=== PATIENT | female | born 1960 | race African-American/Black ===

== ENCOUNTER 2016-07-27 20:26 | Inpatient (IN) | payer OTHER ==
[~2016-07-27] VITALS: Ht 165.1 cm; Wt 74.4 kg
--- NOTE | 2016-07-27 20:30 | NUR ---
To bed 6 a 56 yo female bibra with c/o "abdominal pain with nausea and vomiting since yesterday". Patient is aaox3, no s/s of acute distress. Seen patient vomiting greenish-brownish secretions. Noted patient with surgical wound from "a week ago" on the medial lower abdomen, wound intact with oscar, no s/s of bleeding. Gowned patient. Placed on front desk monitor. Initiated comfort measures. Awaiting for er md calabrese.
--- NOTE | 2016-07-27 20:35 | NUR ---
Started a saline lock on the right wrist g20.
--- NOTE | 2016-07-27 20:58 | NUR ---
Dr Lynne at bedside for eval.
[2016-07-27] MEDS ORDERED: IV NS 0.9% 1,000 ML ONE (21:09)
[2016-07-27] MEDS ORDERED: MORPHINE SULFATE INJ 4 MG/ML DISP.SYRIN ONE (21:09)
[2016-07-27] MEDS ORDERED: ONDANSETRON HCL/PF 4 MG/2 ML VIAL ONE (21:09)
[2016-07-27] MEDS ORDERED: IV SET PRIMARY 1 EA INFUS.SET MC ONE ×2 (21:09→23:03)
--- NOTE | 2016-07-27 21:24 | NUR ---
medicated patient per Dr Lynne's orders.
--- NOTE | 2016-07-27 21:24 | NUR ---
tractor technician at bedside to draw blood.
[2016-07-27] MEDS ORDERED: ONDANSETRON HCL/PF 4 MG/2 ML VIAL IVP ONE (21:30)
[2016-07-27] MEDS ORDERED: IV NS 0.9% 1,000 ML BAG IV ONE (21:30)
[2016-07-27] MEDS ORDERED: MORPHINE SULFATE INJ 2 MG/ML DISP.SYRIN IV ONE (21:30)
--- NOTE | 2016-07-27 21:39 | NUR ---
xr at bedside
--- NOTE | 2016-07-27 21:52 | NUR ---
patient taken to ct
[2016-07-27 22:14] LABS: CALCIUM, SERUM 9.3 mg/dL (8.5-10.1); CARBON DIOXIDE 19 mmol/L (21-32); CHLORIDE 103 mmol/L (98-107); CREATININE 4.3 mg/dL (0.6-1.3); GFR 13 mL/min (>60); GLUCOSE 105 mg/dL (74-106); POTASSIUM 4.8 mmol/L (3.5-5.1); SODIUM SERUM 137 mmol/L (136-145); UREA NITROGEN, BLOOD 11 mg/dL (7-18)
--- NOTE | 2016-07-27 22:24 | NUR ---
per dr chanda pardo goode catheter order.
[2016-07-27 22:27] LABS: ALANINE AMINOTRANSFERASE < 6 U/L (12-78); ALKALINE PHOSPHATASE 108 U/L (46-116); ASPARTATE AMINOTRANSFERASE 20 U/L (15-37); BILIRUBIN,DIRECT 0.1 mg/dL (0.0-0.2); BILIRUBIN,TOTAL 0.5 mg/dL (0.2-1.0); LIPASE 59 U/L (73-393); TOTAL PROTEIN, SERUM 6.1 g/dL (6.4-8.2)
--- NOTE | 2016-07-27 22:58 | NUR ---
PAGED DR RUPESH FLOWERS FOR ADMISSION.
[2016-07-27] MEDS ORDERED: PIPERACILLIN /TAZOBACTAM 3.375 G in IV D5W 50 ML IV ONE (23:00)
[2016-07-27] MEDS ORDERED: PIPERACILLIN /TAZOBACTAM 3.375 G VIAL IV ONE (23:02)
[2016-07-27] MEDS ORDERED: IV D5W 50 ML IV ONE (23:03)
--- NOTE | 2016-07-27 23:12 | NUR ---
Per Dr Valerio "okay to start zosyn IV atb without blood culture results." Patient's temp at this time is 98.9 per oral.
--- NOTE | 2016-07-27 23:22 | NUR ---
Dr Alves at bedside.
[2016-07-27] MEDS ORDERED: MAGNESIUM HYDROXIDE 30 ML UDC PO PRN (23:30)
[2016-07-27] MEDS ORDERED: Z GUARD REMEDY 2 OZ OINT TP PRN (23:30)
[2016-07-27] MEDS ORDERED: ACETAMINOPHEN 325 MG TABLET PO PRN (23:30)
[2016-07-27] MEDS ORDERED: SENN8.6T6 PO (23:31)
[2016-07-27] MEDS ORDERED: METO-306 PO (23:31)
[2016-07-27] MEDS ORDERED: NIFE60TA2 PO (23:31)
[2016-07-27] MEDS ORDERED: FOLI1TAB16 PO (23:31)
[2016-07-27] MEDS ORDERED: INSU100V SQ (23:31)
[2016-07-27] MEDS ORDERED: LACT10SO7 PO (23:31)
[2016-07-27] MEDS ORDERED: HYDR-4076 PO (23:31)
[2016-07-27] MEDS ORDERED: ISOS30TA6 PO (23:31)
[2016-07-28] MEDS ORDERED: MISCELLANEOUS MED 1 EA EA XX ONE ×3
[2016-07-28 00:06] LABS: BASOPHILS # (AUTO) 0.1 /CMM (0.0-0.2); BASOPHILS % (AUTO) 0.7 % (0.0-2.0); HEMATOCRIT 34 % (33-45); HEMOGLOBIN 10.5 g/dL (11.5-14.8); LYMPHOCYTES # (AUTO) 1.1 /CMM (0.8-4.8); LYMPHOCYTES % (AUTO) 7.1 % (20.0-44.0); MEAN CORPUSCULAR HEMOGLOBIN 28 PG (26.0-33.0); MEAN CORPUSCULAR HGB CONC 31 g/dl (31.0-36.0); MEAN CORPUSCULAR VOLUME 89 fL (82-100); MONOCYTES # (AUTO) 0.7 /CMM (0.1-1.30); MONOCYTES % (AUTO) 4.5 % (2.0-12.0); NEUTROPHILS # (AUTO) 13.8 /CMM (1.8-8.9); NEUTROPHILS % (AUTO) 87.7 % (43.0-81.0); PLATELET COUNT (AUTO) 341 /CMM (150-450); RDW COEFFICIENT OF VARIATION 19.4 (11.5-15.0); WHITE BLOOD COUNT (AUTO) 15.8 K/uL (4.3-11.0)
--- NOTE | 2016-07-28 00:11 | NUR ---
Report given to Rowena Charge nurse for admission on room 119-1.
[2016-07-28 00:28] LABS: LACTIC ACID 0.4 mmol/L (0.4-2.0)
[2016-07-28] MEDS ORDERED: MORPHINE SULFATE INJ 2 MG/ML DISP.SYRIN ONE (00:30)
[2016-07-28] MEDS ORDERED: ONDANSETRON HCL/PF 4 MG/2 ML VIAL ONE (00:30)
[2016-07-28] MEDS ORDERED: *INSULIN REGULAR(HUMULIN R)HUM 100 UNIT/ML VIAL SQ PRN (00:30)
[2016-07-28] MEDS ORDERED: INSULIN REGULAR, HUMAN 100 UNIT/ML 3 ML VIAL SQ PRN (00:30)
[2016-07-28] MEDS ORDERED: DEXTROSE 50%-WATER 50 ML DISP.SYRIN IV PRN (00:30)
[2016-07-28] MEDS: ONDANSETRON HCL/PF 4 MG/2 ML VIAL IVP PRN ×4 (00:36→23:57)
[2016-07-28] MEDS: MORPHINE SULFATE INJ 2 MG/ML DISP.SYRIN IV PRN ×3 (00:37→23:57)
--- NOTE | 2016-07-28 01:00 | NUR ---
Non-admin reglan, dilaudid, benadryl. Patient is assigned in tele bed. Dr Valerio is aware.
[2016-07-28 01:25] VITALS: BP 153/81
--- NOTE | 2016-07-28 01:35 | NUR ---
transported to 119-1 under als protocol, Kavya BEASLEY at bedside for eval.
--- NOTE | 2016-07-28 02:23 | NUR ---
TREY/SUPERVISOR SLITTING AND SHIPPING PT WAS RECEIVED FROM ER, VIA DERREKRKB WITH FAMILY. PT IS ALERT X 4. PT IS ON O2 2 LITERS VIA N/C WITH SATURATION 95%. PT IS ON MONITOR, TELEY. PT IS CURRENTLY NPO, BUT COMPLAINING ABOUT NAUSEA. PT HAS A FEW SKIN ISSUES THAT ARE ADDRESSED IN FLOW SHEET, HOWEVER PT IS S/P ABD. SURGERY 1 WEEK AGO WITH 22 GLO TO ABD WITH FINESSE PRESENT TO SURROUNDING AREA. PT HAS CALL LIGHT WITHIN REACH. PT ORT TO ROOM.
[2016-07-28] MEDS ORDERED: diphenhydrAMINE HCL 50 MG/ML VIAL ONE (02:35)
[2016-07-28] MEDS: diphenhydrAMINE HCL 50 MG/ML VIAL IV PRN (02:41)
--- NOTE | 2016-07-28 03:00 | NUR ---
TREY/DIVERSIONAL THERAPIST PT COMPLAIN ABOUT BEING ITCHY, CHARGE NURSE NOTIFIED BECAUSE THERE WAS NOTHING ORDERED FOR THIS. BENADRYL WAS ORDERED AND CHARGE NURSE RECEIVED ORDERED AND GAVE MEDICATION. CALL LIGHT WITHIN REACH.
[2016-07-28 04:00] VITALS: BP 148/79
[2016-07-28 07:00] LABS: BASOPHILS # (AUTO) 0.1 /CMM (0.0-0.2); BASOPHILS % (AUTO) 0.9 % (0.0-2.0); EOSINOPHILS % (AUTO) 0.1 % (0.0-6.0); HEMATOCRIT 32 % (33-45); HEMOGLOBIN 9.9 g/dL (11.5-14.8); LYMPHOCYTES # (AUTO) 1.2 /CMM (0.8-4.8); LYMPHOCYTES % (AUTO) 8.4 % (20.0-44.0); MEAN CORPUSCULAR HEMOGLOBIN 28 PG (26.0-33.0); MEAN CORPUSCULAR HGB CONC 31 g/dl (31.0-36.0); MEAN CORPUSCULAR VOLUME 89 fL (82-100); MONOCYTES # (AUTO) 0.7 /CMM (0.1-1.30); MONOCYTES % (AUTO) 5.1 % (2.0-12.0); NEUTROPHILS % (AUTO) 85.5 % (43.0-81.0); RDW COEFFICIENT OF VARIATION 19.6 (11.5-15.0); WHITE BLOOD COUNT (AUTO) 14.1 K/uL (4.3-11.0)
[2016-07-28 07:09] LABS: ALANINE AMINOTRANSFERASE < 6 U/L (12-78); ALBUMIN 1.9 g/dL (3.4-5.0); ALKALINE PHOSPHATASE 90 U/L (46-116); ASPARTATE AMINOTRANSFERASE 14 U/L (15-37); BILIRUBIN,TOTAL 0.5 mg/dL (0.2-1.0); CALCIUM, SERUM 8.6 mg/dL (8.5-10.1); CARBON DIOXIDE 26 mmol/L (21-32); CHLORIDE 105 mmol/L (98-107); CREATININE 4.6 mg/dL (0.6-1.3); GFR 12 mL/min (>60); GLUCOSE 89 mg/dL (74-106); PHOSPHORUS 3.5 mg/dL (2.5-4.9); POTASSIUM 4.4 mmol/L (3.5-5.1); SODIUM SERUM 142 mmol/L (136-145); TOTAL PROTEIN, SERUM 5.4 g/dL (6.4-8.2); UREA NITROGEN, BLOOD 11 mg/dL (7-18)
[2016-07-28] MEDS ORDERED: PANTOPRAZOLE 40 MG TABLET.DR PO SCH (07:30)
[2016-07-28] MEDS ORDERED: LACTULOSE 10 G/15 ML UDC (PYXIS) PO PRN ×2 (07:54→14:00)
--- NOTE | 2016-07-28 07:54 | NUR ---
INITIAL SURVEY ANALYST NOTE RCVD PT AWAKE AND ALERT SHOWING NO S/O DISTRESS OR C/O PAIN. TOLERATING O2 VIA NC. SR ON TELE HR 87. RIGHT WRIST #20 C/D/I/PATENT. NO C/O INFILTRATION OR PHLEBITIS OBSERVED UPON FLUSHING. ABDOMINAL AREA DRESSING C/D/I.WILL CONTINUE TO MONITOR PT FOR SAFETY AND COMFORT. CALL LIGHT WITHIN REACH. BED IN LOW AND LOCKED POSITION.
[2016-07-28 08:00] VITALS: BP 159/90
[2016-07-28] MEDS: BLOOD SUGAR DIAGNOSTIC 1 EACH STRIP IN SCH ×4 (08:26→22:00)
[2016-07-28] MEDS: FOLIC ACID 1 MG TABLET PO SCH (08:32)
[2016-07-28] MEDS: SENNOSIDES 8.6 MG TABLET PO SCH (08:32)
[2016-07-28] MEDS: MAG HYDROX/AL HYDROX/SIMETH 30 ML UDC PO PRN ×2 (08:33→15:55)
--- NOTE | 2016-07-28 08:44 | NUR ---
RN NOTES PT NAUSEATED THREW UP SMALL AMOUNT OF WHITE EMESIS. MAALOX, ZOFRAN GIVENA S PRN ORDERS FOR NAUSEA. STABLE AT THIS TIME. WILL CONTINUE TO MONITOR.
[2016-07-28 09:00] LABS: PLATELET COUNT (AUTO) 273 /CMM (150-450)
[2016-07-28] MEDS: ISOSORBIDE MONONITRATE (30MG) 30 MG TAB.SR.24H PO SCH (09:00)
[2016-07-28] MEDS: METOPROLOL SUCCINATE 50 MG TAB.SR.24H PO SCH (09:00)
[2016-07-28] MEDS: NIFEdipine XL 60 MG TAB PO SCH (09:00)
[2016-07-28] MEDS: hydrALAZINE HCL 25 MG TABLET PO SCH ×3 (09:00→17:09)
[2016-07-28 09:02] LABS: ANISOCYTOSIS 2+; HYPOCHROMASIA 1+; PLATELET ESTIMATE ADEQU
--- NOTE | 2016-07-28 09:11 | NUR ---
RN NOTE PT VERBALIZED RELIEF OF NAUSEA AT THIS TIME. PROTONIX GIVENAS ORDERED. WILL CONTINUE TO MONITOR
--- NOTE | 2016-07-28 09:45 | NUR ---
FIELD ENUMERATOR NOTE PT'S BP MEDS HELD THIS AM DUE TO DIALYSIS SCHEDULED FOR TODAY. WILL CONTINUE TO MONITOR.
[2016-07-28 12:00] VITALS: BP 161/82
--- NOTE | 2016-07-28 12:18 | NUR ---
COUPLES THERAPIST NOTE DR. JARRETT AT BEDSIDE INFORMED HIM OF PT'S FEELING OF NAUSEA AND GASTRIC INGA. PT C/O CHEST PAIN. REQUESTED TO CHANGE PROTONIC PO TO IV. MD AGREE. ORDER ENTERED.
--- NOTE | 2016-07-28 13:04 | NUR ---
RN NOTE LEFT MID ARM SHUNT ASSESSMET NO BRUITS NO THRILLS PRESENT. BILL DIALYSIS NURSE NOTIFIED SURGEON. PT ON DIALYSIS AT THIS TIME. WILL CONTINUE TO MONITOR
--- NOTE | 2016-07-28 13:49 | NUR ---
RT ABG NOT DONE, PATIENT IS CURRENTLY ON DIALYSIS WITH NO SOB. PATIENT AWAKE AND ALERT SAYS SHES FEELING FINE. RN LESTER AWARE AND AT BEDSIDE. IF PATIENT BECOMES DISTRESS ABG WILL BE DONE
[2016-07-28] MEDS ORDERED: BISACODYL SUPP (10 MG) 10 MG/SUPP.RECT SUPP.RECT RC PRN (14:00)
--- NOTE | 2016-07-28 14:09 | NUR ---
TRANSPORTATION ASSOCIATE NOTE SPOKE WITH DR. MARQUEZ REGARDING PT'S CONDITION. INFORMED HIM THAT PHARMACIST BELIEVED THAT PT NEEDS ABX. NO ORDERS RCVD. INFORMED HIM ABOUT PT'S , ABD PAIN, N/V COMPLAINTS AND SEROMA FOUND IN CT ABD/PELVIS. HE ACKNOWLEDGED AND ASSESSED PT. NO NEW ORDERS RCVD.
--- NOTE | 2016-07-28 14:38 | NUR ---
RN NOTES DIALYSIS DONE 3L OF FLUIDS OUT. T. 98.5 R. 18 BP 143/51 P. 86 COMFORTABLE POST DIALYSIS. VS STABLE .
[2016-07-28 16:00] VITALS: BP_SYST 135; BP_SYST 92; BP_DIAS 48; BP_DIAS 79
[2016-07-28] MEDS: HEPARIN SODIUM, PORCINE 5000 UNITS/1 ML VIAL SQ SCH (17:11)
--- NOTE | 2016-07-28 18:43 | NUR ---
RN NOTE PT VS STABLE. BLADDER SCAN DONE WITH LESS THAN 200ML RESIDUAL. DIALYSIS DONE WITH 3L FLUID REMOVAL. DENIES N/V AT THIS TIME. MOM GIVEN PRN WITH RELIEF OF SYMPTOMS. IV SITE RT. WRIST DRY AND INTACT. LEFT FA SHUNT NO THRILLS, NO BRUITS. MD NOTIFIED. STARTED ON HEPARIN 5000U THERAPY BID. SCDS APPLIED BILAT TO PROMOTE CIRCULATION GENERALIZED EDEMA. IMPROVED POST DIALYIS. WILL ENDORSE PT CARE TO ONCOMING RN
[2016-07-28 20:00] VITALS: BP 122/68
[2016-07-29] VITALS (7 sets, daily range): BP systolic 116–167; BP diastolic 64–97
[2016-07-29] MEDS: ONDANSETRON HCL/PF 4 MG/2 ML VIAL IVP PRN ×4 (03:12→20:30)
[2016-07-29] MEDS: MAG HYDROX/AL HYDROX/SIMETH 30 ML UDC PO PRN (03:22)
[2016-07-29] MEDS: diphenhydrAMINE HCL 50 MG/ML VIAL IV PRN ×2 (03:43→13:23)
[2016-07-29] MEDS: MORPHINE SULFATE INJ 2 MG/ML DISP.SYRIN IV PRN ×5 (04:18→20:26)
--- NOTE | 2016-07-29 06:00 | NUR ---
CHASSIS ENGINEER - REC'D PT. S/P HYSTERECTOMY W/STAPES TO ABD. OPEN TO AIR & INTACT. ZOFRAN 4MG ADM. FOR N&V AT 23:57, MORPHINE SULFATE 2MG IVP ADM. MN & O4:OO. PT'S ONLY PIV BLEW. TOY ASSEMBLER ELSA RESTARTED A 24G-TO RT. THUMB. PATENT TO FLUSH. PT.THEN REC'D BENADRYL 25 MG SLOW IVP AT 03:40 FOR PRURITIS. MAALOX ADM. AT 4AM BY TOY ASSEMBLER. PT. STILL DID NOT SLEEP AT ALL FOR DURATION OF NIGHTSHIFT. REPORT ENDORSED TO MATT BEASLEY.
[2016-07-29] MEDS: HYDROCODONE/APAP 5/325MG 1 EACH TABLET PO PRN (06:37)
[2016-07-29 07:06] LABS: CREATININE 3.9 mg/dL (0.6-1.3); PHOSPHORUS 2.3 mg/dL (2.5-4.9); POTASSIUM 4.1 mmol/L (3.5-5.1)
[2016-07-29 07:14] LABS: BASOPHILS # (AUTO) 0.1 /CMM (0.0-0.2); BASOPHILS % (AUTO) 0.5 % (0.0-2.0); EOSINOPHILS # (AUTO) 0.1 /CMM (0.0-0.7); EOSINOPHILS % (AUTO) 1.2 % (0.0-6.0); HEMATOCRIT 30 % (33-45); HEMOGLOBIN 9.4 g/dL (11.5-14.8); LYMPHOCYTES # (AUTO) 0.9 /CMM (0.8-4.8); LYMPHOCYTES % (AUTO) 8.9 % (20.0-44.0); MEAN CORPUSCULAR HEMOGLOBIN 28 PG (26.0-33.0); MEAN CORPUSCULAR HGB CONC 31 g/dl (31.0-36.0); MEAN CORPUSCULAR VOLUME 89 fL (82-100); MONOCYTES # (AUTO) 0.7 /CMM (0.1-1.30); MONOCYTES % (AUTO) 6.5 % (2.0-12.0); NEUTROPHILS # (AUTO) 8.7 /CMM (1.8-8.9); NEUTROPHILS % (AUTO) 82.9 % (43.0-81.0); PLATELET COUNT (AUTO) 232 /CMM (150-450); RDW COEFFICIENT OF VARIATION 19.3 (11.5-15.0); RED BLOOD CELL COUNT(AUTO) 3.42 MIL/uL (4.0-5.2); WHITE BLOOD COUNT (AUTO) 10.5 K/uL (4.3-11.0)
--- NOTE | 2016-07-29 08:00 | NUR ---
telecommunication operator note patient in bed , all needs attended , plan of care discussed with patient, vall light within reach ,c\o pain general in body, morphine and Zofran iv given as ordered, sat 98% ,with clear liquid diet as ordered , rt thump hl intact ,no s\s infection noted , rt cw hd cath intact ,with both legs with dvr pumps ,will cont to monitor closely ,no sob noted Addendum: 07/29/16 at 1813 by MATT BAKER RN call light within reach
[2016-07-29] MEDS: BLOOD SUGAR DIAGNOSTIC 1 EACH STRIP IN SCH ×4 (08:13→21:50)
[2016-07-29] MEDS: METOPROLOL SUCCINATE 50 MG TAB.SR.24H PO SCH (09:00)
[2016-07-29] MEDS: hydrALAZINE HCL 25 MG TABLET PO SCH ×3 (09:00→16:25)
[2016-07-29] MEDS: NIFEdipine XL 60 MG TAB PO SCH (09:00)
[2016-07-29] MEDS ORDERED: SENNOSIDES/DOCUSATE SODIUM 1 TAB TABLET PO SCH (09:00)
[2016-07-29] MEDS: HEPARIN SODIUM, PORCINE 5000 UNITS/1 ML VIAL SQ SCH ×2 (09:00→21:00)
[2016-07-29] MEDS: FOLIC ACID 1 MG TABLET PO SCH (09:00)
[2016-07-29] MEDS: SENNOSIDES 8.6 MG TABLET PO SCH ×2 (09:20→10:26)
[2016-07-29] MEDS: PANTOPRAZOLE 40 MG TABLET.DR PO SCH (09:21)
[2016-07-29] MEDS: ISOSORBIDE MONONITRATE (30MG) 30 MG TAB.SR.24H PO SCH (09:22)
--- NOTE | 2016-07-29 09:32 | NUR ---
television news photographer note refused po morning meds emplaned how importance, still refused , will notifyed to Addendum: 07/29/16 at 1815 by MATT BAKER RN explained importance of meds
--- NOTE | 2016-07-29 12:22 | NUR ---
JENNY BEASLEY NOTE REFUSED BP MEDS AT THI TIME APRESOLINE EMPLANED OF IMPORTANCE STILL REFUSED, WILL KHADIJAH Addendum: 07/29/16 at 1817 by MATT BAKER RN refused bp meds at this time , Apresoline , explained of importance , still refused, will monitor
--- NOTE | 2016-07-29 13:27 | NUR ---
YOUTH WORKER NOTE CALLED TO KIMMIE العراقي DNP ,NOTIFIED THAT PATIENT REFUSED MOST OF HER MEDICATION , ALSO NOTIFIED THAT PATIENT STILL C\O OF HEARD OF SWALLOW, OK TO ORDER SWALLOW EVAL , NOTIFIED THAT X RAY RESULT STILL PENDING.PATIENT C\O OF ITCHINESS, ON HD AT THIS TIME , BENADRYL 25 MG IVP GIVEN ORDERED, WILL F\U
--- NOTE | 2016-07-29 14:52 | NUR ---
ELECTRICAL DISCHARGE MACHINE OPERATOR NOTE HD COMPLETED 2300 ML FLUIDS REMOVED , C\O NAUSEA ZOFRAN 4 MG IV GIVEN ORDERED
--- NOTE | 2016-07-29 15:00 | NUR ---
MERCHANDISE CARRIER NOTE SEEN BY PT ,ABLE TO DO SOME EXERCISES IN BED , REFUSED TO GET OUT OF BED
--- NOTE | 2016-07-29 17:33 | NUR ---
telephone operator note blood sugar 89 mg\ dl ,no coverage with insulin, morphine 2mg ivp given as ordered for pain 8\10scale for general pain in body ,sat 98% also seen bu dr waterman ordered ct chest with thoracentesis, patient refused to sign consent ,stated that will do tomorrow
--- NOTE | 2016-07-29 18:18 | NUR ---
MARRIAGE AND FAMILY THERAPIST NOTE HAVING DINNER , ABLE TO EAT SELF,NOT IN ACUTE DISTRESS
[2016-07-29 18:53] LABS: INR 1.22 (0.87-1.13); PROTHROMBIN TIME 13.2 SECS (9.5-12.7)
--- NOTE | 2016-07-29 19:30 | NUR ---
REGASIFICATION PLANT OPERATOR OPENING NOTES: PATIENT IN BED, AOX4, ON O2 AT 2 LPM VIA NC. BREATHING EVEN AND UNLABORED AT THIS TIME. BREATH SOUNDS CLEAR AT UPPER LUNG [place], DIMINISHED OVER BASES. ON TELE MONITORING WITH SINUS RHYTHM AT RATE OF 90S. PATIENT STATES THAT SHE HAS ABDOMINAL AND GENERALIZED PAIN SCALED AT 8/10. REASSURED PATIENT AND EXPLAINED SCHEDULE OF PAIN MEDICATION. PATIENT HAS RCW HD CATHETER WITH CLEAN INTACT DRESSING. PIV OVER RFA G 22 INTACT AND PATENT TO FLUSH. PROVIDED FOR COMFORT AND SAFETY. ADVISED ON NPO POST MIDNIGHT. WILL CONT TO MONITOR.
--- NOTE | 2016-07-29 20:30 | NUR ---
RN NOTES: PATIENT'S BP WAS 164/97, HR: 92. INFORMED DR FLOWERS, PATIENT DOES NOT HAVE PRN MEDICATION. ORDER FOR PRN APRESOLINE 10 MG PO PRN FOR SBP >160 MMHG WAS GIVEN BY . ORDER CARRIED OUT, BUT MORPHINE WILL BE GIVEN, WILL RECHECK BP AFTER MORPHINE. WILL CONT TO MONITOR.
--- NOTE | 2016-07-29 20:34 | NUR ---
RN NOTES: PATIENT COMPLAINED OF 8/10 LOWER BACK AND GENERALIZED PAIN. PATIENT WAS ALSO NOTED TO BE NAUSEOUS. HOB KEPT ELEVATED. ADMINISTERED ZOFRAN 4 MG IV THEN MORPHINE 2 MG IV. WILL CONT TO MONITOR.
[2016-07-29] MEDS ORDERED: hydrALAZINE HCL 10 MG TABLET PO PRN (21:00)
--- NOTE | 2016-07-29 21:00 | NUR ---
RN NOTES: PER DR FLOWERS, OK TO HOLD HEPARIN 5000 UNITS SQ THAT IS SCHEDULED FOR TONIGHT IN ANTICIPATION OF THORACENTESIS TOMORROW.
[2016-07-30] VITALS (9 sets, daily range): BP systolic 92–159; BP diastolic 52–95
[2016-07-30] MEDS: MORPHINE SULFATE INJ 2 MG/ML DISP.SYRIN IV PRN ×5 (02:34→22:03)
[2016-07-30] MEDS: ONDANSETRON HCL/PF 4 MG/2 ML VIAL IVP PRN ×4 (02:42→22:03)
[2016-07-30] MEDS: diphenhydrAMINE HCL 50 MG/ML VIAL IV PRN ×4 (03:35→21:20)
--- NOTE | 2016-07-30 05:27 | NUR ---
RN NOTES: D/W PATIENT HER CONSENT FOR THORACENTESIS, PER PATIENT, SHE WILL NOT SIGN ANY CONSENT FOR TODAY, SHE WANTS TO HAVE THE PROCEDURE DONE POSSIBLY TOMORROW, FARRAH.
[2016-07-30] MEDS: BLOOD SUGAR DIAGNOSTIC 1 EACH STRIP IN SCH ×4 (06:34→21:19)
[2016-07-30 06:44] LABS: BASOPHILS % (AUTO) 0.1 % (0.0-2.0); EOSINOPHILS # (AUTO) 0.2 /CMM (0.0-0.7); EOSINOPHILS % (AUTO) 1.8 % (0.0-6.0); HEMATOCRIT 31 % (33-45); HEMOGLOBIN 9.5 g/dL (11.5-14.8); LYMPHOCYTES # (AUTO) 0.8 /CMM (0.8-4.8); LYMPHOCYTES % (AUTO) 9.4 % (20.0-44.0); MEAN CORPUSCULAR HEMOGLOBIN 27 PG (26.0-33.0); MEAN CORPUSCULAR HGB CONC 31 g/dl (31.0-36.0); MEAN CORPUSCULAR VOLUME 89 fL (82-100); MONOCYTES # (AUTO) 0.7 /CMM (0.1-1.30); MONOCYTES % (AUTO) 7.9 % (2.0-12.0); NEUTROPHILS % (AUTO) 80.8 % (43.0-81.0); PLATELET COUNT (AUTO) 225 /CMM (150-450); RDW COEFFICIENT OF VARIATION 18.9 (11.5-15.0); RED BLOOD CELL COUNT(AUTO) 3.48 MIL/uL (4.0-5.2); WHITE BLOOD COUNT (AUTO) 8.7 K/uL (4.3-11.0)
--- NOTE | 2016-07-30 06:50 | NUR ---
NURSE CLOSING NOTES: PATIENT IN BED, AOX4, ON O2 AT 2 LPM VIA NC. BREATHING EVEN AND UNLABORED. ON TELE MONITORING WITH SINUS RHYTHM AT RATE OF 90S. APPEARS CALM AND IN NO DISTRESS. STATES THAT SHE STILL HAS GENERALIZED PAIN SCALED AT 6/10. PIV OVER RFA G 22 INTACT AND PATENT TO FLUSH. DUE MEDS GIVEN. PROVIDED FOR COMFORT AND SAFETY. BLOOD SUGAR CHECKED AT 74 MG/DL. NO ACUTE CHANGE IN CONDITION NOTED THROUGH SHIFT. WILL ENDORSE TO AM RN FOR HAILE.
[2016-07-30 07:09] LABS: ALANINE AMINOTRANSFERASE < 6 U/L (12-78); ALBUMIN 1.9 g/dL (3.4-5.0); ALKALINE PHOSPHATASE 93 U/L (46-116); ASPARTATE AMINOTRANSFERASE 12 U/L (15-37); BILIRUBIN,TOTAL 0.4 mg/dL (0.2-1.0); CALCIUM, SERUM 7.8 mg/dL (8.5-10.1); CARBON DIOXIDE 30 mmol/L (21-32); CHLORIDE 102 mmol/L (98-107); CREATININE 4.2 mg/dL (0.6-1.3); GFR 13 mL/min (>60); GLUCOSE 73 mg/dL (74-106); MAGNESIUM 2.1 mg/dL (1.8-2.4); PHOSPHORUS 2.1 mg/dL (2.5-4.9); POTASSIUM 3.9 mmol/L (3.5-5.1); SODIUM SERUM 139 mmol/L (136-145); TOTAL PROTEIN, SERUM 5.2 g/dL (6.4-8.2); UREA NITROGEN, BLOOD 9 mg/dL (7-18)
--- NOTE | 2016-07-30 07:20 | NUR ---
RN INITIAL NOTES PT IS IN BED, HOB ELEVATED AT 35 DEGREES. SIDERAILS X3, A/O X4, REORIENT PT TO ROOM, PT IS ON 2L NS AND LUIS ANGEL IT WELL, IV SITES IS PATENT, NO SIGNS AND SYMPTOMS OF INFECTION OR INFILTRATION. SAFETY MEASURES MAINTAINED CALL LIGHTS WITHIN REACH.
--- NOTE | 2016-07-30 08:00 | NUR ---
RN NOTES; Patient noted PL6/10 PS, offered [place]orn but refused, stated she will just wait for her Morphine dose to be given.
[2016-07-30] MEDS: NIFEdipine XL 60 MG TAB PO SCH (08:44)
[2016-07-30] MEDS: HEPARIN SODIUM, PORCINE 5000 UNITS/1 ML VIAL SQ SCH ×2 (08:45→16:18)
[2016-07-30] MEDS: METOPROLOL SUCCINATE 50 MG TAB.SR.24H PO SCH (08:46)
[2016-07-30] MEDS: FOLIC ACID 1 MG TABLET PO SCH (08:46)
[2016-07-30] MEDS: SENNOSIDES 8.6 MG TABLET PO SCH (08:46)
[2016-07-30] MEDS: ISOSORBIDE MONONITRATE (30MG) 30 MG TAB.SR.24H PO SCH (08:47)
[2016-07-30] MEDS: PANTOPRAZOLE 40 MG TABLET.DR PO SCH (08:47)
[2016-07-30] MEDS: hydrALAZINE HCL 25 MG TABLET PO SCH ×3 (08:47→17:00)
--- NOTE | 2016-07-30 16:02 | NUR ---
Rn NOTES: Seen and examined by Dr. Kohli today with NNO. Spoke with patient at this time, offered consent for Robe Guided Thoracentesis, she agreed to do it in am, consent up and verbalized understanding of procedure. As per Dr. Gutierrez to hold Heparin Pm and tomorrows dose for procedure in am. ROBE Ernestina Malik noted for procedure in am.
--- NOTE | 2016-07-30 19:00 | NUR ---
RN INITIAL NOTES: PATIENT IN BED, AOX4, ON O2 AT 2 LPM VIA NC. PATIENT STATES THAT SHE HAS ABDOMINAL AND GENERALIZED PAIN SCALED AT 7/10. WILL GIVE PRN OF NORCO PER MD ORDER. PATIENT HAS RCW HD CATHETER WITH CLEAN INTACT DRESSING. PIV OVER RFA G 22 INTACT AND PATENT TO FLUSH. PT SCHEDULED FOR THORACENTESIS 07/31, PT IS NPO AT 0000 07/31/16. CALL LIGHT IS WITHIN REACH. WILL CONTINUE TO MONITOR PT.
--- NOTE | 2016-07-30 19:31 | NUR ---
RN CLOSING NOTES PT IS IN BED, NO SIGNS AND SYMPTOMS OF DISTRESS NOTED, PT IS ON 2L NC, NO RESPIRATORY DISTRESS NOTED. PT WAS ASSISTED WITH TURNING AND REPOSITIONING, IV SITES PATENT, NO SIGNS AND SYMPTOMS OF INFECTION/INFILTRATION NOTED, ALL MEDICATIONS GIVEN AND PT TOLERATED IT WELL. SAFETY MEASURES MAINTAINED, CALL LIGHTS WITHIN REACH. ENDORSED TO THE NIGHT NURSE
[2016-07-30] MEDS: HYDROCODONE/APAP 5/325MG 1 EACH TABLET PO PRN (20:22)
[2016-07-30] MEDS: ZOLPIDEM TARTRATE 5 MG TABLET PO PRN (23:28)
--- NOTE | 2016-07-31 | NUR ---
PT IS NPO PENDING SURGERY THIS AM. PT SHOWS NO S/S OF DISCOMFORT OR DISTRESS. WILL CONTINUE TO EDUCATE AND UPDATE PT ON UPCOMING PROCEDURE.
[2016-07-31] MEDS: MORPHINE SULFATE INJ 2 MG/ML DISP.SYRIN IV PRN ×5 (03:37→20:41)
[2016-07-31 04:00] VITALS: BP 106/70
[2016-07-31] MEDS: ONDANSETRON HCL/PF 4 MG/2 ML VIAL IVP PRN ×3 (04:15→17:56)
[2016-07-31] MEDS ORDERED: BISACODYL SUPP (10 MG) 10 MG/SUPP.RECT SUPP.RECT RC PRN (06:30)
[2016-07-31] MEDS: BLOOD SUGAR DIAGNOSTIC 1 EACH STRIP IN SCH ×4 (06:32→21:50)
[2016-07-31 06:43] LABS: BASOPHILS % (AUTO) 0.2 % (0.0-2.0); EOSINOPHILS # (AUTO) 0.1 /CMM (0.0-0.7); EOSINOPHILS % (AUTO) 1.9 % (0.0-6.0); HEMATOCRIT 29 % (33-45); HEMOGLOBIN 9.2 g/dL (11.5-14.8); LYMPHOCYTES % (AUTO) 17.1 % (20.0-44.0); MEAN CORPUSCULAR HEMOGLOBIN 28 PG (26.0-33.0); MEAN CORPUSCULAR HGB CONC 31 g/dl (31.0-36.0); MEAN CORPUSCULAR VOLUME 89 fL (82-100); MONOCYTES # (AUTO) 0.6 /CMM (0.1-1.30); MONOCYTES % (AUTO) 9.5 % (2.0-12.0); NEUTROPHILS # (AUTO) 4.3 /CMM (1.8-8.9); NEUTROPHILS % (AUTO) 71.3 % (43.0-81.0); PLATELET COUNT (AUTO) 246 /CMM (150-450); RDW COEFFICIENT OF VARIATION 18.8 (11.5-15.0); RED BLOOD CELL COUNT(AUTO) 3.29 MIL/uL (4.0-5.2)
--- NOTE | 2016-07-31 06:53 | NUR ---
RN CLOSING NOTES PT IS IN BED, NO SIGNS AND SYMPTOMS OF DISTRESS NOTED, PT IS ON 2L NC, NO RESPIRATORY DISTRESS NOTED. PT WAS ASSISTED WITH TURNING AND REPOSITIONING, IV SITES PATENT, NO SIGNS AND SYMPTOMS OF INFECTION/INFILTRATION NOTED, ALL MEDICATIONS GIVEN AND PT TOLERATED IT WELL. SAFETY MEASURES MAINTAINED, CALL LIGHTS WITHIN REACH. ENDORSED TO AM SHIFT.
[2016-07-31 07:03] LABS: CALCIUM, SERUM 7.8 mg/dL (8.5-10.1); MAGNESIUM 2.2 mg/dL (1.8-2.4); PHOSPHORUS 2.4 mg/dL (2.5-4.9); POTASSIUM 4.4 mmol/L (3.5-5.1)
[2016-07-31] MEDS: diphenhydrAMINE HCL 50 MG/ML VIAL IV PRN ×2 (07:59→20:51)
[2016-07-31 08:00] VITALS: BP 109/63
[2016-07-31] MEDS: hydrALAZINE HCL 25 MG TABLET PO SCH ×3 (08:13→16:29)
[2016-07-31] MEDS: ISOSORBIDE MONONITRATE (30MG) 30 MG TAB.SR.24H PO SCH (08:14)
[2016-07-31] MEDS: NIFEdipine XL 60 MG TAB PO SCH (08:14)
[2016-07-31] MEDS: FOLIC ACID 1 MG TABLET PO SCH (08:14)
[2016-07-31] MEDS: PANTOPRAZOLE 40 MG TABLET.DR PO SCH (08:15)
[2016-07-31] MEDS: SENNOSIDES 8.6 MG TABLET PO SCH (08:17)
[2016-07-31] MEDS: METOPROLOL SUCCINATE 50 MG TAB.SR.24H PO SCH (08:17)
[2016-07-31] MEDS: HEPARIN SODIUM, PORCINE 5000 UNITS/1 ML VIAL SQ SCH ×2 (08:18→20:46)
--- NOTE | 2016-07-31 09:30 | NUR ---
RN NOTES RECIEVED PT ON BED, A/Ox4, RESPIRATION EVEN AND UNLABORED , NPO AT THIS TIME, NO DISTRESS NOTED, CONTINUE MONITOR
--- NOTE | 2016-07-31 10:06 | NUR ---
RN NOTES: Report given to [facility] for continuity of care. Seen and examined by Dr. Ha with orders noted and carried out, as per MD rosado to resume Heparin injection post procedure and to order g/s, s/c and Cytology fluid post CANDIDA thoracentesis.
--- NOTE | 2016-07-31 15:00 | NUR ---
RN NOTES PT STABLE , THORACENTESES DONE AT THE BEDSIDE , PT TOLERATED WELL, FLUID SENT TO LAB FOR ANALYSES. VSS STABLE .
[2016-07-31 16:00] VITALS: BP 125/76
--- NOTE | 2016-07-31 16:00 | NUR ---
RN NOTES PT REFUSED TO HAVE DIAPER CHANGE .
[2016-07-31 16:20] LABS: GLUCOSE,BODY FLUID 76 mg/dL; PROTEIN, BODY FLUID 2.4 G/DL
[2016-07-31 18:18] LABS: TOTAL VOLUME,BODY FLUID 700 mL; WBC, BODY FLUID 92 /cu. mm. (0-200)
[2016-07-31 18:19] LABS: MONOCYTES,BODY FLUID 2 %; POLYNUCLEAR, BODY FLUID 8 % (0-25)
--- NOTE | 2016-07-31 18:22 | NUR ---
RN NOTS PT AT REST , MEDICATED PER MD ORDER , RESPIRATION EVEN AND UNLABORED , LENNY ANY DISTRESS, NO SIGNIFICANT CHANGES NOTED ON THIS SHIFT .
--- NOTE | 2016-07-31 18:30 | NUR ---
RN NOTES PT REFUSED TO HAVE HER DIAPER CHANGE , EXPLAINED TO PT HOW IMPORTANT IS TO KEEP SKIN CDI, PT STILL REFUSING.
[2016-07-31] MEDS ORDERED: K PHOS NEUTRAL 250 MG TABLET PO ONE (19:00)
[2016-07-31 20:00] VITALS: BP 129/76
--- NOTE | 2016-07-31 20:00 | NUR ---
MS1/RN RECEIVE PATIENT AWAKE, ALERT, ORIENTED, NO DISTRESS NOTED, CALL LIGHT IN REACH. WILL MONITOR.
[2016-07-31] MEDS: ZOLPIDEM TARTRATE 5 MG TABLET PO PRN (21:50)
[2016-08-01] MEDS: MORPHINE SULFATE INJ 2 MG/ML DISP.SYRIN IV PRN ×3 (01:03→12:50)
[2016-08-01] MEDS: ONDANSETRON HCL/PF 4 MG/2 ML VIAL IVP PRN ×3 (01:06→14:53)
--- NOTE | 2016-08-01 02:12 | NUR ---
MS1/RN PATIENT IS SLEEPING AT THIS TIME, AROUSABLE, APPEAR COMFORTABLE, NO SIGNS OF DISTGRESS NOTED, CALL LIGHT IN REACH, WILL CONTINUE TO MONITOR.
[2016-08-01 04:00] VITALS: BP 126/69
--- NOTE | 2016-08-01 06:33 | NUR ---
MS1/RN AWAKE, COMFORTABLE, NO DISTRESS NOTED, NO S/S OF HYPOGLYCEMIA, BLOOD SUGAR = 88. ALL NEEDS ATTENDED AT THIS TIME. WILL CONTINUE TO MONITOR.
[2016-08-01 07:13] LABS: CALCIUM, SERUM 7.9 mg/dL (8.5-10.1); CREATININE 4.8 mg/dL (0.6-1.3); POTASSIUM 4.2 mmol/L (3.5-5.1)
[2016-08-01] MEDS: BLOOD SUGAR DIAGNOSTIC 1 EACH STRIP IN SCH ×2 (07:46→11:50)
[2016-08-01 08:00] VITALS: BP 133/81
[2016-08-01] MEDS: SENNOSIDES 8.6 MG TABLET PO SCH (08:13)
[2016-08-01] MEDS: ISOSORBIDE MONONITRATE (30MG) 30 MG TAB.SR.24H PO SCH (08:13)
[2016-08-01] MEDS: PANTOPRAZOLE 40 MG TABLET.DR PO SCH (08:13)
[2016-08-01] MEDS: FOLIC ACID 1 MG TABLET PO SCH (08:13)
[2016-08-01] MEDS: NIFEdipine XL 60 MG TAB PO SCH (08:13)
[2016-08-01] MEDS: METOPROLOL SUCCINATE 50 MG TAB.SR.24H PO SCH (08:14)
[2016-08-01] MEDS: hydrALAZINE HCL 25 MG TABLET PO SCH ×2 (08:14→12:03)
--- NOTE | 2016-08-01 09:00 | NUR ---
MS RN NOTE Pt resting in bed. AOx4, c/o nausea and abd pain, morphine x1, zofran x1 given. Benadryl x1 given for itchiness. Reports no BM since 07/27/16. Offered milk of magnesia but pt refused. Pt reports having gas. Uriel CDI, left [employer]. Left shunt present. Right forearm IV patent. Will cont to monitor.
[2016-08-01] MEDS: diphenhydrAMINE HCL 50 MG/ML VIAL IV PRN (09:20)
[2016-08-01] MEDS: HEPARIN SODIUM, PORCINE 5000 UNITS/1 ML VIAL SQ SCH (09:30)
[2016-08-01 12:03] VITALS: BP 118/69
[2016-08-01] MEDS ORDERED: Heparin Sodium,Porcine SQ (13:11)
[2016-08-01] MEDS: HYDROCODONE/APAP 5/325MG 1 EACH TABLET PO PRN (15:13)
--- NOTE | 2016-08-01 15:27 | NUR ---
DISCHARGE NOTE Pt stable for discharge, went over instructions with pt. Called SNF for report, ok'd by receiving RN to remove IV. Armando and angie given. Will discharge with ambulance. Addendum: 08/01/16 at 1529 by DEMOND HERRERA RN Pt has not had BM since 07/27/16, and receiving RN aware. Encouraged pt to take stool softeners at [facility].
== END 2016-08-01 15:30 | DRG 813 ==
LOC: ER 20:32 → TELE1 23:33 → MEDSG1 07-30 08:49
PROVIDERS: ADMIT Family Medicine; ATTEND Family Medicine
PROC: 5A1D60Z (ICD-10-PCS; principal; 2016-07-28)
DX: L76.34 Postprocedural seroma of skin and subcutaneous tissue following other procedure (principal); I13.2 Hypertensive heart and chronic kidney disease with heart failure and with stage 5 chronic kidney disease, or end stage renal disease; N18.6 End stage renal disease; E11.22 Type 2 diabetes mellitus with diabetic chronic kidney disease; D68.59 Other primary thrombophilia; T82.818A Embolism due to vascular prosthetic devices, implants and grafts, initial encounter; E44.0 Moderate protein-calorie malnutrition; K56.7 Ileus, unspecified; G62.9 Polyneuropathy, unspecified; Z99.2 Dependence on renal dialysis; D64.9 Anemia, unspecified; I50.9 Heart failure, unspecified; Z90.710 Acquired absence of both cervix and uterus; Y83.8 Other surgical procedures as the cause of abnormal reaction of the patient, or of later complication, without mention of misadventure at the time of the procedure; Z68.27 Body mass index [BMI] 27.0-27.9, adult; D72.829 Elevated white blood cell count, unspecified; I70.0 Atherosclerosis of aorta; J98.11 Atelectasis; K57.30 Diverticulosis of large intestine without perforation or abscess without bleeding; K80.20 Calculus of gallbladder without cholecystitis without obstruction; M51.37 Other intervertebral disc degeneration, lumbosacral region; Y83.2 Surgical operation with anastomosis, bypass or graft as the cause of abnormal reaction of the patient, or of later complication, without mention of misadventure at the time of the procedure
CPT/HCPCS: 36415; 71010-TC; 74000-TC; 76942-TC; 80048-TC; 80053-TC; 80076-TC; 82962-TC; 83605-TC; 83690-TC; 83735-TC; 84100-TC; 85025-TC; 85610-TC; 85730-TC; 87040-TC; 87070-TC; 87081-TC; 87116; 87206; 88305-TC; 88312-TC; 89051-TC; 90935-TC; 92611-TC; 94799-TC; 97001-TC; A4606; A6253; A6402; J1200; J1644; J1815; J2270; J2405; J2543; J7030; J7060; Z7610

== ENCOUNTER 2016-08-10 15:46 | Inpatient (IN) | payer OTHER ==
[~2016-08-10] VITALS: Ht 170.2 cm; Wt 64.4 kg
[~2016-08-10 15:46] MED LIST: FOLI1TAB16 PO; HYDR-4076 PO; Heparin Sodium,Porcine SQ; INSU100V SQ; ISOS30TA6 PO; LACT10SO7 PO; METO-306 PO; NIFE60TA2 PO; SENN8.6T6 PO
--- NOTE | 2016-08-10 15:59 | NUR ---
PT BIB RA C/O MID-CHESP PAIN 10/10 TIGHTNESS AND BURNING IN CHARACTER X4 HRS ACADEMY EDUCATION DIRECTOR WITH ASSOCIATED N/V. RESP EVEN UNLABORED BUT SOMEWHAT SHALLOW AND HYPOXIC. PLACED ON 2LPM VIA NC. SKIN WARM NONDIAPHORETIC. PT REPEATEDLY ASKING FOR BLANKET AND PILLOWS; DOES NOT APPEAR TO BE IN SEVERE PAIN REPORTED. RECEIVED 0.4MG NITRO SL ACADEMY EDUCATION DIRECTOR WITH NO RELIEF. RECEIVED ASA 162 AT FACILITY ACADEMY EDUCATION DIRECTOR. IN ER BD 10 ON MONITOR.
[2016-08-10] MEDS ORDERED: ASPIRIN 325 MG TABLET PO ONE (16:00)
[2016-08-10] MEDS ORDERED: ASPIRIN 81 MG TAB.CHEW ONE (16:02)
--- NOTE | 2016-08-10 16:08 | NUR ---
MOTOR POWER CONNECTOR AT BEDSIDE FOR BLOOD DRAW
[2016-08-10] MEDS ORDERED: BISA10SU8 RC (16:17)
[2016-08-10] MEDS ORDERED: METO-302 PO (16:17)
[2016-08-10] MEDS ORDERED: ACET-868 PO (16:17)
[2016-08-10] MEDS ORDERED: NA P133E RC (16:17)
[2016-08-10] MEDS ORDERED: MAGN400O6 PO (16:17)
[2016-08-10] MEDS ORDERED: INSU100V27 SQ (16:17)
[2016-08-10] MEDS ORDERED: BLOO-668 IN (16:17)
[2016-08-10 16:26] LABS: BASOPHILS # (AUTO) 0.2 /CMM (0.0-0.2); BASOPHILS % (AUTO) 1.2 % (0.0-2.0); EOSINOPHILS # (AUTO) 0.1 /CMM (0.0-0.7); EOSINOPHILS % (AUTO) 0.7 % (0.0-6.0); HEMATOCRIT 35 % (33-45); HEMOGLOBIN 11.1 g/dL (11.5-14.8); LYMPHOCYTES # (AUTO) 1.4 /CMM (0.8-4.8); LYMPHOCYTES % (AUTO) 9.7 % (20.0-44.0); MEAN CORPUSCULAR HEMOGLOBIN 27 PG (26.0-33.0); MEAN CORPUSCULAR HGB CONC 31 g/dl (31.0-36.0); MEAN CORPUSCULAR VOLUME 85 fL (82-100); MONOCYTES # (AUTO) 0.7 /CMM (0.1-1.30); MONOCYTES % (AUTO) 4.5 % (2.0-12.0); NEUTROPHILS # (AUTO) 12.3 /CMM (1.8-8.9); NEUTROPHILS % (AUTO) 83.9 % (43.0-81.0); PLATELET COUNT (AUTO) 413 /CMM (150-450); RDW COEFFICIENT OF VARIATION 17.5 (11.5-15.0); RED BLOOD CELL COUNT(AUTO) 4.14 MIL/uL (4.0-5.2); WHITE BLOOD COUNT (AUTO) 14.7 K/uL (4.3-11.0)
[2016-08-10] MEDS ORDERED: METOCLOPRAMIDE HCL 10 MG/2 ML VIAL ONE (16:29)
[2016-08-10] MEDS ORDERED: METOCLOPRAMIDE HCL 10 MG/2 ML VIAL IV ONE (16:30)
[2016-08-10 16:36] LABS: CALCIUM, SERUM 9.2 mg/dL (8.5-10.1); CARBON DIOXIDE 28 mmol/L (21-32); CHLORIDE 104 mmol/L (98-107); GFR 19 mL/min (>60); GLUCOSE 167 mg/dL (74-106); POTASSIUM 3.8 mmol/L (3.5-5.1); SODIUM SERUM 136 mmol/L (136-145); UREA NITROGEN, BLOOD 5 mg/dL (7-18)
[2016-08-10 16:40] LABS: INR 1.33 (0.87-1.13)
[2016-08-10 16:46] LABS: TROPONIN I < 0.017 ng/mL (0.00-0.056)
[2016-08-10] MEDS ORDERED: CEFTRIAXONE 1GM BAG (ER ONLY) 50 ML IV ONE ×2 (17:00→17:21)
[2016-08-10] MEDS ORDERED: IV NS 0.9% 1,000 ML BAG IV ONE (17:00)
[2016-08-10] MEDS ORDERED: MORPHINE SULFATE INJ 2 MG/ML DISP.SYRIN IV ONE (17:00)
[2016-08-10] MEDS ORDERED: IV NS 0.9% 2,000 ML ONE (17:21)
[2016-08-10] MEDS ORDERED: IV SET PRIMARY PUMP SET 1 EA INFUS.SET MC ONE ×2 (17:21→20:43)
[2016-08-10] MEDS ORDERED: MORPHINE SULFATE INJ 2 MG/ML DISP.SYRIN ONE (17:21)
[2016-08-10] MEDS ORDERED: IV SET PRIMARY 1 EA INFUS.SET MC ONE (17:21)
--- NOTE | 2016-08-10 17:22 | NUR ---
PT RESTING QUIETLY IN BED, NAD NOTED. IN AND OUT CATH PERFORMED FOR URINE SAMPLE. 15ML PURULENT URINE WITH FOUL ODOR DRAINED.
--- NOTE | 2016-08-10 17:26 | NUR ---
SENIOR TEST ENGINEER AT BEDSIDE FOR BLOOD DRAW
[2016-08-10 17:50] LABS: APPEARANCE,URINE TURBID (CLEAR); BILIRUBIN,URINE NEGATIVE (NEGATIVE); BLOOD, URINE 2+ Ery/uL (NEGATIVE); COLOR,URINE YELLOW (YELLOW); KETONES,URINE 1+ (NEGATIVE); LEUKOCYTE ESTERASE ,URINE 3+ (NEGATIVE); NITRITE, URINE NEGATIVE (NEGATIVE); PROTEIN,URINE 3+ mg/dl (NEGATIVE); UGLUCOSE NEGATIVE (NEGATIVE); UROBILINOGEN,URINE 0.2 EU/dL (0.2)
--- NOTE | 2016-08-10 17:57 | NUR ---
REPORT GIVEN TO DISTRICT LOSS PREVENTION MANAGER FOR ADMISSION
[2016-08-10 17:59] LABS: WBC,URINE TOO NUMEROUS TO COUN /HPF (0-3)
[2016-08-10 18:00] LABS: ADD URINE CULTURE YES; BACTERIA,URINE Moderate /HPF (None Seen); SQUAMOUS EPITHELIAL CELL,UR Few /HPF (None Seen)
--- NOTE | 2016-08-10 18:56 | NUR ---
PT TRANSPORTED TO [facility] IN STABLE CONDITION VIA ACLS PROTOCOL
--- NOTE | 2016-08-10 19:05 | NUR ---
RN PEDIATRIC ADMISSION PT ARRIVED ON UNIT. AAOX3, APPEARS TIRED. NO S/S OF RESPIRATORY DISTRESS, BREATHING EVEN AND NON-LABORED. TELE SHOWING SR IN 90'S. C/O OF PAIN IN CHEST THAT RADIATES DOWNWARD TO STOMACH. NO SOB. STATES SHE HAS POOR APPETITE, AND HAS N/V. IV INTACT AND PATENT. SKIN ISSUES NOTED. ORIENTATED TO UNIT AND CALL LIGHT, WILL CONTINUE TO MONITOR.
[2016-08-10] MEDS ORDERED: MAG HYDROX/AL HYDROX/SIMETH 30 ML UDC PO PRN (19:30)
[2016-08-10] MEDS ORDERED: NA PHOS,M-B/NA PHOS,DI-BA 1 EA ENEMA RC PRN (19:30)
[2016-08-10] MEDS ORDERED: MAGNESIUM HYDROXIDE 30 ML UDC PO PRN ×2 (19:30)
[2016-08-10] MEDS ORDERED: HYDROCODONE/APAP 5/325MG 1 EACH TABLET PO PRN (19:30)
[2016-08-10] MEDS ORDERED: IV NS 0.9% 1,000 ML BAG IV PRN (19:30)
[2016-08-10] MEDS ORDERED: BISACODYL SUPP (10 MG) 10 MG/SUPP.RECT SUPP.RECT RC PRN (19:30)
[2016-08-10] MEDS ORDERED: ACETAMINOPHEN 325 MG TABLET PO PRN ×2 (19:30)
[2016-08-10] MEDS ORDERED: Z GUARD REMEDY 2 OZ OINT TP PRN (19:30)
[2016-08-10 19:45] VITALS: BP 120/53
[2016-08-10] MEDS ORDERED: SECONDARY IV SET 1 EA INFUS.SET MC ONE (20:43)
[2016-08-10] MEDS: CEFTRIAXONE 1 G in IV D5W 50 ML IV SCH (20:49)
[2016-08-10] MEDS: ONDANSETRON HCL/PF 4 MG/2 ML VIAL IVP PRN (20:50)
[2016-08-10 21:03] LABS: ALBUMIN 2.1 g/dL (3.4-5.0); BILIRUBIN,DIRECT 0.2 mg/dL (0.0-0.2); BILIRUBIN,TOTAL 0.7 mg/dL (0.2-1.0)
[2016-08-10] MEDS: ZOLPIDEM TARTRATE 5 MG TABLET PO PRN (21:53)
[2016-08-10] MEDS: BLOOD SUGAR DIAGNOSTIC 1 EACH STRIP IN SCH (21:54)
[2016-08-10] MEDS: IV NS 0.9% 1,000 ML IV PRN (23:27)
[2016-08-10] MEDS ORDERED: MORPHINE SULFATE INJ 4 MG/ML DISP.SYRIN IV PRN (23:30)
[2016-08-11] VITALS: BP 134/73
--- NOTE | 2016-08-11 00:02 | NUR ---
RN NOTE NO DISTRESS NOTED AT THIS TIME. PRN CLEMENTINA EFFECTIVE. WILL MONITOR.
[2016-08-11 04:16] VITALS: BP 139/81
[2016-08-11] MEDS: IV NS 0.9% 1,000 ML IV PRN (05:27)
[2016-08-11 05:38] LABS: CREATININE 3.2 mg/dL (0.6-1.3); HEMATOCRIT 31 % (33-45); HEMOGLOBIN 9.5 g/dL (11.5-14.8); MAGNESIUM 2.1 mg/dL (1.8-2.4); MEAN CORPUSCULAR HEMOGLOBIN 27 PG (26.0-33.0); MEAN CORPUSCULAR HGB CONC 31 g/dl (31.0-36.0); MEAN CORPUSCULAR VOLUME 87 fL (82-100); PHOSPHORUS 1.6 mg/dL (2.5-4.9); PLATELET COUNT (AUTO) 370 /CMM (150-450); POTASSIUM 3.9 mmol/L (3.5-5.1); RDW COEFFICIENT OF VARIATION 19.2 (11.5-15.0); RED BLOOD CELL COUNT(AUTO) 3.53 MIL/uL (4.0-5.2); WHITE BLOOD COUNT (AUTO) 15.8 K/uL (4.3-11.0)
--- NOTE | 2016-08-11 05:57 | NUR ---
RN NOTE KEISHA REQUESTED THEN REFUSED. WAS WASTED WITH GALE SINGH. PT REQUESTED KEISHA AGAIN 2 MINS LATER. GIVEN - WILL CONT TO MONITOR.
[2016-08-11 06:25] LABS: ANISOCYTOSIS 2+; PLATELET ESTIMATE ADEQUATE
[2016-08-11 06:28] LABS: HYPOCHROMASIA 2+
--- NOTE | 2016-08-11 06:28 | NUR ---
RN NOTE NO SIGNIFICANT CHANGES THIS SHIFT. PT RESTING WITH EYES CLOSED, NO S/S OF ANY PAIN OR DISCOMFORT AT THIS TIME. NO S/S OF RESPIRATORY DISTRESS. IV INTACT AND PATENT, TOLERATING FLUIDS WELL. TELE SHOWS SINUS TACHY IN 100'S. NO SOB NOTED. NO N/VAT THIS TIME. ALL EEDS ATTENED TO, CALL LIGHT IN REACH. WILL F/U WITH DAY SHIFT FOR HAILE.
[2016-08-11] MEDS: BLOOD SUGAR DIAGNOSTIC 1 EACH STRIP IN SCH ×4 (06:50→21:03)
[2016-08-11 06:57] VITALS: BP 136/76
--- NOTE | 2016-08-11 07:30 | NUR ---
RN MS NOTES PATIENT IN BED ASLEEP, EASILY AROUSABLE, NO S/SX OF PAIN OR DISTRESS AT THIS TIME, NO COMPLAINT OF NAUSEA/VOMITING, HOB ELEVATED, SAFETY MEASURES IN PLACED, CALL LIGHT WITHIN REACH, WILL CONTINUE TO MONITOR.
[2016-08-11 08:00] VITALS: BP 148/77
[2016-08-11] MEDS: FOLIC ACID 1 MG TABLET PO SCH (08:42)
[2016-08-11] MEDS: ONDANSETRON HCL/PF 4 MG/2 ML VIAL IVP PRN ×2 (08:50→23:39)
[2016-08-11] MEDS: METOPROLOL SUCCINATE 25 MG TAB.SR.24H PO SCH (09:00)
[2016-08-11] MEDS ORDERED: IV NS 0.9% 1,000 ML BAG IV SCH (09:00)
[2016-08-11] MEDS: ISOSORBIDE MONONITRATE (30MG) 30 MG TAB.SR.24H PO SCH (09:00)
[2016-08-11] MEDS: hydrALAZINE HCL 25 MG TABLET PO SCH ×3 (09:00→17:46)
[2016-08-11] MEDS: NIFEdipine XL 60 MG TAB PO SCH (09:00)
--- NOTE | 2016-08-11 09:00 | NUR ---
RN MS NOTES PATIENT REFUSED MEDICATIONS THIS AM BECAUSE SHE STATED SHE IS SCHEDULED TO HAVE DIALYSIS TODAY. VERIFIED WITH DR. LYNN, PER MD, WAIT FOR NEPHRO'S ORDER FOR DIALYSIS.
[2016-08-11] MEDS ORDERED: MORPHINE SULFATE INJ 2 MG/ML DISP.SYRIN IV ONE (10:30)
[2016-08-11] MEDS ORDERED: Sodium Phosphate 7.5 MMOL in IV D5W 100 ML IV ONE (11:30)
[2016-08-11] MEDS ORDERED: EPOETIN ALFA (10,000 UNIT) 10,000 UNIT/ML VIAL SQ ONE (11:30)
--- NOTE | 2016-08-11 12:59 | NUR ---
RN MS NOTES HEMODIALYSIS STARTED, PATIENT IN STABLE CONDITION, WILL CONTINUE TO MONITOR.
--- NOTE | 2016-08-11 13:17 | NUR ---
RN MS NOTES PATIENT STILL ON DIALYSIS. BP MEDICATIONS HELD
--- NOTE | 2016-08-11 14:40 | NUR ---
RN MS NOTES PATIENT COMPLETED DIALYSIS WITH OUTPUT OF 2800ML. PATIENT IN STABLE CONDITION, VITAL SIGNS WNL. WILL CONTINUE TO MONITOR.
[2016-08-11] MEDS ORDERED: SECONDARY IV SET 1 EA INFUS.SET MC ONE (15:00)
[2016-08-11] MEDS ORDERED: diphenhydrAMINE HCL 25 MG CAPSULE PO ONE (15:05)
[2016-08-11 16:00] VITALS: BP 131/73
[2016-08-11 17:23] LABS: LYMPHOCYTES % (MANUAL) 5 % (16-48); MONOCYTES % (MANUAL) 3 % (0-11.0); NEUTROPHILS % (MANUAL) 92 (42-76)
[2016-08-11] MEDS: MORPHINE SULFATE INJ 2 MG/ML DISP.SYRIN IV PRN ×2 (18:03→22:38)
--- NOTE | 2016-08-11 19:30 | NUR ---
MS RN OPENING NOTES: PATIENT IN BED, AOX3, ON O2 AT 2 LPM VIA NC, BREATHING EVEN AND UNLABORED. BREATH SOUNDS CLEAR UPON AUSCULTATION. NOTED OCCASIONAL COUGHING ONLY. PATIENT APPEARS CALM AND IN NO DISTRESS. DENIES PAIN AT THIS TIME. PT HAS PERMACATH AT [facility], WITH CLEAN AND INTACT DRESSING. PIV OVER R ARM INTACT AND PATENT. PROVIDED FOR COMFORT AND SAFETY. PATIENT REQUESTING FOR COUGH MEDICATION TO BE GIVEN. WILL CONT TO MONITOR.
--- NOTE | 2016-08-11 19:35 | NUR ---
RN MS NOTES PATIENT IN STABLE CONDITION, NO SIGNIFICANT CHANGE THIS SHIFT, ALL NEEDS ATTENDED AND MET, TURNED AND REPOSITIONED SCHEDULED, SAFETY MEASURES IN PLACED, CALL LIGHT WITHINR EACH, ENDORSED TO ROUSTABOUT CREW LEADER FOR HAILE.
[2016-08-11] MEDS: GUAIFENESIN/D-METHORPHAN HB 5 ML UDC PO PRN ×2 (19:47→23:34)
[2016-08-11] MEDS: CEFTRIAXONE 1 G in IV D5W 50 ML IV SCH (19:47)
[2016-08-11 20:00] VITALS: BP 129/68
--- NOTE | 2016-08-11 22:38 | NUR ---
RN NOTES: PT COMPLAINED OF 8/10 PAIN OVER HER DIAPHRAGM WHICH IS EXACERBATED BY COUGHING. ADMINISTERED MORPHINE 2 MG IV. WILL CONT TO MONITOR.
[2016-08-11] MEDS: ZOLPIDEM TARTRATE 5 MG TABLET PO PRN (23:34)
--- NOTE | 2016-08-11 23:43 | NUR ---
RN NOTES: PT COMPLAINED OF NAUSEA, BUT WITHOUT VOMITING. ADMINISTERED ZOFRAN 4 MG IV. WILL CONT TO MONITOR.
[2016-08-12 03:30] VITALS: BP 162/86
[2016-08-12] MEDS: MORPHINE SULFATE INJ 2 MG/ML DISP.SYRIN IV PRN ×5 (03:36→20:53)
[2016-08-12] MEDS: GUAIFENESIN/D-METHORPHAN HB 5 ML UDC PO PRN ×4 (03:40→21:34)
--- NOTE | 2016-08-12 03:48 | NUR ---
RN NOTES: PATIENT COMPLAINED OF 8/10 PAIN OVER MIDSTERNAL AREA. PATIENT IS ALSO COUGHING. ADMINISTERED MORPHINE 2 MG IV PRN AND ROBITUSSIN PO. WILL CONT TO MONITOR.
[2016-08-12 04:40] VITALS: BP 146/89
[2016-08-12 06:16] LABS: HEMATOCRIT 30 % (33-45); HEMOGLOBIN 9.6 g/dL (11.5-14.8); MEAN CORPUSCULAR HEMOGLOBIN 28 PG (26.0-33.0); MEAN CORPUSCULAR HGB CONC 32 g/dl (31.0-36.0); MEAN CORPUSCULAR VOLUME 87 fL (82-100); PLATELET COUNT (AUTO) 297 /CMM (150-450); RDW COEFFICIENT OF VARIATION 19.5 (11.5-15.0); WHITE BLOOD COUNT (AUTO) 9.3 K/uL (4.3-11.0)
[2016-08-12] MEDS: BLOOD SUGAR DIAGNOSTIC 1 EACH STRIP IN SCH ×4 (06:54→21:38)
[2016-08-12 07:17] LABS: MAGNESIUM 1.9 mg/dL (1.8-2.4); PHOSPHORUS 1.4 mg/dL (2.5-4.9)
--- NOTE | 2016-08-12 07:27 | NUR ---
MS RN CLOSING NOTES: PATIENT IN BED, AOX3, ON O2 AT 2 LPM VIA NC. BREATHING EVEN AND UNLABORED. STILL NOTED TO HAVE COUGHING. DUE MEDS GIVEN. PROVIDED FOR COMFORT AND SAFETY. PIV ACCESS OVER R ARM G 20 INTACT AND PATENT TO FLUSH. BLOOD SUGAR CHECKED AT 81 MG/DL. WILL ENDORSE TO AM RN FOR HAILE.
--- NOTE | 2016-08-12 07:30 | NUR ---
RN MS NOTES PATIENT IN STABLE CONDITION, STILL NOTED WITH OCCASIONAL COUGHING, NO SOB NOR DISTRESS NOTED, NEEDS ATTENDED AND MET, DENIES PAIN OR DISCOMFORT AT THIS TIME, SAFETY MEASURES IN PLACED, CALL LIGHT WITHIN REACH, WILL CONTINUE TO MONITOR.
[2016-08-12 08:00] VITALS: BP 140/86
[2016-08-12 08:51] LABS: EOSINOPHILS % (MANUAL) 6 % (0-4); LYMPHOCYTES % (MANUAL) 13 % (16-48); MONOCYTES % (MANUAL) 3 % (0-11.0); NEUTROPHILS % (MANUAL) 78 (42-76); PLATELET ESTIMATE ADEQUATE
[2016-08-12 08:52] LABS: ANISOCYTOSIS 1+; HYPOCHROMASIA 1+
--- NOTE | 2016-08-12 09:00 | NUR ---
RN MS NOTES INFORMED DR. LYNN AND DR. MATAMOROS RE: CA RESULT OF 6.0, RECEIVED NO NEW ORDER AT THIS TIME.
[2016-08-12] MEDS: FOLIC ACID 1 MG TABLET PO SCH (09:58)
[2016-08-12] MEDS: METOPROLOL SUCCINATE 25 MG TAB.SR.24H PO SCH (09:58)
[2016-08-12] MEDS: ISOSORBIDE MONONITRATE (30MG) 30 MG TAB.SR.24H PO SCH (09:58)
[2016-08-12] MEDS: NIFEdipine XL 60 MG TAB PO SCH (09:58)
[2016-08-12] MEDS: hydrALAZINE HCL 25 MG TABLET PO SCH ×3 (09:59→16:39)
[2016-08-12] MEDS ORDERED: Sodium Phosphate 15 MMOL in IV D5W 250 ML IV ONE (10:00)
[2016-08-12] MEDS ORDERED: Calcium Gluconate 1GM/10ML 4.65 MEQ in IV D5W 50 ML IV ONE (10:22)
[2016-08-12] MEDS ORDERED: SECONDARY IV SET 1 EA INFUS.SET MC ONE ×2 (11:24→13:02)
[2016-08-12] MEDS: ONDANSETRON HCL/PF 4 MG/2 ML VIAL IVP PRN ×2 (12:26→18:30)
[2016-08-12 16:00] VITALS: BP 104/48
--- NOTE | 2016-08-12 16:00 | NUR ---
RN MS NOTES PATIENT STARTED RECEIVING DIALYSIS, RECEIVED ORDER FOR BLOOD CULTURES X2. ORDER NOTED AND CARRIED OUT.
--- NOTE | 2016-08-12 16:30 | NUR ---
RN MS NOTES PATIENT COMPLAINT OF ITCHING DURING DIALYSIS, DR. LYNN MADE AWARE AND GAVE AN ORDER TO GIVE BENADRYL 25MG PO X1 AFTER DIALYSIS. ORDER NOTED AND CARRIED OUT.
--- NOTE | 2016-08-12 17:57 | NUR ---
RN MS NOTES DIALYSIS COMPLETED WITH OUTPUT OF 2500ML, BENADRYL GIVEN, PATIENT'S VITAL SIGNS ARE STABLE, NO S/SX OF DISTRESS NOTED. WILL CONTINUE TO MONITOR.
[2016-08-12] MEDS ORDERED: diphenhydrAMINE HCL 25 MG CAPSULE PO ONE (18:30)
--- NOTE | 2016-08-12 18:44 | NUR ---
RN MS NOTES PATIENT ALERT AND ORIENTED, NO SIGNIFICANT CHANGE THIS SHIFT, COMPLETED DIALYSIS WITH NO ADVERSE REACTION, VITAL SIGNS STABLE, PATIENT HAD EPISODES OF NAUSEA, ZOFRAN X2 DURING THIS SHIFT, ADMINISTERED AND SUCCESSFUL, DENIES PAIN OR DISCOMFORT AT THIS TIME, TURNED AND REPOSITIONED Q2H SCHEDULED, SAFETY MEASURES IN PLACED, CALL LIGHT WITHIN REACH, WILL ENDORSE TO SUGAR MIXER FOR HAILE.
--- NOTE | 2016-08-12 19:15 | NUR ---
RN NOTES RECEIVED PT ASLEEP, HOB ELEVATED. BREATHING REGULAR AND UNLABORED, NO SIGNS OF DISTRESS AND DISCOMFORT NOTED. IV ACCESS ON RIGHT ARM PATENT AND INTACT. PT NOTED COUGHING AT TIMES, NON PRODUCTIVE. SAFETY MEASURES IN PLACED, WITH CALL LIGHT WITHIN REACH. WILL CONTINUE TO MONITOR PT.
[2016-08-12 20:00] VITALS: BP 112/67
[2016-08-12] MEDS: CEFTRIAXONE 1 G in IV D5W 50 ML IV SCH (20:43)
--- NOTE | 2016-08-12 20:53 | NUR ---
RN NOTES PT COMPLAINS OF GENERALIZED BODY PAIN 12/06. MORPHINE SULFATE 2MG GIVEN IV. WILL CONTINUE TO MONITOR PT.
[2016-08-12] MEDS: ZOLPIDEM TARTRATE 5 MG TABLET PO PRN (21:34)
--- NOTE | 2016-08-12 21:34 | NUR ---
RN NOTES. PT HEARD COUGHING AND VERBALIZING DIFFICULTY IN SLEEPING AND ASKING FOR SLEEPING PILL. AMBIEN 5 MG TAB AND ROBITUSSIN COUGH SYRUP GIVEN PO. WILL CONTINUE TO MONITOR PT.
[2016-08-12 22:00] VITALS: BP 112/67
[2016-08-13] MEDS: MORPHINE SULFATE INJ 2 MG/ML DISP.SYRIN IV PRN ×4 (00:57→17:42)
--- NOTE | 2016-08-13 00:57 | NUR ---
RN NOTES PT COMPLAINS OF GENERALIZED BODY PAIN 12/06, MORPHINE 2MG GIVEN IV. WILL CONTINUE TO MONITOR PT.
[2016-08-13] MEDS: BLOOD SUGAR DIAGNOSTIC 1 EACH STRIP IN SCH ×4 (06:35→21:46)
--- NOTE | 2016-08-13 06:37 | NUR ---
RN NOTES PT COMPLAINS OF GENERALIZED PAIN 12/06, MORPHINE 2MG GIVEN IV. WILL CONTINUE TO MONITOR PT.
--- NOTE | 2016-08-13 07:47 | NUR ---
RN NOTES PT ASLEEP, HOB ELEVATED, TOLERATING 2LPM VIA NC. NO SOB, NO SIGNS OF DISTRESS AND DISCOMFORT NOTED. NO EPISODE OF NAUSEA AND VOMITING, COMPLAINING OF GENERALIZED BODY PAIN, NOT CHEST PAIN. KEPT PAIN AT TOLERABLE LEVEL. SAFETY MEASURES IN PLACED. ALL NEEDS ATTENDED. ENDORSED TO MORNING RN FOR CONTINUITY OF CARE.
--- NOTE | 2016-08-13 07:50 | NUR ---
MS RN OPENING NOTE PATIENT IS ALERT AND ORIENTED x3. NO PAIN AT THIS TIME. NO SOB OR DISTRESS NOTED. CALL LIGHT WITHIN REACH. SAFETY MEASURES IMPLEMENTED. IV INTACT AND PATENT NO REDNESS OR SWELLING. PATIENT IS GETTING HEMODIALYSIS TODAY. WILL CONTINUE TO MONITOR
[2016-08-13 08:00] VITALS: BP 130/78
[2016-08-13 08:05] LABS: HEMATOCRIT 30 % (33-45); HEMOGLOBIN 9.5 g/dL (11.5-14.8); MEAN CORPUSCULAR HEMOGLOBIN 27 PG (26.0-33.0); MEAN CORPUSCULAR HGB CONC 32 g/dl (31.0-36.0); MEAN CORPUSCULAR VOLUME 86 fL (82-100); PLATELET COUNT (AUTO) 273 /CMM (150-450); RDW COEFFICIENT OF VARIATION 19.4 (11.5-15.0); RED BLOOD CELL COUNT(AUTO) 3.49 MIL/uL (4.0-5.2); WHITE BLOOD COUNT (AUTO) 8.9 K/uL (4.3-11.0)
[2016-08-13 08:07] LABS: CALCIUM, SERUM 6.3 mg/dL (8.5-10.1); CREATININE 3.1 mg/dL (0.6-1.3); MAGNESIUM 1.9 mg/dL (1.8-2.4); PHOSPHORUS 1.9 mg/dL (2.5-4.9); POTASSIUM 3.9 mmol/L (3.5-5.1)
[2016-08-13] MEDS: hydrALAZINE HCL 25 MG TABLET PO SCH ×3 (08:32→16:34)
[2016-08-13] MEDS: FOLIC ACID 1 MG TABLET PO SCH (08:32)
[2016-08-13] MEDS: ISOSORBIDE MONONITRATE (30MG) 30 MG TAB.SR.24H PO SCH ×2 (08:33→09:00)
[2016-08-13] MEDS: METOPROLOL SUCCINATE 25 MG TAB.SR.24H PO SCH ×2 (08:33→09:00)
[2016-08-13] MEDS: NIFEdipine XL 60 MG TAB PO SCH ×2 (08:36→09:00)
[2016-08-13] MEDS: ONDANSETRON HCL/PF 4 MG/2 ML VIAL IVP PRN ×2 (08:36→12:15)
[2016-08-13 09:13] LABS: ANISOCYTOSIS 2+; EOSINOPHILS % (MANUAL) 3 % (0-4); LYMPHOCYTES % (MANUAL) 20 % (16-48); MONOCYTES % (MANUAL) 5 % (0-11.0); NEUTROPHILS % (MANUAL) 72 (42-76); PLATELET ESTIMATE ADEQUATE
--- NOTE | 2016-08-13 09:27 | NUR ---
MS RN NOTE HELD BLOOD PRESSURE MEDICATIONS, PATIENT WILL HAVE DIALYSIS TODAY
[2016-08-13] MEDS ORDERED: EPOETIN ALFA (10,000 UNIT) 10,000 UNIT/ML VIAL SQ ONE (10:00)
--- NOTE | 2016-08-13 13:41 | NUR ---
MS RN NOTE SPOKE WITH DIALYSIS AND PATIENT IS NOT RECEIVING DIALYSIS TODAY, SHE WILL GET DIALYSIS TOMORROW 08/14/16. WILL ENDORSE TO MOUSE BREEDER NURSE
[2016-08-13] MEDS: GUAIFENESIN/D-METHORPHAN HB 5 ML UDC PO PRN (13:46)
[2016-08-13 16:00] VITALS: BP 140/88
--- NOTE | 2016-08-13 18:36 | NUR ---
MS RN CLOSING NOTE PATIENT IS ALERT AND ORIENTED x3. NO PAIN AT THIS TIME. NO SOB OR DISTRESS NOTED. ALL DUE MEDICATIONS GIVEN ORDERED. DIALYSIS WILL HAPPEN TOMORROW 08/14/16. IV INTACT AND PATENT. NO SIGNIFICANT CHANGES. CALL LIGHT WITHIN REACH AT ALL TIMES. SAFETY MEASURES IMPLEMENTED. WILL ENDORSE TO MAINFRAME SYSTEMS ADMINISTRATOR NURSE.
--- NOTE | 2016-08-13 20:00 | NUR ---
MS [facility]PHY INITIAL NOTES RECEIVED REPORT FROM AM NURSE , PT SEEN IN BED ON SEMI FOWLERS POSITION WITH SIDE RAILS X2 UP. WATCHING TV AT THIS TIME, DENIES ANY PAIN OR ANY DISCOMFORT. HEPLOCK ON HER RIGHT ARM PATENT AND INTACT, AWARE OF HER MEDICATION TONIGHT AND ALSO AWARE OF HER DIALYSIS WILL ALISIA. KEPT HER WARM AND COMFORTABLE AT ALL TIMES. REPOSITION HER FOR COMFORT. WILL CONTINUE TO MONITOR,PLACE CALL LIGHT AT REACH.
[2016-08-13 20:37] VITALS: BP 158/81
[2016-08-13] MEDS: CEFTRIAXONE 1 G in IV D5W 50 ML IV SCH (20:48)
[2016-08-14] MEDS: MORPHINE SULFATE INJ 2 MG/ML DISP.SYRIN IV PRN ×4 (00:22→20:46)
[2016-08-14] MEDS: ZOLPIDEM TARTRATE 5 MG TABLET PO PRN (02:11)
--- NOTE | 2016-08-14 02:11 | NUR ---
MAGAZINE DESIGNER/NOTES PERCYIEN GIVEN PER PT REQUESTED. SAFETY PRECAUTION IMPLEMENTED AND OBSERVED. KEPT HER WARM AND COMFORTABLE AT ALL TIMES. WILL CONTINUE TO MONITOR. PLACE CALL LIGHT AT REACH.
[2016-08-14] MEDS: GUAIFENESIN/D-METHORPHAN HB 5 ML UDC PO PRN ×2 (02:14→14:31)
--- NOTE | 2016-08-14 04:00 | NUR ---
FARM EQUIPMENT ENGINE MECHANIC/NOTES CHECKED PT SLEEPING COMFORTABLY IN BED WITHOUT ANY ACUTE DISTRESS NOTED. KEPT HER WARM AND COMFORTABLE AT ALL TIMES. PLACE CALL LIGHT AT REACH. WILL CONTINUE TO MONITOR.
[2016-08-14] MEDS: BLOOD SUGAR DIAGNOSTIC 1 EACH STRIP IN SCH ×4 (06:10→22:05)
--- NOTE | 2016-08-14 07:00 | NUR ---
CROP GRAIN OR LIVESTOCK FARM MANAGER CLOSING NOTES PT BLOOD SUGAR CHECKED DONE 83, NO SIGNS OF HYPO GLYCEMIA NOTED. MORNING CARE DONE WITH THE HELPED OF CYBERATHLETE . REPOSITION HER FOR COMFORT. CRANBERRY JUICE ALSO SERVED PER PT REQUEST. ALL DUE MEDS GIVEN AND ALL NEEDS MET. DENIES ANY PAIN OR ANY DISCOMFORT. ENDORSE TO AM NURSE FOR CONTINUITY OF CARE. PLACE ALL LIGHT AT REACH.
--- NOTE | 2016-08-14 07:10 | NUR ---
MS/RN OPENING NOTES RECEIVED PATIENT ASLEEP IN BED, EASILY AWAKENS. ALERT AND ORIENTED X3, DENIES ANY PAIN OR ANY DISCOMFORTS AT THIS TIME. PERMACATH ON RCW INTACT. ENDORSED FROM SOCCER PLAYER THAT PATIENT IS FOR DIALYSIS TODAY. IV ACCESS TO RIGHT ARM PATENT AND INTACT. CALL LIGHT WITHIN EASY REACH. BEDLOW AND LOCKED WITH SIDE RAILS UP X 2 FOR SAFETY. WILL CONTINUE TO MONITOR ACCORDINGLY.
[2016-08-14 08:00] VITALS: BP 154/83
[2016-08-14] MEDS: FOLIC ACID 1 MG TABLET PO SCH (08:34)
[2016-08-14] MEDS: ISOSORBIDE MONONITRATE (30MG) 30 MG TAB.SR.24H PO SCH (09:00)
[2016-08-14] MEDS: METOPROLOL SUCCINATE 25 MG TAB.SR.24H PO SCH (09:00)
[2016-08-14] MEDS: NIFEdipine XL 60 MG TAB PO SCH (09:00)
[2016-08-14] MEDS: hydrALAZINE HCL 25 MG TABLET PO SCH ×3 (09:00→16:50)
[2016-08-14] MEDS: ONDANSETRON HCL/PF 4 MG/2 ML VIAL IVP PRN (09:46)
--- NOTE | 2016-08-14 10:31 | NUR ---
RN NOTES PATIENT REFUSED BP MEDS THIS MORNING DESPITE BP OF 154/83. SHE SAID THAT SHE WILL HAVE DIALYSIS TODAY AND DON'T WANT HER BP TO BE LOW. EXPLAINED THAT WE WILL CHECK HER BP BEFORE AND AFTER DIALYSIS BUT STILL REFUSED. WILL CONTINUE TO MONITOR.
--- NOTE | 2016-08-14 13:00 | NUR ---
RN NOTES PATIENT STARTED ON HEMODIALYSIS, NO COMPLAINTS OF PAIN OR DISCOMFORTS BEFORE HD. WILL CONTINUE TO MONITOR.
[2016-08-14] MEDS ORDERED: EPOETIN ALFA (10,000 UNIT) 10,000 UNIT/ML VIAL SQ ONE (14:00)
[2016-08-14] MEDS ORDERED: PHENOL/SODIUM PHENOLATE 1 LOZ LOZENGE PO PRN (14:00)
[2016-08-14] MEDS ORDERED: ALTEPLASE CATHFLO 2 MG/VIAL XX STA (15:09)
--- NOTE | 2016-08-14 15:41 | NUR ---
RN NOTES PATIENT HEMODIALYSIS COMPLETED WITH 2000ML OUTPUT, NO ADVERSED REACTIONS NOTED. NO COMPLAINTS OF N/V. WILL CONTINUE TO MONITOR.
[2016-08-14 16:00] VITALS: BP 146/77
--- NOTE | 2016-08-14 18:56 | NUR ---
MS RN CLOSING NOTES PATIENT RESTING IN BED AT MODERATE HIGH BACKREST IN NO ACUTE SIGNS OF DISTRESS. ALERT AND ORIENTED X 3. ALL NEEDS AND CARE WELL PROVIDED. HD ACCESS AND IV ACCESS INTACT AND PATENT. ALL DUE MEDS GIVEN ORDERED. CALL LIGHT WITHIN REACH AND KEPT BED AND LOW. WILL ENDORSE TO SCIENTIFIC PHOTOGRAPHER RN FOR CONTINUITY OF CARE
--- NOTE | 2016-08-14 19:30 | NUR ---
MS/RN OPENING NOTES PT AWAKE, WATCHING TV, A/OX3. ON ROOM AIR, DENIES SOB, NO S/S OF DISTRESS NOTED. IV TO RIGHT ARM PATENT AND INTACT. PT HAD HD TODAY WITH 2,000ML OUT. HAS RCW PERMACATH AND OLD AV SHUNT TO LEFT ARM. BED IN LOW/LOCKED POSITION WITH CALL LIGHT IN REACH. BED RAILS UPX2. WILL CONTINUE TO MONITOR
[2016-08-14 19:53] VITALS: BP 155/71
[2016-08-14 20:00] VITALS: BP 155/71
[2016-08-14] MEDS: CEFTRIAXONE 1 G in IV D5W 50 ML IV SCH (20:33)
[2016-08-14] MEDS: GUAIFENESIN LA 600 MG TABLET.SA PO SCH (20:45)
--- NOTE | 2016-08-14 21:46 | NUR ---
MS/RN NOTES PT COMPLAINING OF GENERALIZED PAIN 12/06. ADMINISTERED PRN MORPHINE 2MG IV ORDERED. WILL CONTINUE TO MONITOR
--- NOTE | 2016-08-14 22:12 | NUR ---
MS/RN NOTES BLOOD QGKYH=[id number] NO INSULIN COVERAGE
[2016-08-14 22:33] VITALS: BP 151/89
--- NOTE | 2016-08-14 23:06 | NUR ---
MS/RN NOTES PT REQUESTED SLEEPING PILL AROUND 2229. MEDICATION PULLED FROM Mintera. ENTERED PT'S ROOM TO INFORM HER THAT I HAVE HER AMBIEN, PT WAS ASLEEP. DID NOT WAKE UP PT. WILL HOLD ON TO MEDICATION FOR NOW IN CASE PT WAKES UP AND REQUESTS FOR IT AGAIN. WILL CONTINUE TO MONITOR AND RETURN MEDICATION IF PT DOES NOT REQUEST IT.
--- NOTE | 2016-08-15 02:16 | NUR ---
MS/RN NOTES PT ASLEEP, BREATHING EVEN AND UNLABORED. NO S/S OF DISTRESS NOTED. RETURNED AMBIEN 5MG. RN, KYRIE WITNESSED.
[2016-08-15] MEDS: MORPHINE SULFATE INJ 2 MG/ML DISP.SYRIN IV PRN ×5 (04:05→22:21)
--- NOTE | 2016-08-15 04:16 | NUR ---
MS/RN NOTES PT COMPLAINING OF BACK PAIN 12/06. ADMINISTERED PRN MORPHINE 2MG AND TURNED/REPOSITIONED PT.
[2016-08-15] MEDS: BLOOD SUGAR DIAGNOSTIC 1 EACH STRIP IN SCH ×4 (06:43→22:21)
--- NOTE | 2016-08-15 07:16 | NUR ---
MS/RN CLOSING NOTES PT RESTING COMFORTABLY IN BED, WITH O2 AT 2LPM VIA NC. DENIES SOB, NO S/S OF DISTRESS NOTED. DENIES PAIN AT THIS TIME. IV TO RIGHT UPPER ARM PATENT AND INTACT. BLOOD SUGAR THIS AM WAS 79, NO INSULIN COVERAGE. SNACKS PROVIDED AT BEDSIDE THROUGHOUT SHIFT. MADE PT COMFORTABLE, ALL NEEDS MET AND ATTENDED TO. PT REFUSED THE DVT PUMPS, INFORMED PT ABOUT BENEFITS OF HAVING IT. OTHERWISE NO CHANGES OVERNIGHT. TURNED/REPOSITION PT Q2H HOURS. BED IN LOW/LOCKED POSITION, CALL LIGHT IN REACH. BED ALARM ON AND SIDE RAILS UP. ENDORSED TO AM SHIFT HAILE.
--- NOTE | 2016-08-15 07:30 | NUR ---
MS RN NOTES REPORT RECEIVED AT THE BEDSIDE. PATIENT IS SLEEPING. NO SOB OR DISTRESS NOTED AT THIS TIME. PATIENT DOES NOT APPEAR TO BE IN PAIN, NO FACIAL GRIMACE NOTED. BED IS IN THE LOWEST POSITION, CALL LIGHT WITHIN PATIENT REACH. WILL CONTINUE TO MONITOR.
[2016-08-15 08:00] VITALS: BP 153/89
[2016-08-15 08:10] LABS: HEMATOCRIT 32 % (33-45); HEMOGLOBIN 9.9 g/dL (11.5-14.8); MEAN CORPUSCULAR HEMOGLOBIN 27 PG (26.0-33.0); MEAN CORPUSCULAR HGB CONC 31 g/dl (31.0-36.0); MEAN CORPUSCULAR VOLUME 87 fL (82-100); PLATELET COUNT (AUTO) 216 /CMM (150-450); RED BLOOD CELL COUNT(AUTO) 3.64 MIL/uL (4.0-5.2); WHITE BLOOD COUNT (AUTO) 8.6 K/uL (4.3-11.0)
[2016-08-15 08:34] LABS: CALCIUM, SERUM 6.5 mg/dL (8.5-10.1); CREATININE 3.6 mg/dL (0.6-1.3); MAGNESIUM 1.8 mg/dL (1.8-2.4); PHOSPHORUS 2.2 mg/dL (2.5-4.9); POTASSIUM 3.9 mmol/L (3.5-5.1)
[2016-08-15] MEDS: ONDANSETRON HCL/PF 4 MG/2 ML VIAL IVP PRN (08:34)
[2016-08-15] MEDS: ISOSORBIDE MONONITRATE (30MG) 30 MG TAB.SR.24H PO SCH (09:00)
[2016-08-15] MEDS: NIFEdipine XL 60 MG TAB PO SCH (09:00)
[2016-08-15] MEDS: METOPROLOL SUCCINATE 25 MG TAB.SR.24H PO SCH (09:00)
[2016-08-15] MEDS: hydrALAZINE HCL 25 MG TABLET PO SCH ×3 (09:00→17:42)
[2016-08-15 09:26] LABS: ANISOCYTOSIS 1+; LYMPHOCYTES % (MANUAL) 11 % (16-48); MONOCYTES % (MANUAL) 1 % (0-11.0); NEUTROPHILS % (MANUAL) 88 (42-76); PLATELET ESTIMATE ADEQUATE
[2016-08-15 09:27] LABS: HYPOCHROMASIA 1+
[2016-08-15] MEDS: GUAIFENESIN LA 600 MG TABLET.SA PO SCH ×2 (09:38→20:32)
[2016-08-15] MEDS: FOLIC ACID 1 MG TABLET PO SCH (09:38)
--- NOTE | 2016-08-15 09:51 | NUR ---
MS RN NOTES PER THE PATIENT, SHE WAS TOLD BY THE DIALYSIS NURSE YESTERDAY THAT SHE WILL NEED DIALYSIS AGAIN TODAY. CALLED [facility] TO SEE IF THE PATIENT IS ON THE SCHEDULE FOR DIALYSIS TODAY. CHADWICK SAYS THAT HE HAS BEEN TRYING TO GET HOLD OF DR MCGHEE TO FIND OUT IF HE WANTS TO ORDER DIALYSIS TODAY, BUT THE MD HAS NOT YET GOT BACK TO HIM. I ALSO CALLED THE DOCTOR, BUT HAVE NOT RECEIVED A RETURN CALL. PATIENT IS ASKING TO HOLD MORNING BP MEDS UNTIL THE DOCTOR VERIFIES DIALYSIS OR NOT TODAY. WILL FOLLOW UP AND HOLD BP MEDS FOR NOW.
[2016-08-15] MEDS: ACETYLCYSTEINE 20% SOLN 800 MG/4 ML VIAL NEB SCH ×3 (12:00→23:10)
--- NOTE | 2016-08-15 12:11 | NUR ---
MS RN NOTES HOLDING PATIENT 1300 BP MED MD MCGHEE STATES THAT SHE WILL HAVE DIALYSIS TODAY.
--- NOTE | 2016-08-15 12:29 | NUR ---
MS RN NOTES PATIENT STATES SHE IS HAVING TROUBLE EATING BECAUSE SHE DOES NOT HAVE HER DENTURES. TOLD PATIENT THE DIET CAN BE CHANGED TO FINELY CHOPPED SO THAT SHE CAN EAT. PATIENT STATES THIS IS ACCEPTABLE.
--- NOTE | 2016-08-15 14:01 | NUR ---
MS RN NOTES PLACED A CALL TO DR MCGHEE TO ASK IF HE WOULD STILL LIKE EPOGIN ADMINISTERED TO THE PATIENT HE STATES IN HIS NOTES MD DID NOT PLACE ORDERS. WAITING FOR RETURN CALL.
--- NOTE | 2016-08-15 14:43 | NUR ---
MS RN NOTES CALLED DR MCGHEE FOR THE SECOND TIME TO VERIFY IF WANTS TO ADMIN EPOGIN AGAIN TODAY WITH HD HE DID NOT PLACE ANY ORDERS. WAITING FOR RETURN CALL.
[2016-08-15] MEDS ORDERED: diphenhydrAMINE HCL ELIX 25 MG/10 ML UDC PO PRN (15:00)
[2016-08-15] MEDS: ALBUTEROL FS 2.5 MG/0.5 ML VIAL.NEB NEB PRN ×2 (15:46→23:10)
[2016-08-15] MEDS: IPRATROPIUM NEB FS 0.5 MG/2.5 ML AMPUL.NEB NEB PRN ×2 (15:46→23:10)
[2016-08-15 16:00] VITALS: BP 145/78
--- NOTE | 2016-08-15 18:52 | NUR ---
MS RN CLOSING NOTE NO SIGNIFICANT CHANGES IN PATIENT CONDITION THROUGHOUT THE SHIFT. NO SOB OR DISTRESS NOTED AT THIS TIME. PATIENT DENIES PAIN. BED IN A LOW POSITION, CALL LIGHT WITHIN PATIENT REACH, WILL ENDORSE FOR HAILE.
--- NOTE | 2016-08-15 19:30 | NUR ---
MS/RN OPENING NOTES PT AWAKE A/OX3, ON 2LPM O2 VIA NC. BREATHING EVEN AND UNLABORED. NO S/S OF DISTRESS NOTED. DENIES PAIN AT THIS TIME. IV TO NAWAF PATENT AND INTACT, FLUSHES WELL. EXTREMITIES OFFLOADED. BED IN LOW/LOCKED POSITION WITH CALL LIGHT IN REACH. BED RAILS UP. WILL CONTINUE TO MONITOR
[2016-08-15 20:00] VITALS: BP 139/88
[2016-08-15] MEDS ORDERED: IV SET PRIMARY PUMP SET 1 EA INFUS.SET MC ONE (20:24)
[2016-08-15] MEDS ORDERED: IV NS 0.9% 250 ML IV ONE (20:24)
[2016-08-15] MEDS ORDERED: SECONDARY IV SET 1 EA INFUS.SET MC ONE (20:24)
[2016-08-15] MEDS: CEFTRIAXONE 1 G in IV D5W 50 ML IV SCH (20:32)
--- NOTE | 2016-08-15 22:20 | NUR ---
MS/RN NOTES PT COMPLAINING OF GENERALIZED ACHING PAIN. ADMINISTERED PRN MORPHINE 2 MG IV ORDERED. WILL MONITOR FOR EFFECTIVENESS.
--- NOTE | 2016-08-15 22:35 | NUR ---
MS/RN NOTES BLOOD GPFIX=687 NO INSULIN COVERAGE. WILL MONITOR FOR S/S OF HYPER/HYPO GLYCEMIA
[2016-08-15] MEDS: ZOLPIDEM TARTRATE 5 MG TABLET PO PRN (23:57)
[2016-08-16] MEDS: BLOOD SUGAR DIAGNOSTIC 1 EACH STRIP IN SCH ×4 (06:33→22:57)
--- NOTE | 2016-08-16 06:36 | NUR ---
MS/RN NOTES BLOOD SUGAR 107, NO INSULIN COVERAGE. SNACKS PROVIDED AT BEDSIDE
--- NOTE | 2016-08-16 06:45 | NUR ---
MS/RN OPENING NOTES PT AWAKE, ON 2LPM O2 VIA NC. BREATHING EVEN AND UNLABORED. NO S/S OF DISTRESS NOTED. DENIES PAIN. IV TO NAWAF PATENT AND INTACT. SLEPT WELL THROUGHOUT THE NIGHT. EXTREMITIES OFFLOADED. TURNED/REPOSITIONED Q2H. SKIN CARE PROVIDED. MADE PT COMFORTABLE, ALL NEEDS MET AND ATTENDED TO. BED IN LOW/LOCKED POSITION WITH CALL LIGHT IN REACH. BED RAILS UP. WILL CONTINUE TO MONITOR. WILL ENDORSE TO AM SHIFT HAILE.
[2016-08-16] MEDS: ACETYLCYSTEINE 20% SOLN 800 MG/4 ML VIAL NEB SCH ×3 (07:25→23:27)
[2016-08-16 07:58] LABS: HEMATOCRIT 31 % (33-45); HEMOGLOBIN 9.5 g/dL (11.5-14.8); MEAN CORPUSCULAR HEMOGLOBIN 27 PG (26.0-33.0); MEAN CORPUSCULAR HGB CONC 31 g/dl (31.0-36.0); MEAN CORPUSCULAR VOLUME 87 fL (82-100); PLATELET COUNT (AUTO) 181 /CMM (150-450); RDW COEFFICIENT OF VARIATION 20.7 (11.5-15.0); RED BLOOD CELL COUNT(AUTO) 3.52 MIL/uL (4.0-5.2); WHITE BLOOD COUNT (AUTO) 7.2 K/uL (4.3-11.0)
[2016-08-16 08:00] VITALS: BP_SYST 140; BP_DIAS 63; BP_DIAS 80
--- NOTE | 2016-08-16 08:00 | NUR ---
MS RN OPENING NOTES RECEIVED PT FROM NIGHTSHIFT NURSE IN STABLE CONDITION. PT AWAKE, ON 2LPM O2 VIA NC. BREATHING EVEN AND UNLABORED. NO SOB OR SIGNS OF DISTRESS AT THIS TIME. IV TO NAWAF 20G PATENT AND INTACT. NO REDNESS OR INFILTRATION NOTED. BED IN LOW LOCKED POSITION, SIDE RAILS UP X2, WITH CALL LIGHT IN REACH. WILL CONTINUE TO MONITOR.
[2016-08-16 08:36] LABS: CALCIUM, SERUM 7.2 mg/dL (8.5-10.1); CREATININE 3.8 mg/dL (0.6-1.3); MAGNESIUM 1.8 mg/dL (1.8-2.4); PHOSPHORUS 2.4 mg/dL (2.5-4.9); POTASSIUM 3.9 mmol/L (3.5-5.1)
[2016-08-16 08:59] LABS: NEUTROPHILS % (MANUAL) 67 (42-76)
[2016-08-16 09:00] LABS: BAND % (MANUAL) 2 % (0.0-5.0); BASOPHILS % (MANUAL) 0 % (0.0-2.0); EOSINOPHILS % (MANUAL) 3 % (0-4); LYMPHOCYTES % (MANUAL) 22 % (16-48); MONOCYTES % (MANUAL) 6 % (0-11.0)
[2016-08-16 09:01] LABS: ANISOCYTOSIS 2+; PLATELET ESTIMATE ADEQUATE
[2016-08-16] MEDS: ONDANSETRON HCL/PF 4 MG/2 ML VIAL IVP PRN (09:08)
[2016-08-16] MEDS: MORPHINE SULFATE INJ 2 MG/ML DISP.SYRIN IV PRN ×3 (09:08→22:46)
[2016-08-16] MEDS: hydrALAZINE HCL 25 MG TABLET PO SCH ×3 (10:14→17:00)
[2016-08-16] MEDS: METOPROLOL SUCCINATE 25 MG TAB.SR.24H PO SCH (10:14)
[2016-08-16] MEDS: NIFEdipine XL 60 MG TAB PO SCH (10:16)
[2016-08-16] MEDS: GUAIFENESIN LA 600 MG TABLET.SA PO SCH ×2 (10:16→21:20)
[2016-08-16] MEDS: FOLIC ACID 1 MG TABLET PO SCH (10:16)
[2016-08-16] MEDS: ISOSORBIDE MONONITRATE (30MG) 30 MG TAB.SR.24H PO SCH (10:16)
[2016-08-16] MEDS: PANTOPRAZOLE 40 MG VIAL IV SCH ×2 (11:19→21:53)
--- NOTE | 2016-08-16 15:32 | NUR ---
MS RN NOTES PT.'S BP DROPPED TO 80/51. SHE WAS ASYMPTOMATIC. JUANI THE CHARGE WAS NOTIFIED OF CHANGE. PT WAS ENCOURAGED TO DRINK FLUIDS AND PLACED IN [place]. THE CLERK FUNERAL DETAIL JAQUAN WAS ALSO NOTIFIED AND ORDERED A STAT CBC. THERE WERE NO APPARENT SIGNS OF BLEEDING DIRECTED TO ASSESS BY THE CLERK FUNERAL DETAIL.
[2016-08-16 16:00] VITALS: BP 88/52
--- NOTE | 2016-08-16 17:00 | NUR ---
MS RN NOTES PT IS CURRENTLY GETTING DIALYZED. BP HAS IMPROVED AND IS NOW 105/81. HR IS 90. PT IN STABLE CONDITION.
[2016-08-16 17:25] LABS: BASOPHILS # (AUTO) 0.4 /CMM (0.0-0.2); BASOPHILS % (AUTO) 4.5 % (0.0-2.0); EOSINOPHILS # (AUTO) 0.1 /CMM (0.0-0.7); EOSINOPHILS % (AUTO) 1.3 % (0.0-6.0); HEMATOCRIT 29 % (33-45); HEMOGLOBIN 8.9 g/dL (11.5-14.8); LYMPHOCYTES # (AUTO) 1.1 /CMM (0.8-4.8); MEAN CORPUSCULAR HEMOGLOBIN 26 PG (26.0-33.0); MEAN CORPUSCULAR HGB CONC 30 g/dl (31.0-36.0); MEAN CORPUSCULAR VOLUME 87 fL (82-100); MONOCYTES # (AUTO) 0.7 /CMM (0.1-1.30); MONOCYTES % (AUTO) 7.8 % (2.0-12.0); NEUTROPHILS # (AUTO) 6.4 /CMM (1.8-8.9); NEUTROPHILS % (AUTO) 73.4 % (43.0-81.0); PLATELET COUNT (AUTO) 230 /CMM (150-450); RDW COEFFICIENT OF VARIATION 20.2 (11.5-15.0); RED BLOOD CELL COUNT(AUTO) 3.37 MIL/uL (4.0-5.2); WHITE BLOOD COUNT (AUTO) 8.7 K/uL (4.3-11.0)
--- NOTE | 2016-08-16 18:30 | NUR ---
MS RN CLOSING NOTES PT IN STABLE CONDITION, AWAKE, A/O X3. ON 2LPM O2 VIA NC. BREATHING EVEN AND UNLABORED. NO SOB OR SIGNS OF DISTRESS AT THIS TIME. IV TO NAWAF 20G PATENT AND INTACT. NO REDNESS OR INFILTRATION NOTED. BED IN LOW LOCKED POSITION, SIDE RAILS UP X2, WITH CALL LIGHT IN REACH. ALL SAFETY MEASURES ENFORCED THROUGHOUT SHIFT. ALL ORDERS AND PT. NEEDS CARRIED OUT AND ADDRESSED PROMPTLY. WILL ENDORSE TO NIGHTSHIFT NURSE FOR HAILE.
--- NOTE | 2016-08-16 19:30 | NUR ---
MS/EDUCATIONAL PROGRAMMING DIRECTOR; RECEIVED PT. IN BED AWAKE, ALERT AND ORIENTED. DENIES PAIN. BREATHING NON LABORED. BED ON LOWER POSITION AND LOCKED FOR SAFETY. SIDE RAILS ARE UP FOR SAFETY. PT WANTS TO BE CLEAN UP AND I INFORMED THE WICK AND BASE ASSEMBLER. WITH O2 2L NC . CONTINUE TO MONITOR CALL LIGHT WITHIN REACH.
[2016-08-16 20:00] VITALS: BP 108/59
[2016-08-16] MEDS ORDERED: SECONDARY IV SET 1 EA INFUS.SET MC ONE (21:00)
[2016-08-16] MEDS ORDERED: IV NS 0.9% 250 ML IV ONE (21:00)
[2016-08-16] MEDS ORDERED: IV SET PRIMARY PUMP SET 1 EA INFUS.SET MC ONE (21:00)
[2016-08-16] MEDS: CEFTRIAXONE 1 G in IV D5W 50 ML IV SCH (21:03)
--- NOTE | 2016-08-16 22:15 | NUR ---
MS/AUTHORIZER; C/O GEN. PAIN WITH PAIN LEVEL OF 8 OUT OF 10. BP 116/ 58 , P 82. I INFORMED THE CHARGE NURSE ABOUT THE ABOVE AND SHE OK TO GIVE. I NOTIFIED GERMAN THE RN WHO IS COVERING MY IV MED ABOUT PT WANTS PAIN SHOT.
--- NOTE | 2016-08-16 22:45 | NUR ---
MS /POLICY ANALYST; BS 161 NO SLIDING SCALE COVERAGE ORDER.
[2016-08-16] MEDS: ALBUTEROL FS 2.5 MG/0.5 ML VIAL.NEB NEB PRN (23:27)
[2016-08-16] MEDS: IPRATROPIUM NEB FS 0.5 MG/2.5 ML AMPUL.NEB NEB PRN (23:27)
[2016-08-16] MEDS: ZOLPIDEM TARTRATE 5 MG TABLET PO PRN (23:42)
--- NOTE | 2016-08-17 02:00 | NUR ---
MS/PLANISHING HAMMER OPERATOR; SLEEPING AT THIS TIME. BREATHING NON LABORED AND EVEN. CONTINUE TO MONITOR.
--- NOTE | 2016-08-17 04:00 | NUR ---
MS/ROUNDHOUSE WORKER; SLEEPING AT THIS TIME. BREATHING NON LABORED. CONTINUE TO MONITOR.
--- NOTE | 2016-08-17 06:00 | NUR ---
MS/MARINE CONSULTANT; BS 107 NO COVERAGE .
[2016-08-17] MEDS: BLOOD SUGAR DIAGNOSTIC 1 EACH STRIP IN SCH ×2 (06:11→12:23)
--- NOTE | 2016-08-17 06:52 | NUR ---
MS/COMMISSIONING MANAGER; SLEPT AT GOOD INTERVALS AFTER HAVING SLEEPING PILL LAST NIGHT. PT IS ANURIC. CONTINUE TO MONITOR. CALL LIGHT WITHIN REACH. WILL ENDORSE TO THE DAY SHIFT NURSE.
[2016-08-17 07:52] LABS: HEMATOCRIT 28 % (33-45); HEMOGLOBIN 8.6 g/dL (11.5-14.8); MEAN CORPUSCULAR HEMOGLOBIN 27 PG (26.0-33.0); MEAN CORPUSCULAR HGB CONC 31 g/dl (31.0-36.0); MEAN CORPUSCULAR VOLUME 87 fL (82-100); PLATELET COUNT (AUTO) 163 /CMM (150-450); RDW COEFFICIENT OF VARIATION 20.6 (11.5-15.0); RED BLOOD CELL COUNT(AUTO) 3.21 MIL/uL (4.0-5.2); WHITE BLOOD COUNT (AUTO) 6.7 K/uL (4.3-11.0)
[2016-08-17 08:00] VITALS: BP 140/77
[2016-08-17] MEDS: IPRATROPIUM NEB FS 0.5 MG/2.5 ML AMPUL.NEB NEB PRN ×2 (08:02→14:43)
[2016-08-17] MEDS: ALBUTEROL FS 2.5 MG/0.5 ML VIAL.NEB NEB PRN ×2 (08:02→14:43)
[2016-08-17] MEDS: ACETYLCYSTEINE 20% SOLN 800 MG/4 ML VIAL NEB SCH ×2 (08:02→14:43)
[2016-08-17 08:08] LABS: CALCIUM, SERUM 7.4 mg/dL (8.5-10.1); CREATININE 3.3 mg/dL (0.6-1.3); MAGNESIUM 1.7 mg/dL (1.8-2.4); POTASSIUM 4.2 mmol/L (3.5-5.1)
[2016-08-17] MEDS: METOPROLOL SUCCINATE 25 MG TAB.SR.24H PO SCH (09:00)
[2016-08-17] MEDS: NIFEdipine XL 60 MG TAB PO SCH (09:00)
[2016-08-17] MEDS: ISOSORBIDE MONONITRATE (30MG) 30 MG TAB.SR.24H PO SCH (09:00)
[2016-08-17] MEDS: MORPHINE SULFATE INJ 2 MG/ML DISP.SYRIN IV PRN ×2 (09:02→14:26)
[2016-08-17] MEDS: FOLIC ACID 1 MG TABLET PO SCH (09:02)
[2016-08-17] MEDS: PANTOPRAZOLE 40 MG VIAL IV SCH (09:03)
[2016-08-17] MEDS: hydrALAZINE HCL 25 MG TABLET PO SCH ×2 (09:03→14:26)
[2016-08-17] MEDS: GUAIFENESIN LA 600 MG TABLET.SA PO SCH (09:04)
--- NOTE | 2016-08-17 09:40 | NUR ---
MS RN NOTES PT. REUSES METOPROLOL, ISOSORBIDE, AND NIFEDIPINE. STATES THAT HER BP IS FINE (115/71) AND DOES NOT WANT IT TO DROP ANY FURTHER. HR IS 83. MEDICATION EDUCATION WAS GIVEN TO PATIENT. PT. WAS ABLE TO VERBALIZE HER UNDERSTANDING. MD IS AWARE. WILL CONTINUE TO MONITOR.
[2016-08-17 10:12] LABS: ANISOCYTOSIS 3+; HYPOCHROMASIA 1+; LYMPHOCYTES % (MANUAL) 5 % (16-48); MONOCYTES % (MANUAL) 1 % (0-11.0); NEUTROPHILS % (MANUAL) 94 (42-76); PLATELET ESTIMATE ADEQUATE
--- NOTE | 2016-08-17 10:13 | NUR ---
MS RN NOTES PT.'S MAGNESIUM IS 1.7. JAQUAN THE HAM TRIMMER WAS MADE AWARE. WILL WAIT FOR FURTHER ORDERS AND CONTINUE TO MONITOR.
[2016-08-17] MEDS ORDERED: CEPH-570 PO (11:46)
[2016-08-17] MEDS ORDERED: DIPH12.56 PO (11:46)
[2016-08-17] MEDS ORDERED: Ipratropium Bromide NEB (11:46)
[2016-08-17] MEDS ORDERED: PANT40TA2 PO (11:46)
[2016-08-17] MEDS ORDERED: ALBU2.5V13 NEB (11:46)
[2016-08-17] MEDS ORDERED: K PHOS NEUTRAL 250 MG TABLET PO ONE (13:30)
[2016-08-17 16:00] VITALS: BP 138/74
--- NOTE | 2016-08-17 16:32 | NUR ---
MS RN NOTES PT WAS DISCHARGED FROM UNIT IN STABLE CONDITION. SHE WAS TRANSFERRED SAFELY VIA AMBULANCE. ALL ORDERS WERE CARRIED OUT THROUGHOUT SHIFT.
== END 2016-08-17 16:32 | DRG 720 ==
LOC: ER 15:49 → TELE 17:54 → MED 08-11 09:21
PROVIDERS: ADMIT Family Medicine; ATTEND Family Medicine
PROC: 5A1D60Z (ICD-10-PCS; principal; 2016-08-11)
DX: A41.9 Sepsis, unspecified organism (principal); I13.2 Hypertensive heart and chronic kidney disease with heart failure and with stage 5 chronic kidney disease, or end stage renal disease; J90 Pleural effusion, not elsewhere classified; N18.6 End stage renal disease; E44.0 Moderate protein-calorie malnutrition; R13.10 Dysphagia, unspecified; E83.51 Hypocalcemia; E11.22 Type 2 diabetes mellitus with diabetic chronic kidney disease; K57.30 Diverticulosis of large intestine without perforation or abscess without bleeding; Z99.2 Dependence on renal dialysis; R07.89 Other chest pain; N39.0 Urinary tract infection, site not specified; J98.11 Atelectasis; E11.42 Type 2 diabetes mellitus with diabetic polyneuropathy; B96.20 Unspecified Escherichia coli [E. coli] as the cause of diseases classified elsewhere; K21.9 Gastro-esophageal reflux disease without esophagitis; Z87.891 Personal history of nicotine dependence; N18.9 Chronic kidney disease, unspecified; E83.9 Disorder of mineral metabolism, unspecified; D63.8 Anemia in other chronic diseases classified elsewhere; Z90.710 Acquired absence of both cervix and uterus; Z98.890 Other specified postprocedural states; Z68.22 Body mass index [BMI] 22.0-22.9, adult; I50.32 Chronic diastolic (congestive) heart failure
CPT/HCPCS: 36415; 71010-TC; 80048-TC; 80061-TC; 80076-TC; 81000-TC; 82962-TC; 83605-TC; 83735-TC; 84100-TC; 84484-TC; 85025-TC; 85730-TC; 87040-TC; 87081-TC; 87086-TC; 87186-TC; 90935-TC; 92521; 93307-TC; 94799-TC; 97001-TC; A4606; A9563; C9113; J0610; J0696; J0885; J2270; J2405; J2765; J2997; J7030; J7050; J7060; Q0163; Z7610

== ENCOUNTER 2016-10-22 07:33 | Inpatient (IN) | payer OTHER ==
[2016-10-22] VITALS (21 sets, daily range): BP systolic 126–167; BP diastolic 83–109
[~2016-10-22] VITALS: Ht 170.2 cm; Wt 64.0 kg
[~2016-10-22 07:33] MED LIST changes: +ACET-868 PO; +ALBU2.5V13 NEB; +BISA10SU8 RC; +BLOO-668 IN; +CEPH-570 PO; +DIPH12.56 PO; -Heparin Sodium,Porcine SQ; -INSU100V SQ; +INSU100V27 SQ; +Ipratropium Bromide NEB; -LACT10SO7 PO; +MAGN400O6 PO; +METO-302 PO; -METO-306 PO; +NA P133E RC; +PANT40TA2 PO; -SENN8.6T6 PO
[2016-10-22] MEDS ORDERED: IV NS 0.9% 1,000 ML BAG IV ONE (08:00)
[2016-10-22] MEDS ORDERED: MORPHINE SULFATE INJ 2 MG/ML DISP.SYRIN IV ONE ×2 (08:00→10:30)
[2016-10-22] MEDS ORDERED: IV SET PRIMARY 1 EA INFUS.SET MC ONE (08:15)
[2016-10-22] MEDS ORDERED: MORPHINE SULFATE INJ 4 MG/ML DISP.SYRIN ONE (08:15)
[2016-10-22] MEDS ORDERED: ONDANSETRON HCL/PF 4 MG/2 ML VIAL ONE (08:15)
[2016-10-22] MEDS ORDERED: IV NS 0.9% 1,000 ML ONE (08:15)
[2016-10-22 08:25] LABS: EOSINOPHILS # (AUTO) 0.1 /CMM (0.0-0.7); HEMATOCRIT 40 % (33-45); HEMOGLOBIN 12.6 g/dL (11.5-14.8); LYMPHOCYTES % (AUTO) 16.1 % (20.0-44.0); MEAN CORPUSCULAR HEMOGLOBIN 28 PG (26.0-33.0); MEAN CORPUSCULAR HGB CONC 32 g/dl (31.0-36.0); MEAN CORPUSCULAR VOLUME 89 fL (82-100); MONOCYTES # (AUTO) 0.3 /CMM (0.1-1.30); MONOCYTES % (AUTO) 4.8 % (2.0-12.0); NEUTROPHILS # (AUTO) 4.7 /CMM (1.8-8.9); NEUTROPHILS % (AUTO) 77.1 % (43.0-81.0); PLATELET COUNT (AUTO) 338 /CMM (150-450); RDW COEFFICIENT OF VARIATION 21.2 (11.5-15.0); RED BLOOD CELL COUNT(AUTO) 4.44 MIL/uL (4.0-5.2); WHITE BLOOD COUNT (AUTO) 6.2 K/uL (4.3-11.0)
--- NOTE | 2016-10-22 08:29 | NUR ---
BIB RA FROM [facility] FOR GENERALIZED BODY PAINS, PATIENT COMPLAINS OF LOSS OF EYE SIGHT OVER THE PAST 3 DAYS, PATIENT IS VERBALLY RESPONSIVE AND PLACED ON MONITOR, A/O X3, WILL CONTINUE TO MONITOR CLOSELY.
[2016-10-22 08:36] LABS: CALCIUM, SERUM 9.6 mg/dL (8.5-10.1); CREATININE 3.3 mg/dL (0.6-1.3); POTASSIUM 3.8 mmol/L (3.5-5.1)
[2016-10-22 08:42] LABS: ALBUMIN 2.1 g/dL (3.4-5.0); BILIRUBIN,DIRECT 0.1 mg/dL (0.0-0.2); BILIRUBIN,TOTAL 0.4 mg/dL (0.2-1.0)
--- NOTE | 2016-10-22 08:43 | NUR ---
PATIENT AT CT WITH KENNEL TECHNICIAN
[2016-10-22 08:44] LABS: TROPONIN I 0.02 ng/mL (0.00-0.056)
[2016-10-22] MEDS ORDERED: CHOL10002 PO (09:08)
[2016-10-22] MEDS ORDERED: LINA5TAB PO (09:08)
[2016-10-22] MEDS ORDERED: PANT40TA2 PO (09:08)
[2016-10-22] MEDS ORDERED: HYDR-552 PO (09:08)
[2016-10-22 09:09] LABS: INR 1.05 (0.87-1.13); PROTHROMBIN TIME 11.3 SECS (9.5-12.7)
--- NOTE | 2016-10-22 09:14 | NUR ---
DR RAND PAGED [phone]
--- NOTE | 2016-10-22 09:20 | NUR ---
patient back in bed, placed back on monitor and is in less pain
--- NOTE | 2016-10-22 09:22 | NUR ---
PAGED DR. GIBSON FOR CONSULT
[2016-10-22 09:28] LABS: BILIRUBIN,URINE NEGATIVE (NEGATIVE); BLOOD, URINE 1+ Ery/uL (NEGATIVE); COLOR,URINE YELLOW (YELLOW); KETONES,URINE NEGATIVE (NEGATIVE); LEUKOCYTE ESTERASE ,URINE 1+ (NEGATIVE); NITRITE, URINE NEGATIVE (NEGATIVE); PROTEIN,URINE 3+ mg/dl (NEGATIVE); UGLUCOSE TRACE mg/dL (NEGATIVE); UROBILINOGEN,URINE 0.2 EU/dL (0.2)
[2016-10-22] MEDS ORDERED: ONDANSETRON HCL/PF 4 MG/2 ML VIAL IV ONE (09:30)
[2016-10-22 09:34] LABS: APPEARANCE,URINE CLOUDY (CLEAR)
[2016-10-22 09:49] LABS: BACTERIA,URINE 2+ /HPF (None Seen); SQUAMOUS EPITHELIAL CELL,UR Moderate /HPF (None Seen); WBC,URINE TOO NUMEROUS TO COUN /HPF (0-3)
--- NOTE | 2016-10-22 10:05 | NUR ---
I, CHA SAINI RT, SPOKE TO BOTH AND DR. SETH IN ER. THEY BOTH AGREED TO DO CTA OF ABD FIRST AND CTA CAROTID AND BRAIN TO BE DONE ON 10/23/2016.
[2016-10-22] MEDS ORDERED: IV NS 0.9% 250 ML IV ONE (10:27)
[2016-10-22] MEDS ORDERED: CT SWABBABLE VALVE TRANS SET 1 EA INFUS.SET MC ONE (10:27)
[2016-10-22] MEDS ORDERED: IOHEXOL-350 100 ML VIAL IV ONE (10:27)
--- NOTE | 2016-10-22 10:55 | NUR ---
TEXTED DR. CARDONA FOR MRI APPROVAL.
--- NOTE | 2016-10-22 11:30 | NUR ---
SECTIONAL BELT MOLD ASSEMBLER NOTES RECEIVED PATIENT FROM ER WITH DIAGNOSIS OF INTRACTABLE ABDOMINAL PAIN , UTI , NOT IN ACUTE DISTRESS , DENIES SOB COMPLAINING OF ABDOMINAL PAIN 12/06 , WILL ADMINISTER PAIN MEDICATION ORDERED , SPO2 OF 88 ON 2LPM NC , CHANGED O2 TO 10LPM MASK , SPO2 OF 97% , AOX3 , SR 85 ON BEDSIDE MONITOR , FC DRAINING VIA GRAVITY WITH CLEAR YELLOW URINE , ON KCI MATTRESS , SKIN ASSESSMENT DONE , NO WOUND NOTED , SKIN IS INTACT , IV OF R HAND # 22 AND R EJ # 20 PATENT AND INTACT SL , ALL NEEDS ATTENDED , BED ON LOW AND LOCKED POSITION , SIDE RAILS X2 CALL LIGHT WITHIN REACH , WILL CONTINUE TO MONITOR .
[2016-10-22] MEDS ORDERED: IV NS 0.9% 1,000 ML IV PRN (11:41)
--- NOTE | 2016-10-22 11:45 | NUR ---
INTERMEDIATE ACCOUNTANT NOTES PAGED DR DUFF FOR ADMISSION ORDERS , AWARE.
[2016-10-22] MEDS ORDERED: MAG HYDROX/AL HYDROX/SIMETH 30 ML UDC PO PRN (12:00)
[2016-10-22] MEDS ORDERED: ZOLPIDEM TARTRATE 5 MG TABLET PO PRN (12:00)
[2016-10-22] MEDS ORDERED: ACETAMINOPHEN 325 MG TABLET PO PRN (12:00)
[2016-10-22] MEDS ORDERED: Z GUARD REMEDY 2 OZ OINT TP PRN (12:00)
[2016-10-22] MEDS ORDERED: MAGNESIUM HYDROXIDE 30 ML UDC PO PRN (12:00)
[2016-10-22] MEDS ORDERED: MORPHINE SULFATE INJ 2 MG/ML DISP.SYRIN IV PRN (12:00)
--- NOTE | 2016-10-22 12:00 | NUR ---
ADULT PAROLE OFFICER NOTES GRAHAM AT BEDSIDE FOR MIDLINE INSERTION ORDERED , WILL CONTINUE TO MONITOR
[2016-10-22] MEDS ORDERED: IV SET PRIMARY PUMP SET 1 EA INFUS.SET MC ONE ×2 (12:08→20:43)
[2016-10-22] MEDS ORDERED: SECONDARY IV SET 1 EA INFUS.SET MC ONE ×2 (12:09→20:44)
[2016-10-22] MEDS: PANTOPRAZOLE 40 MG VIAL IV SCH (12:14)
--- NOTE | 2016-10-22 12:30 | NUR ---
MANAGER FOREIGN NOTES SEEN AND EVALUATED BY DR DRIVER , DISCUSSED LABS , CHEST XRAY V/S AND CTA OF THE ABDOMEN RESULT , AWARE
[2016-10-22 12:49] LABS: ABG BASE EXCESS 0.1 mmol/L; ABG OXYGEN SATURATION 83.7 % (92.0-98.5); ABG PCO2 45.3 mmHg (35.0-45.0); ABG PH 7.371 (7.350-7.450); AaDO2 290.8 mmHg; COHb 1.6 % (0.5-1.5); MetHb 0.6 % (0.0-1.5); O2Hb 81.9 % (94.0-97.0); SITE, ABG Right Radial; VENT MODE, BG 10L SIMPLE MASK
--- NOTE | 2016-10-22 12:59 | NUR ---
PLASTERING SUPERVISOR NOTES ABG RESULT RECEIVED , PLACED PT ON NON REBREATHER MASK @ 15LPM , SPO2 OF 97% , WILL CONTINUE TO MONITOR
--- NOTE | 2016-10-22 13:05 | NUR ---
BUSINESS SERVICES ASSISTANT NOTES PT REFUSES TO UNDER GO MRI OF THE BRAIN , EXPLAINED BENEFITS OF THE PROCEDURE , PT VERBALIZED UNDERSTANDING , STILL REFUSES , SHE WANTS TO DO IT TOMORROW . WILL CONTINUE TO MONITOR
[2016-10-22] MEDS: CEFTRIAXONE 1 G in IV D5W 50 ML IV SCH (13:20)
--- NOTE | 2016-10-22 14:10 | NUR ---
COLLEGE ATHLETIC DIRECTOR NOTES PT STABLE PRIOR TO HD , V/S STABLE , AFEBRILE , WILL CONTINUE TO MONITOR
[2016-10-22] MEDS: diphenhydrAMINE HCL 50 MG/ML VIAL IV PRN (14:39)
[2016-10-22] MEDS ORDERED: ALBUMIN 25% 25 GM in PREMIX 1 EA IV PRN (15:00)
[2016-10-22] MEDS: HYDROMORPHONE 1 MG/1 ML DISP.SYRIN IV PRN ×2 (15:09→20:16)
--- NOTE | 2016-10-22 16:31 | NUR ---
IN FLIGHT REFUELING SYSTEM REPAIRER NOTES PT STABLE POST HD , 2.8 L OUT , TOLERATES HEMODIALYSIS WELL , NO CHANGE OF CONDITION NOTED . AFEBRILE , WILL CONTINUE TO MONITOR
--- NOTE | 2016-10-22 16:45 | NUR ---
HOOP CUTTER NOTES TITRATED O2 TO 5LPM NC , PT DESATURATE WITH SPO2 OF 87% , PLACED BACK TO NON REBREATHER MASK @ 15LPM WITH SPO2 OF 97% , WILL CONTINUE TO MONITOR
--- NOTE | 2016-10-22 20:16 | NUR ---
UNDERWATER HUNTER TRAPPER: PT C/O BACK PAIN 12/06 . SBP ABOVE 160 . PRN DILAUDID GIVEN Addendum: 10/22/16 at 2035 by SILVA RENEE RN PT ALSO REPOSITIONED AND BACK SCRATHED PER REQUEST OF PT . PT REFUSES TO HAVE TASHAL AT THIS TIME.
[2016-10-23] VITALS (52 sets, daily range): BP systolic 115–209; BP diastolic 59–133
--- NOTE | 2016-10-23 03:00 | NUR ---
BOILERHOUSE MECHANIC: AFTER PATIENTS BED BATH BP ELEVATED .PT ANXIOUS AND C/O PAIN . PRN DILAUDID GIVEN.
[2016-10-23] MEDS: HYDROMORPHONE 1 MG/1 ML DISP.SYRIN IV PRN ×5 (03:02→23:48)
--- NOTE | 2016-10-23 04:25 | NUR ---
SUGAR BOILER: PTS BP STILL ELEVATED AFTER DILAUDID WAS GIVEN. CALLED DR LYNN (STORAGE RECEIPT POSTER MD) Addendum: 10/23/16 at 0436 by SILVA RENEE RN FIRST CALL WAS AT 4AM . NO CALL BACK YET .
--- NOTE | 2016-10-23 04:49 | NUR ---
PULMONARY CARE NURSE CALLED DR LYNN AGAIN . AWARE OF PTS ELEVATED BP . GAVE PARAMETETRS TO NOT CALL MD UNLESS BP IS HIGHER THAN 220/120
[2016-10-23 05:16] LABS: BASOPHILS % (AUTO) 0.6 % (0.0-2.0); EOSINOPHILS # (AUTO) 0.2 /CMM (0.0-0.7); EOSINOPHILS % (AUTO) 4.2 % (0.0-6.0); HEMATOCRIT 37 % (33-45); HEMOGLOBIN 11.8 g/dL (11.5-14.8); LYMPHOCYTES # (AUTO) 1.2 /CMM (0.8-4.8); LYMPHOCYTES % (AUTO) 20.2 % (20.0-44.0); MEAN CORPUSCULAR HEMOGLOBIN 28 PG (26.0-33.0); MEAN CORPUSCULAR HGB CONC 32 g/dl (31.0-36.0); MEAN CORPUSCULAR VOLUME 90 fL (82-100); MONOCYTES # (AUTO) 0.5 /CMM (0.1-1.30); MONOCYTES % (AUTO) 8.8 % (2.0-12.0); NEUTROPHILS % (AUTO) 66.2 % (43.0-81.0); PLATELET COUNT (AUTO) 317 /CMM (150-450); RDW COEFFICIENT OF VARIATION 21.2 (11.5-15.0); RED BLOOD CELL COUNT(AUTO) 4.17 MIL/uL (4.0-5.2)
[2016-10-23 05:28] LABS: BILIRUBIN,TOTAL 0.4 mg/dL (0.2-1.0); CALCIUM, SERUM 8.4 mg/dL (8.5-10.1); CREATININE 2.8 mg/dL (0.6-1.3); MAGNESIUM 2.1 mg/dL (1.8-2.4); PHOSPHORUS 3.1 mg/dL (2.5-4.9); POTASSIUM 4.8 mmol/L (3.5-5.1); TOTAL PROTEIN, SERUM 6.7 g/dL (6.4-8.2)
[2016-10-23 06:41] LABS: THYROID STIMULATING HORMONE 2.219 uIU/mL (0.358-3.74)
--- NOTE | 2016-10-23 07:15 | NUR ---
HOME RESTORATION SERVICE CLEANER NOTES RECEIVED PATIENT AOX3 , VISION IS CLEAR AT THIS TIME PER PT VERBALIZATION , NOT IN ACUTE DISTRESS , DENIES SOB COMPLAINING OF BACK PAIN 12/06 , WILL ADMINISTER PAIN MEDICATION ORDERED , SPO2 OF 98 % VIA NON REBREATHER MASK @ 15LPM , SR 96 ON BEDSIDE MONITOR , FC DRAINING VIA GRAVITY WITH CLEAR YELLOW URINE , ON KCI MATTRESS , IV OF R HAND # 22 AND R EJ # 20 NAWAF MIDLINE PATENT AND INTACT SL , LEFT ARM SHUNT WITH ABSENT BRUIT AND THRILL UPON PALPATION , ALL NEEDS ATTENDED , BED ON LOW AND LOCKED POSITION , SIDE RAILS X2 CALL LIGHT WITHIN REACH , WILL CONTINUE TO MONITOR .
--- NOTE | 2016-10-23 07:58 | NUR ---
DEVELOPMENT WRITER NOTES DR DRIVER AT BEDSIDE , DISCUSSED LABS , HEAD CT AND CTA OF ABDOMEN AND PELVIS RESULT , MEDICATION RECONCILIATIONS ARE HELD , PT IS NPO , BP OF 191 / 125 , MD AWARE
--- NOTE | 2016-10-23 08:00 | NUR ---
CARDIAC CATHETERIZATION TECHNICIAN NOTES DR DUFF AT BEDSIDE , SEEN AND EVALUATED THE PT , DISCUSSED LABS , CTA OF THE PELVIS AND ABDOMEN RESULT , PT ABLE TO SEE RONALD WITH EPISODES OF VISION BLURRINESS , SBP OF 200'S , DISCUSSED MEDICATION RECONCILIATION MEDICATIONS THAT WAS HELD , PER MD CONTINUE ALL BP MEDS , PENDING NEUROLOGY CONSULT , MD AWARE
--- NOTE | 2016-10-23 08:20 | NUR ---
DIRECTOR OF CARDIAC CATH LAB NOTES PT UNSTABLE FOR MRI BP IS ELEVATED , WILL CONTINUE TO MONITOR
[2016-10-23] MEDS ORDERED: CLONIDINE HCL 0.3 MG/24H PTWK 1 EA PATCH TD SCH (08:30)
[2016-10-23] MEDS: UREA 10% -AHA 4% CREAM 57 GM TUBE TP SCH ×2 (08:54→17:18)
[2016-10-23] MEDS: hydrALAZINE HCL 25 MG TABLET PO SCH ×3 (08:54→17:17)
[2016-10-23] MEDS: PANTOPRAZOLE 40 MG VIAL IV SCH (08:54)
[2016-10-23] MEDS: ISOSORBIDE MONONITRATE (30MG) 30 MG TAB.SR.24H PO SCH (08:55)
[2016-10-23] MEDS ORDERED: METOPROLOL SUCCINATE 25 MG TAB.SR.24H PO SCH (09:00)
[2016-10-23] MEDS ORDERED: NIFEdipine XL 60 MG TAB PO SCH (09:00)
[2016-10-23] MEDS ORDERED: IV NS 0.9% 250 ML IV ONE (09:04)
--- NOTE | 2016-10-23 09:34 | NUR ---
CO CHAIRMAN NOTES DR GIBSON SEEN AND EVALUATED THE PT , NOTIFIED PT HAS VISOIN LOSS X3 DAYS , ABLE TO SEE CLEARLY THIS MORNING WITH EPISODES OF BLURRY VISION , SBP OF 200 'S , AWAKE ALERT X3 , NO WEAKNESS NOTED , SPEECH IS CLEAR , PATIENT REFUSES MRI OF THE BRAIN YESTERDAY , PER MD WANTS PATIENT ON NICARDIPINE DRIP SBP IS 200'S , HE WILL CALL DR DUFF TODAY .
[2016-10-23] MEDS: diphenhydrAMINE HCL 50 MG/ML VIAL IV PRN ×2 (11:16→20:37)
[2016-10-23] MEDS: CEFTRIAXONE 1 G in IV D5W 50 ML IV SCH (11:19)
--- NOTE | 2016-10-23 11:30 | NUR ---
FARMWORKER MACHINE NOTES PAGED DR DUFF @ [phone] , DISCUSSED DR GIBSON'S PLAN , SBP OF 190'S NEUROLOGIST RECOMMENDING NICARDIPINE DRIP FOR ELEVATED SBP OF 200'S , DR DUFF AGREED WITH NICARDIPINE DRIP , TITRATE TO ACHIEVE SBP OF 140. PER MD RESTART DIET TO RENAL STANDARD , ORDERS CARRIED OUT
[2016-10-23] MEDS ORDERED: IV SET PRIMARY PUMP SET 1 EA INFUS.SET MC ONE (12:12)
[2016-10-23] MEDS: NICARDIPINE IN DEXTROSE,ISO-OS 200 ML IV PRN ×3 (12:30→20:23)
--- NOTE | 2016-10-23 12:43 | NUR ---
CHILD CARE CENTER ADMINISTRATOR NOTES HYDRALAZINE 25MG PO HELD , PT STARTED ON CARDINE DRIP , WILL CONTINUE TO MONITOR
--- NOTE | 2016-10-23 13:25 | NUR ---
MANAGER ORACLE NOTES CALLED DR GIBSON VERIFIED CTA OF THE NECK AND BRAIN ORDER FROM ER YESTERDAY , PT IS ON DIALYSIS , PER OK TO DC ORDER , MRI STILL PENDING PT BP STILL ON 150'S , ON PAULA SOLER MD AWARE
--- NOTE | 2016-10-23 15:00 | NUR ---
ADVERTISING REP NOTES PATIENT AGREED AND SIGNED THE CONSENT FOR LEFT LUNG THORACENTESIS , EXPLAINED THE RISK AND BENEFITS OF THE PROCEDURE , PATIENT VERBALIZED UNDERSTANDING , CONSENT PLACED IN THE CHART ,
--- NOTE | 2016-10-23 16:47 | NUR ---
RISK CONTROL SPECIALIST NOTES PT TOLERATED LEFT LUNG THORACENTECIS , V/S STABLE , SPO2 OF 98% VIA 8LPM MASK , NO ACTIVE BLEEDING NOTED AT THE SITE , 1500 L OF PLEURAL FLUID REMOVED , CLEAR BROWN IN COLOR, SPECIMEN LABELED AND SENT TO LAB FOR CULTURE AND CYTOLOGY , WILL CONTINUE TO MONITOR
--- NOTE | 2016-10-23 16:59 | NUR ---
MRI NOT DONE,SPOKE TO PATIENT'S NURSE, BP UNSTABLE TRY TOMORROW.
[2016-10-23] MEDS: NIFEdipine XL (30MG) 30 MG TAB PO SCH (17:17)
--- NOTE | 2016-10-23 17:30 | NUR ---
RETAIL SALES MANAGER NOTES NO ACTIVE BLEEDING ON THORACENTESIS SITE , DRESSING C/D/I , PT NOT IN ACUTE DISTRESS WITH SPO2 OF 97% VIA 8LPM MASK , WILL CONTINUE TO MONITOR
--- NOTE | 2016-10-23 18:30 | NUR ---
VOCATIONAL TRAINING DIRECTOR NOTES LEAVED A MESSAGE FROM DR GIBSON'S EXCHANGES , NOTIFIED PT UNABLE TO DO MRI OF THE BRAIN PT UNABLE TO TOLERATE TO LAY DOWN , PT NOTED WITH EPISODES OF DESATURATIONS WHILE ON SUPINE POSITION ON 8 LPM MASK , PENDING LEFT LUNG THORACENTESIS , AWAITING FOR CALL BACK
--- NOTE | 2016-10-23 19:45 | NUR ---
JAVA FRONT END WEB DEVELOPER : PT IS AGGRESSIVE, AGITATED, AND YELLING . PT IS TAKING 02 MASK OFF AND REFUSING TO PUT IT BACK ON. CHARGE NURSE AWARE AND SPOKE TO PT. PTS O2 SAT LOW. TITRATED O2 UP TO NON-REBREATHER AT 15L . ATTEMPTED TO CALM PT DOWN AND O2 SAT INCREASED . WILL CONT TO MONITOR.
--- NOTE | 2016-10-23 20:37 | NUR ---
[facility]: PT C/O SEVERE ITCHINESS. SKIN CARE DONE AND LOTION APPLIED. PRN BENADRYL GIVEN
--- NOTE | 2016-10-23 22:40 | NUR ---
CHIEF SUPPLY CHAIN OFFICER: BENSON SOLER STOPPED BP WNL. WILL CONT TO MONITOR.
[2016-10-24] VITALS (22 sets, daily range): BP systolic 104–153; BP diastolic 58–107
--- NOTE | 2016-10-24 00:30 | NUR ---
DRUM SPRAYER : PT DESATURATING . PT IS TAKING MASK OFF AND REFUSING TO PUT BACK ON. PT LENNY SOB .HOB ELEVATED AND CALLED DAUGHTER. WITH ASSIST OF DAUGHTER ,WAS ABLE TO CONVINCE PT TO PUT MASK BACK ON . PT AND DAUGHTER AWARE OF RISKS OF TAKING O2 OFF. WILL CONT TO MONITOR.
[2016-10-24] MEDS ORDERED: IV NS 0.9% 250 ML IV ONE (02:27)
[2016-10-24] MEDS: diphenhydrAMINE HCL 50 MG/ML VIAL IV PRN ×2 (02:43→08:08)
[2016-10-24] MEDS ORDERED: IV SET PRIMARY PUMP SET 1 EA INFUS.SET MC ONE ×2 (02:58→16:52)
[2016-10-24 04:37] LABS: BASOPHILS % (AUTO) 0.1 % (0.0-2.0); EOSINOPHILS # (AUTO) 0.1 /CMM (0.0-0.7); EOSINOPHILS % (AUTO) 1.4 % (0.0-6.0); HEMATOCRIT 34 % (33-45); HEMOGLOBIN 11.1 g/dL (11.5-14.8); LYMPHOCYTES # (AUTO) 0.9 /CMM (0.8-4.8); LYMPHOCYTES % (AUTO) 11.3 % (20.0-44.0); MEAN CORPUSCULAR HEMOGLOBIN 29 PG (26.0-33.0); MEAN CORPUSCULAR HGB CONC 33 g/dl (31.0-36.0); MEAN CORPUSCULAR VOLUME 87 fL (82-100); MONOCYTES # (AUTO) 0.5 /CMM (0.1-1.30); MONOCYTES % (AUTO) 6.2 % (2.0-12.0); NEUTROPHILS # (AUTO) 6.3 /CMM (1.8-8.9); PLATELET COUNT (AUTO) 484 /CMM (150-450); RED BLOOD CELL COUNT(AUTO) 3.85 MIL/uL (4.0-5.2); WHITE BLOOD COUNT (AUTO) 7.7 K/uL (4.3-11.0)
[2016-10-24] MEDS: HYDROMORPHONE 1 MG/1 ML DISP.SYRIN IV PRN ×4 (05:52→23:18)
--- NOTE | 2016-10-24 06:44 | NUR ---
ROLL TRUCKER PT REFUSED BED BATH AND LINEN CHANGE. REPOSITIONED IN BED AND OFFLOADED HEELS . PT LENNY SOB OR DISTRESS. PT STATES HER VISION IS GETTING BETTER.
[2016-10-24 08:00] LABS: CALCIUM, SERUM 8.3 mg/dL (8.5-10.1); CREATININE 4.1 mg/dL (0.6-1.3); MAGNESIUM 2.2 mg/dL (1.8-2.4); PHOSPHORUS 3.8 mg/dL (2.5-4.9); POTASSIUM 4.1 mmol/L (3.5-5.1)
--- NOTE | 2016-10-24 08:00 | NUR ---
ICU/RN INITIAL NOTES,AM RECEIVED PT ALERT, AWAKE, FOLLOWING COMMANDS WITH PERIODS OF CONFUSION. PT ON NON REBREATHER MASK, TOLERATING WELL, NO DISTRESS NOTED. PT SINUS/TACHY ON TELE. HD JUST STARTED. ORDERS RECEIVED TO TRANSFER PT TO TELE. ALL NEEDS WILL BE MET, SAFETY MEASURES TAKEN, BED IN LOW POSITION, SIDE RIALS UP, CALL LIGHT WITHIN REACH. VALDEZ IN PLACE WITH MINIMAL TO NO URINE OUTPUT. SKIN INTACT. MRI HEAD PENDING.
[2016-10-24] MEDS: PANTOPRAZOLE 40 MG VIAL IV SCH (08:08)
[2016-10-24] MEDS: UREA 10% -AHA 4% CREAM 57 GM TUBE TP SCH ×2 (08:15→16:36)
[2016-10-24] MEDS: hydrALAZINE HCL 25 MG TABLET PO SCH ×3 (09:00→16:37)
[2016-10-24] MEDS: ISOSORBIDE MONONITRATE (30MG) 30 MG TAB.SR.24H PO SCH (11:50)
[2016-10-24] MEDS: NIFEdipine XL (30MG) 30 MG TAB PO SCH ×2 (11:50→16:38)
[2016-10-24] MEDS: METOPROLOL SUCCINATE 50 MG TAB.SR.24H PO SCH (11:51)
[2016-10-24] MEDS: CEFTRIAXONE 1 G in IV D5W 50 ML IV SCH (11:54)
--- NOTE | 2016-10-24 12:45 | NUR ---
ICU/RN: TRANSFER ORDERS RECEIVED. REPORT ENDORSED TO GALE MARTINEZ. PT TRANSFERRED TO ROOM 322-2. ALL BELONGINGS SENT WITH PT. ENDORSED TO RN THAT PT HAS PENDING MRI. TECH WILL BE BY TO TAKE PT TO MRI. ALL NEEDS MET. PT BATHED, TURNED AND REPOSITIONED. WILL CONTINUE CARE
--- NOTE | 2016-10-24 12:50 | NUR ---
RN OPENING NOTES RECEIVED PATIENT FROM RN CHANTE IN ICU. PATIENT CAME IN A BED, SEMI FRIEDMAN POSITION, AWAKE. NO SOB OR DISTRESS NOTED. PATIENT ON TELE MONITOR SR HEART RATE IN THE 80'S. A/O X4 VERBALLY RESPONSIBLE AND ABLE TO MAKE NEEDS KNOWN. IV INTACT AND PATENT. KEPT PATIENT CLEAN AND COMFORTABLE IN BED. CALL LIGHT WITHIN PATIENT REACH, WILL CONTINUE TO MONITOR ACCORDINGLY.
--- NOTE | 2016-10-24 14:25 | NUR ---
RN NOTES PATIENT IS COMFORTABLE IN BED WITH NO SIGNS OF SOB OR DISTRESS NOTED.
--- NOTE | 2016-10-24 15:15 | NUR ---
RN NOTES DR. DUFF ORDERED TO CONTINUE MONITOR BP.
[2016-10-24] MEDS ORDERED: IV NS 0.9% 1,000 ML ONE (16:52)
--- NOTE | 2016-10-24 17:00 | NUR ---
RN NOTES BP MEDICATIONS HELD. BP 117/58.
--- NOTE | 2016-10-24 18:39 | NUR ---
RN CLOSING NOTES ALL NEEDS PROVIDED, ATTENDED, AND ANTICIPATED. KEPT PATIENT CLEAN AND COMFORTABLE IN BED, CALL LIGHT WITHIN PATIENT REACH, WILL CONTINUE TO MONITOR ACCORDINGLY. ENDORSED TO NEXT SHIFT RN TO CONTINUE CARE.
--- NOTE | 2016-10-24 19:30 | NUR ---
RN NOTES RECEIVED PT. AWAKE ON BED, A/OX3, SR ON TELE MONITOR HR-92, F/C DRAINING CLEAR YELLOW URINE, DENIES PAIN, NO SOB, CALL LIGHT WITHIN REACH, SIDERAILS UPX2 CONTINUE TO MONITOR
--- NOTE | 2016-10-24 23:23 | NUR ---
RN NOTES COMPLAINED OF GENERALIZED PAIN- DILAUDID MG IV GIVEN ORDERED, V/S STABLE
[2016-10-25] VITALS (7 sets, daily range): BP systolic 90–136; BP diastolic 46–67
[2016-10-25] MEDS: ONDANSETRON HCL/PF 4 MG/2 ML VIAL IVP PRN ×2 (01:09→09:11)
--- NOTE | 2016-10-25 06:03 | NUR ---
RN CLOSING NOTES Patient slept comfortably, no c/o pain or discomfort as of this time. No SOB noted. Noted with confusion, reality orientation provided. Good skin care provided. Kept clean and dry.Will continue to monitor.
[2016-10-25] MEDS: HYDROMORPHONE 1 MG/1 ML DISP.SYRIN IV PRN ×3 (07:03→22:19)
--- NOTE | 2016-10-25 07:10 | NUR ---
CUT OFF MACHINE OPERATOR NOTES RECEIVED PATIENT IN BED, AWAKE, A/O X3. BREATHING EVEN AND NON LABORED, NO SOB NOTED. ON TELE MONITOR SINUS RHYTHM HR 78. NO S/O PAIN AT THIS TIME. MADE COMFORTABLE IN BED, REPOSITION. CALL LIGHT WITHIN REACH. WILL CONT TO MONITOR.
[2016-10-25 07:11] LABS: BASOPHILS # (AUTO) 0.1 /CMM (0.0-0.2); BASOPHILS % (AUTO) 0.9 % (0.0-2.0); EOSINOPHILS # (AUTO) 0.1 /CMM (0.0-0.7); HEMATOCRIT 32 % (33-45); HEMOGLOBIN 10.4 g/dL (11.5-14.8); LYMPHOCYTES # (AUTO) 0.7 /CMM (0.8-4.8); LYMPHOCYTES % (AUTO) 10.1 % (20.0-44.0); MEAN CORPUSCULAR HEMOGLOBIN 29 PG (26.0-33.0); MEAN CORPUSCULAR HGB CONC 32 g/dl (31.0-36.0); MEAN CORPUSCULAR VOLUME 90 fL (82-100); MONOCYTES # (AUTO) 0.4 /CMM (0.1-1.30); MONOCYTES % (AUTO) 5.9 % (2.0-12.0); NEUTROPHILS # (AUTO) 5.8 /CMM (1.8-8.9); NEUTROPHILS % (AUTO) 82.1 % (43.0-81.0); PLATELET COUNT (AUTO) 254 /CMM (150-450); RDW COEFFICIENT OF VARIATION 20.4 (11.5-15.0); RED BLOOD CELL COUNT(AUTO) 3.62 MIL/uL (4.0-5.2); WHITE BLOOD COUNT (AUTO) 7.1 K/uL (4.3-11.0)
[2016-10-25 07:45] LABS: CALCIUM, SERUM 7.6 mg/dL (8.5-10.1); CREATININE 4.1 mg/dL (0.6-1.3); MAGNESIUM 2.1 mg/dL (1.8-2.4); PHOSPHORUS 3.7 mg/dL (2.5-4.9); POTASSIUM 4.4 mmol/L (3.5-5.1)
[2016-10-25] MEDS: ISOSORBIDE MONONITRATE (30MG) 30 MG TAB.SR.24H PO SCH (08:55)
[2016-10-25] MEDS: PANTOPRAZOLE 40 MG VIAL IV SCH (08:56)
[2016-10-25] MEDS: hydrALAZINE HCL 25 MG TABLET PO SCH ×3 (09:00→17:00)
[2016-10-25] MEDS: METOPROLOL SUCCINATE 50 MG TAB.SR.24H PO SCH (09:00)
[2016-10-25] MEDS: NIFEdipine XL (30MG) 30 MG TAB PO SCH ×2 (09:00→17:00)
[2016-10-25] MEDS: UREA 10% -AHA 4% CREAM 57 GM TUBE TP SCH ×2 (09:43→18:17)
--- NOTE | 2016-10-25 10:50 | NUR ---
[facility] PP CONSULTANT NOTES PER DR. NEISHA CANTU TO DC TELEMETRY.
[2016-10-25] MEDS ORDERED: IV SET PRIMARY PUMP SET 1 EA INFUS.SET MC ONE (11:39)
[2016-10-25] MEDS: CEFTRIAXONE 1 G in IV D5W 50 ML IV SCH (11:57)
--- NOTE | 2016-10-25 18:24 | NUR ---
MS RN CLOSING NOTES PATIENT IN BED, NOT IN DISTRESS. ON 2L OXYGEN VIA NC, NO SOB. ON ANTIBIOTIC WITH NO ADVERSE REACTION, AFEBRILE. NO C/O PAIN AT THIS TIME. CALL LIGHT WITHIN REACH. HD IN AM. WILL ENDORSE TO FIELD CONSULTANT RN FOR CONTINUITY OF CARE.
--- NOTE | 2016-10-25 19:30 | NUR ---
RN NOTES RECEIVED PATIENT IN BED AWAKE, AO X 3, ABLE TO MAKE NEEDS KNOWN. NO ACUTE DISTRESS NOTED. DENIES ANY PAIN AT THIS TIME. IV SITES PATENT, INTACT; FLUSHED. RCW PERMACATH INTACT. ON LOW BED WITH BILATERAL UPPER SIDE RAILS UP. CALL LIGHT WITHIN EASY REACH. WILL CONTINUE TO MONITOR.
[2016-10-26] MEDS: diphenhydrAMINE HCL 50 MG/ML VIAL IV PRN ×2 (00:37→12:09)
--- NOTE | 2016-10-26 00:37 | NUR ---
RN NOTES PATIENT C/O GENERALIZED ITCHINESS; BENADRYL GIVEN.
[2016-10-26] MEDS: HYDROMORPHONE 1 MG/1 ML DISP.SYRIN IV PRN ×3 (03:14→14:56)
--- NOTE | 2016-10-26 06:59 | NUR ---
RN NOTES PATIENT ASLEEP, EASILY AROUSABLE. RESPIRATIONS EVEN. NO SIGNS OF PAIN NOTED. SAFETY PRECAUTIONS AND COMFORT MEASURES IN PLACE. WILL GIVE REPORT TO DAY SHIFT FOR CONTINUITY OF CARE.
--- NOTE | 2016-10-26 07:56 | NUR ---
RN OPENING NOTES RECEIVED PATIENT IN BED, AWAKE, HEAD OF BED ELEVATED. NO SOB OR DISTRESS NOTED. A/O X 2-3, VERBALLY RESPONSIVE AND ABLE TO MAKE NEEDS KNOWN. ON O2 5 LPM VIA NC AND TOLERATED WELL. IV INTACT AND PATENT. KEPT PATIENT CLEAN AND COMFORTABLE IN BED, CALL LIGHT WITHIN PATIENT REACH, WILL CONTINUE TO MONITOR ACCORDINGLY.
[2016-10-26 08:00] VITALS: BP 133/73
--- NOTE | 2016-10-26 08:30 | NUR ---
RN NOTES PATIENT IS TELLING ME THAT SHE WANTS TO MAKE A COMPLAIN AND ALSO THAT SHE CALLED THE POLICE ALREADY BECAUSE SOMETHING HAPPENED LAST NIGHT BUT SHE DO NOT WANT TO TELL ME. I INFORMED REGINALD, BROOKE AND CHITO ABOUT THE SITUATION AND THE PATIENT DID NOT WANT TO TELL THEM WHAT WAS THE PROBLEM. WILL CONTINUE TO FOLLOW UP.
[2016-10-26] MEDS: NIFEdipine XL (30MG) 30 MG TAB PO SCH ×2 (08:47→17:00)
[2016-10-26] MEDS: PANTOPRAZOLE 40 MG VIAL IV SCH (08:47)
[2016-10-26] MEDS: METOPROLOL SUCCINATE 50 MG TAB.SR.24H PO SCH (08:48)
[2016-10-26] MEDS: hydrALAZINE HCL 25 MG TABLET PO SCH ×3 (08:48→17:00)
[2016-10-26] MEDS: ISOSORBIDE MONONITRATE (30MG) 30 MG TAB.SR.24H PO SCH (08:49)
[2016-10-26] MEDS: UREA 10% -AHA 4% CREAM 57 GM TUBE TP SCH ×2 (08:54→17:00)
[2016-10-26] MEDS: CEFTRIAXONE 1 G in IV D5W 50 ML IV SCH (12:09)
--- NOTE | 2016-10-26 13:00 | NUR ---
RN NOTES BP MEDS HELD DUE TO DIALYSIS.
[2016-10-26] MEDS ORDERED: ALTEPLASE CATHFLO 2 MG/VIAL IV ONE (14:30)
--- NOTE | 2016-10-26 15:45 | NUR ---
RN NOTES I LITER OUT FROM DIALYSIS
[2016-10-26 16:00] VITALS: BP 131/66
[2016-10-26 17:00] VITALS: BP 131/66
--- NOTE | 2016-10-26 17:05 | NUR ---
SLP INSTRUCTIONS DISCHARGE INSTRUCTIONS GIVEN TO PATIENT AND ABLE TO UNDERSTAND INSTRUCTIONS AND SIGNED DISCHARGE PAPER AND BELONGINGS LIST. PATIENT LEFT WITH EMT'S VIA GURNEY IN STABLE CONDITION. NO SOB OR DISTRESS NOTED, NO COMPLAIN OF PAIN NOR CHEST PAIN. VITALS SIGNS CHECKED AND RECORDED. MD AND CHARGE NURSE AWARE.
== END 2016-10-26 19:00 | DRG 52 ==
LOC: ER 07:34 → ICU 10:51 → MED 10-24 12:35 → TELE 10-24 19:41 → MED 10-25 10:12
PROVIDERS: ADMIT Internal Medicine; ATTEND Internal Medicine
PROC: 05H533Z Insertion of Infusion Device into Right Subclavian Vein, Percutaneous Approach (ICD-10-PCS; principal; 2016-10-22)
PROC: 5A1D60Z (ICD-10-PCS; principal; 2016-10-22)
PROC: 0W9B3ZZ Drainage of Left Pleural Cavity, Percutaneous Approach (ICD-10-PCS; 2016-10-23)
DX: I67.83 Posterior reversible encephalopathy syndrome (principal); J96.01 Acute respiratory failure with hypoxia; I13.2 Hypertensive heart and chronic kidney disease with heart failure and with stage 5 chronic kidney disease, or end stage renal disease; J90 Pleural effusion, not elsewhere classified; G93.40 Encephalopathy, unspecified; E44.0 Moderate protein-calorie malnutrition; N18.6 End stage renal disease; E11.22 Type 2 diabetes mellitus with diabetic chronic kidney disease; N39.0 Urinary tract infection, site not specified; E88.09 Other disorders of plasma-protein metabolism, not elsewhere classified; D63.8 Anemia in other chronic diseases classified elsewhere; G62.9 Polyneuropathy, unspecified; Z99.2 Dependence on renal dialysis; K21.9 Gastro-esophageal reflux disease without esophagitis; Z87.891 Personal history of nicotine dependence; E83.9 Disorder of mineral metabolism, unspecified; H54.3 Unqualified visual loss, both eyes; I50.9 Heart failure, unspecified; R10.9 Unspecified abdominal pain; G89.4 Chronic pain syndrome; Z68.22 Body mass index [BMI] 22.0-22.9, adult; B96.20 Unspecified Escherichia coli [E. coli] as the cause of diseases classified elsewhere
CPT/HCPCS: 36415; 36569; 36600; 70450-TC; 71010-TC; 76942-TC; 80048-TC; 80053-TC; 80061-TC; 80076-TC; 81000-TC; 82803-TC; 83605-TC; 83690-TC; 83735-TC; 84100-TC; 84443-TC; 84484-TC; 85025-TC; 85730-TC; 87040-TC; 87070-TC; 87075-TC; 87081-TC; 87086-TC; 87102-TC; 87186-TC; 89051-TC; 90935-TC; 94762-TC; 94799-TC; A4216; A4606; A6402; C9113; J0696; J1170; J1200; J2270; J2405; J2997; J7030; J7050; J7060; P9047; Q9967; Z7610

== ENCOUNTER 2016-11-03 20:28 | Inpatient (IN) | payer OTHER ==
[~2016-11-03] VITALS: Ht 162.6 cm; Wt 62.1 kg
[~2016-11-03 20:28] MED LIST changes: -ALBU2.5V13 NEB; -CEPH-570 PO; +CHOL10002 PO; -DIPH12.56 PO; -HYDR-4076 PO; +HYDR-552 PO; -INSU100V27 SQ; -Ipratropium Bromide NEB; +LINA5TAB PO
--- NOTE | 2016-11-03 20:30 | NUR ---
PT BIBRA FROM [facility] C/O GENERALIZED BODY ACHES X 1 WEEK NOW. PT DENIES TRAUMA. HX OF ARTHRITIS. PER TRANSFER RECORDS, HERE FOR PSYCH EVAL VS ALOC. PT IS AAO X3. PLACED ON MONITOR. AWAITING MD JOHNSON.
--- NOTE | 2016-11-03 21:14 | NUR ---
MK SOURCING ENGINEER AT BEDSIDE FOR EVAL.
--- NOTE | 2016-11-03 21:21 | NUR ---
IV LINE STARTED. BLOOD DRAWN AND SENT TO LAB.
[2016-11-03] MEDS ORDERED: ONDANSETRON HCL/PF 4 MG/2 ML VIAL ONE ×2 (21:24→22:12)
[2016-11-03] MEDS ORDERED: IV NS 0.9% 250 ML IV ONE (21:24)
[2016-11-03] MEDS ORDERED: IV SET PRIMARY 1 EA INFUS.SET MC ONE (21:25)
[2016-11-03 21:26] LABS: BASOPHILS # (AUTO) 0.1 /CMM (0.0-0.2); BASOPHILS % (AUTO) 1.6 % (0.0-2.0); EOSINOPHILS # (AUTO) 0.2 /CMM (0.0-0.7); EOSINOPHILS % (AUTO) 2.3 % (0.0-6.0); HEMATOCRIT 34 % (33-45); LYMPHOCYTES % (AUTO) 13.7 % (20.0-44.0); MEAN CORPUSCULAR HEMOGLOBIN 28 PG (26.0-33.0); MEAN CORPUSCULAR HGB CONC 32 g/dl (31.0-36.0); MEAN CORPUSCULAR VOLUME 87 fL (82-100); MONOCYTES # (AUTO) 0.3 /CMM (0.1-1.30); MONOCYTES % (AUTO) 3.5 % (2.0-12.0); NEUTROPHILS # (AUTO) 5.6 /CMM (1.8-8.9); NEUTROPHILS % (AUTO) 78.9 % (43.0-81.0); PLATELET COUNT (AUTO) 363 /CMM (150-450); RDW COEFFICIENT OF VARIATION 18.6 (11.5-15.0); RED BLOOD CELL COUNT(AUTO) 3.92 MIL/uL (4.0-5.2); WHITE BLOOD COUNT (AUTO) 7.2 K/uL (4.3-11.0)
[2016-11-03] MEDS ORDERED: ONDANSETRON HCL/PF 4 MG/2 ML VIAL IVP ONE (21:30)
[2016-11-03] MEDS ORDERED: IV NS 0.9% 500 ML BAG IV ONE (21:30)
--- NOTE | 2016-11-03 21:30 | NUR ---
UNABLE TO PROVIDE URINE AT THIS TIME. WILL TRY AGAIN LATER.
[2016-11-03 21:33] LABS: CALCIUM, SERUM 9.2 mg/dL (8.5-10.1); CARBON DIOXIDE 28 mmol/L (21-32); CHLORIDE 101 mmol/L (98-107); CREATININE 2.6 mg/dL (0.6-1.3); GLUCOSE 289 mg/dL (74-106); POTASSIUM 4.9 mmol/L (3.5-5.1); SODIUM SERUM 134 mmol/L (136-145); UREA NITROGEN, BLOOD 21 mg/dL (7-18)
[2016-11-03 21:38] LABS: PROTHROMBIN TIME 10.4 SECS (9.5-12.7)
[2016-11-03 21:39] LABS: ALANINE AMINOTRANSFERASE 14 U/L (12-78); ALBUMIN 1.7 g/dL (3.4-5.0); ALKALINE PHOSPHATASE 113 U/L (46-116); ASPARTATE AMINOTRANSFERASE 37 U/L (15-37); BILIRUBIN,DIRECT 0.1 mg/dL (0.0-0.2); BILIRUBIN,TOTAL 0.4 mg/dL (0.2-1.0); LIPASE 247 U/L (73-393); TOTAL PROTEIN, SERUM 6.5 g/dL (6.4-8.2)
[2016-11-03] MEDS ORDERED: LORA1TAB PO (21:40)
[2016-11-03] MEDS ORDERED: CRAN200C PO (21:40)
[2016-11-03] MEDS ORDERED: CLON0.3T TD (21:40)
[2016-11-03] MEDS ORDERED: ZOLP5TAB2 PO (21:40)
[2016-11-03 21:45] LABS: TROPONIN I < 0.017 ng/mL (0.00-0.056)
--- NOTE | 2016-11-03 21:50 | NUR ---
PT TO RADIOLOGY FOR ABDOMINAL CT SCAN VIA [facility].
[2016-11-03] MEDS ORDERED: MORPHINE SULFATE INJ 4 MG/ML DISP.SYRIN ONE (22:11)
[2016-11-03] MEDS ORDERED: MORPHINE SULFATE INJ 2 MG/ML DISP.SYRIN IV ONE (22:30)
--- NOTE | 2016-11-03 22:32 | NUR ---
CALLED NURSING SUP. FOR TELE BED
--- NOTE | 2016-11-03 22:51 | NUR ---
SHARIF PAGED, KIMMIE MARQUEZ CONE CLASSIFIER TENDER
--- NOTE | 2016-11-03 23:08 | NUR ---
report given to naida. pt awaiting transfer to floor.
--- NOTE | 2016-11-03 23:15 | NUR ---
ASSEMBLER DC FIELD YOKE ADMIT PT ARRIVED ON UNIT, FROM [facility]. AAOX3, DENIES CP/SOB AT THIS TIME. C/O 08/06 BEARABLE PAIN IN RUQ. BREATHING NON-LABORED AND EVEN ON NC 2L. IV INTACT AND PATENT. TELE ATTACHED SHOWING SR IN 70'S. ORIENTATED TO UNIT AND CALL LIGHT. ASSESSMENT COMPLETE , SKIN INTACT. AWAITING MD ORDERS.
[2016-11-03] MEDS ORDERED: PROMETHAZINE HCL 25 MG/ML AMPUL ONE (23:22)
[2016-11-03] MEDS ORDERED: SUCRALFATE 1 G/10 ML UDC ONE (23:23)
[2016-11-03] MEDS ORDERED: SUCRALFATE 1 G/10 ML UDC PO ONE (23:30)
[2016-11-03] MEDS ORDERED: PROMETHAZINE HCL 25 MG/ML AMPUL IV ONE (23:30)
[2016-11-04] VITALS: BP 112/62
[2016-11-04] MEDS ORDERED: SIMETHICONE SUSP 40 MG/0.6 ML BOTTLE PO PRN
[2016-11-04] MEDS ORDERED: ONDANSETRON HCL/PF 4 MG/2 ML VIAL IVP PRN
[2016-11-04] MEDS ORDERED: MAGNESIUM HYDROXIDE 30 ML UDC PO PRN
[2016-11-04] MEDS ORDERED: LORAZEPAM 1 MG TABLET PO PRN
[2016-11-04] MEDS ORDERED: Z GUARD REMEDY 2 OZ OINT TP PRN
[2016-11-04] MEDS ORDERED: BISACODYL SUPP (10 MG) 10 MG/SUPP.RECT SUPP.RECT RC PRN
[2016-11-04] MEDS ORDERED: CLONIDINE HCL 0.1 MG TABLET PO PRN
[2016-11-04] MEDS ORDERED: ZOLPIDEM TARTRATE 5 MG TABLET PO PRN
[2016-11-04] MEDS ORDERED: NA PHOS,M-B/NA PHOS,DI-BA 1 EA ENEMA RC PRN
[2016-11-04] MEDS ORDERED: PROMETHAZINE HCL 25 MG/ML AMPUL IM PRN
--- NOTE | 2016-11-04 02:00 | NUR ---
RN NOTE NO DISTRESS NOTED AT THIS TIME. PT RESTING COMFORTABLY. WILL MONITOR.
[2016-11-04] MEDS: ACETAMINOPHEN 325 MG TABLET PO PRN (04:48)
[2016-11-04 06:45] LABS: BASOPHILS % (AUTO) 0.2 % (0.0-2.0); EOSINOPHILS # (AUTO) 0.2 /CMM (0.0-0.7); HEMATOCRIT 31 % (33-45); HEMOGLOBIN 9.9 g/dL (11.5-14.8); LYMPHOCYTES # (AUTO) 1.8 /CMM (0.8-4.8); LYMPHOCYTES % (AUTO) 23.1 % (20.0-44.0); MEAN CORPUSCULAR HEMOGLOBIN 28 PG (26.0-33.0); MEAN CORPUSCULAR HGB CONC 32 g/dl (31.0-36.0); MEAN CORPUSCULAR VOLUME 89 fL (82-100); MONOCYTES # (AUTO) 0.3 /CMM (0.1-1.30); MONOCYTES % (AUTO) 3.4 % (2.0-12.0); NEUTROPHILS # (AUTO) 5.6 /CMM (1.8-8.9); NEUTROPHILS % (AUTO) 71.3 % (43.0-81.0); PLATELET COUNT (AUTO) 114 /CMM (150-450); RDW COEFFICIENT OF VARIATION 20.6 (11.5-15.0); RED BLOOD CELL COUNT(AUTO) 3.51 MIL/uL (4.0-5.2); WHITE BLOOD COUNT (AUTO) 7.8 K/uL (4.3-11.0)
--- NOTE | 2016-11-04 06:45 | NUR ---
RN NOTE NO SIGNIFICANT CHANGES OVERNGIHT. PT M/S STATUS. AAOX3, CURRENTLY RESTING WITH EYES CLOSED. NO DISTRESS NOTED AT THIS TIME. BREATHING NON-LABORED AND EVEN, ON NC 2L. IV INTACT AND PATENT, WILL F/U WITH DAY SHIFT FOR HAILE.
[2016-11-04 07:11] LABS: ALBUMIN 1.5 g/dL (3.4-5.0); BILIRUBIN,TOTAL 0.2 mg/dL (0.2-1.0); CALCIUM, SERUM 8.5 mg/dL (8.5-10.1); CREATININE 2.8 mg/dL (0.6-1.3); MAGNESIUM 2.1 mg/dL (1.8-2.4); PHOSPHORUS 2.6 mg/dL (2.5-4.9); POTASSIUM 4.5 mmol/L (3.5-5.1); TOTAL PROTEIN, SERUM 5.6 g/dL (6.4-8.2)
--- NOTE | 2016-11-04 07:15 | NUR ---
MS RN NOTES RECEIVED PATIENT IN BED, AWAKE, A/O X3. ON OXYGEN AT 2L VIA NC, NO SOB NOTED. NO C/O PAIN AT THIS TIME. CALL LIGHT WITHIN REACH. WILL CONT TO MONITOR.
[2016-11-04 07:22] LABS: THYROID STIMULATING HORMONE 4.426 uIU/mL (0.358-3.74)
[2016-11-04 08:00] VITALS: BP 120/78
[2016-11-04 08:09] VITALS: BP 120/78
[2016-11-04] MEDS: FOLIC ACID 1 MG TABLET PO SCH (08:27)
[2016-11-04] MEDS: NIFEdipine XL 60 MG TAB PO SCH (08:27)
[2016-11-04] MEDS: LINAGLIPTIN 5 MG TABLET PO SCH (08:27)
[2016-11-04] MEDS: CHOLECALCIFEROL 1,000 UNIT TABLET (VIT D3) PO SCH (08:27)
[2016-11-04] MEDS: PANTOPRAZOLE 40 MG TABLET.DR PO SCH (08:27)
[2016-11-04] MEDS: ISOSORBIDE MONONITRATE (30MG) 30 MG TAB.SR.24H PO SCH (08:27)
[2016-11-04] MEDS: METOPROLOL SUCCINATE 25 MG TAB.SR.24H PO SCH (08:27)
--- NOTE | 2016-11-04 08:52 | NUR ---
PATIENT C/O ITCHING IN HER BOTH FEET, NO REDNESS, NO RASH. INFORMED ELEMENTARY SCHOOL PROFESSIONAL-LINDSAY WITH NEW ORDERS NOTED AND ACKNOWLEDGED.
[2016-11-04 08:59] LABS: TROPONIN I < 0.017 ng/mL (0.00-0.056)
[2016-11-04] MEDS ORDERED: diphenhydrAMINE HCL ELIX 25 MG/10 ML UDC PO PRN (09:00)
[2016-11-04] MEDS ORDERED: MORPHINE SULFATE INJ 2 MG/ML DISP.SYRIN IV PRN (11:00)
[2016-11-04] MEDS ORDERED: DEXTROSE 50%-WATER 50 ML DISP.SYRIN IV PRN (11:30)
--- NOTE | 2016-11-04 11:30 | NUR ---
PATIENT REFUSED NGT INSERTION, EXPLAINED PROCEDURE, IMPORTANCE, RISK AND BENEFITS, PATIENT STILL REFUSED. SUBSTATION ELECTRICIAN SUPERVISOR-LNIDSAY INFORMED AND AWARE.
[2016-11-04] MEDS: BLOOD SUGAR DIAGNOSTIC 1 EACH STRIP IN SCH ×3 (12:22→21:27)
[2016-11-04] MEDS: INSULIN REGULAR, HUMAN 100 UNIT/ML 3 ML VIAL SQ PRN ×2 (12:23→18:42)
--- NOTE | 2016-11-04 12:23 | NUR ---
ACCU CHECK BS 140MG/DL. INSULIN NON ADMINISTERED, PATIENT IS ON NPO STATUS.
[2016-11-04] MEDS ORDERED: DIATR MEGLU/DIATRIZOATE SODIUM 120 ML BOTTLE (GASTROGRAPHIN) ONE (15:54)
[2016-11-04 16:00] VITALS: BP_SYST 107; BP_SYST 117; BP_DIAS 67; BP_DIAS 71
[2016-11-04] MEDS: MORPHINE SULFATE INJ 4 MG/ML DISP.SYRIN IV PRN ×2 (16:14→20:43)
[2016-11-04] MEDS ORDERED: IV NS 0.9% 1,000 ML IV PRN (17:30)
--- NOTE | 2016-11-04 17:30 | NUR ---
PATIENT STILL IN RADIOLOGY DEPT FOR XRAY SB FOLLOW THROUGH PROCEDURE.
[2016-11-04] MEDS ORDERED: IV SET PRIMARY PUMP SET 1 EA INFUS.SET MC ONE (17:38)
--- NOTE | 2016-11-04 18:21 | NUR ---
PATIENT NOT BACK YET IN THE UNIT (MEDR).
--- NOTE | 2016-11-04 18:50 | NUR ---
PATIENT IS BACK FROM RADIOLOGY DEPT. XRAY SMALL BOWEL THROUGH RESULT PENDING. STARTED ON IV NS AT 60ML/HR.
--- NOTE | 2016-11-04 19:30 | NUR ---
RN NOTE; RECEIVE PT IN BED AWAKE AND ALERT. ANXIOUS TO EAT AND ASKING FOR FOOD. EXPLAINED TO THE PT THAT WE NEED TO FOLLOW UP AND OBTAIN ORDER FROM MD. BREATHING EVENLY. NO SOB. NAD. DENIED ANY PAIN OR DISCOMFORT. NO ABD PAIN. NEEDS ATTENDED. CALL LIGHT WITHIN REACH, WILL CONT TO MONITOR AND WILL F/U W/ MD RE DIET.
[2016-11-04 20:00] VITALS: BP 124/72
--- NOTE | 2016-11-04 20:00 | NUR ---
CALLED KIMMIE MARQUEZ ARTILLERY SPECIALIST AND RELAYED THE RESULT OF THE SMALL BOWEL FOLLOW THROUGH HIM FOR POSSIBLE ORDER TO RESUME DIET. KIMMIE Pagan. A NEW ORDER TO RESUME RENAL DIET AND D/C IVF HYDRATION. NEW ORDER NOTED.
[2016-11-04 20:54] VITALS: BP 124/72
--- NOTE | 2016-11-04 21:42 | NUR ---
MORPHINE GIVEN ORDERED PER PT'S REQUEST FOR C/O SEVERE GEN, BODY PAIN. WILL CONT TO MONITOR
--- NOTE | 2016-11-04 22:35 | NUR ---
PERCYIEN GIVEN ORDERED PER PT'S REQUEST FOR C/O INSOMNIA. WILL CONT. TO MONITOR
[2016-11-05] MEDS: BLOOD SUGAR DIAGNOSTIC 1 EACH STRIP IN SCH ×3 (06:40→17:05)
[2016-11-05] MEDS: PANTOPRAZOLE 40 MG TABLET.DR PO SCH (06:40)
[2016-11-05] MEDS: MORPHINE SULFATE INJ 4 MG/ML DISP.SYRIN IV PRN ×3 (06:41→15:24)
--- NOTE | 2016-11-05 06:44 | NUR ---
MORPHINE GIVEN ORDERED FOR C/O SEVERE GEN BODY PAIN . WILL CONT TO MONITOR
--- NOTE | 2016-11-05 07:10 | NUR ---
ms rn initial notes Received patient in bed, asleep, head of bed elevated, No SOB or distress noted, on 02 @ 2lpm via NC and tolerated well. Alert and oriented x 4, verbally responsive and able to make needs known. Right chest wall HD cath, IV intact and patent HL only. kept patient clean and comfortable in bed, call light with in patient reach, will continue to monitor accordingly.
[2016-11-05 07:37] LABS: BASOPHILS # (AUTO) 0.1 /CMM (0.0-0.2); BASOPHILS % (AUTO) 1.4 % (0.0-2.0); EOSINOPHILS # (AUTO) 0.4 /CMM (0.0-0.7); EOSINOPHILS % (AUTO) 5.2 % (0.0-6.0); HEMATOCRIT 33 % (33-45); HEMOGLOBIN 10.6 g/dL (11.5-14.8); LYMPHOCYTES # (AUTO) 1.3 /CMM (0.8-4.8); LYMPHOCYTES % (AUTO) 19.2 % (20.0-44.0); MEAN CORPUSCULAR HEMOGLOBIN 28 PG (26.0-33.0); MEAN CORPUSCULAR HGB CONC 32 g/dl (31.0-36.0); MEAN CORPUSCULAR VOLUME 89 fL (82-100); MONOCYTES # (AUTO) 0.4 /CMM (0.1-1.30); MONOCYTES % (AUTO) 6.4 % (2.0-12.0); NEUTROPHILS # (AUTO) 4.7 /CMM (1.8-8.9); NEUTROPHILS % (AUTO) 67.8 % (43.0-81.0); PLATELET COUNT (AUTO) 264 /CMM (150-450); RDW COEFFICIENT OF VARIATION 20.2 (11.5-15.0); RED BLOOD CELL COUNT(AUTO) 3.77 MIL/uL (4.0-5.2); WHITE BLOOD COUNT (AUTO) 6.9 K/uL (4.3-11.0)
[2016-11-05 07:56] LABS: CALCIUM, SERUM 8.9 mg/dL (8.5-10.1); CREATININE 3.4 mg/dL (0.6-1.3)
[2016-11-05 08:00] VITALS: BP 139/81
[2016-11-05] MEDS: CHOLECALCIFEROL 1,000 UNIT TABLET (VIT D3) PO SCH (08:34)
[2016-11-05] MEDS: NIFEdipine XL 60 MG TAB PO SCH (08:34)
[2016-11-05] MEDS: FOLIC ACID 1 MG TABLET PO SCH (08:34)
[2016-11-05] MEDS: ISOSORBIDE MONONITRATE (30MG) 30 MG TAB.SR.24H PO SCH (08:35)
[2016-11-05] MEDS: LINAGLIPTIN 5 MG TABLET PO SCH (08:35)
[2016-11-05] MEDS: METOPROLOL SUCCINATE 25 MG TAB.SR.24H PO SCH (08:36)
[2016-11-05] MEDS: ACETAMINOPHEN 325 MG TABLET PO PRN (08:41)
[2016-11-05] MEDS: INSULIN REGULAR, HUMAN 100 UNIT/ML 3 ML VIAL SQ PRN ×2 (12:08→17:10)
[2016-11-05 16:00] VITALS: BP 154/91
[2016-11-05 16:13] VITALS: BP 154/91
--- NOTE | 2016-11-05 17:11 | NUR ---
ms rn notes Blood sugar checked 70 no coverage given. Dinner served early as patient is going to be discharge back to intermediate facility. Will continue to monitor accordingly.
--- NOTE | 2016-11-05 19:14 | NUR ---
ms e learning designer notes discharge instructions given to patient and able to understand instructions. Signed discharge paper and belongings list. IV discontinued and pressured applied to prevent bleeding. report called to [facility] and spoke to Joyce nurse and report given. Pneumonia vaccine not given due to <65 years old and flu vaccine not given due to out of season. Vital signs checked and recorded. Patient left via gurney accompanied by 2 EMT's from [facility] with no complaint of pain or discomfort, nor chest pain. No SOB or distress noted. Left in stable condition. MD and charge nurse aware. Skin is intact.
== END 2016-11-05 19:00 | DRG 247 ==
LOC: ER 20:31 → TELE 22:56 → MED 11-04 00:20
PROVIDERS: ADMIT Nurse Practitioner Acute Care; ATTEND Nurse Practitioner Acute Care
DX: K56.7 Ileus, unspecified (principal); E43 Unspecified severe protein-calorie malnutrition; I13.2 Hypertensive heart and chronic kidney disease with heart failure and with stage 5 chronic kidney disease, or end stage renal disease; J90 Pleural effusion, not elsewhere classified; N18.6 End stage renal disease; R18.8 Other ascites; E11.22 Type 2 diabetes mellitus with diabetic chronic kidney disease; K57.30 Diverticulosis of large intestine without perforation or abscess without bleeding; Z99.2 Dependence on renal dialysis; R07.89 Other chest pain; D63.8 Anemia in other chronic diseases classified elsewhere; E03.9 Hypothyroidism, unspecified; I50.9 Heart failure, unspecified; E11.42 Type 2 diabetes mellitus with diabetic polyneuropathy; Z88.6 Allergy status to analgesic agent
CPT/HCPCS: 36415; 71010-TC; 72128-TC; 74250-TC; 80048-TC; 80053-TC; 80076-TC; 82962-TC; 83690-TC; 83735-TC; 84100-TC; 84439-TC; 84443-TC; 84484-TC; 85025-TC; 85730-TC; 87081-TC; A4606; J1815; J2270; J2405; J2550; J7050; Q0163; Q9963; Z7610

== ENCOUNTER 2017-04-24 17:43 | Inpatient (IN) | payer OTHER ==
[~2017-04-24] VITALS: Ht 170.2 cm; Wt 58.5 kg
[~2017-04-24 17:43] MED LIST changes: +CLON0.3T TD; +CRAN200C PO; +LORA1TAB PO; -METO-302 PO; +METO-356 PO; +ZOLP5TAB2 PO
--- NOTE | 2017-04-24 18:00 | NUR ---
BIBRA FROM [facility] DUE SOB, GENERALIZED WEAKNESS AND BACK PAIN,. PATIENT RECEIVED ALERT AND AWAKE, APPEARS IN NO APPARENT DISTRESS. SKIN IS WARM TO TOUCH AND NON DIAPHORETIC. AFEBRILE. VSS. HD CATH NOTED ON RCW.
--- NOTE | 2017-04-24 18:31 | NUR ---
PATIENT WAS TAKEN TO CT
[2017-04-24 18:58] LABS: BASOPHILS # (AUTO) 0.5 /CMM (0.0-0.2); EOSINOPHILS # (AUTO) 0.2 /CMM (0.0-0.7); EOSINOPHILS % (AUTO) 0.8 % (0.0-6.0); HEMATOCRIT 32 % (33-45); HEMOGLOBIN 10.5 g/dL (11.5-14.8); LYMPHOCYTES # (AUTO) 0.5 /CMM (0.8-4.8); LYMPHOCYTES % (AUTO) 2.1 % (20.0-44.0); MEAN CORPUSCULAR HEMOGLOBIN 28 PG (26.0-33.0); MEAN CORPUSCULAR HGB CONC 33 g/dl (31.0-36.0); MEAN CORPUSCULAR VOLUME 87 fL (82-100); MONOCYTES # (AUTO) 0.6 /CMM (0.1-1.30); MONOCYTES % (AUTO) 2.7 % (2.0-12.0); NEUTROPHILS # (AUTO) 21.9 /CMM (1.8-8.9); NEUTROPHILS % (AUTO) 92.4 % (43.0-81.0); PLATELET COUNT (AUTO) 446 /CMM (150-450); RDW COEFFICIENT OF VARIATION 21.7 (11.5-15.0); RED BLOOD CELL COUNT(AUTO) 3.71 MIL/uL (4.0-5.2); WHITE BLOOD COUNT (AUTO) 23.7 K/uL (4.3-11.0)
--- NOTE | 2017-04-24 19:02 | NUR ---
URINE WILLA SENT TO LAB
--- NOTE | 2017-04-24 19:02 | NUR ---
PT TO CT SCAN
--- NOTE | 2017-04-24 19:03 | NUR ---
RECEIVED REPORT FROM GISSELLE
[2017-04-24 19:08] LABS: CALCIUM, SERUM 8.3 mg/dL (8.5-10.1); CREATININE 2.5 mg/dL (0.6-1.3); POTASSIUM 4.5 mmol/L (3.5-5.1)
[2017-04-24 19:11] LABS: INR 1.38 (0.87-1.13); PROTHROMBIN TIME 14.3 SECS (9.5-12.7)
[2017-04-24 19:14] LABS: TROPONIN I 0.356 ng/mL (0.00-0.056)
[2017-04-24 19:23] LABS: ALBUMIN 1.5 g/dL (3.4-5.0); BILIRUBIN,DIRECT 0.2 mg/dL (0.0-0.2); BILIRUBIN,TOTAL 0.4 mg/dL (0.2-1.0); TOTAL PROTEIN, SERUM 7.4 g/dL (6.4-8.2)
[2017-04-24] MEDS ORDERED: PIPERACILLIN /TAZOBACTAM 3.375 G in IV D5W 50 ML IV ONE (19:30)
[2017-04-24] MEDS ORDERED: VANCOMYCIN 1 GM in IV D5W 250 ML IV ONE (19:30)
[2017-04-24] MEDS ORDERED: IV NS 0.9% 1,000 ML IV ONE (19:30)
--- NOTE | 2017-04-24 19:35 | NUR ---
PT IN STABLE CONDITION. VSS. NAD. WILL CONTINUE TO MONITOR
[2017-04-24 19:36] LABS: APPEARANCE,URINE Clear (CLEAR); BILIRUBIN,URINE SMALL (NEGATIVE); BLOOD, URINE Trace-lysed Ery/uL (NEGATIVE); COLOR,URINE Yellow (YELLOW); KETONES,URINE Trace (NEGATIVE); LEUKOCYTE ESTERASE ,URINE Trace (NEGATIVE); NITRITE, URINE Negative (NEGATIVE); PH,URINE 5.5 (5.0-8.0); PROTEIN,URINE >=300 mg/dl (NEGATIVE); UGLUCOSE Negative (NEGATIVE); UROBILINOGEN,URINE 0.2 EU/dL (0.2)
[2017-04-24 19:39] LABS: BACTERIA,URINE Few /HPF (None Seen); SQUAMOUS EPITHELIAL CELL,UR Few /HPF (None Seen)
[2017-04-24] MEDS ORDERED: MORPHINE SULFATE INJ 2 MG/ML DISP.SYRIN ONE (20:59)
[2017-04-24] MEDS ORDERED: MORPHINE SULFATE INJ 2 MG/ML DISP.SYRIN IV ONE (21:00)
--- NOTE | 2017-04-24 22:00 | NUR ---
RN NOTES 2125PM - ADMITTED PT VIA STRETCHER FROM ER, UNDER LUIS INFRASTRUCTURE MANAGER DIAGNOSED WITH SEPSIS. WITH MULTIPLE HISTORY NEUROPATHY,GERD,UTI,ESRD, RCW CHANDLER CATH,LUE AV FISTULA NON FUNCTIONING, HYSTERECTOMY ANS SKIN GRAFT ALLERGIC TO IBUPROFEN, CHICKEN, HYDROCODONE. AOX3 ABLE TO VERBALIZED NEEDS WEAK AND PALE LOOKING WITH O2 3LPM VIA NC SATING 94% BREATH SOUND CLEAR PLACED ON TELE MONITOR REVEALS ST 116 . SKIN IS INTACT. IV SITE ON RFA G 20 INTACT AND PATENT STARTED NS @ 60 CC/HR RCW CHANDLER CATH. VS TAKEN TEMP 98 RESP 20 PULSE 82 BP 120/74 BED BATH DONE, CALL LIGHT INSTRUCTED TO PT ANS PLACED WITHIN REACH. WILL FREQUENTLY MONITOR
[2017-04-24] MEDS ORDERED: BISACODYL SUPP (10 MG) 10 MG/SUPP.RECT SUPP.RECT RC PRN (23:30)
[2017-04-24] MEDS ORDERED: ONDANSETRON HCL/PF 4 MG/2 ML VIAL IVP PRN (23:30)
[2017-04-24] MEDS ORDERED: Z GUARD REMEDY 2 OZ OINT TP PRN (23:30)
[2017-04-24] MEDS ORDERED: IV NS 0.9% 1,000 ML IV PRN (23:30)
[2017-04-24] MEDS ORDERED: DEXTROSE 50%-WATER 50 ML DISP.SYRIN IV PRN (23:30)
[2017-04-24] MEDS ORDERED: PIPERACILLIN /TAZOBACTAM 3.375 G VIAL IV ONE (23:35)
[2017-04-25] VITALS: BP 104/64
[2017-04-25] MEDS ORDERED: PIPERACILLIN /TAZOBACTAM 3.375 G in IV D5W 50 ML IV SCH ×2
--- NOTE | 2017-04-25 01:50 | NUR ---
RN NOTES SEEN AND EXAMINED BY LUIS OLGUIN GYMNASTICS INSTRUCTOR SPOKE WITH THE PATIENT ON THE FLOOR, INFORMED REGARDING PT CONCERNED AND ASKING FOR STRONG PAIN MEDICINE FOR GENERALIZED PAIN. PER PT SHES ALLERGIC TO HYDROCODONE AND WHEN SHE TOOK NORCO SHE FEELS FUNNY. PER LUIS PT IS NOT ALLERGIC NORCO AND SHE JUST WANTED TO HAVE PAIN MEDICINE IVP. REPORTED PT STATUS AND 3 BEATS OF VTACH ON MONITOR AT 2144PM HR REMAINS AT 120'S TO 130'S. SLOT MACHINE MECHANIC SAW FROM TELE MONITOR. CONTINUE TO MONITOR PT. CLOSELY.
[2017-04-25] MEDS ORDERED: FEE PK DOSING 1 MIN EA MC ONE (02:18)
[2017-04-25] MEDS: HYDROCODONE/APAP 5/325MG 1 EACH TABLET ONE (03:33)
--- NOTE | 2017-04-25 03:45 | NUR ---
RN NOTES PT COMPLAINED OF GENERALIZED PAIN AT SCALE OF 7/10 SCALE NORCO 5/325 1 TAB WILL CONTINUE TO MONITOR.
[2017-04-25] MEDS: HYDROCODONE/APAP 5/325MG 1 EACH TABLET PO PRN ×2 (03:50→13:02)
[2017-04-25 04:07] VITALS: BP 94/61
[2017-04-25] MEDS: PIPERACILLIN /TAZOBACTAM 2.25 G in IV D5W 50 ML IV SCH ×3 (05:21→21:51)
--- NOTE | 2017-04-25 07:15 | NUR ---
RN NOTES PT REMAINED CALM AT THIS TIME. NO COMPLAIN OF PAIN. AFTER GETTING NORCO. NO ALLERGIC REACTION NOTED FROM TAKING NORCO. PT IS MORE ALERT. O2 3LPM VIA NC TOLERATED WELL. NO ACUTE RESP DISTRESS. KEPT PT CLEAN AND DRY. CLOSELY MONITOR PATIENT. ENDORSED CONTINUITY OF CARE TO AM NURSE.
--- NOTE | 2017-04-25 07:59 | NUR ---
TREY RN NOTE PATIENT IN BED ON TELE MONITOR SR 96 . NO SOB NOTED , BED IN LOWEST AND LOCKED POSITION , CALL LIGHT WITHIN REACH . IN BED , SLEEPING AND RESTING COMFORTABLY AT THIS TIME , RT FA HL INTACT , ON IVF ORDERED ORDERED, WILL CONT TO MONITOR CLOSELY
[2017-04-25 08:00] VITALS: BP 94/61
[2017-04-25] MEDS ORDERED: VANCOMYCIN 500 MG in IV D5W 100 ML IV PRN (08:00)
[2017-04-25 08:39] LABS: CALCIUM, SERUM 7.8 mg/dL (8.5-10.1); CREATININE 2.7 mg/dL (0.6-1.3); MAGNESIUM 2.3 mg/dL (1.8-2.4); POTASSIUM 4.1 mmol/L (3.5-5.1)
[2017-04-25 08:44] LABS: PHOSPHORUS 0.9 mg/dL (2.5-4.9)
[2017-04-25 08:49] LABS: HEMATOCRIT 24 % (33-45); HEMOGLOBIN 7.8 g/dL (11.5-14.8); LYMPHOCYTES # (AUTO) 0.5 /CMM (0.8-4.8); LYMPHOCYTES % (AUTO) 2.3 % (20.0-44.0); MEAN CORPUSCULAR HEMOGLOBIN 29 PG (26.0-33.0); MEAN CORPUSCULAR HGB CONC 32 g/dl (31.0-36.0); MEAN CORPUSCULAR VOLUME 89 fL (82-100); MONOCYTES # (AUTO) 1.1 /CMM (0.1-1.30); MONOCYTES % (AUTO) 5.6 % (2.0-12.0); NEUTROPHILS # (AUTO) 18.9 /CMM (1.8-8.9); NEUTROPHILS % (AUTO) 92.1 % (43.0-81.0); PLATELET COUNT (AUTO) 287 /CMM (150-450); RDW COEFFICIENT OF VARIATION 22.8 (11.5-15.0); WHITE BLOOD COUNT (AUTO) 20.5 K/uL (4.3-11.0)
[2017-04-25] MEDS ORDERED: ISOSORBIDE MONONITRATE (30MG) 30 MG TAB.SR.24H PO SCH (09:00)
[2017-04-25] MEDS ORDERED: NIFEdipine XL 60 MG TAB PO SCH (09:00)
[2017-04-25] MEDS: LINAGLIPTIN 5 MG TABLET PO SCH (09:08)
[2017-04-25] MEDS: CHOLECALCIFEROL 1,000 UNIT TABLET (VIT D3) PO SCH (09:08)
[2017-04-25] MEDS: FOLIC ACID 1 MG TABLET PO SCH (09:09)
[2017-04-25] MEDS: METOPROLOL SUCCINATE 25 MG TAB.SR.24H PO SCH (09:10)
[2017-04-25] MEDS: HEPARIN SODIUM, PORCINE 5000 UNITS/1 ML VIAL SQ SCH ×2 (09:12→21:28)
[2017-04-25] MEDS: INSULIN REGULAR, HUMAN 100 UNIT/ML 3 ML VIAL SQ PRN ×3 (09:13→21:53)
[2017-04-25] MEDS: BLOOD SUGAR DIAGNOSTIC 1 EACH STRIP IN SCH ×4 (09:29→21:53)
[2017-04-25] MEDS: PANTOPRAZOLE 40 MG TABLET.DR PO SCH ×3 (09:29→17:01)
[2017-04-25 10:14] LABS: LYMPHOCYTES % (MANUAL) 7 % (16-48); MONOCYTES % (MANUAL) 3 % (0-11.0); NEUTROPHILS % (MANUAL) 90 (42-76)
--- NOTE | 2017-04-25 11:28 | NUR ---
TREY RN NOTE \ SPOKE WITH DR DRIVER NOTIFIED THAT TROPONIN 0.290 ORDERED TO STOPP IVF HOLD BP MEDS ,EKG STAT, DONE ORDERED , WILL F\U
[2017-04-25 12:00] VITALS: BP 101/66
--- NOTE | 2017-04-25 13:02 | NUR ---
TREY RN NOTE PATIENT STATED THAT HAS SECRETIVE REACTION TO NORCO, STATED ITS MAKE ME SICK IN STOMACH , MEDICATION WAS GIVEN EARLIER THIS MORNING AND NO ADVERSE REACTION NOTED , CALLED TO PHARMACY SPOKE WITH SAMIA ,STATED ITS OK TO GIVE MEDICATION NORCO PO GIVEN FOR GENERAL PAIN , NO ADVERSE REACTION NOTED AT THIS TIME
--- NOTE | 2017-04-25 13:33 | NUR ---
CONFERENCE INTERPRETER NOTE HD STARTED ORDERED
[2017-04-25] MEDS: NEUTRA PHOS 1 POWD.PACKET PO ONE ×2 (14:00→14:28)
[2017-04-25] MEDS ORDERED: EPOETIN ALFA (10,000 UNIT) 10,000 UNIT/ML VIAL IV ONE (15:00)
--- NOTE | 2017-04-25 15:31 | NUR ---
LEVEL VIAL SEALER NOTE HD COMPLETED 1L OF FLUIDS IS REMOVED BP 103/68 WANTS VANILLA BOOST ,VIVIAN RN SALES REPRESENTATIVE PRINTING PAPER AWARE WITH ORDER TO OK TO ORDER DIETARY DEPARTMENT NOTIFIED
[2017-04-25 16:00] VITALS: BP 101/61
[2017-04-25] MEDS: BOOST GLUCOSE CONTROL VANILLA 237 ML BOX PO SCH (16:01)
--- NOTE | 2017-04-25 16:13 | NUR ---
SENIOR APPLICATION PROGRAMMER NOTE PATIENT REFUSED NUTRA PHOS EXPLAINED OF IMPORTANCE BUT STILL REFUSED , OFFERED X3
[2017-04-25] MEDS ORDERED: VANCOMYCIN 1 GM in IV D5W 250 ML IV ONE (16:30)
--- NOTE | 2017-04-25 16:30 | NUR ---
[employer] SUPERINTENDENT NOTE EKG RESULT SHOWED TO DR DRIVER ,NO NEW ORDER GIVEN AT THIS TIME
--- NOTE | 2017-04-25 16:41 | NUR ---
YOGA TEACHER NOTE SPOKE WITH KIMMIE PHARMACIST NOTIFIED THAT VANCO,LEVEL 14 STATED OK TO GIVE 1 GM OF VANCO AFTER HD
--- NOTE | 2017-04-25 16:45 | NUR ---
DRAPERY COUNSELOR NOTE CALLED TO DR MCGHEE , LEFT A MASSAGE THAT PATIENT REFUSED NEUTRO PHOS , WILL F\U
--- NOTE | 2017-04-25 17:40 | NUR ---
RETANNED LEATHER ROLLER NOTE PER NERA ID RN SENIOR PROJECT LEADER/TEAM LEAD BLADDER SCAN DONE ,186 ML NOTED , WILL F\U ,ALSO DR MATAMOROS PHYSICIAN/INTERNIST FOR [place] MCGHEE , AWARE THAT PHOS LEVEL 0.9 NOTIFIED THAT REFUSED NEUTRA PHOS 2 PACK PO ,ORDERED NA PHOS 15 MML IV TIME ONE
[2017-04-25] MEDS ORDERED: Sodium Phosphate 15 MMOL in IV D5W 250 ML IV ONE (18:00)
--- NOTE | 2017-04-25 18:30 | NUR ---
AQUATICS COORDINATOR NOTE ALL NEEDS ATTENDED ,NOT IN ACUTE DISTRESS, WILL CONT TO MONITOR CLOSELY
--- NOTE | 2017-04-25 18:54 | NUR ---
TAX PROFESSIONAL NOTE CALLED X3 TO PHARMACY , NOTIFIED THAT NA PHOS NOT DELIVERED YET, STATED WILL BRING SOON
[2017-04-25 20:00] VITALS: BP 103/69
--- NOTE | 2017-04-25 20:00 | NUR ---
HOME WEATHERIZING WORKER NOTES RECEIVED PTS ON BED AWAKE A/O X3 ON NA PHOS IN PROGRESS , TELE SR ON THE MONITOR , NO SOB NO DISTRESS NO C/O OF PAIN NOTED AT THIS TIME HOB ELEVATED FOR ASPIRATION PRECAUTION .ALL NEEDS ATTENDED TOO CALL LIGHT WITHIN REACH V/S STABLE / AFEBRILE .ALL DUE MEDS GIVEN ORDERED. KEPT PTS CLEAN DRY AND COMFORTABLE .WITH RFA G#20 INTACT AND PATENT , RCW CHANDLER CATH HD ACCESS, KE[PT PTS CLEAN DRY AND COMFORTABLE.
--- NOTE | 2017-04-25 22:00 | NUR ---
CERTIFIED FINANCIAL PLANNER NOTES BLOOD SUGAR FOR 10PM IS 151MG/DL =2 UNITS OF REGULAR INSULIN GIVEN PER SLIDING SCALE.WILL CONTINUE TO MONITOR PTS.
[2017-04-25] MEDS: ACETAMINOPHEN 325 MG TABLET PO PRN (23:32)
[2017-04-26] VITALS: BP 112/67
--- NOTE | 2017-04-26 02:00 | NUR ---
KNIT GOODS WASHER NOTES BLADDER SCAN DONE AT 2AM WITH 100CC NOTED NEXT BLADDER SCAN WILL BE DUE AT 10AM, WILL ENDORSE TO RN DAY SHIFT IN AM.
[2017-04-26 04:00] VITALS: BP 90/50
[2017-04-26] MEDS: PIPERACILLIN /TAZOBACTAM 2.25 G in IV D5W 50 ML IV SCH ×3 (05:30→21:48)
--- NOTE | 2017-04-26 06:31 | NUR ---
POULTRY CUTTER NOTES PTS ON BED AWAKE , NO SOB NO DISTRESS NOTED NO SIGNIFICANT CHANGE NOTED AT THIS TIME ,REMAINS ON TELE SR -96 ON THE MONITOR .WILL ENDORSE TO RN DAY SHIFT FOR CONTINUITY OF CARE.
--- NOTE | 2017-04-26 06:46 | NUR ---
MS RN NOTES SEEN AND EXAMINED BY DR DRIVER WITH ORDER D/C TELEMETRY STATUS , CHANGED TO MED-SURG STATUS, ORDER NOTED AND CARRIED OUT.
[2017-04-26 08:00] VITALS: BP 90/55
[2017-04-26] MEDS: PANTOPRAZOLE 40 MG TABLET.DR PO SCH ×3 (08:22→16:37)
[2017-04-26] MEDS: LINAGLIPTIN 5 MG TABLET PO SCH (08:23)
[2017-04-26] MEDS: FOLIC ACID 1 MG TABLET PO SCH (08:23)
[2017-04-26] MEDS: BLOOD SUGAR DIAGNOSTIC 1 EACH STRIP IN SCH ×4 (08:23→21:47)
[2017-04-26] MEDS: CHOLECALCIFEROL 1,000 UNIT TABLET (VIT D3) PO SCH (08:23)
[2017-04-26] MEDS: HYDROCODONE/APAP 5/325MG 1 EACH TABLET PO PRN ×3 (08:23→23:40)
[2017-04-26] MEDS: HEPARIN SODIUM, PORCINE 5000 UNITS/1 ML VIAL SQ SCH ×2 (08:25→21:48)
[2017-04-26] MEDS: BOOST GLUCOSE CONTROL VANILLA 237 ML BOX PO SCH ×2 (08:33→16:36)
[2017-04-26] MEDS: METOPROLOL SUCCINATE 25 MG TAB.SR.24H PO SCH (08:33)
[2017-04-26 08:37] LABS: EOSINOPHILS # (AUTO) 0.1 /CMM (0.0-0.7); EOSINOPHILS % (AUTO) 0.3 % (0.0-6.0); HEMATOCRIT 23 % (33-45); HEMOGLOBIN 7.4 g/dL (11.5-14.8); LYMPHOCYTES # (AUTO) 0.4 /CMM (0.8-4.8); MEAN CORPUSCULAR HEMOGLOBIN 28 PG (26.0-33.0); MEAN CORPUSCULAR HGB CONC 32 g/dl (31.0-36.0); MEAN CORPUSCULAR VOLUME 86 fL (82-100); MONOCYTES # (AUTO) 1.1 /CMM (0.1-1.30); MONOCYTES % (AUTO) 5.6 % (2.0-12.0); NEUTROPHILS # (AUTO) 17.5 /CMM (1.8-8.9); NEUTROPHILS % (AUTO) 92.1 % (43.0-81.0); PLATELET COUNT (AUTO) 272 /CMM (150-450); RDW COEFFICIENT OF VARIATION 21.2 (11.5-15.0); RED BLOOD CELL COUNT(AUTO) 2.67 MIL/uL (4.0-5.2); WHITE BLOOD COUNT (AUTO) 19.1 K/uL (4.3-11.0)
[2017-04-26 09:15] LABS: BILIRUBIN,TOTAL 0.5 mg/dL (0.2-1.0); CALCIUM, SERUM 7.8 mg/dL (8.5-10.1); CREATININE 2.5 mg/dL (0.6-1.3); PHOSPHORUS 1.4 mg/dL (2.5-4.9); POTASSIUM 3.6 mmol/L (3.5-5.1); TOTAL PROTEIN, SERUM 5.5 g/dL (6.4-8.2)
[2017-04-26 09:16] LABS: TROPONIN I 0.186 ng/mL (0.00-0.056)
--- NOTE | 2017-04-26 14:30 | NUR ---
RN NOTE 160 ML ON BLADDER SCAN.
[2017-04-26] MEDS: INSULIN REGULAR, HUMAN 100 UNIT/ML 3 ML VIAL SQ PRN ×3 (15:13→22:26)
[2017-04-26 16:00] VITALS: BP 92/55
[2017-04-26] MEDS ORDERED: NEUTRA PHOS 1 POWD.PACKET PO ONE (16:00)
[2017-04-26] MEDS: LORAZEPAM 1 MG TABLET PO PRN (16:37)
--- NOTE | 2017-04-26 17:00 | NUR ---
RN NOTE PATIENT REFUSED BLADDER SCAN.
--- NOTE | 2017-04-26 19:30 | NUR ---
RN NOTES RECEIVED PATIENT IN BED WITH EYES CLOSED; AROUSABLE. AO X 3, ABLE TO MAKE NEEDS KNOWN. NO ACUTE DISTRESS NOTED. DENIES ANY PAIN AT THIS TIME. NO BLADDER DISTENSION NOTED. NO SYMPTOMS OF HYPER/HYPOGLYCEMIA. PATIENT REFUSED BLADDER SCAN AT THIS TIME. HD CATH INTACT. IV SITE INTACT; FLUSHED. SAFETY REMINDERS GIVEN. ON LOW BED WITH BILATERAL UPPER SIDE RAILS UP. CALL LIGHT WITHIN EASY REACH. WILL CONTINUE TO MONITOR.
[2017-04-26 20:00] VITALS: BP 115/64
--- NOTE | 2017-04-26 20:52 | NUR ---
RN NOTES GAVE REPORT TO NASEEM BEASLEY FOR CONTINUATION OF CARE.
--- NOTE | 2017-04-26 21:00 | NUR ---
RN NOTES PATIENT TRANSFERRED TO ROOM 206. PATIENT TOLERATED TRANSFER; ENDORSED TO NASEEM BEASLEY.
--- NOTE | 2017-04-26 21:15 | NUR ---
MS RN NOTE: RECEIVED PATIENT FROM TREY, RECEIVED REPORT FROM RVI. PATIENT RESTING IN BED, NO ACUTE DISTRESS NOTED. BREATHING EVEN AND UNLABORED, NO SOB NOTED. IV TO RFA IN PLACE. CHANDLER CATH TO RIGHT CHEST WALL IN PLACE. NO S/S OF HYPER/HYPOGLYCEMIA NOTED. BED LOCKED AND IN LOWEST POSITION, CALL LIGHT IN REACH. WILL CONTINUE TO MONITOR.
--- NOTE | 2017-04-26 22:00 | NUR ---
MS RN NOTE: PATIENT BLOOD SUGAR LEVEL 141 MG/DL, PATIENT TO RECEIVE 2 UNITS OF INSULIN PER SLIDING SCALE. NO S/S OF HYPER/HYPOGLYCEMIA NOTED. WILL CONTINUE TO MONITOR.
--- NOTE | 2017-04-26 23:45 | NUR ---
MS RN NOTE: PATIENT COMPLAINS OF GENERALIZED PAIN /, NORCO 5/325MG 1 TAB ORAL GIVEN PER MD ORDER. WILL CONTINUE TO MONITOR.
[2017-04-27] MEDS: PIPERACILLIN /TAZOBACTAM 2.25 G in IV D5W 50 ML IV SCH ×3 (05:43→21:22)
[2017-04-27] MEDS: BLOOD SUGAR DIAGNOSTIC 1 EACH STRIP IN SCH ×4 (06:59→21:26)
--- NOTE | 2017-04-27 07:00 | NUR ---
MS RN NOTE: PATIENT RESTING IN BED, NO ACUTE DISTRESS NOTED. BREATHING EVEN AND UNLABORED, NO SOB NOTED. IV TO RFA IN PLACE. BLOOD SUGAR LEVEL 113 MG/DL, NO INSULIN NEEDED PER SLIDING SCALE, NO S/S OF HYPER/HYPOGLYCEMIA NOTED. BED LOCKED AND IN LOWEST POSITION, CALL LIGHT IN REACH. WILL ENDORSE TO DAY NURSE TO CONTINUE WITH PLAN OF CARE.
--- NOTE | 2017-04-27 07:30 | NUR ---
MS/RN Patient received Patient received from maintenance supervisor 2nd shift. Denies pain or discomfort at this time. Bed in low setting, side rails X3 in upright position, call light within reach, will continue to monitor.
[2017-04-27 08:00] VITALS: BP 88/60
[2017-04-27] MEDS: BOOST GLUCOSE CONTROL VANILLA 237 ML BOX PO SCH ×2 (08:00→17:00)
[2017-04-27] MEDS: FOLIC ACID 1 MG TABLET PO SCH (08:27)
[2017-04-27] MEDS: LINAGLIPTIN 5 MG TABLET PO SCH (08:27)
[2017-04-27] MEDS: PANTOPRAZOLE 40 MG TABLET.DR PO SCH ×3 (08:27→17:30)
[2017-04-27] MEDS: CHOLECALCIFEROL 1,000 UNIT TABLET (VIT D3) PO SCH (08:27)
[2017-04-27] MEDS: METOPROLOL SUCCINATE 25 MG TAB.SR.24H PO SCH (08:28)
[2017-04-27] MEDS: HEPARIN SODIUM, PORCINE 5000 UNITS/1 ML VIAL SQ SCH ×2 (08:33→21:39)
[2017-04-27] MEDS ORDERED: EPOETIN ALFA (20,000 UNIT) 20,000 UNIT/ML VIAL SQ ONE (10:00)
--- NOTE | 2017-04-27 12:00 | NUR ---
MS/RN Blood sugar Blood sugar at noon 89, patient stated that she would eat lunch, also given orange juice.
[2017-04-27] MEDS: HYDROCODONE/APAP 5/325MG 1 EACH TABLET PO PRN ×2 (13:53→23:39)
--- NOTE | 2017-04-27 14:50 | NUR ---
MS/RN HDX HDX started.
[2017-04-27 16:00] VITALS: BP 92/48
--- NOTE | 2017-04-27 17:30 | NUR ---
MS/RN Blood sugar Blood sugar at 5p 210 - insulin coverage not administered as patient stated that she would not eat as HDX on going.
--- NOTE | 2017-04-27 18:35 | NUR ---
MS/RN Epogen Unable to administer epogen as waiting for H&H result.
--- NOTE | 2017-04-27 18:45 | NUR ---
MS/RN HDX completed HDX completed, 1.2 liters removed, vital signs remain stable throughout.
--- NOTE | 2017-04-27 19:30 | NUR ---
MS/RN End note Patient sleeping at change of shift, appears in no distress. Call light within reach, will endorse to supervisor heading.
--- NOTE | 2017-04-27 19:30 | NUR ---
MS RN NOTES RECEIVED ON BED EATING HER DINNER FOOD,A/I X3-4.SALINE LOCK RFA INTACT AND PATENT,WITH RIGHT CW PERMA CATH FOR HD ACCESS.REPOSITION TO COMFORT,CALL LIGHT IN REACH,NEEDS ANTICIPATED.
[2017-04-27 20:41] VITALS: BP 102/61
[2017-04-27] MEDS: INSULIN REGULAR, HUMAN 100 UNIT/ML 3 ML VIAL SQ PRN (21:31)
--- NOTE | 2017-04-27 23:39 | NUR ---
MS RN NOTES C/O GENERALIZED BODY PAIN,6/10 ON PAIN SCALE,MEDICATED WITH NORCO 5/325MG,1 TAB PO ORDERED FOR PAIN MANAGEMENT.
--- NOTE | 2017-04-28 02:00 | NUR ---
MS RN NOTES SLEEPING,KEPT WARM AND COMFORTABLE.
--- NOTE | 2017-04-28 05:30 | NUR ---
MS RN NOTES BLOOD SUGAR CHECK 231,COVERED WITH HUMULIN R 4 UNITS PER SLIDING SCALE.
[2017-04-28] MEDS: PIPERACILLIN /TAZOBACTAM 2.25 G in IV D5W 50 ML IV SCH ×3 (05:31→21:20)
[2017-04-28] MEDS: BLOOD SUGAR DIAGNOSTIC 1 EACH STRIP IN SCH ×4 (05:32→21:29)
[2017-04-28] MEDS: INSULIN REGULAR, HUMAN 100 UNIT/ML 3 ML VIAL SQ PRN ×2 (05:37→21:29)
[2017-04-28] MEDS: HYDROCODONE/APAP 5/325MG 1 EACH TABLET PO PRN (05:44)
--- NOTE | 2017-04-28 05:44 | NUR ---
MS RN NOTES C/O GENERALIZED PAIN 6/10 ON PAIN SCALE,MEDICATED WITH NORCO 5/325MG,1TAB PO ORDERED.
[2017-04-28 06:30] LABS: EOSINOPHILS # (AUTO) 0.3 /CMM (0.0-0.7); EOSINOPHILS % (AUTO) 1.5 % (0.0-6.0); HEMATOCRIT 25 % (33-45); HEMOGLOBIN 7.9 g/dL (11.5-14.8); LYMPHOCYTES # (AUTO) 0.4 /CMM (0.8-4.8); LYMPHOCYTES % (AUTO) 1.8 % (20.0-44.0); MEAN CORPUSCULAR HEMOGLOBIN 28 PG (26.0-33.0); MEAN CORPUSCULAR HGB CONC 32 g/dl (31.0-36.0); MEAN CORPUSCULAR VOLUME 87 fL (82-100); MONOCYTES # (AUTO) 1.4 /CMM (0.1-1.30); MONOCYTES % (AUTO) 6.8 % (2.0-12.0); NEUTROPHILS # (AUTO) 17.9 /CMM (1.8-8.9); NEUTROPHILS % (AUTO) 89.9 % (43.0-81.0); PLATELET COUNT (AUTO) 309 /CMM (150-450); RDW COEFFICIENT OF VARIATION 21.4 (11.5-15.0); RED BLOOD CELL COUNT(AUTO) 2.87 MIL/uL (4.0-5.2)
[2017-04-28 06:50] LABS: CALCIUM, SERUM 8.1 mg/dL (8.5-10.1); CREATININE 2.7 mg/dL (0.6-1.3); POTASSIUM 3.9 mmol/L (3.5-5.1)
--- NOTE | 2017-04-28 06:51 | NUR ---
MS RN NOTES VERY NEEDY THE WHOLE NIGHT,CALLING EVERY NOW AND THEN FOR LITTLE THINGS.IV SALINE LOCK ACCIDENTALLY PULLED OUT THIS TIME.REPOSITION ,KEPT WARM,CALL LIGHT IN REACH,NEEDS ATTENDED.WILL ENDORSE TO DAY NURSE FOR HAILE.
--- NOTE | 2017-04-28 07:10 | NUR ---
RN NOTES: PATIENT AOX3, NONLABORED BREATHING NOTED. NO SIGNS OF DISTRESS NOTED. BED IN LOWEST LOCKED POSITION. CALL LIGHT WITHIN REACH. WILL CONTINUE TO MONITOR
[2017-04-28 08:00] VITALS: BP 105/72
[2017-04-28] MEDS: METOPROLOL SUCCINATE 25 MG TAB.SR.24H PO SCH (09:00)
[2017-04-28] MEDS: BOOST GLUCOSE CONTROL VANILLA 237 ML BOX PO SCH ×2 (09:02→17:00)
[2017-04-28] MEDS: FOLIC ACID 1 MG TABLET PO SCH (09:05)
[2017-04-28] MEDS: LINAGLIPTIN 5 MG TABLET PO SCH (09:05)
[2017-04-28] MEDS: CHOLECALCIFEROL 1,000 UNIT TABLET (VIT D3) PO SCH (09:05)
[2017-04-28] MEDS: PANTOPRAZOLE 40 MG TABLET.DR PO SCH ×3 (09:06→17:29)
[2017-04-28] MEDS: HEPARIN SODIUM, PORCINE 5000 UNITS/1 ML VIAL SQ SCH ×2 (09:11→21:28)
[2017-04-28 10:50] LABS: IRON, SERUM 10 ug/dl (50-175); TOTAL IRON BINDING CAPACITY < 36 ug/dl (250-450)
[2017-04-28 11:31] LABS: BAND % (MANUAL) 4 % (0.0-5.0); LYMPHOCYTES % (MANUAL) 9 % (16-48); MONOCYTES % (MANUAL) 3 % (0-11.0); NEUTROPHILS % (MANUAL) 84 (42-76)
[2017-04-28 16:00] VITALS: BP 92/56
[2017-04-28] MEDS ORDERED: VANCOMYCIN 1 GM in IV D5W 250 ML IV ONE (16:00)
[2017-04-28] MEDS ORDERED: MAGNESIUM HYDROXIDE 30 ML UDC PO PRN (18:00)
--- NOTE | 2017-04-28 18:25 | NUR ---
RN NOTES: PATIENT REFUSED MILK OF MAGNESIA. BENEFITS AND RISKS EXPLAINED MULTIPLE X5. DISCUSSED WITH PATIENT THE NEED TO HAVE A BOWEL MOVEMENT WELL THE DR'S ORDER FOR STOOL OCCULT BLOOD. PATIENT REFUSED MULTIPLE TIMES. OFFERED SUPPOSITORY WELL, PATIENT STILL REFUSING
--- NOTE | 2017-04-28 18:32 | NUR ---
RN NOTES: PATIENT RESTING IN BED. NONLABORED BREATHING NOTED. PATIENT AOX3. PATIENT DENIES PAIN AT THE MOMENT. NO DIALYSIS TODAY, CONTACTED DR MIRANDA REGARDING HEMODIALYSIS AND CLARIFICATION OF EPOGEN ORDER. NO CALL BACK FROM DR MIRANDA. VANCO ADMINISTERED PER PHARMACY AND VIVIAN LINDSAY PHYSICIAN UNDERWRITER. IV SITE GAUGE 24 ON RIGHT HAND PATENT AND INTACT. DURING SHIFT, PATIENT TURNED AND REPOSITIONED EVERY 2 HOURS, REFUSED TO BE CHANGED MULTIPLE TIMES, REFUSED LAXATIVES, BENEFITS AND RISKS EXPLAINED. MILK OF MAGNESIA ORDERED PER VIVIAN LINDSAY, NAVA. PATIENT REFUSED DINNER, INSULIN HELD. PATIENT HELPED TO SIT UP IN BED, OFFERED DINNER AND BOOST MULTIPLE TIMES, STILL REFUSING. BED IN LOWEST LOCKED POSITION. CALL LIGHT WITHIN REACH. WILL ENDORSED TO NEXT SHIFT
--- NOTE | 2017-04-28 19:45 | NUR ---
MS RN NOTE: PATIENT RESTING IN BED, NO ACUTE DISTRESS NOTED. BREATHING EVEN AND UNLABORED, NO SOB NOTED. IV TO RFA IN PLACE. HD SITE TO RIGHT CHEST WALL. NO S/S OF HYPER/HYPOGLYCEMIA NOTED. BED LOCKED AND IN LOWEST POSITION, CALL LIGHT IN REACH. WILL CONTINUE TO MONITOR.
[2017-04-28 20:00] VITALS: BP 96/54
--- NOTE | 2017-04-28 21:45 | NUR ---
MS RN NOTE: PATIENT BLOOD SUGAR LEVEL 187 MG/DL, PATIENT TO RECEIVE 3 UNITS OF INSULIN PER SLIDING SCALE. NO S/S OF HYPER/HYPOGLYCEMIA NOTED. WILL CONTINUE TO MONITOR.
--- NOTE | 2017-04-29 04:15 | NUR ---
MS RN NOTE: PATIENT IV TO RIGHT WRIST ACCIDENTALLY GOT DISLODGED. TRIED TO START A NEW IV, TWICE WITHOUT SUCCESS. PATIENT REFUSES TO TRY AGAIN. EXPLAINED IMPORTANCE OF IV ACCESS, BUT STILL REFUSES. WILL TRY AGAIN LATER. OLD IV TO RIGHT WRIST REMOVED AND COVERED WITH GAUZE AND SECURED WITH TAPE. WILL CONTINUE TO MONITOR.
[2017-04-29] MEDS ORDERED: MEROPENEM 1 G in IV NS 0.9% 100 ML IV SCH (05:00)
--- NOTE | 2017-04-29 05:45 | NUR ---
MS RN NOTE: PATIENT DUE FOR IV ANTIBIOTICS, INFORMED PATIENT THAT WE NEED TO START AN NEW IV SITE. PATIENT CONTINUES TO REFUSE, EXPLAINED THE RISK AND BENEFIT, BUT CONTINUES TO REFUSE. HAD CHERI TO TRY TO SEE IF PATIENT WOULD ALLOW HER TO START IV. PATIENT CONTINUES TO STILL REFUSE FOR NEW IV SITE AND WAS GETTING UPSET. WILL TRY AGAIN LATER. WILL CONTINUE TO MONITOR.
--- NOTE | 2017-04-29 06:55 | NUR ---
MS RN NOTE: PATIENT RESTING IN BED, NO ACUTE DISTRESS NOTED. BREATHING EVEN AND UNLABORED, NO SOB NOTED. BLOOD SUGAR LEVEL 166 MG/DL, PATIENT TO RECEIVE 3 UNITS PER SLIDING SCALE, NO S/S OF HYPER/HYPOGLYCEMIA NOTED. PATIENT CONTINUES TO REFUSE TO HAVE IV STARTED. UNABLE TO ADMINISTER IV ANTIBIOTICS ORDER. BED LOCKED AND IN LOWEST POSITION, CALL LIGHT IN REACH. WILL ENDORSE TO DAY NURSE TO CONTINUE WITH PLAN OF CARE.
[2017-04-29] MEDS: BLOOD SUGAR DIAGNOSTIC 1 EACH STRIP IN SCH ×4 (06:56→22:05)
[2017-04-29] MEDS: INSULIN REGULAR, HUMAN 100 UNIT/ML 3 ML VIAL SQ PRN (06:57)
--- NOTE | 2017-04-29 07:24 | NUR ---
MS/RN Patient received Patient received from mold shifter. Sleeping at this time, in no distress, appears comfortable. Call light within reach, side rails X3 in upright position, brakes locked. Will continue to monitor and ensure safety.
[2017-04-29 08:00] VITALS: BP 90/54
[2017-04-29] MEDS: BOOST GLUCOSE CONTROL VANILLA 237 ML BOX PO SCH ×2 (08:00→16:58)
[2017-04-29 08:25] LABS: BASOPHILS % (AUTO) 0.2 % (0.0-2.0); EOSINOPHILS % (AUTO) 0.2 % (0.0-6.0); HEMATOCRIT 26 % (33-45); HEMOGLOBIN 8.4 g/dL (11.5-14.8); LYMPHOCYTES # (AUTO) 0.4 /CMM (0.8-4.8); LYMPHOCYTES % (AUTO) 1.8 % (20.0-44.0); MEAN CORPUSCULAR HEMOGLOBIN 28 PG (26.0-33.0); MEAN CORPUSCULAR HGB CONC 33 g/dl (31.0-36.0); MEAN CORPUSCULAR VOLUME 85 fL (82-100); MONOCYTES # (AUTO) 1.5 /CMM (0.1-1.30); MONOCYTES % (AUTO) 7.3 % (2.0-12.0); NEUTROPHILS # (AUTO) 18.6 /CMM (1.8-8.9); NEUTROPHILS % (AUTO) 90.5 % (43.0-81.0); PLATELET COUNT (AUTO) 311 /CMM (150-450); RDW COEFFICIENT OF VARIATION 20.8 (11.5-15.0); RED BLOOD CELL COUNT(AUTO) 3.04 MIL/uL (4.0-5.2); WHITE BLOOD COUNT (AUTO) 20.5 K/uL (4.3-11.0)
[2017-04-29 08:27] LABS: CALCIUM, SERUM 8.4 mg/dL (8.5-10.1); CREATININE 3.1 mg/dL (0.6-1.3)
[2017-04-29] MEDS: CHOLECALCIFEROL 1,000 UNIT TABLET (VIT D3) PO SCH (08:40)
[2017-04-29] MEDS: LINAGLIPTIN 5 MG TABLET PO SCH (08:40)
[2017-04-29] MEDS: FOLIC ACID 1 MG TABLET PO SCH (08:40)
[2017-04-29] MEDS: METOPROLOL SUCCINATE 25 MG TAB.SR.24H PO SCH (08:40)
[2017-04-29] MEDS: HEPARIN SODIUM, PORCINE 5000 UNITS/1 ML VIAL SQ SCH ×2 (08:41→22:09)
[2017-04-29] MEDS: PANTOPRAZOLE 40 MG TABLET.DR PO SCH ×3 (08:44→16:58)
--- NOTE | 2017-04-29 09:30 | NUR ---
MS/RN Medications Moring medications administered as ordered.
[2017-04-29 09:45] LABS: BAND % (MANUAL) 2 % (0.0-5.0); LYMPHOCYTES % (MANUAL) 5 % (16-48); MONOCYTES % (MANUAL) 6 % (0-11.0); NEUTROPHILS % (MANUAL) 87 (42-76)
--- NOTE | 2017-04-29 11:58 | NUR ---
MS/RN S/B Seng Tiwari Seen by DIRECTOR TARGETED MARKETING - left lower extremity duplex ordered as leg slightly more swollen than yesterday. Midline also ordered. Nursing supervisor furnace room made aware.
--- NOTE | 2017-04-29 12:15 | NUR ---
MS/RN Midline Per Isa, nursing packing and wrapping supervisor, Matt Kohli will insert midline.
--- NOTE | 2017-04-29 12:52 | NUR ---
MS/RN Blood sugar Blood sugar at noon 283, patient stating that she does not feel like eating luch and does notwant insulin at this time.
[2017-04-29 16:00] VITALS: BP 102/60
--- NOTE | 2017-04-29 17:00 | NUR ---
MS/RN Blood sugar Blood sugar at 5p 235 - patient refusing any insulin coverage.
--- NOTE | 2017-04-29 18:38 | NUR ---
MS/RN End note No changes at this time, continue to await Matt Kohli for midline insertion.
[2017-04-29] MEDS: HYDROCODONE/APAP 5/325MG 1 EACH TABLET PO PRN (19:56)
[2017-04-29 20:00] VITALS: BP 93/55
--- NOTE | 2017-04-29 20:05 | NUR ---
MS RN NOTE: PATIENT RESTING IN BED, NO ACUTE DISTRESS NOTED. BREATHING EVEN AND UNLABORED, NO SOB NOTED. HD SITE TO RIGHT CHEST WALL. NO S/S OF HYPER/HYPOGLYCEMIA NOTED. PATIENT WILL NO IV ACCESS, FOR MIDLINE PLACEMENT. PATIENT COMPLAINS OF GENERALIZED PAIN 7/10, NORCO 5/325MG ORAL GIVEN PER MD ORDER. BED LOCKED AND IN LOWEST POSITION, CALL LIGHT IN REACH. WILL CONTINUE TO MONITOR.
[2017-04-29] MEDS: MEROPENEM 500 MG in IV NS 0.9% 50 ML IV SCH (21:00)
--- NOTE | 2017-04-29 21:10 | NUR ---
MS RN NOTE: PATIENT TO START ON DIALYSIS. BLOOD CULTURES COLLECTED BEFORE DIALYSIS PER MD ORDER. LAB CALLED AND INFORMED THAT BLOOD CULTURES COLLECTED. WILL CONTINUE TO MONITOR.
--- NOTE | 2017-04-29 22:15 | NUR ---
MS RN NOTE: PATIENT BLOOD SUGAR LEVEL 196 MG/DL, NO INSULIN GIVEN, PATIENT WITH POOR APPETITE AND NOT EATING. NO S/S OF HYPER/HYPOGLYCEMIA NOTED. WILL CONTINUE TO MONITOR.
--- NOTE | 2017-04-29 22:30 | NUR ---
MS RN NOTE: PATIENT COMPLETED DIALYSIS WITHOUT COMPLICATIONS, 2.5 LITERS REMOVED. WILL CONTINUE TO MONITOR.
--- NOTE | 2017-04-30 06:15 | NUR ---
MS RN NOTE: PATIENT RESTING IN BED, NO ACUTE DISTRESS NOTED. BREATHING EVEN AND UNLABORED, NO SOB NOTED. BLOOD SUGAR LEVEL 176 MG/DL, PATIENT NOT EATING MUCH, NO INSULIN GIVEN AT THIS TIME, NO S/S OF HYPER/HYPOGLYCEMIA NOTED. PATIENT STILL TO HAVE MIDLINE TO BE PLACED, NO IV ANTIBIOTICS GIVEN ORDERED. BED LOCKED AND IN LOWEST POSITION, CALL LIGHT IN REACH. WILL ENDORSE TO DAY NURSE TO CONTINUE WITH PLAN OF CARE.
[2017-04-30] MEDS: MEROPENEM 500 MG in IV NS 0.9% 50 ML IV SCH ×2 (07:00→22:21)
[2017-04-30] MEDS: BLOOD SUGAR DIAGNOSTIC 1 EACH STRIP IN SCH ×4 (07:30→21:33)
--- NOTE | 2017-04-30 07:30 | NUR ---
PT RECEIVED RESTING COMFORTABLY IN BED WITH EYES CLOSED. NO S/S OR C/O PAIN OR DISTRESS NOTED. SIDE RAILS UP X2, CALL LIGHT LEFT WITHIN REACH. WILL CONTINUE PLAN OF CARE.
[2017-04-30 08:00] VITALS: BP 122/71
--- NOTE | 2017-04-30 08:00 | NUR ---
RN WORK CAR OPERATOR CALLED TO FOLLOW UP WITH MIDLINE PLACEMENT. WORK CAR OPERATOR STATED SHE WOULD CALL MIDLINE NURSE
[2017-04-30] MEDS: LINAGLIPTIN 5 MG TABLET PO SCH (08:37)
[2017-04-30] MEDS: CHOLECALCIFEROL 1,000 UNIT TABLET (VIT D3) PO SCH (08:37)
[2017-04-30] MEDS: FOLIC ACID 1 MG TABLET PO SCH (08:37)
[2017-04-30] MEDS: PANTOPRAZOLE 40 MG TABLET.DR PO SCH ×3 (08:37→18:00)
[2017-04-30] MEDS: METOPROLOL SUCCINATE 25 MG TAB.SR.24H PO SCH (08:38)
[2017-04-30] MEDS: BOOST GLUCOSE CONTROL VANILLA 237 ML BOX PO SCH ×2 (08:38→18:04)
[2017-04-30] MEDS: HEPARIN SODIUM, PORCINE 5000 UNITS/1 ML VIAL SQ SCH ×2 (08:45→21:41)
--- NOTE | 2017-04-30 09:30 | NUR ---
FOLLOW UP WITH MIDLINE RN CELL FEED DEPARTMENT SUPERVISOR STATED KIMMIE MARQUEZ WOULD PERFORM PROCEDURE.
--- NOTE | 2017-04-30 11:00 | NUR ---
FOLLOW UP WITH MIDLINE RN TOBACCO SAMPLE PULLER STATED KIMMIE MARQUEZ WOULD PERFORM PROCEDURE.
[2017-04-30] MEDS: INSULIN REGULAR, HUMAN 100 UNIT/ML 3 ML VIAL SQ PRN ×3 (12:40→21:40)
--- NOTE | 2017-04-30 14:00 | NUR ---
FOLLOWED UP WITH MIDLINE VIDEO RENTAL CLERK STATED KIMMIE MARQUEZ WOULD PERFORM.
[2017-04-30 16:12] VITALS: BP 100/56
--- NOTE | 2017-04-30 18:00 | NUR ---
FOLLOWED UP WITH KIMMIE MARQUEZ MD STATED TO CONTACT [facility] P[facility]. [employer] DRIVER NOTIFIED.
--- NOTE | 2017-04-30 18:56 | NUR ---
CHANGE OF SHIFT REPORT PT RESTING COMFORTABLY IN BED WITH EYES CLOSED. NO S/S OR C/O PAIN OR DISTRESS NOTED. SIDE RAILS UP X2, CALL LIGHT LEFT WITHIN REACH. PT KEPT CLEAN, DRY, AND COMFORTABLE. NO SIGNIFICANT CHANGES SINCE PREVIOUS SHIFT. WILL GIVE REPORT TO SAM BEASLEY.
--- NOTE | 2017-04-30 19:30 | NUR ---
RN NOTE; RECEIVED PT IN BED AWAKE AND RESPONSIVE. BREATHING EVENLY. NO SOB. NAD . SKIN WARM AND DRY. NO C/O PAIN OR DISCOMFORT AT THIS TIME. AWAITING FOR MIDLINE INSERTION. ALL NEEDS ATTENDED . BED LOW LOCKED. CALL LIGHT WITHIN REACH. WILL CONT TO MONITOR ,
[2017-04-30 20:00] VITALS: BP 105/43
--- NOTE | 2017-04-30 22:10 | NUR ---
MIDLINE 18G WAS INSERTED BY GALE STEVENSON, AT THE BED SIDE. W/ GOOD BLOOD DRAW. PT TOLERATED THE PROCEDURE WELL.
[2017-04-30] MEDS: LORAZEPAM 1 MG TABLET PO PRN (22:29)
--- NOTE | 2017-04-30 22:30 | NUR ---
ATIVAN GIVEN ORDERED FOR PT'S C/O ANXIETY AND INABILITY TO SLEEP. WILL CONT TO MONITOR,
--- NOTE | 2017-05-01 02:45 | NUR ---
PT PULLED OUR HER NAWAF MIDLINE. NO ACTIVE BLEEDING NOTED. IV PERIPHERAL 24G WAS INSERTED ON R WRIST W/ 1ST ATTEMPT. WILL CONT TO MONITOR FOR SAFETY.
--- NOTE | 2017-05-01 05:59 | NUR ---
NEXT DOSE OF MERREM WAS POSTPONED TO 1000 DUE TO LAST DOSE WAS GIVEN LATE WHILE WERE WAITING FOR MIDLINE INSERTION.
[2017-05-01] MEDS: BLOOD SUGAR DIAGNOSTIC 1 EACH STRIP IN SCH ×4 (06:44→21:12)
--- NOTE | 2017-05-01 06:54 | NUR ---
PT IN BED. RESTING COMFORTABLY . NO S/S OR C/O OF PAIN OR DISCOMFORT. NO ACUTE EVENT DURING THE NIGHT. ASSISTED W/ ADLS. , CLEANED AND DRIED, REPOSITIONED ROUTINELY. CALL LIGHT WITHIN REACH . WILL CONT TO MONITOR AND WILL ENDORSE TO AM SHIFT FOR HAILE.
--- NOTE | 2017-05-01 07:10 | NUR ---
RN NOTES PT IS LAYING DOWN IN BED, SLEEPING. PT ON 3L O2, RESPIRATIONS ARE EVEN AND UNLABORED. IV ON R WRIST INTACT AND PATENT. SAFETY MEASURES ARE IN PLACE, CALL LIGHT IS IN REACH. WILL CONTINUE TO MONITOR.
[2017-05-01 07:41] LABS: HEMATOCRIT 25 % (33-45); LYMPHOCYTES # (AUTO) 0.6 /CMM (0.8-4.8); LYMPHOCYTES % (AUTO) 2.7 % (20.0-44.0); MEAN CORPUSCULAR HEMOGLOBIN 28 PG (26.0-33.0); MEAN CORPUSCULAR HGB CONC 32 g/dl (31.0-36.0); MEAN CORPUSCULAR VOLUME 86 fL (82-100); MONOCYTES # (AUTO) 1.3 /CMM (0.1-1.30); MONOCYTES % (AUTO) 5.6 % (2.0-12.0); NEUTROPHILS # (AUTO) 20.7 /CMM (1.8-8.9); NEUTROPHILS % (AUTO) 91.7 % (43.0-81.0); PLATELET COUNT (AUTO) 312 /CMM (150-450); RDW COEFFICIENT OF VARIATION 21.8 (11.5-15.0); RED BLOOD CELL COUNT(AUTO) 2.91 MIL/uL (4.0-5.2); WHITE BLOOD COUNT (AUTO) 22.5 K/uL (4.3-11.0)
[2017-05-01 07:43] LABS: CALCIUM, SERUM 8.2 mg/dL (8.5-10.1); CREATININE 3.4 mg/dL (0.6-1.3); POTASSIUM 3.9 mmol/L (3.5-5.1)
[2017-05-01 08:00] VITALS: BP 96/60
[2017-05-01] MEDS: BOOST GLUCOSE CONTROL VANILLA 237 ML BOX PO SCH ×3 (08:07→17:42)
[2017-05-01] MEDS: CHOLECALCIFEROL 1,000 UNIT TABLET (VIT D3) PO SCH (08:07)
[2017-05-01] MEDS: METOPROLOL SUCCINATE 25 MG TAB.SR.24H PO SCH (08:07)
[2017-05-01] MEDS: PANTOPRAZOLE 40 MG TABLET.DR PO SCH ×3 (08:07→18:51)
[2017-05-01] MEDS: LINAGLIPTIN 5 MG TABLET PO SCH (08:07)
[2017-05-01] MEDS: FOLIC ACID 1 MG TABLET PO SCH (08:07)
[2017-05-01] MEDS: HEPARIN SODIUM, PORCINE 5000 UNITS/1 ML VIAL SQ SCH ×2 (08:10→21:00)
[2017-05-01 09:22] LABS: BAND % (MANUAL) 1 % (0.0-5.0); LYMPHOCYTES % (MANUAL) 5 % (16-48); MONOCYTES % (MANUAL) 9 % (0-11.0); NEUTROPHILS % (MANUAL) 85 (42-76)
[2017-05-01] MEDS: MEROPENEM 500 MG in IV NS 0.9% 50 ML IV SCH ×2 (09:31→21:12)
[2017-05-01] MEDS: INSULIN REGULAR, HUMAN 100 UNIT/ML 3 ML VIAL SQ PRN ×3 (12:15→21:57)
[2017-05-01 16:00] VITALS: BP 93/54
[2017-05-01 16:04] VITALS: BP 93/54
--- NOTE | 2017-05-01 16:17 | NUR ---
At 11:20 per RN Brigdet consent not signed, patient was given heparin 5,000 units at 8:30 am therefore thoracentesis on hold until tomorrow am. RN was instructed to hold heparin prior to procedure.
--- NOTE | 2017-05-01 18:38 | NUR ---
RN NOTES PT IS LAYING DOWN IN BED, RESTING COMFORTABLY. PT ON 2L O2 VIA NASAL CANNULA, RESPIRATIONS ARE EVEN AND UNLABORED. IV ON R WRIST INTACT AND SL. ORDER FOR MIDLINE TO BE PLACE TONIGHT. ALL MEDS WERE GIVEN ORDERED AND PT NEEDS MET. PT HAD HEMODIALYSIS WITH 2.5 L OUTPUT. PT SIGNED CONSENT TO HAVE THORACENTESIS TOMORROW, HEPARIN TO BE HELD FOR PROCEDURE. SAFETY MEASURES ARE IN PLACE. CALL LIGHT IS IN REACH. WILL ENDORSE TO ITALIAN TUTOR RN FOR CONTINUITY OF CARE.
[2017-05-01] MEDS: HYDROCODONE/APAP 5/325MG 1 EACH TABLET PO PRN (18:51)
--- NOTE | 2017-05-01 19:30 | NUR ---
RN NOTES RECEIVED PT. AWAKE ON BED, A/OX3, FORGETFUL, DENIES PAIN, NO SOB, CALL LIGHT WITHIN REACH, [id number], CONTINUE TO MONITOR
[2017-05-01 20:00] VITALS: BP 90/52
--- NOTE | 2017-05-01 21:00 | NUR ---
RN NOTES HEPARIN 5, 000 UNITS WERE HOLD PER MD
[2017-05-02] MEDS: BLOOD SUGAR DIAGNOSTIC 1 EACH STRIP IN SCH ×4 (06:18→21:35)
--- NOTE | 2017-05-02 06:20 | NUR ---
RN NOTES BLOOD SUGAR-170, NOCOVERAGE WAS GIVEN- PT IS NPO FOR PROCEDURE.. AWAKE, DENIES PAIN, NO SOB, MORNING CARE RENDERED, CALL LIGHT WITHIN REACH, [id number], CONTINUE TO MONITOR
[2017-05-02 06:35] LABS: EOSINOPHILS % (AUTO) 0.2 % (0.0-6.0); HEMATOCRIT 23 % (33-45); HEMOGLOBIN 7.3 g/dL (11.5-14.8); LYMPHOCYTES # (AUTO) 5.4 /CMM (0.8-4.8); LYMPHOCYTES % (AUTO) 22.2 % (20.0-44.0); MEAN CORPUSCULAR HEMOGLOBIN 27 PG (26.0-33.0); MEAN CORPUSCULAR HGB CONC 32 g/dl (31.0-36.0); MEAN CORPUSCULAR VOLUME 85 fL (82-100); MONOCYTES # (AUTO) 2.1 /CMM (0.1-1.30); MONOCYTES % (AUTO) 8.6 % (2.0-12.0); NEUTROPHILS % (AUTO) 60.9 % (43.0-81.0); PLATELET COUNT (AUTO) 378 /CMM (150-450); RDW COEFFICIENT OF VARIATION 20.8 (11.5-15.0); RED BLOOD CELL COUNT(AUTO) 2.66 MIL/uL (4.0-5.2); WHITE BLOOD COUNT (AUTO) 24.5 K/uL (4.3-11.0)
[2017-05-02 07:14] LABS: CALCIUM, SERUM 7.8 mg/dL (8.5-10.1); CREATININE 2.9 mg/dL (0.6-1.3); POTASSIUM 3.7 mmol/L (3.5-5.1)
--- NOTE | 2017-05-02 07:14 | NUR ---
MS/RN Patient received Patient received from film processing shift supervisor. NPO at this time for CT abdo and pelvis and thoracentesis, consent forms signed and placed in front of chart. All needs attended, call light within reach, will continue to monitor and ensure safety.
[2017-05-02 07:17] LABS: INR 1.22 (0.87-1.13); PROTHROMBIN TIME 12.7 SECS (9.5-12.7)
[2017-05-02] MEDS: PANTOPRAZOLE 40 MG TABLET.DR PO SCH ×3 (07:30→16:30)
[2017-05-02 07:33] LABS: BASOPHILS % (AUTO) 8.1 % (0.0-2.0)
[2017-05-02 08:00] VITALS: BP 108/65
[2017-05-02] MEDS: BOOST GLUCOSE CONTROL VANILLA 237 ML BOX PO SCH ×3 (08:00→16:31)
[2017-05-02] MEDS: CHOLECALCIFEROL 1,000 UNIT TABLET (VIT D3) PO SCH (08:29)
[2017-05-02] MEDS: HEPARIN SODIUM, PORCINE 5000 UNITS/1 ML VIAL SQ SCH (08:29)
[2017-05-02] MEDS: FOLIC ACID 1 MG TABLET PO SCH (08:29)
[2017-05-02] MEDS: LINAGLIPTIN 5 MG TABLET PO SCH (08:29)
[2017-05-02] MEDS: METOPROLOL SUCCINATE 25 MG TAB.SR.24H PO SCH (08:29)
--- NOTE | 2017-05-02 09:15 | NUR ---
MS/RN Medications held Medications held as patient NPO for procedure, heparin held due to risk of bleeding following thoracentesis.
[2017-05-02] MEDS: MEROPENEM 500 MG in IV NS 0.9% 50 ML IV SCH ×2 (10:16→21:35)
--- NOTE | 2017-05-02 11:02 | NUR ---
MS/RN Thoracentesis Two bottles as bedside ready for thoracentesis. Consent perviously signed and plaved in front of chart.
[2017-05-02] MEDS: HYDROCODONE/APAP 5/325MG 1 EACH TABLET PO PRN ×3 (12:27→21:35)
--- NOTE | 2017-05-02 12:42 | NUR ---
MS/RN S/P Thoracentesis Thoracentesis completed at bedside - 1200ml fluid removed from right side.
--- NOTE | 2017-05-02 12:47 | NUR ---
MS/RN Blood sugar Blood sugar at noon 149. No coverage provided as patient remians NPO awaiting CT scan of abdomen with contrast.
--- NOTE | 2017-05-02 12:58 | NUR ---
MS/RN S/B Dr Bullard Seen by Dr Bullard - HDX ordered for tomorrow.
--- NOTE | 2017-05-02 13:07 | NUR ---
MS/RN Pleural fluid Fluid sent to lab following thoracentesis.
[2017-05-02] MEDS ORDERED: IOHEXOL-300 100 ML VIAL IV ONE (13:16)
[2017-05-02] MEDS ORDERED: IV NS 0.9% 250 ML IV ONE (13:16)
--- NOTE | 2017-05-02 14:43 | NUR ---
MS/RN CT scan Patient back in room following CT scan. Lunch tray ordered.
--- NOTE | 2017-05-02 15:00 | NUR ---
MED SURG NOTE RECEIVED PT FROM LIANA BEASLEY. PT STABLE A/O X3. NC @ 3 L NO C/O SOB. ALL SAFETY MEASURES IN PLACE. WILL CONTINUE TO MONITOR CLOSELY.
[2017-05-02] MEDS: ACETAMINOPHEN 325 MG TABLET PO PRN (15:30)
--- NOTE | 2017-05-02 15:31 | NUR ---
MS/RN Endorsed to RN Patient endored to RN Angella.
[2017-05-02 16:00] VITALS: BP 97/56
[2017-05-02] MEDS: INSULIN REGULAR, HUMAN 100 UNIT/ML 3 ML VIAL SQ PRN ×2 (17:30→21:48)
--- NOTE | 2017-05-02 19:30 | NUR ---
RN NOTES RECEIVED PT AWAKE, A/OX3, FORGETFUL, ULTRASOUND OF ABDOMEN WAS ONGOING, MIDLINE IN PLACE, DENIES PAIN, NO SOB, CALL LIGHT WITHIN REACH, [id number], [id number] TO MONITOR
[2017-05-02 20:00] VITALS: BP 109/56
--- NOTE | 2017-05-02 21:46 | NUR ---
GALE NOTES COMPLAINED OF GENERALIZED PAIN- NORCO 3/325MG PO GIVEN ORDERED, V/S STABLE Addendum: 05/03/17 at 0133 by SMILEY QUEZADA RN NORCO 5/325MG PO
[2017-05-03] MEDS: HYDROCODONE/APAP 5/325MG 1 EACH TABLET PO PRN ×5 (04:56→23:08)
--- NOTE | 2017-05-03 05:01 | NUR ---
RN NOTES COMPLAINED OF GENERALIZED PAIN- NORCO /325 MG PO GIVEN ORDERED, V/S STABLE
[2017-05-03] MEDS: BLOOD SUGAR DIAGNOSTIC 1 EACH STRIP IN SCH ×4 (06:25→22:29)
--- NOTE | 2017-05-03 06:28 | NUR ---
RN NOTES COMPLAINED OF CONSTIPATION - MOM 30ML PO GIVEN ORDERED
--- NOTE | 2017-05-03 07:00 | NUR ---
RN NOTES AWAKE, MORNING CARE RENDERED, DENIES PAIN, NO SOB, CALL LIGHT WITHIN REACH, [id number], PT. NEEDS ATTENDED
[2017-05-03 07:35] LABS: EOSINOPHILS % (AUTO) 0.2 % (0.0-6.0); HEMATOCRIT 24 % (33-45); HEMOGLOBIN 7.5 g/dL (11.5-14.8); LYMPHOCYTES # (AUTO) 0.5 /CMM (0.8-4.8); LYMPHOCYTES % (AUTO) 2.1 % (20.0-44.0); MEAN CORPUSCULAR HEMOGLOBIN 28 PG (26.0-33.0); MEAN CORPUSCULAR HGB CONC 32 g/dl (31.0-36.0); MEAN CORPUSCULAR VOLUME 87 fL (82-100); MONOCYTES # (AUTO) 1.4 /CMM (0.1-1.30); MONOCYTES % (AUTO) 6.1 % (2.0-12.0); NEUTROPHILS % (AUTO) 91.6 % (43.0-81.0); PLATELET COUNT (AUTO) 364 /CMM (150-450); RDW COEFFICIENT OF VARIATION 22.4 (11.5-15.0); RED BLOOD CELL COUNT(AUTO) 2.72 MIL/uL (4.0-5.2); WHITE BLOOD COUNT (AUTO) 22.9 K/uL (4.3-11.0)
[2017-05-03 08:00] VITALS: BP 99/52
[2017-05-03 08:19] LABS: CALCIUM, SERUM 7.9 mg/dL (8.5-10.1); CREATININE 3.3 mg/dL (0.6-1.3); POTASSIUM 4.2 mmol/L (3.5-5.1)
[2017-05-03] MEDS: METOPROLOL SUCCINATE 25 MG TAB.SR.24H PO SCH (08:32)
[2017-05-03] MEDS: PANTOPRAZOLE 40 MG TABLET.DR PO SCH ×3 (08:44→16:17)
[2017-05-03] MEDS: LINAGLIPTIN 5 MG TABLET PO SCH (08:45)
[2017-05-03] MEDS: CHOLECALCIFEROL 1,000 UNIT TABLET (VIT D3) PO SCH (08:45)
[2017-05-03] MEDS: FOLIC ACID 1 MG TABLET PO SCH (08:45)
[2017-05-03] MEDS: BOOST GLUCOSE CONTROL VANILLA 237 ML BOX PO SCH ×3 (08:45→16:18)
[2017-05-03] MEDS: MEROPENEM 500 MG in IV NS 0.9% 50 ML IV SCH (09:25)
[2017-05-03] MEDS: NITROGLYCERIN 30 GM TUBE TP SCH ×2 (12:30→21:00)
--- NOTE | 2017-05-03 12:33 | NUR ---
RN NOTES PATIENT C/O CHEST PAIN, PATIENT SEEN BY DR. DRIVER, EKG STAT ORDERED, RELAYED TO DR. DRIVER. RECEIVED ORDERS, ORDER NOTED AND CARRIED OUT. BP 110/67 HR 104 SPO2 100% ON 2LPM VIA NC R20 T 98.1 BS 215.
--- NOTE | 2017-05-03 14:00 | NUR ---
RN NOTES RECEIVED ORDER FOR PATIENT TO BE TRANSFERRED TO TELE PER DR. DRIVER, ORDER NOTED AND CARRIED OUT. PATIENT TRANSFERRED TO ROOM 312-2, REPORT GIVEN TO ARCENIO. PATIENT ALERT AND ORIENTED X3, STILL C/O CHEST PAIN. NO CHANGE IN LOC, NO SOB NOTED, TELE MONITOR ATTACHED. ENDORSED TO ARCENIO.
--- NOTE | 2017-05-03 14:15 | NUR ---
RN NOTES RECEIVED PATIENT FROM MED/SURGE TO TELE BY RN NAME JAYMIE, PATIENT ON TELE MONITOR. PATIENT A/O X3, FORGETFUL, PATIENT C/O PAIN 6/10 GENERALIZED, AND CHEST PAIN. PATIENT HAS A EDEMA BILATERAL LEGS, KEEP ELEVATED USING PILLOWS, V/S TAKEN BP-99/60, P-105, R-19, 02-100 02-2L NC. NEEDS ATTENDED AND ANTICIPATED, PATIENT INCONTINENT. IV MIDLINE ON RIGHT UPPER ARM, INTACT, HOB ELEVATED, PATIENT REFUSED EAT LUNCH, CALL LIGHT WITHIN TO REACH, SAFETY PRECAUTION MAINTAINED ALL THE TIME WITH HELP OF GUEST RELATIONS OFFICER. CONTINUED MONITORING.
[2017-05-03 15:01] VITALS: BP 99/60
[2017-05-03 16:00] VITALS: BP 108/68
[2017-05-03] MEDS: INSULIN REGULAR, HUMAN 100 UNIT/ML 3 ML VIAL SQ PRN ×2 (16:25→22:26)
[2017-05-03] MEDS: ACETAMINOPHEN 325 MG TABLET PO PRN (16:29)
--- NOTE | 2017-05-03 16:29 | NUR ---
rn notes administered tylenol 650 mg po prn for headache 11/05, per patient request, bs-245 mg/dl coverage given 4 units, laso administered scheduled medication, patient sitting in the bed no acute respiratory distress, on o2-2l nc, call light within to reach, safety precaution maintained all the time.
--- NOTE | 2017-05-03 17:20 | NUR ---
RN NOTES PATIENT GETTING HEMODIALYSIS AT THIS TIME, NO ACUTE DISTRESS, MEDICATION WERE ADMINISTERED FOR HEADACHE EFFECTIVE, CONTINUED MONITORING.
--- NOTE | 2017-05-03 17:39 | NUR ---
rn notes administered narco 5/325 mg po prn for generalized pain 01/06, v/s taken bp -111/65, p-106, patient still getting hemodialysis, no acute distress, call light within to reach, safety precaution maintained all the time.
--- NOTE | 2017-05-03 18:30 | NUR ---
RN NOTES PATIENT RESTING AFTER HEMODIALYSIS 2000 OUTPUT, V/S TAKEN BP 120/68, P-105, MEDICATION WERE ADMINISTERED FOR PAIN EFFECTIVE, PATIENT STABLE AT THIS TIME. CALL LIGHT WITHIN TO REACH. ENDORSED ONCOMING NURSE FOR HAILE.
--- NOTE | 2017-05-03 19:30 | NUR ---
NURSING ASSISTANTS TEACHER NOTE RECEIVED PATIENT AWAKE AND ALERT IN BED. PATIENT STATES SHE IS HAVING 5/10 GENERALIZED PAIN. RELAXATION TECHNIQUES AND REPOSITIONING PROVIDED. WILL ADMINISTER PAIN MEDICATION ORDERED. IV SITE INTACT, WITH NO REDNESS NOTED. BED LOCKED AND IN LOWEST POSITION. SIDE RAILS UP, CALL LIGHT WITHIN REACH. WILL CONTINUE TO MONITOR.
[2017-05-03 20:00] VITALS: BP 104/66
[2017-05-03] MEDS: LORAZEPAM 1 MG TABLET PO PRN (20:11)
--- NOTE | 2017-05-03 22:00 | NUR ---
DIRECT MARKETING EXECUTIVE NOTE BLOOD SUGAR 174. 3 UNITS REGULAR INSULIN ADMINISTERED SAFELY.
[2017-05-04 04:00] VITALS: BP 102/70
[2017-05-04] MEDS: HYDROCODONE/APAP 5/325MG 1 EACH TABLET PO PRN ×2 (04:52→09:08)
--- NOTE | 2017-05-04 06:32 | NUR ---
SHOWROOM SALESPERSON NOTE PATIENT STABLE. SLEEPING AT THIS TIME. REPOSITIONED FREQUENTLY REQUESTED. KEPT CLEAN, DRY AND COMFORTABLE. WILL ENDORSE TO DAY SHIFT FOR HAILE.
[2017-05-04] MEDS: BLOOD SUGAR DIAGNOSTIC 1 EACH STRIP IN SCH ×4 (06:34→22:07)
--- NOTE | 2017-05-04 07:50 | NUR ---
RN OPENING NOTE RECEIVED PT. PT IS STABLE AND RESTING IN BED. A/OX2. NO S/S OF RESPIRATORY DISTRESS. PT HAS C/O PAIN /10 LOCATED ON HER BACK, WILL ADDRESS PHARMACOLOGICALLY. PER TAX COMPLIANCE REPRESENTATIVE REPORT, PT LAST HD ON 05/03/17. S/P THORACENTESIS ON 05/02/16. IV ACCESS LOCATED ON NAWAF MIDLINE 18G SL AND RIGHT WRIST 24G SL. SAFETY MEASURES IN PLACE, CALL LIGHT WITHIN REACH, WILL CONTINUE TO MONITOR.
[2017-05-04 08:00] VITALS: BP 94/55
[2017-05-04] MEDS: BOOST GLUCOSE CONTROL VANILLA 237 ML BOX PO SCH ×3 (08:00→17:51)
[2017-05-04] MEDS: NITROGLYCERIN 30 GM TUBE TP SCH ×2 (09:00→21:00)
[2017-05-04] MEDS: METOPROLOL SUCCINATE 25 MG TAB.SR.24H PO SCH (09:00)
[2017-05-04] MEDS: CHOLECALCIFEROL 1,000 UNIT TABLET (VIT D3) PO SCH (09:02)
[2017-05-04] MEDS: PANTOPRAZOLE 40 MG TABLET.DR PO SCH ×4 (09:02→17:17)
[2017-05-04] MEDS: FOLIC ACID 1 MG TABLET PO SCH (09:03)
[2017-05-04] MEDS: LINAGLIPTIN 5 MG TABLET PO SCH (09:03)
--- NOTE | 2017-05-04 09:30 | NUR ---
RN NOTES AM METOPROLOL AND NITRO HELD DUE TO LOW PT BP. WILL CONTINUE TO MONITOR.
[2017-05-04] MEDS: INSULIN REGULAR, HUMAN 100 UNIT/ML 3 ML VIAL SQ PRN ×2 (12:34→17:13)
[2017-05-04 16:00] VITALS: BP 105/85
--- NOTE | 2017-05-04 18:54 | NUR ---
RN CLOSING NOTES PT IN BED RESTING. NO S/S OF SOB/RESP DISTRESS. PT DOES NOT APPEAR TO BE IN PAIN. HD SCHEDULED FOR TOMORROW 05/05/17. ALL PT NEEDS ANTICIPATED AND MET. BED LOWERED TO LOWEST POSITION, SIDE RAILS UP X2, CALL LIGHT WITHIN REACH, WILL ENDORSE TO SAS ETL DEVELOPER FOR HAILE.
--- NOTE | 2017-05-04 19:25 | NUR ---
MS/MILITARY NURSE; RECEIVED PT IN BED SLEEPING . BREATHING NON LABORED. WITH MIDLINE O NAWAF INTACT. BED ON LOWER POSITION AND LOCKED FOR SAFETY. SIDE RAILS ARE UP FOR SAFETY. CALL LIGHT WITHIN REACH. WITH FC INTACT WITH DARK MARIA URINE. WILL CONTINUE TO MONITOR.
[2017-05-04 20:00] VITALS: BP 96/65
[2017-05-04 21:01] LABS: EOSINOPHILS % (AUTO) 0.1 % (0.0-6.0); LYMPHOCYTES # (AUTO) 0.4 /CMM (0.8-4.8); LYMPHOCYTES % (AUTO) 2.2 % (20.0-44.0); MEAN CORPUSCULAR HEMOGLOBIN 27 PG (26.0-33.0); MEAN CORPUSCULAR HGB CONC 31 g/dl (31.0-36.0); MEAN CORPUSCULAR VOLUME 87 fL (82-100); MONOCYTES # (AUTO) 0.9 /CMM (0.1-1.30); MONOCYTES % (AUTO) 4.9 % (2.0-12.0); NEUTROPHILS # (AUTO) 17.4 /CMM (1.8-8.9); NEUTROPHILS % (AUTO) 92.8 % (43.0-81.0); PLATELET COUNT (AUTO) 340 /CMM (150-450); RDW COEFFICIENT OF VARIATION 22.3 (11.5-15.0); RED BLOOD CELL COUNT(AUTO) 2.02 MIL/uL (4.0-5.2); WHITE BLOOD COUNT (AUTO) 18.7 K/uL (4.3-11.0)
--- NOTE | 2017-05-04 21:10 | NUR ---
MS/TOWBOAT ENGINEER; LAB. CALLED FOR CRITICAL LABS. RESULT HGB 5.5 ; HCT 18 AND CHARGE NURSE INFORMED. I PLACED A CALL TO DR. SLONA WHO IS CHICKEN HANDLER WITH ORDERS OF STOOL FOR OB , TRANSFUSE 1 UNIT PRBC AND CBC IN AM. CHARGE NURSE AGAIN INFORMED AGAIN OF THESE ORDERS AND CARRIED OUT.
[2017-05-04 21:14] LABS: HEMATOCRIT 18 % (33-45); HEMOGLOBIN 5.5 g/dL (11.5-14.8)
[2017-05-04 21:15] LABS: CALCIUM, SERUM 6.7 mg/dL (8.5-10.1); CREATININE 2.6 mg/dL (0.6-1.3); POTASSIUM 3.5 mmol/L (3.5-5.1)
[2017-05-04 21:31] LABS: LYMPHOCYTES % (MANUAL) 6 % (16-48); MONOCYTES % (MANUAL) 2 % (0-11.0); NEUTROPHILS % (MANUAL) 92 (42-76)
[2017-05-05] VITALS (8 sets, daily range): BP systolic 103–135; BP diastolic 58–71
[2017-05-05] MEDS: ACETAMINOPHEN 325 MG TABLET PO PRN (00:32)
--- NOTE | 2017-05-05 02:55 | NUR ---
MS/NETWORK PROGRAMMER; 1 UNIT OF PRBC TRANSFUSED AFTER PROPER CHECKED WITH ANOTHER RN .
--- NOTE | 2017-05-05 06:15 | NUR ---
MS/GAG WRITER; PT SLEPT FAIRLY. MIDLINE INTACT. HAS BEEN TURNED AND REPOSITIONED. WILL ENDORSE TO THE DAY SHIFT NURSE.
--- NOTE | 2017-05-05 06:15 | NUR ---
MS/BEE TENDER; C/O CHEST PAIN. BP 103/68 P 103 , CHARGE NURSE NOTIFIED. NORCO 5- 325 MG PO GIVEN OREDERED.
[2017-05-05] MEDS: HYDROCODONE/APAP 5/325MG 1 EACH TABLET PO PRN ×2 (06:27→12:43)
[2017-05-05] MEDS: BLOOD SUGAR DIAGNOSTIC 1 EACH STRIP IN SCH ×4 (06:47→22:47)
--- NOTE | 2017-05-05 06:55 | NUR ---
MS/PSYCH ASSISTANT; BLOOD TRANSFUSION FINISHED AND REACTION NOTED.
[2017-05-05] MEDS: INSULIN REGULAR, HUMAN 100 UNIT/ML 3 ML VIAL SQ PRN ×2 (07:06→16:55)
--- NOTE | 2017-05-05 07:15 | NUR ---
MS/PHYSICAL EDUCATION PROFESSOR; SLEPT FAIRLY. NO REACTIONS FROM THE BLOOD TRANSFUSION. WILL ENDORSE TO THE DAY SHIFT.
--- NOTE | 2017-05-05 07:30 | NUR ---
RN OPENING NOTE RECEIVED PT. PT IS STABLE AND RESTING IN BED. A/OX2. NO S/S OF RESPIRATORY DISTRESS. PT HAS C/O PAIN /10 LOCATED ON HER BACK, WILL ADDRESS PHARMACOLOGICALLY. PT SCHEDULED FOR HD TODAY 05/06/17. S/P THORACENTESIS ON 05/02/16. IV ACCESS LOCATED ON NAWAF MIDLINE 18G SL AND RIGHT WRIST 24G SL. PER MUSIC COMPOSER REPORT PT RECEIVED 1 UNIT PRBC LAST NIGHT. SAFETY MEASURES IN PLACE, CALL LIGHT WITHIN REACH, WILL CONTINUE TO MONITOR.
[2017-05-05] MEDS: BOOST GLUCOSE CONTROL VANILLA 237 ML BOX PO SCH ×3 (08:00→16:48)
[2017-05-05 08:21] LABS: BASOPHILS % (AUTO) 0.2 % (0.0-2.0); EOSINOPHILS # (AUTO) 0.3 /CMM (0.0-0.7); EOSINOPHILS % (AUTO) 1.3 % (0.0-6.0); HEMATOCRIT 22 % (33-45); HEMOGLOBIN 7.2 g/dL (11.5-14.8); LYMPHOCYTES # (AUTO) 0.4 /CMM (0.8-4.8); MEAN CORPUSCULAR HEMOGLOBIN 28 PG (26.0-33.0); MEAN CORPUSCULAR HGB CONC 32 g/dl (31.0-36.0); MEAN CORPUSCULAR VOLUME 87 fL (82-100); MONOCYTES % (AUTO) 4.7 % (2.0-12.0); NEUTROPHILS # (AUTO) 19.6 /CMM (1.8-8.9); NEUTROPHILS % (AUTO) 91.8 % (43.0-81.0); PLATELET COUNT (AUTO) 359 /CMM (150-450); RDW COEFFICIENT OF VARIATION 19.8 (11.5-15.0); RED BLOOD CELL COUNT(AUTO) 2.58 MIL/uL (4.0-5.2); WHITE BLOOD COUNT (AUTO) 21.4 K/uL (4.3-11.0)
[2017-05-05 08:50] LABS: CALCIUM, SERUM 7.9 mg/dL (8.5-10.1); CREATININE 3.1 mg/dL (0.6-1.3); POTASSIUM 4.7 mmol/L (3.5-5.1)
[2017-05-05] MEDS: METOPROLOL SUCCINATE 25 MG TAB.SR.24H PO SCH (09:00)
[2017-05-05] MEDS: NITROGLYCERIN 30 GM TUBE TP SCH ×2 (09:00→22:47)
--- NOTE | 2017-05-05 09:39 | NUR ---
RN NOTES AM BP MEDICATION HELD DUE TO BP RANGE WNL. PO AM MEDICATION ADMINISTRATION DELAYED DUE TO DIALYSIS TREATMENT CURRENTLY OCCURRING.
[2017-05-05 09:53] LABS: THYROID STIMULATING HORMONE 2.137 uIU/mL (0.358-3.74)
[2017-05-05] MEDS ORDERED: diphenhydrAMINE HCL ELIX 25 MG/10 ML UDC PO ONE (10:00)
[2017-05-05] MEDS: LINAGLIPTIN 5 MG TABLET PO SCH (11:04)
[2017-05-05] MEDS: PANTOPRAZOLE 40 MG TABLET.DR PO SCH ×2 (11:05→16:47)
[2017-05-05] MEDS: FOLIC ACID 1 MG TABLET PO SCH (11:05)
[2017-05-05] MEDS: CHOLECALCIFEROL 1,000 UNIT TABLET (VIT D3) PO SCH (11:05)
[2017-05-05] MEDS ORDERED: EPOETIN ALFA (10,000 UNIT) 10,000 UNIT/ML VIAL IV ONE (15:00)
[2017-05-05] MEDS ORDERED: HYDROCODONE/APAP 10/325MG 1 EA TABLET PO PRN (16:30)
--- NOTE | 2017-05-05 18:37 | NUR ---
RN CLOSING NOTES PT IN BED RESTING. NO S/S OF RESPIRATORY DISTRESS/SOB. PT SCHEDULED FOR NM STRESS TEST TMR, TO BE PLACED ON NPO TMR MORNING. ALL PT NEEDS ANTICIPATED AND MET, SAFETY MEASURES IN PLACE, CALL LIGHT IN REACH. WILL ENDORSE TO WHEEL FILLER FOR HAILE.
[2017-05-05] MEDS: ACETAMINOPHEN 325 MG TABLET PO SCH ×2 (19:21→22:48)
[2017-05-05 19:33] LABS: HEMOGLOBIN 7.6 g/dL (11.5-14.8)
--- NOTE | 2017-05-05 19:45 | NUR ---
RN OPENING NOTES RECEIVED REPORT FROM SHIRAHIALEXA RNELSIE. FOUND Pt AWAKE, RESTING IN BED. Pt IS A/OX2, VERBAL, ABLE TO MAKE NEEDS KNOWN, FORGETFUL AT TIMES. NO S/S OF ACUTE DISTRESS OR SEVERE SOB NOTED. IV ACCESS ON NAWAF MIDLINE #18G, LT ARM AV SHUNT. SAFETY MEASURES IN PLACE. BED LOW, LOCKED, HOB ELEVATED SIDE RAILS UP, CALL LIGHT AND BEDSIDE TABLE WITHIN REACH. WILL CONTINUE TO MONITOR Pt THROUGHOUT THE NIGHT FOR SAFETY.
[2017-05-05] MEDS: GABAPENTIN 300 MG CAPSULE PO SCH (20:30)
--- NOTE | 2017-05-05 22:00 | NUR ---
RN NOTES BG 202. NO INSULIN COVERAGE GIVEN DUE TO NPO STATUS STARTING AT [facility] FOR SCHEDULED STRESS TEST TMRRW IN THE AM.
[2017-05-05] MEDS: LORAZEPAM 1 MG TABLET PO PRN (23:50)
--- NOTE | 2017-05-05 23:57 | NUR ---
RN NOTES ENDORSED TO GALE JOHNSON FOR Pt's HAILE. Pt HAS BEEN REPOSITION TO LEFT SIDE. NO S/S OF ACUTE DISTRESS OR SOB NOTED. ALL NEEDS MET AND ATTENDED TO. SAFETY MEASURES IN PLACE. BED LOW, LOCKED, HOB ELEVATED SIDE RAILS UP, CALL LIGHT AND BEDSIDE TABLE WITHIN REACH.
--- NOTE | 2017-05-06 03:25 | NUR ---
CLOSING NOTES: RECIEVED MS. BRANDT AT 3AM. PATIENT ASLEEP. HOB ELEVATED AND RESP EVEN AND UNLABORED. noted av shunt left upper arm. NPO FOR SCHEDULED STRESS TEST IN THE AM CONSENT IN CHART AND SIGNED BLOOD SUGAR PRIOR BEDTIME WAS 202
[2017-05-06] MEDS: ACETAMINOPHEN 325 MG TABLET PO SCH ×2 (06:00→12:14)
[2017-05-06] MEDS: BLOOD SUGAR DIAGNOSTIC 1 EACH STRIP IN SCH ×3 (06:29→16:54)
--- NOTE | 2017-05-06 06:42 | NUR ---
BLOOD SUGAR 113 TODAY 05/06/17 NPO FOR AM PROCEDURE
[2017-05-06 06:48] LABS: EOSINOPHILS # (AUTO) 0.2 /CMM (0.0-0.7); EOSINOPHILS % (AUTO) 0.9 % (0.0-6.0); HEMATOCRIT 25 % (33-45); LYMPHOCYTES # (AUTO) 0.7 /CMM (0.8-4.8); LYMPHOCYTES % (AUTO) 3.2 % (20.0-44.0); MEAN CORPUSCULAR HEMOGLOBIN 28 PG (26.0-33.0); MEAN CORPUSCULAR HGB CONC 32 g/dl (31.0-36.0); MEAN CORPUSCULAR VOLUME 87 fL (82-100); MONOCYTES # (AUTO) 1.2 /CMM (0.1-1.30); MONOCYTES % (AUTO) 5.6 % (2.0-12.0); NEUTROPHILS # (AUTO) 20.2 /CMM (1.8-8.9); NEUTROPHILS % (AUTO) 90.3 % (43.0-81.0); PLATELET COUNT (AUTO) 420 /CMM (150-450); RDW COEFFICIENT OF VARIATION 20.8 (11.5-15.0); RED BLOOD CELL COUNT(AUTO) 2.85 MIL/uL (4.0-5.2); WHITE BLOOD COUNT (AUTO) 22.4 K/uL (4.3-11.0)
[2017-05-06 07:06] LABS: CALCIUM, SERUM 8.2 mg/dL (8.5-10.1); CREATININE 2.7 mg/dL (0.6-1.3); POTASSIUM 4.9 mmol/L (3.5-5.1)
[2017-05-06 07:30] VITALS: BP 106/69
[2017-05-06] MEDS: PANTOPRAZOLE 40 MG TABLET.DR PO SCH ×3 (07:30→16:53)
--- NOTE | 2017-05-06 08:00 | NUR ---
MS RN NOTES PATIENT IN BED RESTING NO SOB OR ACUTE DISTRESS NOTED. PATIENT ALERT, ORIENTED X3. PERIPHERAL IV INTACT PATENT. BED IN LOW LOCKED POSITION, CALL LIGHT WITHIN REACH. WILL CONTINUE TO MONITOR.
[2017-05-06] MEDS ORDERED: REGADENOSON 0.4 MG/5 ML DISP.SYRIN IVP ONE (09:00)
[2017-05-06] MEDS: NITROGLYCERIN 30 GM TUBE TP SCH (09:00)
[2017-05-06] MEDS: CHOLECALCIFEROL 1,000 UNIT TABLET (VIT D3) PO SCH (09:33)
[2017-05-06] MEDS: FOLIC ACID 1 MG TABLET PO SCH (09:33)
[2017-05-06] MEDS: LINAGLIPTIN 5 MG TABLET PO SCH (09:34)
[2017-05-06] MEDS: BOOST GLUCOSE CONTROL VANILLA 237 ML BOX PO SCH ×3 (09:35→17:00)
[2017-05-06] MEDS: METOPROLOL SUCCINATE 25 MG TAB.SR.24H PO SCH (09:35)
--- NOTE | 2017-05-06 10:00 | NUR ---
MS RN NOTES PATIENT RETURNED FROM [facility] TOLER[facility] WELL WILL CONTINUE TO MONITOR.
[2017-05-06 10:41] LABS: BAND % (MANUAL) 2 % (0.0-5.0); EOSINOPHILS % (MANUAL) 1 % (0-4); LYMPHOCYTES % (MANUAL) 4 % (16-48); MONOCYTES % (MANUAL) 5 % (0-11.0); NEUTROPHILS % (MANUAL) 88 (42-76)
[2017-05-06] MEDS ORDERED: Hydrocodone/Apap 10/325MG PO (12:17)
[2017-05-06] MEDS ORDERED: GABA300C PO (12:17)
[2017-05-06] MEDS: INSULIN REGULAR, HUMAN 100 UNIT/ML 3 ML VIAL SQ PRN ×2 (12:47→16:55)
--- NOTE | 2017-05-06 13:00 | NUR ---
MS RN NOTES PATIENT SEEN AND EVALUATED BY GINETTE LINDSAY LOGISTICS SUPPORT ORDERS TO DISCHARGE IF [facility] IS NEGATIVE.
--- NOTE | 2017-05-06 15:00 | NUR ---
MS RN NOTES CALL RECEIVED FROM VIVIAN LINDSAY STATING LEXISCAN WAS NEGATIVE OK TO DISCHARGE TO SNF.
[2017-05-06 16:00] VITALS: BP 95/56
--- NOTE | 2017-05-06 16:00 | NUR ---
MS RN NOTES PATIENT REFUSED PICTURES OF RIGHT HIP. STATES ITS JUST A SCAR "YOU DO NOT NEED A PICTURE OF A SCAR. " DESPITE EXPLANATION OF ACTIONS. NOTED. PATIENT STILL REFUSES.
[2017-05-06] MEDS: GABAPENTIN 300 MG CAPSULE PO SCH (16:54)
--- NOTE | 2017-05-06 18:00 | NUR ---
MS RN NOTES PATIENT DISCHARGED TO [facility] IN STABLE CONDITION. NO SOB OR ACUTE DISTRESS NOTED. ALL DUE MEDICATIONS ADMINISTERED. MD AWARE OF ALL ABNORMAL LABS. REPORT GIVEN TO CHLOE RN AT INTERMEDIATE FACILITY. PATIENT REFUSED PICTURES OF RIGHT HIP. PATIENT REQUESTED EARLY DINNER PROVIDED. INSULIN PROVIDED BEFORE DINNER. DISCHARGE INSTRUCTIONS PROVIDED TO SN AT INTERMEDIATE FACILITY. ALSO TO PATIENT VERBALIZED UNDERSTANDING TO BEST OF HER ABILITY. ALL BELONGING ACCOUNTED FOR, BELONGING LIST SIGNED. REPORT PROVIDED RO EMT. PATIENT TRANSPORTED VIA AMBULANCE. PERIPHERAL IV REMOVED ALSO MIDLINE WITH MINIMAL BLEEDING NOTED. ID BAND REMOVED.
[2017-05-07 05:10] LABS: IMMUNOGLOBULIN A, SERUM 389 mg/dL (87-352); IMMUNOGLOBULIN G, SERUM 1621 mg/dL (700-1600); IMMUNOGLOBULIN M, SERUM 68 mg/dL (26-217)
[2017-05-10 06:08] LABS: *SPE A/G RATIO 0.4 (0.7-1.7); *SPE ALBUMIN 1.5 g/dL (2.9-4.4); *SPE ALPHA-1-GLOBULIN 0.4 g/dL (0.0-0.4); *SPE ALPHA-2-GLOBULIN 0.8 g/dL (0.4-1.0); *SPE BETA GLOBULIN 0.6 g/dL (0.7-1.3); *SPE GLOBULIN, TOTAL 3.5 g/dL (2.2-3.9); *SPE M-SPIKE Not Observed g/dL (Not Observed); *SPEGAMMA GLOBULIN 1.7 g/dL (0.4-1.8)
== END 2017-05-06 17:56 | DRG 720 ==
LOC: ER 17:46 → TELE-TD 21:08 → TELE1 04-25 19:20 → MEDSG1 04-26 06:46 → MEDSG2 04-26 21:35 → TELE 05-03 13:55 → MED 05-04 10:43
PROVIDERS: ADMIT Nurse Practitioner Acute Care; ATTEND Nurse Practitioner Acute Care
PROC: 5A1D70Z Performance of Urinary Filtration, Intermittent, Less than 6 Hours Per Day (ICD-10-PCS; principal; 2017-04-25)
PROC: 5A1D70Z Performance of Urinary Filtration, Intermittent, Less than 6 Hours Per Day (ICD-10-PCS; 2017-04-26)
PROC: 5A1D70Z Performance of Urinary Filtration, Intermittent, Less than 6 Hours Per Day (ICD-10-PCS; 2017-04-27)
PROC: 05H533Z Insertion of Infusion Device into Right Subclavian Vein, Percutaneous Approach (ICD-10-PCS; 2017-04-29)
PROC: B546ZZA Ultrasonography of Right Subclavian Vein, Guidance (ICD-10-PCS; 2017-04-29)
PROC: 5A1D70Z Performance of Urinary Filtration, Intermittent, Less than 6 Hours Per Day (ICD-10-PCS; 2017-04-29)
PROC: 5A1D70Z Performance of Urinary Filtration, Intermittent, Less than 6 Hours Per Day (ICD-10-PCS; 2017-05-01)
PROC: 0W993ZZ Drainage of Right Pleural Cavity, Percutaneous Approach (ICD-10-PCS; 2017-05-02)
PROC: 5A1D70Z Performance of Urinary Filtration, Intermittent, Less than 6 Hours Per Day (ICD-10-PCS; 2017-05-03)
PROC: 5A1D70Z Performance of Urinary Filtration, Intermittent, Less than 6 Hours Per Day (ICD-10-PCS; 2017-05-05)
DX: A41.9 Sepsis, unspecified organism (principal); I21.A1 Myocardial infarction type 2; J96.01 Acute respiratory failure with hypoxia; E43 Unspecified severe protein-calorie malnutrition; I13.2 Hypertensive heart and chronic kidney disease with heart failure and with stage 5 chronic kidney disease, or end stage renal disease; I47.2 Ventricular tachycardia; J90 Pleural effusion, not elsewhere classified; E77.8 Other disorders of glycoprotein metabolism; R18.8 Other ascites; N18.6 End stage renal disease; B96.20 Unspecified Escherichia coli [E. coli] as the cause of diseases classified elsewhere; E11.22 Type 2 diabetes mellitus with diabetic chronic kidney disease; E66.01 Morbid (severe) obesity due to excess calories; Z99.2 Dependence on renal dialysis; E11.40 Type 2 diabetes mellitus with diabetic neuropathy, unspecified; K21.9 Gastro-esophageal reflux disease without esophagitis; N39.0 Urinary tract infection, site not specified; G89.4 Chronic pain syndrome; Z88.6 Allergy status to analgesic agent; Z88.5 Allergy status to narcotic agent; Z91.018 Allergy to other foods; Z79.899 Other long term (current) drug therapy; K59.00 Constipation, unspecified; Z90.710 Acquired absence of both cervix and uterus; Z87.891 Personal history of nicotine dependence; Z87.440 Personal history of urinary (tract) infections; Z79.84 Long term (current) use of oral hypoglycemic drugs; D50.9 Iron deficiency anemia, unspecified; F41.9 Anxiety disorder, unspecified; M51.36 Other intervertebral disc degeneration, lumbar region; K57.30 Diverticulosis of large intestine without perforation or abscess without bleeding; I50.9 Heart failure, unspecified; H54.7 Unspecified visual loss; B34.9 Viral infection, unspecified
CPT/HCPCS: 36415; 36569; 71010-TC; 71045-TC; 71260-TC; 76705-TC; 76942-TC; 80048-TC; 80053-TC; 80061-TC; 80076-TC; 80202-TC; 81000-TC; 82272-TC; 82728-TC; 82746; 82784; 82962-TC; 83540-TC; 83605-TC; 83615-TC; 83735-TC; 84100-TC; 84155; 84165; 84443-TC; 84484-TC; 85025-TC; 85027-TC; 85610-TC; 85730-TC; 86334; 86850-TC; 86921-TC; 87040-TC; 87070-TC; 87081-TC; 87086-TC; 87186-TC; 89051-TC; 90935-TC; 93971-TC; A4216; A4606; A6402; A9502; A9563; J0885; J1644; J1815; J2185; J2270; J2543; J2785; J3370; J7030; J7050; J7060; P9016-BL; Q0163; Q9967; Z7610

== ENCOUNTER 2017-05-08 11:56 | Inpatient (IN) | payer OTHER ==
[~2017-05-08] VITALS: Ht 170.2 cm; Wt 67.6 kg
[~2017-05-08 11:56] MED LIST changes: -CRAN200C PO; +GABA300C PO; +Hydrocodone/Apap 10/325MG PO
--- NOTE | 2017-05-08 12:23 | NUR ---
PER NURSING SUP PICC LINE TEAM WILL ARRIVE ~1500
[2017-05-08] MEDS ORDERED: PIPERACILLIN /TAZOBACTAM 3.375 G in IV D5W 50 ML IV ONE (12:30)
[2017-05-08] MEDS ORDERED: IV NS 0.9% 1,000 ML BAG IV ONE (12:30)
[2017-05-08] MEDS ORDERED: VANCOMYCIN 1 GM in IV D5W 250 ML IV ONE (12:30)
[2017-05-08 12:50] LABS: HEMATOCRIT 24 % (33-45); HEMOGLOBIN 8.1 g/dL (11.5-14.8); MEAN CORPUSCULAR VOLUME 84 fL (82-100); RED BLOOD CELL COUNT(AUTO) 2.84 MIL/uL (4.0-5.2)
[2017-05-08 12:51] LABS: BASOPHILS % (AUTO) 1.3 % (0.0-2.0); EOSINOPHILS % (AUTO) 0.8 % (0.0-6.0); LYMPHOCYTES # (AUTO) 0.8 /CMM (0.8-4.8); MEAN CORPUSCULAR HEMOGLOBIN 29 PG (26.0-33.0); MEAN CORPUSCULAR HGB CONC 34 g/dl (31.0-36.0); MONOCYTES # (AUTO) 1.2 /CMM (0.1-1.30); MONOCYTES % (AUTO) 6.2 % (2.0-12.0); NEUTROPHILS # (AUTO) 16.6 /CMM (1.8-8.9); NEUTROPHILS % (AUTO) 87.7 % (43.0-81.0); PLATELET COUNT (AUTO) 518 /CMM (150-450); RDW COEFFICIENT OF VARIATION 19.7 (11.5-15.0)
[2017-05-08 12:52] LABS: BASOPHILS # (AUTO) 0.2 /CMM (0.0-0.2); EOSINOPHILS # (AUTO) 0.2 /CMM (0.0-0.7)
[2017-05-08 12:53] LABS: CARBON DIOXIDE 31 mmol/L (21-32); CHLORIDE 99 mmol/L (98-107); SODIUM SERUM 133 mmol/L (136-145)
[2017-05-08 12:54] LABS: CALCIUM, SERUM 8.2 mg/dL (8.5-10.1); CREATININE 2.5 mg/dL (0.6-1.3); GLUCOSE 279 mg/dL (74-106); UREA NITROGEN, BLOOD 38 mg/dL (7-18)
[2017-05-08 12:55] LABS: INR 1.13 (0.87-1.13)
[2017-05-08 13:00] LABS: ALANINE AMINOTRANSFERASE 10 U/L (12-78); ALKALINE PHOSPHATASE 306 U/L (46-116); ASPARTATE AMINOTRANSFERASE 10 U/L (15-37); BILIRUBIN,DIRECT 0.1 mg/dL (0.0-0.2); BILIRUBIN,TOTAL 0.3 mg/dL (0.2-1.0)
[2017-05-08 13:01] LABS: TOTAL PROTEIN, SERUM 6.3 g/dL (6.4-8.2); TROPONIN I < 0.017 ng/mL (0.00-0.056)
[2017-05-08] MEDS ORDERED: ONDANSETRON HCL/PF 4 MG/2 ML VIAL ONE (14:27)
[2017-05-08] MEDS ORDERED: MORPHINE SULFATE INJ 4 MG/ML DISP.SYRIN ONE (14:28)
[2017-05-08] MEDS ORDERED: ONDANSETRON HCL/PF - ER 4 MG/2 ML VIAL IV ONE (14:30)
[2017-05-08] MEDS ORDERED: MORPHINE SULFATE INJ 2 MG/ML DISP.SYRIN IV ONE (14:30)
--- NOTE | 2017-05-08 14:43 | NUR ---
TREY 102
[2017-05-08] MEDS ORDERED: MAG HYDROX/AL HYDROX/SIMETH 30 ML UDC PO PRN (15:00)
[2017-05-08] MEDS ORDERED: Z GUARD REMEDY 2 OZ OINT TP PRN (15:00)
[2017-05-08] MEDS ORDERED: MAGNESIUM HYDROXIDE 30 ML UDC PO PRN (15:00)
[2017-05-08 15:12] LABS: ABG OXYGEN SATURATION 88.3 % (92.0-98.5); ABG PCO2 49.6 mmHg (35.0-45.0); ABG PH 7.379 (7.350-7.450); ABG PO2 60.8 mmHg (75.0-100.0); AaDO2 312.4 mmHg; COHb 0.9 % (0.5-1.5); MetHb 0.5 % (0.0-1.5); O2Hb 87.1 % (94.0-97.0); SITE, ABG Right Radial; VENT MODE, BG simple mask
--- NOTE | 2017-05-08 15:23 | NUR ---
REPORT GIVEN TO MARILOU BEASLEY FOR HAILE
[2017-05-08 16:00] LABS: APPEARANCE,URINE Turbid (CLEAR); BILIRUBIN,URINE SMALL (NEGATIVE); BLOOD, URINE Trace-lysed Ery/uL (NEGATIVE); COLOR,URINE Dark Yellow (YELLOW); KETONES,URINE 15 (NEGATIVE); LEUKOCYTE ESTERASE ,URINE Negative (NEGATIVE); NITRITE, URINE Negative (NEGATIVE); PROTEIN,URINE >=300 mg/dl (NEGATIVE); UGLUCOSE Negative (NEGATIVE); UROBILINOGEN,URINE 0.2 EU/dL (0.2)
[2017-05-08 16:06] LABS: BACTERIA,URINE Few /HPF (None Seen); SQUAMOUS EPITHELIAL CELL,UR Many /HPF (None Seen); YEAST,URINE Few /HPF (None Seen)
[2017-05-08] MEDS ORDERED: HYDR-548 PO (16:14)
[2017-05-08] MEDS ORDERED: CRAN500C5 PO (16:14)
[2017-05-08 16:26] VITALS: BP 96/46
--- NOTE | 2017-05-08 16:28 | NUR ---
received patient awake / alert from er via strectcher on o2 mask.
[2017-05-08] MEDS ORDERED: FEE PK DOSING 1 MIN EA MC ONE (16:41)
[2017-05-08 17:03] VITALS: BP 96/58
--- NOTE | 2017-05-08 17:06 | NUR ---
RN INITIAL NOTE PATIENT RECEIVED TO THE UNIT , CALM AND COOPERATIVE IN BED ABLE TO GIVE DETAILED HX, RN UNABLE TO IDENTIFY IF ALL INFORMATION IS CORRECT PATIENT DOES STATE BEING UNSURE ABOUT SOME THING IN PAST MEDICAL HX, DANDRE HAS NAWAF 18G , CHANDLER CATH R CHEST WALL FOR HD AND A NON FUNCTIONING MISTI AV FISTULA , PATIENT HAS MINIMAL URINE OUTPUT STATED PER PATIENT AND ED REPORT DUE TO HEMO DIALYSIS. PATIENT COMPLAINS OF MODERATE PATIENT HOWEVER PATIENT IS NOW RESTING COMFORTABLY NO FACIAL GRIMACING WITNESSED AT THIS TIME.
[2017-05-08] MEDS: IV NS 0.9% 1,000 ML IV PRN (19:59)
[2017-05-08 20:00] VITALS: BP 106/63
--- NOTE | 2017-05-08 20:00 | NUR ---
RN NOTES RECEIVED PT ASLEEP ON BED. PT IS AOX3 WHEN AWAKE. BREATHING EVEN AND UNLABORED . TOLERATED O2 10LPM VIA MASK. NO RESP DISTRESS. AFEBRILE. TELE MONITOR REVEALS SR HR 99. IV SITE ON NAWAF STARTED IVF NS @ 75 CC/HR IV SITE INTACT AND PATENT. RCW CHANDLER CATH INTACT CLEANED WITH DRESSING. KEPT PT CLEAN AND COMFORTABLE IN BED. WILL MONITOR FREQUENTLY.
[2017-05-08] MEDS: MEROPENEM 500 MG in IV NS 0.9% 50 ML IV SCH (20:14)
[2017-05-08] MEDS: HYDROCODONE/APAP 5/325MG 1 EACH TABLET PO PRN (20:14)
--- NOTE | 2017-05-08 20:15 | NUR ---
RN NOTES PT COMPLAIN OF GENERALIZED BODY PAIN AT SCALE OF 10/10. RE EDUCATE PT REGARDING PLAN OF CARE. PT IS AWARE. PAIN MEDICINE ADMINISTERED ORDERED BP REMAINED IN STABLE CONDITION. WILL CONTINUE TO MONITOR.
[2017-05-09] VITALS: BP 122/70
[2017-05-09] MEDS: HYDROCODONE/APAP 5/325MG 1 EACH TABLET PO PRN ×3 (00:28→12:47)
[2017-05-09 04:00] VITALS: BP 97/63
[2017-05-09] MEDS: MEROPENEM 500 MG in IV NS 0.9% 50 ML IV SCH ×2 (05:15→16:55)
--- NOTE | 2017-05-09 06:21 | NUR ---
RN NOTES PT ASLEEP WELL ON NO ACUTE RESP DISTRESS TOLERATED O2 4LPM VIA NC SATING 91-92% INCONTINENT CARE RENDERED. PAIN MEDICINE REMAINED EFFECTIVE WITH BLOOD PRESSURE WNL. PT IS COMPLIANT WITH CARE. ALL DUE MEDICINE ADMINISTERED ORDERED IV ATB TOLERATED WELL WITHOUT ASE SHOWS. KEPT PT CLEAN AND DRY. WILL ENDORSED CONTINUITY OF CARE TO AM NURSE.
--- NOTE | 2017-05-09 07:00 | NUR ---
RN NOTES RECEIVED PT ON BED, A/Ox3, RESPIRATION EVEN AND UNLABORED, NO DISTRESS NOTED, ON 02 4L N/C , O2 SAT 92%, ON TELE SR HR IN 90'S , R UPPER ARM IV SITE G 18 CDI, WITH IVF NS @ 75 CC/HR RUNNING . RCW CHANDLER CATH INTACT CLEANED WITH DRESSING. SR UP x3, CALL LIGHT WITHIN EASY REACH, BED LOCKED AND IN LOWEST POSITION KEPT PT CLEAN AND COMFORTABLE IN BED. WILL MONITOR CLOSELY .
[2017-05-09 08:00] VITALS: BP 100/62
[2017-05-09] MEDS: BOOST GLUCOSE CONTROL VANILLA 237 ML BOX PO SCH ×2 (08:23→17:00)
[2017-05-09] MEDS: IV NS 0.9% 1,000 ML IV PRN (11:06)
[2017-05-09 11:26] LABS: BILIRUBIN,TOTAL 0.3 mg/dL (0.2-1.0); CALCIUM, SERUM 8.2 mg/dL (8.5-10.1); CREATININE 2.6 mg/dL (0.6-1.3); MAGNESIUM 2.6 mg/dL (1.8-2.4); PHOSPHORUS 2.9 mg/dL (2.5-4.9); POTASSIUM 5.3 mmol/L (3.5-5.1); TOTAL PROTEIN, SERUM 6.2 g/dL (6.4-8.2)
[2017-05-09 11:29] LABS: THYROID STIMULATING HORMONE 6.661 uIU/mL (0.358-3.74)
[2017-05-09 12:00] VITALS: BP 116/61
--- NOTE | 2017-05-09 12:00 | NUR ---
RN NOTES PT STABLE, NO DISTRESS NOTED , CONTINUE TO MONITOR .
[2017-05-09 12:27] LABS: HEMATOCRIT 23 % (33-45); HEMOGLOBIN 7.4 g/dL (11.5-14.8); LYMPHOCYTES # (AUTO) 0.5 /CMM (0.8-4.8); LYMPHOCYTES % (AUTO) 2.5 % (20.0-44.0); MEAN CORPUSCULAR HEMOGLOBIN 28 PG (26.0-33.0); MEAN CORPUSCULAR HGB CONC 32 g/dl (31.0-36.0); MEAN CORPUSCULAR VOLUME 86 fL (82-100); MONOCYTES # (AUTO) 0.9 /CMM (0.1-1.30); MONOCYTES % (AUTO) 4.5 % (2.0-12.0); NEUTROPHILS # (AUTO) 18.7 /CMM (1.8-8.9); PLATELET COUNT (AUTO) 502 /CMM (150-450); RDW COEFFICIENT OF VARIATION 21.4 (11.5-15.0); RED BLOOD CELL COUNT(AUTO) 2.66 MIL/uL (4.0-5.2); WHITE BLOOD COUNT (AUTO) 20.1 K/uL (4.3-11.0)
[2017-05-09] MEDS ORDERED: DEXTROSE 50%-WATER 50 ML DISP.SYRIN IV PRN (12:30)
[2017-05-09] MEDS: BLOOD SUGAR DIAGNOSTIC 1 EACH STRIP IN SCH ×3 (12:30→21:42)
[2017-05-09] MEDS ORDERED: VANCOMYCIN 0.75 GM in IV D5W 250 ML IV SCH (14:00)
[2017-05-09 16:00] VITALS: BP 104/67
[2017-05-09] MEDS ORDERED: VANCOMYCIN 1 GM in IV D5W 250 ML IV ONE (16:00)
[2017-05-09] MEDS: LACTOBACILLUS RHAMNOSUS GG 1 EACH CAP.SPRINK PO SCH (16:55)
[2017-05-09] MEDS ORDERED: IV NS 0.9% 250 ML IV ONE (17:16)
[2017-05-09] MEDS ORDERED: IOHEXOL-300 100 ML VIAL IV ONE (17:16)
--- NOTE | 2017-05-09 18:32 | NUR ---
RN NOTES NS AT 75CC/HR RUNNING VIA R UPPER ARM IV, PT IS NPO FOR CT OF ABDOMEN AND PELVIC, SR UP x3, BED LOCKED AND IN LOWEST POSITION , CALL LIGHT WITHIN EASY REACH , WILL ENDORSE TO DELIVERY ENGINEER NURSE FOR HAILE
[2017-05-09] MEDS: INSULIN REGULAR, HUMAN 100 UNIT/ML 3 ML VIAL SQ PRN ×2 (19:00→21:46)
--- NOTE | 2017-05-09 19:30 | NUR ---
TELE/RN NOTES: RECEIVED PT IN BED A/O x 3 W/ RESPIRATION EVEN AND UNLABORED. NOT IN ANY DISTRESS NOTED. ON 02 4L N/C , O2 SAT 92%. ON TELE MONITOR W/ SINUS TACH AT 111. R UPPER ARM IV SITE G 18 PATENT AND INTACT W/ NO S/S OF INFECTION/INFILTRATION NOTED. WITH IVF NS @ 75 CC/HR RUNNING . RCW CHANDLER CATH INTACT CLEANED WITH DRESSING. SR UP x3, CALL LIGHT WITHIN EASY REACH. BED LOCKED AND IN LOWEST POSITION. WILL CONTINUE TO MONITOR.
[2017-05-09 20:00] VITALS: BP 108/73
[2017-05-09] MEDS: ACETAMINOPHEN 325 MG TABLET PO PRN (21:53)
[2017-05-09] MEDS: ZOLPIDEM TARTRATE 5 MG TABLET PO PRN (23:51)
[2017-05-10] VITALS: BP 123/75
[2017-05-10 04:00] VITALS: BP 129/79
[2017-05-10] MEDS: MEROPENEM 500 MG in IV NS 0.9% 50 ML IV SCH ×2 (04:09→18:10)
[2017-05-10] MEDS: IV NS 0.9% 1,000 ML IV PRN (04:09)
[2017-05-10 06:57] LABS: CALCIUM, SERUM 8.2 mg/dL (8.5-10.1); CREATININE 2.3 mg/dL (0.6-1.3); POTASSIUM 5.5 mmol/L (3.5-5.1)
--- NOTE | 2017-05-10 07:26 | NUR ---
RN/TELE NOTES: NO ACUTE CHANGES NOTED DURING THIS SHIFT. REPORT GIVEN TO NEXT SHIFT NURSE FOR HAILE.
[2017-05-10 08:00] VITALS: BP 127/83
[2017-05-10] MEDS: BOOST GLUCOSE CONTROL VANILLA 237 ML BOX PO SCH ×2 (08:00→18:11)
[2017-05-10] MEDS: BLOOD SUGAR DIAGNOSTIC 1 EACH STRIP IN SCH ×4 (08:43→21:50)
[2017-05-10] MEDS: LACTOBACILLUS RHAMNOSUS GG 1 EACH CAP.SPRINK PO SCH ×2 (08:43→18:11)
[2017-05-10] MEDS: HYDROCODONE/APAP 5/325MG 1 EACH TABLET PO PRN ×2 (08:46→18:11)
[2017-05-10 12:00] VITALS: BP 128/82
[2017-05-10] MEDS: ONDANSETRON HCL/PF 4 MG/2 ML VIAL IVP PRN ×2 (12:00→18:11)
[2017-05-10 16:00] VITALS: BP 116/78
[2017-05-10] MEDS: INSULIN REGULAR, HUMAN 100 UNIT/ML 3 ML VIAL SQ PRN ×2 (18:24→21:58)
--- NOTE | 2017-05-10 19:00 | NUR ---
RN NOTE PT REMAINED STABLE, ALL NEEDS MET, PT CO PAIN ALL OVER BODY, ADDRESSED PRESCRIBED, PT RECEIVED HD TODAY, 2 L OUT, TOLERATED WELL. PT HAD BOWEL MOVEMENT, LOOSE, BROWN. SAFETY MEASURES IMPLEMENTED. CALL LIGHT WITHIN REACH. WILL ENDORSE TO RD SCIENTIST.
--- NOTE | 2017-05-10 19:30 | NUR ---
TELE/RN NOTES: RECEIVED PT IN BED A/O x 3 W/ RESPIRATION EVEN AND UNLABORED. NOT IN ANY DISTRESS NOTED. ON 02 4L N/C , O2 SAT 92%. ON TELE MONITOR W/ SINUS TACH. R UPPER ARM IV SITE G 22 PATENT AND INTACT W/ NO S/S OF INFECTION/INFILTRATION NOTED. HANG IV ATB. AT 11 P.M. RCW CHANDLER CATH INTACT CLEANED WITH DRESSING. SR UP x3, CALL LIGHT WITHIN EASY REACH. BED LOCKED AND IN LOWEST POSITION. WILL CONTINUE TO MONITOR
[2017-05-10 20:00] VITALS: BP 103/62
[2017-05-10] MEDS: ZOLPIDEM TARTRATE 5 MG TABLET PO PRN (22:51)
[2017-05-11] VITALS: BP 116/77
[2017-05-11 04:00] VITALS: BP 142/75
[2017-05-11] MEDS: MEROPENEM 500 MG in IV NS 0.9% 50 ML IV SCH ×3 (05:00→22:00)
--- NOTE | 2017-05-11 05:00 | NUR ---
TELE/RN NOTES: HELP 5 AM ATB. DUE TO 12 HRS TIME DOSE. IT WAS GIVEN LAST NIGHT AT 11 PM SO IT IS DUE AT 11 A.M. WILL CALL PHARMACY TO CHANGE THE TIME. WILL ENDORSE AM SHIFT TO F/U UP.
--- NOTE | 2017-05-11 07:38 | NUR ---
RN/TELE NOTES: NEW MIDLINE TO RIGHT BRACHIAL G 20 INSERTED. CALLED PHARMACY TO CHANGE THE TIMING FOR THE ATB. TO 11 A.M. REPORT GIVEN TO NEXT SHIFT NURSE TO CONTINUE OF CARE.
[2017-05-11] MEDS: HYDROCODONE/APAP 5/325MG 1 EACH TABLET PO PRN ×2 (07:57→16:40)
[2017-05-11] MEDS: BLOOD SUGAR DIAGNOSTIC 1 EACH STRIP IN SCH ×4 (07:57→21:50)
[2017-05-11] MEDS: LACTOBACILLUS RHAMNOSUS GG 1 EACH CAP.SPRINK PO SCH ×2 (07:57→16:40)
[2017-05-11 08:00] VITALS: BP 120/75
[2017-05-11] MEDS: BOOST GLUCOSE CONTROL VANILLA 237 ML BOX PO SCH ×4 (08:00→21:50)
[2017-05-11] MEDS: ONDANSETRON HCL/PF 4 MG/2 ML VIAL IVP PRN (11:14)
[2017-05-11 11:55] LABS: CREATININE 2.3 mg/dL (0.6-1.3); POTASSIUM 4.8 mmol/L (3.5-5.1)
[2017-05-11] MEDS: INSULIN REGULAR, HUMAN 100 UNIT/ML 3 ML VIAL SQ PRN ×3 (11:56→21:52)
[2017-05-11 11:58] LABS: EOSINOPHILS % (AUTO) 0.1 % (0.0-6.0); HEMATOCRIT 23 % (33-45); HEMOGLOBIN 7.4 g/dL (11.5-14.8); LYMPHOCYTES # (AUTO) 0.9 /CMM (0.8-4.8); LYMPHOCYTES % (AUTO) 4.4 % (20.0-44.0); MEAN CORPUSCULAR HEMOGLOBIN 28 PG (26.0-33.0); MEAN CORPUSCULAR HGB CONC 33 g/dl (31.0-36.0); MEAN CORPUSCULAR VOLUME 86 fL (82-100); MONOCYTES # (AUTO) 0.8 /CMM (0.1-1.30); MONOCYTES % (AUTO) 3.7 % (2.0-12.0); NEUTROPHILS % (AUTO) 91.8 % (43.0-81.0); PLATELET COUNT (AUTO) 460 /CMM (150-450); RDW COEFFICIENT OF VARIATION 21.2 (11.5-15.0); RED BLOOD CELL COUNT(AUTO) 2.65 MIL/uL (4.0-5.2); WHITE BLOOD COUNT (AUTO) 20.7 K/uL (4.3-11.0)
[2017-05-11 12:00] VITALS: BP 137/80
--- NOTE | 2017-05-11 13:06 | NUR ---
RN NOTE PT COMPLAINTS ABOUT NAUSEA WITHOUT VOMIT, AND ABDOMINAL PAIN. STATES SHE HAS HAD NAUSEA FOR THE PAST TWO WEEKS. THAT'S WHY SHE COULD NOT EAT MUCH RECENTLY. PT HAS BOWEL SOUNDS AND MOVES BOWELS X2 A DAY, LOOSE, FOAMY, YELLOW BROWN STOOL. ZOFRAN WAS GIVEN, STILL FEELS NAUSEA. WILL FOLLOW UP WITH MD.
[2017-05-11 16:00] VITALS: BP 125/68
--- NOTE | 2017-05-11 19:30 | NUR ---
TELE/RN NOTES: RECEIVED PT IN BED A/O x 3 W/ RESPIRATION EVEN AND UNLABORED. NOT IN ANY DISTRESS NOTED. ON 02 4L N/C , O2 SAT 97%. ON TELE MONITOR W/ SINUS TACH. R BRACHIAL MID LINE IV SITE G 20 PATENT AND INTACT W/ NO S/S OF INFECTION/INFILTRATION NOTED. RCW CHANDLER CATH INTACT CLEANED WITH DRESSING. SR UP x3, CALL LIGHT WITHIN EASY REACH. BED LOCKED AND IN LOWEST POSITION. WILL CONTINUE TO MONITOR
[2017-05-11 20:00] VITALS: BP 130/85
[2017-05-11] MEDS: ZOLPIDEM TARTRATE 5 MG TABLET PO PRN (23:35)
[2017-05-12] VITALS: BP 137/90
[2017-05-12 04:00] VITALS: BP 133/90
[2017-05-12] MEDS ORDERED: diphenhydrAMINE HCL 25 MG CAPSULE ONE (06:14)
[2017-05-12] MEDS: ACETAMINOPHEN 325 MG TABLET PO PRN ×2 (06:16→23:57)
[2017-05-12] MEDS ORDERED: diphenhydrAMINE HCL ELIX 25 MG/10 ML UDC PO PRN (06:30)
--- NOTE | 2017-05-12 06:41 | NUR ---
RN/TELE NOTES: PT. REQUESTED FOR BENADRYL STATED THAT DIALYSIS MAKES HER FEET ITCH. CALLED DR. RIVERA W/ NEW ORDERS NOTED AND CARRIED OUT.
[2017-05-12 07:01] LABS: INR 1.23 (0.87-1.13)
--- NOTE | 2017-05-12 07:06 | NUR ---
RN/TELE NOTES: PT. HAS DIALYSIS GOING ON RIGHT NOW. REPORT GIVEN TO NEXT SHIFT NURSE FOR HAILE.
[2017-05-12 07:11] LABS: CALCIUM, SERUM 8.1 mg/dL (8.5-10.1); CREATININE 2.2 mg/dL (0.6-1.3); POTASSIUM 4.8 mmol/L (3.5-5.1)
[2017-05-12 08:00] VITALS: BP 128/49
[2017-05-12] MEDS: BLOOD SUGAR DIAGNOSTIC 1 EACH STRIP IN SCH ×4 (08:08→21:16)
[2017-05-12] MEDS: LACTOBACILLUS RHAMNOSUS GG 1 EACH CAP.SPRINK PO SCH ×2 (08:14→16:55)
--- NOTE | 2017-05-12 08:17 | NUR ---
telephone order clerk notes CALLED AND SPOKE WITH KITCHEN. WE ARE OUT OF PATIENT BOOST. THEY WILL SEND
[2017-05-12] MEDS: BOOST GLUCOSE CONTROL VANILLA 237 ML BOX PO SCH ×5 (08:51→21:13)
[2017-05-12] MEDS: MEROPENEM 500 MG in IV NS 0.9% 50 ML IV SCH ×2 (10:46→23:49)
--- NOTE | 2017-05-12 10:52 | NUR ---
COLLAR TURNER NOTES NOTIFIED MD PATIENT COMPLAINING OF DIARRHEA WATERY FOR 5 DAYS. HOWEVER HAD NO DIARRHEA FOR 2 DAYS AND IT IS STARTING UP AGAIN. PER MD COLLECT STOOL SAMPLE FOR CDIFF
--- NOTE | 2017-05-12 12:00 | NUR ---
MS RN NOTES CALLED [facility] AND ATTEMPTED TO GET BONE BIOPSY RESULTS FROM 2016 PER MD VASQUEZ. STATED IT IS SATURDAY AND DIFFICULT. GAVE # FOR CALL BACK PER REQUEST OF FACILITY WHEN THEY FIND THEM.
--- NOTE | 2017-05-12 13:23 | NUR ---
SPOKE WITH GALE KEYS ON 05/12/17 AT 1325 PATIENT CONSENT IS NOT SIGNED, PATIENT UNCOOPERATIVE AT THIS TIME, PATIENT NOT ON BLOOD THINNERS. WILL CHECK BACK WITH RN ON 05/13/17 TO VERIFY CONSENT IS SIGNED IN ORDER TO PROCEED WITH US GUIDED THORACENTESIS
[2017-05-12] MEDS: ONDANSETRON HCL/PF 4 MG/2 ML VIAL IVP PRN ×2 (15:01→21:53)
[2017-05-12 16:00] VITALS: BP 129/83
--- NOTE | 2017-05-12 16:55 | NUR ---
MS RN NOTES PATIENT C/O STOMACH IRRITATION SINCE STARTING CULTURELLE. WILL HOLD. PATIENT HAS YET TO DRINK LAST BOOST GIVEN. NON ADMIN 1700 DOSE SHE DOES NOT WANT AT THIS TIME
[2017-05-12] MEDS: VANCOMYCIN 500 MG in IV D5W 100 ML IV PRN (17:21)
[2017-05-12] MEDS: INSULIN REGULAR, HUMAN 100 UNIT/ML 3 ML VIAL SQ PRN ×2 (17:43→21:23)
--- NOTE | 2017-05-12 18:40 | NUR ---
MS RN CLOSING PATIENT STABLE. ALL NEEDS ASSESSED AND MET. PATIENT CONTINUES TO PRESS CALL LIGHT EVERY FEW MINUTES, YELLING OUT ONCE STAFF LEAVE ROOM AND CONTINUING TO TRY TO GET OUT OF BED AND STATES SHE IS GOING TO LAY ON FLOOR. EVERY ATTEMPT MADE TO MAKE PATIENT COMFORTABLE AND CALM HOWEVER PATIENT CONTINUES TO TRY AND GET OUT. SITTER ORDERED AND CHILD CARE COOK AT BEDSIDE FOR SAFETY. ALL DUE MEDS GIVEN AND ALL NEEDS MET. BED LOWERED AND LOCKED, RAILS UPX3 FOR SAFETY AND BED ALARM ON. CARE WILL BE ENDORSED TO RN FOR HAILE
--- NOTE | 2017-05-12 19:00 | NUR ---
RN NOTES A/O X 3, AWAKE IN BED, PT IN STABLE CONDITION, NO S/S OF DISTRESS. SAFETY MEASURES ARE IN PLACE, CALL LIGHT IS IN REACH. WILL CONTINUE TO MONITOR. PT HAS A SITTER
[2017-05-12 20:00] VITALS: BP 129/84
--- NOTE | 2017-05-12 20:00 | NUR ---
MS RN NOTES PT'S TEMP 99.8 COOLING MEASURES PROVIDED. WILL CONTINUE TO MONITOR
[2017-05-12] MEDS: ZOLPIDEM TARTRATE 5 MG TABLET PO PRN (21:13)
[2017-05-13] MEDS: HYDROCODONE/APAP 5/325MG 1 EACH TABLET PO PRN ×3 (02:30→20:46)
[2017-05-13 04:00] VITALS: BP 152/99
--- NOTE | 2017-05-13 06:19 | NUR ---
MS RN CLOSING NOTES PT COMFORTABLY ASLEEP AND EASILY AWAKEN, ON 3LPM VIA NC 02 SAT AT 100% HEAD OF BED ELEVATED AT ALL TIMES,. IN STABLE CONDITION. RESPIRATION EVEN AND UNLABORED. KEPT CLEAN AND DRY AND COMFORTABLE, ALL NURSING CARE RENDERED. NEEDS ATTENDED AND ANTICIPATED, FREQUENT VISUAL CHECK DONE FOR SAFETY EVERY 2 HOURS. 1: SITTER, HEEL AND ELBOWS OFFLOAD AT ALL TIMES. ASSIST REPOSITION Q2H. ON LOW BED AT ALL TIMES TO ENSURE SAFETY. SAFE HAZARD FREE ENVIRONMENT PROVIDED. CALL LIGHT WITHIN EASY TO REACH. WILL ENDORSE NEXT SHIFT CONTINUITY OF CARE. PT REFUSED TO TAKE PICTURES OF HER SACRUM PER PATIENT SHE DOESNT WANT IT DESPITE RISKS AND BENEFITS OFFERED [address] MIGUEL MENJIVAR MADE AWARE.
--- NOTE | 2017-05-13 06:22 | NUR ---
PT AFEBRILE PATIENT CURRENT TEMP IS 98.7
[2017-05-13 06:41] LABS: BASOPHILS % (AUTO) 0.2 % (0.0-2.0); HEMATOCRIT 22 % (33-45); HEMOGLOBIN 7.2 g/dL (11.5-14.8); LYMPHOCYTES # (AUTO) 0.8 /CMM (0.8-4.8); LYMPHOCYTES % (AUTO) 3.9 % (20.0-44.0); MEAN CORPUSCULAR HEMOGLOBIN 28 PG (26.0-33.0); MEAN CORPUSCULAR HGB CONC 32 g/dl (31.0-36.0); MEAN CORPUSCULAR VOLUME 85 fL (82-100); MONOCYTES % (AUTO) 4.9 % (2.0-12.0); NEUTROPHILS # (AUTO) 18.4 /CMM (1.8-8.9); PLATELET COUNT (AUTO) 427 /CMM (150-450); RDW COEFFICIENT OF VARIATION 22.2 (11.5-15.0); WHITE BLOOD COUNT (AUTO) 20.3 K/uL (4.3-11.0)
[2017-05-13 06:54] LABS: CALCIUM, SERUM 7.7 mg/dL (8.5-10.1); CREATININE 2.2 mg/dL (0.6-1.3); POTASSIUM 4.6 mmol/L (3.5-5.1)
[2017-05-13 08:00] VITALS: BP 145/89
[2017-05-13] MEDS: BLOOD SUGAR DIAGNOSTIC 1 EACH STRIP IN SCH ×4 (08:36→22:19)
--- NOTE | 2017-05-13 08:38 | NUR ---
8:32 TALKED TO G[facility] LOPES, PATIENT ASKING TO HAVE GENERAL ANESTHESIA BEFORE U/S GUIDED THORACENTESIS PROCEDURE, WILL TALK TO RADIOLOGIST WHEN HE GETS HERE
--- NOTE | 2017-05-13 09:23 | NUR ---
9:[address] KEENAN REGARDING THE ANESTHESIA, HE SAID IT HAS HIGH RISK AND WOULD NOT DO THE PROCEDURE. G[facility] LOPES WILL FOLLOW-UP WITH ORDERING DOCTOR ON WHAT TO DO NEXT AND WILL EXPLAIN TO THE PATIENT THE RISKS.
[2017-05-13] MEDS: BOOST GLUCOSE CONTROL VANILLA 237 ML BOX PO SCH ×4 (09:39→20:46)
[2017-05-13] MEDS: LACTOBACILLUS RHAMNOSUS GG 1 EACH CAP.SPRINK PO SCH ×2 (09:39→16:41)
[2017-05-13] MEDS ORDERED: MORPHINE SULFATE INJ 4 MG/ML DISP.SYRIN IV ONE (10:30)
[2017-05-13] MEDS: MEROPENEM 500 MG in IV NS 0.9% 50 ML IV SCH ×2 (12:08→22:20)
[2017-05-13] MEDS: ONDANSETRON HCL/PF 4 MG/2 ML VIAL IVP PRN (12:14)
[2017-05-13] MEDS: INSULIN REGULAR, HUMAN 100 UNIT/ML 3 ML VIAL SQ PRN ×3 (12:23→22:26)
[2017-05-13 16:00] VITALS: BP 110/74
[2017-05-13] MEDS: MORPHINE SULFATE INJ 4 MG/ML DISP.SYRIN IV PRN ×2 (18:33→22:21)
--- NOTE | 2017-05-13 19:00 | NUR ---
RN NOTE PT HAD RIGHT US GUIDED THORACENTESIS DONE, TOLERATED WELL, 1660 YELLOW FLUID, SENT TO THE LAB. REMAINED STABLE AFTERWARDS, CO PAIN IN HER STOMACH AND LEGS. PAIN ADDRESSED, GOT ORDER FOR MORPHINE. ATTEMPT TO REACH MED RECORDS AT [facility] FOR BONE MARROW BIOPSY REPORT WITHOUT SUCCESS, LEFT MESSAGE WITH CHARITY AT [facility] TO OBTAIN REPORT TOMORROW 05/14/17. WILL ENDORSE TO NEXT SHIFT TO FOLLOW UP.
[2017-05-13 20:00] VITALS: BP 148/84
[2017-05-14] MEDS: HYDROCODONE/APAP 5/325MG 1 EACH TABLET PO PRN ×3 (00:43→09:21)
[2017-05-14] MEDS: MORPHINE SULFATE INJ 4 MG/ML DISP.SYRIN IV PRN ×5 (02:24→22:47)
[2017-05-14 04:00] VITALS: BP 132/82
--- NOTE | 2017-05-14 06:30 | NUR ---
MS-1/STEPHY PT DECLINING AM CARE AT THIS TIME.
[2017-05-14 08:00] VITALS: BP 111/72
[2017-05-14 08:00] LABS: CREATININE 2.6 mg/dL (0.6-1.3); POTASSIUM 5.2 mmol/L (3.5-5.1)
[2017-05-14] MEDS: BLOOD SUGAR DIAGNOSTIC 1 EACH STRIP IN SCH ×4 (08:22→22:48)
[2017-05-14] MEDS: BOOST GLUCOSE CONTROL VANILLA 237 ML BOX PO SCH ×4 (09:22→20:26)
[2017-05-14] MEDS: LACTOBACILLUS RHAMNOSUS GG 1 EACH CAP.SPRINK PO SCH ×2 (09:22→17:35)
[2017-05-14] MEDS: MEROPENEM 500 MG in IV NS 0.9% 50 ML IV SCH ×2 (11:18→22:50)
[2017-05-14] MEDS: hydrOXYzine 10 MG TABLET PO PRN ×2 (11:23→20:26)
[2017-05-14] MEDS: HYDROCODONE/APAP 5/325MG 1 EACH TABLET PO SCH ×3 (12:45→21:02)
[2017-05-14] MEDS: INSULIN REGULAR, HUMAN 100 UNIT/ML 3 ML VIAL SQ PRN ×3 (13:24→23:39)
[2017-05-14 16:00] VITALS: BP 97/66
[2017-05-14 16:05] VITALS: BP 97/66
--- NOTE | 2017-05-14 19:30 | NUR ---
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 All three attempts ended in failure.
[2017-05-14 20:00] VITALS: BP 149/73
[2017-05-14] MEDS: HEPARIN SODIUM, PORCINE 5000 UNITS/1 ML VIAL SQ SCH (21:00)
[2017-05-14] MEDS: VANCOMYCIN 500 MG in IV D5W 100 ML IV PRN (21:57)
[2017-05-15] VITALS (9 sets, daily range): BP systolic 110–156; BP diastolic 67–84
[2017-05-15] MEDS: HYDROCODONE/APAP 5/325MG 1 EACH TABLET PO SCH ×6 (01:03→20:27)
[2017-05-15] MEDS: MORPHINE SULFATE INJ 4 MG/ML DISP.SYRIN IV PRN ×4 (04:08→20:37)
--- NOTE | 2017-05-15 06:31 | NUR ---
PT alert,oriented, had dialysis last night ,tolerated well with 2 liters removed.given vanco post dialysis with trough of 18. given norco ,morphine for pain control with generalized body pain.didn't eat dinner but had half sandwich.continue with antibiotics,anuric, bm x1 in the diaper. kept all needs attended, repositioned for comfort, call light at reached.vss,afebrile kept oxygen 2 liters.no sob reported.
[2017-05-15 06:51] LABS: BASOPHILS % (AUTO) 0.3 % (0.0-2.0); EOSINOPHILS # (AUTO) 0.1 /CMM (0.0-0.7); HEMATOCRIT 21 % (33-45); LYMPHOCYTES # (AUTO) 0.7 /CMM (0.8-4.8); LYMPHOCYTES % (AUTO) 4.9 % (20.0-44.0); MEAN CORPUSCULAR HEMOGLOBIN 27 PG (26.0-33.0); MEAN CORPUSCULAR HGB CONC 32 g/dl (31.0-36.0); MEAN CORPUSCULAR VOLUME 85 fL (82-100); MONOCYTES % (AUTO) 6.7 % (2.0-12.0); NEUTROPHILS # (AUTO) 13.2 /CMM (1.8-8.9); NEUTROPHILS % (AUTO) 87.1 % (43.0-81.0); PLATELET COUNT (AUTO) 406 /CMM (150-450); RDW COEFFICIENT OF VARIATION 21.1 (11.5-15.0); RED BLOOD CELL COUNT(AUTO) 2.41 MIL/uL (4.0-5.2); WHITE BLOOD COUNT (AUTO) 15.2 K/uL (4.3-11.0)
[2017-05-15 06:56] LABS: HEMOGLOBIN 6.6 g/dL (11.5-14.8)
--- NOTE | 2017-05-15 07:43 | NUR ---
CRITICAL VALUE RECEIVED FROM LAB HGB 6.6 HCT 21, ENDORSE TO NEXT SHIFT WILL NOTIFY
[2017-05-15] MEDS: BOOST GLUCOSE CONTROL VANILLA 237 ML BOX PO SCH ×4 (08:19→20:37)
[2017-05-15] MEDS: BLOOD SUGAR DIAGNOSTIC 1 EACH STRIP IN SCH ×4 (08:28→21:29)
[2017-05-15 09:24] LABS: EOSINOPHILS % (MANUAL) 1 % (0-4); LYMPHOCYTES % (MANUAL) 3 % (16-48); MONOCYTES % (MANUAL) 4 % (0-11.0); NEUTROPHILS % (MANUAL) 92 (42-76)
[2017-05-15] MEDS: HEPARIN SODIUM, PORCINE 5000 UNITS/1 ML VIAL SQ SCH ×2 (09:38→20:28)
[2017-05-15] MEDS: LACTOBACILLUS RHAMNOSUS GG 1 EACH CAP.SPRINK PO SCH ×2 (09:38→17:00)
[2017-05-15] MEDS: MEROPENEM 500 MG in IV NS 0.9% 50 ML IV SCH (10:57)
[2017-05-15] MEDS: INSULIN REGULAR, HUMAN 100 UNIT/ML 3 ML VIAL SQ PRN (13:30)
--- NOTE | 2017-05-15 16:25 | NUR ---
ATTEMPT TO LOCATE BONE MARROW BIOPSY RECORD AT [facility] WITH FREIGHT CLERK, SHANDA. SHE SAID SHE LOOKED THROUGH TWO CHARTS FOR THE PATIENT AND DOES NOT HAVE RECORD OF A BONE MARROW BIOPSY.
[2017-05-15] MEDS: hydrOXYzine 10 MG TABLET PO PRN (21:24)
[2017-05-16] MEDS: MEROPENEM 500 MG in IV NS 0.9% 50 ML IV SCH ×3 (00:01→22:16)
[2017-05-16 00:08] VITALS: BP 149/92
--- NOTE | 2017-05-16 00:10 | NUR ---
completed 1 unit of blood transfusion ,no reaction noted,vss,afebrile.will continue to monitor.
[2017-05-16] MEDS: HYDROCODONE/APAP 5/325MG 1 EACH TABLET PO SCH ×8 (01:00→21:26)
[2017-05-16 04:00] VITALS: BP 163/94
[2017-05-16] MEDS: ONDANSETRON HCL/PF 4 MG/2 ML VIAL IVP PRN (04:26)
--- NOTE | 2017-05-16 06:28 | NUR ---
pt not sleeping well overnight. been uncomfortable in bed calling to be repositioned almost every hour, had too much boost and feeling bloated, complaining of nausea and vomiting but only saliva, no emesis, given zofran with good relief. blood transfusion of 1 unit tolerated well without reaction. no bm overnight. generalized pain and morphine given, refused norco due to indigestion and upset stomach, legs kept elevated more swollen last night. all needs attended, oxygen titrated to 4 liters for comfort.but denies acute distress. will continue to monitor.and positioned for comfort.
--- NOTE | 2017-05-16 07:30 | NUR ---
MS RN AM NOTES RECEIVED PT IN BED A/O x 3, ON 2L O2, W/ RESPIRATION EVEN AND UNLABORED. NOT IN ANY DISTRESS NOTED. RCW PERMACATH IN PLACE, CDI DRESSING, NAWAF MIDLINE, RFA G22 IN PLACE, FLUSHES WELL, SITE CLEAR, OLD UNDEVELOPED AV SHUNT TO MISTI, ANURIC, RENAL DIET, SR UP x3, CALL LIGHT WITHIN EASY REACH. BED LOCKED AND IN LOWEST POSITION. WILL CONTINUE TO MONITOR
[2017-05-16 08:00] VITALS: BP 140/93
[2017-05-16] MEDS: BLOOD SUGAR DIAGNOSTIC 1 EACH STRIP IN SCH ×4 (08:22→21:25)
--- NOTE | 2017-05-16 08:28 | NUR ---
MS RN NOTES ACCUCHECK DONE. BS 153 MG/DL. PATIENT REFUSED INSULIN, PER HER I DONT WANT TO EAT.
[2017-05-16 08:53] LABS: CALCIUM, SERUM 8.3 mg/dL (8.5-10.1); CREATININE 2.8 mg/dL (0.6-1.3); POTASSIUM 5.3 mmol/L (3.5-5.1)
[2017-05-16] MEDS: HEPARIN SODIUM, PORCINE 5000 UNITS/1 ML VIAL SQ SCH ×2 (09:00→20:57)
[2017-05-16] MEDS: LACTOBACILLUS RHAMNOSUS GG 1 EACH CAP.SPRINK PO SCH ×3 (09:00→17:00)
[2017-05-16 09:02] LABS: THYROID STIMULATING HORMONE 6.055 uIU/mL (0.358-3.74)
[2017-05-16] MEDS: BOOST GLUCOSE CONTROL VANILLA 237 ML BOX PO SCH ×4 (09:08→20:26)
--- NOTE | 2017-05-16 09:30 | NUR ---
MS RN NOTES PATIENT REFUSED ALL HER MEDICATION DESPITE EXPLAINING THE NEED AND IMPORTANCE. PER PATIENT, SHE WANTS TO TALK TO INSTRUMENT AND CONTROL TECHNICIAN, HER DOCTOR, INTERNAL REVIEW AND AUDIT COMPLIANCE AND CHARGE NURSE. SOON LUCY CHARGE NURSE AWARE.
[2017-05-16 10:06] LABS: BASOPHILS % (AUTO) 0.1 % (0.0-2.0); HEMATOCRIT 27 % (33-45); HEMOGLOBIN 8.9 g/dL (11.5-14.8); LYMPHOCYTES # (AUTO) 0.5 /CMM (0.8-4.8); LYMPHOCYTES % (AUTO) 2.6 % (20.0-44.0); MEAN CORPUSCULAR HEMOGLOBIN 28 PG (26.0-33.0); MEAN CORPUSCULAR HGB CONC 33 g/dl (31.0-36.0); MEAN CORPUSCULAR VOLUME 84 fL (82-100); MONOCYTES # (AUTO) 0.6 /CMM (0.1-1.30); NEUTROPHILS % (AUTO) 94.3 % (43.0-81.0); PLATELET COUNT (AUTO) 503 /CMM (150-450); RDW COEFFICIENT OF VARIATION 19.4 (11.5-15.0); RED BLOOD CELL COUNT(AUTO) 3.19 MIL/uL (4.0-5.2); WHITE BLOOD COUNT (AUTO) 20.1 K/uL (4.3-11.0)
[2017-05-16] MEDS: PANTOPRAZOLE 40 MG TABLET.DR PO SCH ×2 (10:49→20:27)
--- NOTE | 2017-05-16 10:50 | NUR ---
MS RN NOTES STARTED MERREM IV. INFUSING WELL.
--- NOTE | 2017-05-16 12:45 | NUR ---
MS RN NOTES ACCUCHECK DONE. BS 128 MG/DL. NO INSULIN COVERAGE AT THIS TIME.
--- NOTE | 2017-05-16 14:15 | NUR ---
MS RN NOTES HD COMPLETED. 2 LITERS OUT.
[2017-05-16] MEDS ORDERED: HYDROCODONE/APAP 5/325MG 1 EACH TABLET PO PRN (15:00)
[2017-05-16 16:00] VITALS: BP 138/88
--- NOTE | 2017-05-16 17:07 | NUR ---
MS RN NOTES ACCUCHECK DONE. BS 114 MG/DL. NO INSULIN COVERAGE AT THIS TIME.
--- NOTE | 2017-05-16 18:52 | NUR ---
MS RN CLOSING NOTES PT RESTING COMFORTABLY IN BED, A/O x 3, ON 2L O2, W/ RESPIRATION EVEN AND UNLABORED. NOT IN ANY DISTRESS NOTED. RCW PERMACATH IN PLACE, CDI DRESSING, NAWAF MIDLINE, RFA G22 IN PLACE, FLUSHES WELL, SITE CLEAR, OLD UNDEVELOPED AV SHUNT TO MISTI, ANURIC, RENAL DIET, PATIENT NON COMPLIANT WITH ALL HER MEDICATIONS TODAY, MD AWARE, REFUSED BREAKFAST AND LUNCH BUT ATE DINNER. FOR BM BIOPSY AND ASPIRATION ALISIA C/O DR. VASQUEZ. CONSENTS SIGNED. SR UP x3, CALL LIGHT WITHIN EASY REACH. BED LOCKED AND IN LOWEST POSITION. ALL NEEDS MET, WILL ENDORSE TO NEXT SHIFT FOR HAILE.
--- NOTE | 2017-05-16 19:30 | NUR ---
RN/ MS NOTES: RECEIVED PT IN BED A/O x 3 W/ NO S/S OF RESPIRATORY DISTRESS NOTED. ON 2L O4 LPM VIA N/C SAT 97 %. NOT IN ANY DISTRESS NOTED. RCW PERMACATH IN PLACE, CDI W/ DRESSING IN PLACE. NAWAF MIDLINE INTACT AND PATENT W/ NO S/S OF INFECTION/INFILTRATION NOTED. RFA G22 IN PLACE, FLUSHES WELL, SITE CLEAR, OLD NON FUNCTIONING AV SHUNT TO MISTI. ANURIC, RENAL DIET, SR UP x3, CALL LIGHT WITHIN EASY REACH. BED LOCKED AND IN LOWEST POSITION. WILL CONTINUE TO MONITOR
[2017-05-16 20:00] VITALS: BP 116/77
--- NOTE | 2017-05-16 20:35 | NUR ---
RN/MS NOTES: CALLED DR. KIMMIE العراقي TO CLARIFY IF TO GIVE HEPARIN SINCE PT. IS GOING TO HAVE BONE MARROW BIOPSY THALIA. FOR 05/17/17. PER DR. KIMMIE العراقي HOLD HEPARIN DOSE.
[2017-05-16] MEDS: INSULIN REGULAR, HUMAN 100 UNIT/ML 3 ML VIAL SQ PRN (21:39)
[2017-05-16] MEDS: hydrOXYzine 10 MG TABLET PO PRN (22:14)
[2017-05-17 04:00] VITALS: BP 134/86
[2017-05-17] MEDS: HYDROCODONE/APAP 5/325MG 1 EACH TABLET PO SCH ×5 (05:00→21:25)
[2017-05-17 06:26] LABS: BASOPHILS % (AUTO) 0.2 % (0.0-2.0); HEMATOCRIT 24 % (33-45); HEMOGLOBIN 7.7 g/dL (11.5-14.8); LYMPHOCYTES # (AUTO) 0.8 /CMM (0.8-4.8); LYMPHOCYTES % (AUTO) 4.2 % (20.0-44.0); MEAN CORPUSCULAR HEMOGLOBIN 28 PG (26.0-33.0); MEAN CORPUSCULAR HGB CONC 33 g/dl (31.0-36.0); MEAN CORPUSCULAR VOLUME 84 fL (82-100); MONOCYTES % (AUTO) 5.8 % (2.0-12.0); NEUTROPHILS # (AUTO) 16.2 /CMM (1.8-8.9); NEUTROPHILS % (AUTO) 89.8 % (43.0-81.0); PLATELET COUNT (AUTO) 424 /CMM (150-450); RDW COEFFICIENT OF VARIATION 20.7 (11.5-15.0)
[2017-05-17 06:35] LABS: INR 1.21 (0.87-1.13)
[2017-05-17 06:40] LABS: CALCIUM, SERUM 7.9 mg/dL (8.5-10.1); CREATININE 2.5 mg/dL (0.6-1.3); MAGNESIUM 2.6 mg/dL (1.8-2.4); PHOSPHORUS 5.4 mg/dL (2.5-4.9); POTASSIUM 4.9 mmol/L (3.5-5.1)
[2017-05-17] MEDS: BLOOD SUGAR DIAGNOSTIC 1 EACH STRIP IN SCH ×4 (07:19→23:10)
--- NOTE | 2017-05-17 07:34 | NUR ---
RN/MS NOTES: PT. SLEEPING FOR 6 AM MEDS. HELD. NO SIGNIFICANCE CHANGES NOTED DURING THIS SHIFT. REPORT GIVEN TO NEXT SHIFT NURSE FOR HAILE.
[2017-05-17 08:00] VITALS: BP 125/72
[2017-05-17] MEDS: BOOST GLUCOSE CONTROL VANILLA 237 ML BOX PO SCH ×4 (08:09→21:24)
[2017-05-17] MEDS: PANTOPRAZOLE 40 MG TABLET.DR PO SCH ×2 (08:09→21:25)
[2017-05-17] MEDS: LACTOBACILLUS RHAMNOSUS GG 1 EACH CAP.SPRINK PO SCH ×2 (08:09→17:05)
[2017-05-17] MEDS: HEPARIN SODIUM, PORCINE 5000 UNITS/1 ML VIAL SQ SCH ×3 (08:10→21:26)
[2017-05-17] MEDS: MEROPENEM 500 MG in IV NS 0.9% 50 ML IV SCH ×3 (10:57→23:10)
[2017-05-17] MEDS ORDERED: LIDOCAINE 1% INJ 50 ML MDV IJ ONE (15:00)
[2017-05-17 16:00] VITALS: BP 104/62
[2017-05-17] MEDS ORDERED: MORPHINE SULFATE INJ 4 MG/ML DISP.SYRIN IV ONE (18:00)
--- NOTE | 2017-05-17 19:16 | NUR ---
M/S RN - Notes Patient A/O x 2, blood sugar controlled, remain afebrile, no apparent distress seen, currently on 4lpm via AR, on scheduled [place] for back pain given with relief. S/P bone marrow biopsy with Dr. Alvarez, specimen kit sent to lab/pathology. Patient assisted with turning and repositioning q2h and PRN for skin management. All needs attended and met. Will continue with current medical management.
--- NOTE | 2017-05-17 19:20 | NUR ---
RN MS OPENING NOTES: RECEIVED PT IN BED A/O x 3, TALKATIVE, NO S/S OF RESPIRATORY DISTRESS NOTED. NO C/O PAIN @ THIS TIME. ON O2 @ 4LPM VIA N/C SAT 96 %. NOT IN ANY DISTRESS NOTED. RENAL DIET. RCW PERMACATH IN PLACE, CDI W/ DRESSING IN PLACE. NAWAF MIDLINE INTACT AND PATENT W/ NO S/S OF INFECTION/INFILTRATION NOTED. RFA G22 IN PLACE, FLUSHES WELL, SITE CLEAR, OLD NON FUNCTIONING AV SHUNT TO MISTI. ANURIC, SR UP x3, WILL ASSIST WITH ADL'S. CALL LIGHT WITHIN EASY REACH. BED LOCKED AND IN LOWEST POSITION. WILL CONTINUE TO MONITOR CLOSELY.
--- NOTE | 2017-05-17 21:00 | NUR ---
CLARIFIED WITH MD PATIENT HAS AN SCHEDULED HEPARIN, HGB/HCT IS 7.7/24. MD MADE AWARE & ORDERED TO CONTINUE GIVING HEPARIN. WILL FOLLOW THE ORDER & WILL MONITOR THE PATIENT CLOSELY.
[2017-05-17 22:00] VITALS: BP 134/81
[2017-05-17] MEDS: INSULIN REGULAR, HUMAN 100 UNIT/ML 3 ML VIAL SQ PRN (23:07)
--- NOTE | 2017-05-18 00:21 | NUR ---
PATIENT REFUSED MED PATIENT REFUSED TO GET HEPARIN INJECTION, DESPITE OF EXPLAINING RISKS & BENEFITS. REPROACHED MULTIPLE TIMES BUT CONTINUED REFUSING HEPARIN INJ. MADE AWARE.
[2017-05-18] MEDS: ZOLPIDEM TARTRATE 5 MG TABLET PO PRN (00:35)
--- NOTE | 2017-05-18 00:35 | NUR ---
PRN AMBIEN GIVEN PATIENT REQUESTED FOR SLEEPING MEDICINE DUE TO SLEEPLESSNESS. PRN AMBIEN GIVEN ORDERED. WILL REASSESS FOR EFFECTIVENESS.
[2017-05-18] MEDS: HYDROCODONE/APAP 5/325MG 1 EACH TABLET PO SCH ×6 (01:17→20:38)
--- NOTE | 2017-05-18 01:35 | NUR ---
MS RN NOTES PATIENT NOTED TO BE SLEEPING COMFORTABLY @ THIS TIME. MONITORING CLOSELY.
--- NOTE | 2017-05-18 07:03 | NUR ---
RN MS CLOSING NOTES: PATIENT SLEPT WELL @ NIGHT AFTER TAKING AMBIEN, A/O x 3, BED REST. NO S/S OF RESPIRATORY DISTRESS NOTED. HAD C/O PAIN TO LOWER BACK DURING THE SHIFT, SCHEDULED NORCO WAS EFFECTIVE. S/P BONE MARROW BIOPSY, NO ACTIVE BLEEDING NOTED. ON O2 @ 4LPM VIA N/C SAT 97 %. NOT IN ANY DISTRESS NOTED. RENAL DIET. RCW PERMACATH IN PLACE, DRESSING INTACT. NAWAF MIDLINE INTACT AND PATENT W/ NO S/S OF INFECTION/INFILTRATION NOTED. OLD NON FUNCTIONING AV SHUNT TO MISTI. ANURIC, SR UP x3, ALL NEEDS ATTENDED TO & MET. CALL LIGHT WITHIN EASY REACH. BED LOCKED AND IN LOWEST POSITION. WILL ENDORSE TO AM RN FOR CONTINUITY OF CARE.
--- NOTE | 2017-05-18 07:05 | NUR ---
RN NOTES PT IS SITTING IN BED, RESTING COMFORTABLY. PT ON RA, RESPIRATIONS ARE EVEN AND UNLABORED. MISTI MIDLINE IS INTACT. SAFETY MEASURES ARE IN PLACE, CALL LIGHT IS IN REACH. WILL CONTINUE TO MONITOR.
[2017-05-18 08:00] VITALS: BP 114/69
[2017-05-18] MEDS: PANTOPRAZOLE 40 MG TABLET.DR PO SCH ×2 (08:16→20:38)
[2017-05-18] MEDS: LACTOBACILLUS RHAMNOSUS GG 1 EACH CAP.SPRINK PO SCH ×2 (08:16→16:23)
[2017-05-18] MEDS: BOOST GLUCOSE CONTROL VANILLA 237 ML BOX PO SCH ×4 (08:16→20:47)
[2017-05-18 08:17] LABS: CALCIUM, SERUM 7.9 mg/dL (8.5-10.1); CREATININE 2.9 mg/dL (0.6-1.3)
[2017-05-18] MEDS: HEPARIN SODIUM, PORCINE 5000 UNITS/1 ML VIAL SQ SCH ×2 (08:26→20:48)
[2017-05-18] MEDS: BLOOD SUGAR DIAGNOSTIC 1 EACH STRIP IN SCH ×5 (08:27→22:00)
[2017-05-18 10:00] VITALS: BP 114/69
[2017-05-18] MEDS: MEROPENEM 500 MG in IV NS 0.9% 50 ML IV SCH (10:28)
[2017-05-18] MEDS: hydrOXYzine 10 MG TABLET PO PRN (14:13)
[2017-05-18 16:00] VITALS: BP 114/69
[2017-05-18] MEDS: INSULIN REGULAR, HUMAN 100 UNIT/ML 3 ML VIAL SQ PRN (18:12)
--- NOTE | 2017-05-18 18:27 | NUR ---
RN NOTES PT IS SITTING UP IN BED, RESTING COMFORTABLY. PT ON 4L O2, RESPIRATIONS ARE EVEN AND UNLABORED. NAWAF MIDLINE IS INTACT AND PATENT. PT HAD DIALYSIS TODAY WITH 1.5 L OUTPUT. ALL MEDS WERE GIVEN ORDERED AND PT NEEDS MET. 1730 ACCUCHECK WAS 152, 2 UNITS GIVEN ORDERED. PT WAS ABLE TO GET UP WITH PHYSICAL THERAPY TODAY AND COULD PERFORM AT HER BASELINE. SAFETY MEASURES ARE IN PLACE, CALL LIGHT IS IN REACH. WILL ENDORSE TO COUNTY TREASURER RN FOR CONTINUITY OF CARE.
--- NOTE | 2017-05-18 19:30 | NUR ---
MS RN INITIAL NOTES PT IS IN BED AWAKE AND ALERT X3, ABLE TO MAKE NEEDS KNOWN. BREATHING EVENLY AND UNLABORED ON 4L NC. NO SIGNS OF SOB OR DISTRESS. IV ACCESS IS INTACT AND PATENT. BED IS IN LOW AND LOCKED POSITION, CALL LIGHT WITHIN REACH. WILL CONTINUE TO MONITOR PT.
[2017-05-18 20:00] VITALS: BP 125/72
[2017-05-18 22:01] VITALS: BP 125/72
[2017-05-19] MEDS: HYDROCODONE/APAP 5/325MG 1 EACH TABLET PO SCH ×7 (00:01→23:57)
[2017-05-19] MEDS: ZOLPIDEM TARTRATE 5 MG TABLET PO PRN ×2 (01:30→21:45)
[2017-05-19 04:00] VITALS: BP 144/96
[2017-05-19 04:34] VITALS: BP 144/96
[2017-05-19] MEDS: BLOOD SUGAR DIAGNOSTIC 1 EACH STRIP IN SCH ×4 (05:28→21:06)
--- NOTE | 2017-05-19 06:32 | NUR ---
MS RN CLOSING NOTES PT IS IN BED AWAKE AND ALERT. BREATHING EVENLY AND UNLABORED ON 4L NC, NO SIGNS OF SOB OR DISTRESS. IV ACCESS IS INTACT AND PATENT. ALL NEEDS WERE ANTICIPATED AND MET. BED IS IN LOW AND LOCKED POSITION, CALL LIGHT WITHIN REACH. WILL ENDORSE TO DAY SHIFT
--- NOTE | 2017-05-19 07:10 | NUR ---
ms rn initial notes Received patient in bed, asleep, head of bed elevated, no SOB or distress noted, on 02 @ 4lpm via NC with 02 saturation of 96 %. No facial grimace noted. RCW permacath in placed with dressing intact. NAWAF midline in placed and patent. Kept patient clean and comfortable in bed, call light with in patient reach, will continue to monitor accordingly.
[2017-05-19 08:00] VITALS: BP 141/87
[2017-05-19] MEDS: LACTOBACILLUS RHAMNOSUS GG 1 EACH CAP.SPRINK PO SCH ×2 (08:53→16:03)
[2017-05-19] MEDS: PANTOPRAZOLE 40 MG TABLET.DR PO SCH ×2 (08:53→21:01)
[2017-05-19] MEDS: HEPARIN SODIUM, PORCINE 5000 UNITS/1 ML VIAL SQ SCH ×2 (08:55→21:00)
[2017-05-19] MEDS: BOOST GLUCOSE CONTROL VANILLA 237 ML BOX PO SCH ×4 (08:56→21:00)
--- NOTE | 2017-05-19 09:02 | NUR ---
MS RN NOTES Patient refused to take her heparin explained the risk and benefits x 3 and still refused. will monitor
[2017-05-19 09:35] LABS: CALCIUM, SERUM 7.2 mg/dL (8.5-10.1); CREATININE 2.7 mg/dL (0.6-1.3); POTASSIUM 5.2 mmol/L (3.5-5.1)
[2017-05-19] MEDS: MEROPENEM 500 MG in IV NS 0.9% 50 ML IV SCH ×3 (10:42)
[2017-05-19] MEDS: INSULIN REGULAR, HUMAN 100 UNIT/ML 3 ML VIAL SQ PRN ×2 (12:30→17:34)
[2017-05-19 16:00] VITALS: BP 135/92
[2017-05-19] MEDS: hydrOXYzine 10 MG TABLET PO PRN (16:03)
--- NOTE | 2017-05-19 19:13 | NUR ---
ms rn closing notes All needs provided, attended, and anticipated. Kept patient clean and comfortable in bed, call light with in patient reach, endorsed to next shift RN to continue care.
[2017-05-19 20:00] VITALS: BP 153/95
[2017-05-20 04:00] VITALS: BP 159/87
[2017-05-20] MEDS: HYDROCODONE/APAP 5/325MG 1 EACH TABLET PO SCH ×5 (05:16→20:41)
[2017-05-20] MEDS: BLOOD SUGAR DIAGNOSTIC 1 EACH STRIP IN SCH ×4 (06:40→22:36)
[2017-05-20 06:47] LABS: CALCIUM, SERUM 7.6 mg/dL (8.5-10.1); CREATININE 2.8 mg/dL (0.6-1.3); POTASSIUM 5.7 mmol/L (3.5-5.1)
[2017-05-20 07:05] LABS: BASOPHILS % (AUTO) 0.1 % (0.0-2.0); EOSINOPHILS # (AUTO) 0.2 /CMM (0.0-0.7); EOSINOPHILS % (AUTO) 1.7 % (0.0-6.0); HEMATOCRIT 22 % (33-45); HEMOGLOBIN 7.1 g/dL (11.5-14.8); LYMPHOCYTES # (AUTO) 0.7 /CMM (0.8-4.8); LYMPHOCYTES % (AUTO) 5.3 % (20.0-44.0); MEAN CORPUSCULAR HEMOGLOBIN 27 PG (26.0-33.0); MEAN CORPUSCULAR HGB CONC 32 g/dl (31.0-36.0); MEAN CORPUSCULAR VOLUME 85 fL (82-100); MONOCYTES # (AUTO) 0.9 /CMM (0.1-1.30); MONOCYTES % (AUTO) 6.5 % (2.0-12.0); NEUTROPHILS # (AUTO) 11.7 /CMM (1.8-8.9); NEUTROPHILS % (AUTO) 86.4 % (43.0-81.0); PLATELET COUNT (AUTO) 460 /CMM (150-450); RED BLOOD CELL COUNT(AUTO) 2.63 MIL/uL (4.0-5.2); WHITE BLOOD COUNT (AUTO) 13.6 K/uL (4.3-11.0)
--- NOTE | 2017-05-20 07:05 | NUR ---
MS RN NOTES AAO3. HOB 90 DEG. 4 LNC 96% NON LABORED RESP. DIAPER INC URINE. RCW HD CATH. LUE FISTULA NOT WORKING PER MD. PLAN FOR HD TODAY. WBC 18. NAWAF MIDLINE PATENT. CALL LIGHT IN REACH. BED IN LOW LOCKED POSTION. WILL CONT TO MONITOR CLOSELY.
[2017-05-20] MEDS: BOOST GLUCOSE CONTROL VANILLA 237 ML BOX PO SCH ×4 (07:48→22:02)
[2017-05-20] MEDS: LACTOBACILLUS RHAMNOSUS GG 1 EACH CAP.SPRINK PO SCH ×2 (07:48→16:24)
[2017-05-20] MEDS: PANTOPRAZOLE 40 MG TABLET.DR PO SCH ×2 (07:48→20:41)
[2017-05-20] MEDS: HEPARIN SODIUM, PORCINE 5000 UNITS/1 ML VIAL SQ SCH ×2 (07:50→21:00)
[2017-05-20 08:00] VITALS: BP 179/103
[2017-05-20 12:00] VITALS: BP 121/66
[2017-05-20 12:49] VITALS: BP 121/66
[2017-05-20 16:00] VITALS: BP 110/76
[2017-05-20] MEDS: INSULIN REGULAR, HUMAN 100 UNIT/ML 3 ML VIAL SQ PRN ×2 (18:00→22:38)
--- NOTE | 2017-05-20 18:05 | NUR ---
MS RN CLOSING NOTE PT STABLE NO ACUTE EVENTS. HD REMOVAL 4500ML. VICODIN SCHEDULED FOR GENERAL PAIN. OB STOOL NEGATIVE. IV INTACT. CALL LIGHT IN REACH. WILL ENDORSE TO SAM RN.
--- NOTE | 2017-05-20 19:45 | NUR ---
RN OPENING NOTE RECEIVED PATIENT IN THE BED, ALERT/ORIENTED TO NAME AND PLACE, ON 4 L VIA NASAL CANULA, NO RESPIRATORY DISTRESS NOTED, ABLE TO COMMUNITE HER NEEDS, ADM DX: HYPOTENSION, SOB, SEPSIS, NO DIZZINESS, MISTI AV FISTULA NOTED, RIGHT CHEST WALL PERM CATH, RIGHT UPPER MIDLINE -FLUSHES WELL, NO S/S OF INFECTION NOTED, BED IN THE LOW POSITION, CALL LIGHT WITHIN REACH, ALL BELONGINGS CLOSE TO PATIENT, SIDE RAILS UP X 2, WILL CONTINUE TO MONITOR PATIENT
[2017-05-20 20:00] VITALS: BP 146/90
--- NOTE | 2017-05-20 20:12 | NUR ---
RN NOTE PROVIDED REPORT TO NURSE ALONZO, PATIENT WILL BE UNDER HER CARE
--- NOTE | 2017-05-20 20:30 | NUR ---
TELE1/RN RECEIVE PATIENT AWAKE, ALERT, ORIENTED, COMFORTABLE, NO SIGNS OF DISTRESS NOTED, CALL LIGHT IN REACH. WILL MONITOR.
[2017-05-20] MEDS: ZOLPIDEM TARTRATE 5 MG TABLET PO PRN (22:45)
[2017-05-21] MEDS: HYDROCODONE/APAP 5/325MG 1 EACH TABLET PO SCH ×6 (01:19→21:09)
[2017-05-21 04:00] VITALS: BP 138/85
[2017-05-21] MEDS: BLOOD SUGAR DIAGNOSTIC 1 EACH STRIP IN SCH ×3 (06:24→16:55)
[2017-05-21] MEDS: INSULIN REGULAR, HUMAN 100 UNIT/ML 3 ML VIAL SQ PRN ×3 (06:27→16:58)
--- NOTE | 2017-05-21 07:00 | NUR ---
TELE1/RN PATIENT IS AWAKE, COMFORTABLE, NO C/O PAIN, HAD AN ON AND OFF SLEEP THE WHOLE NIGHT. ALL NEEDS ATTENDED AT THIS TIME. WILL CONTINUE TO MONITOR.
--- NOTE | 2017-05-21 07:15 | NUR ---
RN NOTES RECEIVED PATIENT RESTING COMFORTABLY IN BED, AWAKE ALERT AND VERBALLY RESPONSIVE, ABLE TO MAKE NEEDS KNOWN. IN NO APPARENT PAIN OR DISCOMFORT AT THIS TIME. IV ACCESS TO NAWAF PATENT AND INTACT NO REDNESS OR INFILTRATION NOTED. KEPT CLEAN DRY AND COMFORTABLE CALL LIGHT WITHIN EASY REACH, WILL CONTINUE TO MONITOR
[2017-05-21 08:21] LABS: CALCIUM, SERUM 7.8 mg/dL (8.5-10.1); CREATININE 2.6 mg/dL (0.6-1.3); POTASSIUM 4.8 mmol/L (3.5-5.1)
[2017-05-21] MEDS: LACTOBACILLUS RHAMNOSUS GG 1 EACH CAP.SPRINK PO SCH ×2 (08:38→16:55)
[2017-05-21] MEDS: PANTOPRAZOLE 40 MG TABLET.DR PO SCH ×2 (08:38→21:09)
[2017-05-21] MEDS: HEPARIN SODIUM, PORCINE 5000 UNITS/1 ML VIAL SQ SCH ×2 (08:39→08:48)
[2017-05-21] MEDS: BOOST GLUCOSE CONTROL VANILLA 237 ML BOX PO SCH ×4 (08:46→21:17)
[2017-05-21 09:23] LABS: BASOPHILS % (AUTO) 0.3 % (0.0-2.0); EOSINOPHILS # (AUTO) 0.2 /CMM (0.0-0.7); EOSINOPHILS % (AUTO) 1.3 % (0.0-6.0); HEMATOCRIT 23 % (33-45); HEMOGLOBIN 7.5 g/dL (11.5-14.8); LYMPHOCYTES # (AUTO) 0.7 /CMM (0.8-4.8); LYMPHOCYTES % (AUTO) 5.1 % (20.0-44.0); MEAN CORPUSCULAR HEMOGLOBIN 27 PG (26.0-33.0); MEAN CORPUSCULAR HGB CONC 32 g/dl (31.0-36.0); MEAN CORPUSCULAR VOLUME 85 fL (82-100); MONOCYTES # (AUTO) 0.9 /CMM (0.1-1.30); MONOCYTES % (AUTO) 6.1 % (2.0-12.0); NEUTROPHILS # (AUTO) 12.8 /CMM (1.8-8.9); NEUTROPHILS % (AUTO) 87.2 % (43.0-81.0); PLATELET COUNT (AUTO) 510 /CMM (150-450); RED BLOOD CELL COUNT(AUTO) 2.75 MIL/uL (4.0-5.2); WHITE BLOOD COUNT (AUTO) 14.7 K/uL (4.3-11.0)
--- NOTE | 2017-05-21 19:00 | NUR ---
RN CLOSING NOTES PATIENT RESTING COMFORTABLY IN BED, AWAKE ALERT AND VERBALLY RESPONSIVE, ABLE TO MAKE NEEDS KNOWN. IN NO APPARENT PAIN OR DISCOMFORT AT THIS TIME. IV ACCESS TO NAWAF PATENT AND INTACT NO REDNESS OR INFILTRATION NOTED. KEPT CLEAN DRY AND COMFORTABLE CALL LIGHT WITHIN EASY REACH, WILL CONTINUE TO MONITOR, REPORT GIVEN TO TOUR CONSULTANT RN. PATIENT TO BE DISCHARGED, GROCERY STORE MANAGER TIME 1930.ALL DISCHARGE INSTRUCTIONS REVIEWED WITH THE PATIENT AND SNF RN WITH NOTED VERBAL UNDERSTANDING. TOUR CONSULTANT RN TO REMOVE MIDLINE PRIOR TO DISCHARGE.
--- NOTE | 2017-05-21 19:35 | NUR ---
MSRN FULLY AWAKE, FOR DISCHARGE TONIGHT. AMBULANCE TO LEAD INJECTION MOLD TECHNICIAN. STABLE OF THIS TIME
[2017-05-21 20:00] VITALS: BP 118/81
--- NOTE | 2017-05-21 21:18 | NUR ---
MSRN AMBULANCE AT BEDSIDE, DUE MEDS ADMINISTERED. REPORT GIVEN TO AMBULANCE STAFF.
--- NOTE | 2017-05-21 21:25 | NUR ---
MSRN DISCHARGED VIA GURNEY, WITH ALL PERSONAL BELONGINGS IN SATISFACTORY CONDITION.
== END 2017-05-21 21:50 | DRG 720 ==
LOC: ER 11:58 → TELE1 14:51 → TELE-TD 16:06 → TELE1 05-09 09:48 → MEDSG1 05-12 14:58
PROVIDERS: ADMIT Internal Medicine; ATTEND Internal Medicine
PROC: 5A1D70Z Performance of Urinary Filtration, Intermittent, Less than 6 Hours Per Day (ICD-10-PCS; principal; 2017-05-09)
PROC: 5A1D70Z Performance of Urinary Filtration, Intermittent, Less than 6 Hours Per Day (ICD-10-PCS; 2017-05-10)
PROC: 0W993ZZ Drainage of Right Pleural Cavity, Percutaneous Approach (ICD-10-PCS; 2017-05-13)
PROC: 5A1D70Z Performance of Urinary Filtration, Intermittent, Less than 6 Hours Per Day (ICD-10-PCS; 2017-05-14)
PROC: 30233N1 Transfusion of Nonautologous Red Blood Cells into Peripheral Vein, Percutaneous Approach (ICD-10-PCS; 2017-05-15)
PROC: 5A1D70Z Performance of Urinary Filtration, Intermittent, Less than 6 Hours Per Day (ICD-10-PCS; 2017-05-16)
PROC: 07DR3ZX Extraction of Iliac Bone Marrow, Percutaneous Approach, Diagnostic (ICD-10-PCS; 2017-05-17)
PROC: 5A1D70Z Performance of Urinary Filtration, Intermittent, Less than 6 Hours Per Day (ICD-10-PCS; 2017-05-18)
PROC: 5A1D70Z Performance of Urinary Filtration, Intermittent, Less than 6 Hours Per Day (ICD-10-PCS; 2017-05-20)
DX: A41.9 Sepsis, unspecified organism (principal); J96.21 Acute and chronic respiratory failure with hypoxia; I21.4 Non-ST elevation (NSTEMI) myocardial infarction; J86.9 Pyothorax without fistula; I50.33 Acute on chronic diastolic (congestive) heart failure; E43 Unspecified severe protein-calorie malnutrition; C96.9 Malignant neoplasm of lymphoid, hematopoietic and related tissue, unspecified; J91.0 Malignant pleural effusion; J15.6 Pneumonia due to other Gram-negative bacteria; N18.6 End stage renal disease; D63.8 Anemia in other chronic diseases classified elsewhere; I13.2 Hypertensive heart and chronic kidney disease with heart failure and with stage 5 chronic kidney disease, or end stage renal disease; K21.9 Gastro-esophageal reflux disease without esophagitis; E11.42 Type 2 diabetes mellitus with diabetic polyneuropathy; E11.22 Type 2 diabetes mellitus with diabetic chronic kidney disease; Z87.891 Personal history of nicotine dependence; Z99.2 Dependence on renal dialysis; Z88.6 Allergy status to analgesic agent; Z91.018 Allergy to other foods; Z79.899 Other long term (current) drug therapy; Z79.84 Long term (current) use of oral hypoglycemic drugs; D50.9 Iron deficiency anemia, unspecified; Z87.440 Personal history of urinary (tract) infections; F12.929 Cannabis use, unspecified with intoxication, unspecified
CPT/HCPCS: 36415; 36600; 71045-TC; 71250-TC; 74178; 76942-TC; 80048-TC; 80053-TC; 80061-TC; 80076-TC; 80202-TC; 81000-TC; 82272-TC; 82728-TC; 82746; 82962-TC; 83540-TC; 83605-TC; 83735-TC; 84100-TC; 84443-TC; 84484-TC; 85025-TC; 85610-TC; 85730-TC; 86850-TC; 86921-TC; 87040-TC; 87070-TC; 87081-TC; 87086-TC; 87400; 88305-TC; 88312-TC; 89051-TC; 90935-TC; A4216; A4606; A6402; A6403; J1644; J1815; J2185; J2270; J2405; J2543; J3370; J3490; J7030; J7040; J7050; J7060; P9016-BL; Q0163; Q0177; Q9967; Z7610

== ENCOUNTER 2017-05-24 17:13 | Inpatient (IN) | payer OTHER ==
[~2017-05-24] VITALS: Ht 170.2 cm; Wt 68.0 kg
[~2017-05-24 17:13] MED LIST changes: +CRAN500C5 PO; +HYDR-548 PO; -HYDR-552 PO
--- NOTE | 2017-05-24 17:13 | NUR ---
[id number] FROM 4 SEASONS: ABDOMINAL PAIN, PT FEELS CONSTIPATED. NAD NOTED. PT AAO X3. VSS. PT PLACED IN GOWN AND MONITOR. PENDING MD JOHNSON.
[2017-05-24] MEDS ORDERED: ONDANSETRON HCL/PF 4 MG/2 ML VIAL ONE (17:51)
[2017-05-24] MEDS ORDERED: MORPHINE SULFATE INJ 4 MG/ML DISP.SYRIN ONE ×2 (17:52→20:08)
[2017-05-24] MEDS ORDERED: ONDANSETRON HCL/PF 4 MG/2 ML VIAL IV ONE (18:00)
[2017-05-24] MEDS ORDERED: MORPHINE SULFATE INJ 4 MG/ML DISP.SYRIN IV ONE (18:00)
[2017-05-24] MEDS ORDERED: HYDR-3024 PO (18:02)
[2017-05-24] MEDS ORDERED: INSU100V3 SQ (18:02)
[2017-05-24] MEDS ORDERED: HEPA500020 SQ (18:02)
[2017-05-24] MEDS ORDERED: ACID1TAB12 PO (18:02)
[2017-05-24] MEDS ORDERED: HYDR-3652 PO (18:02)
[2017-05-24 18:11] LABS: INR 1.24 (0.85-1.15)
[2017-05-24 18:14] LABS: ALKALINE PHOSPHATASE 224 U/L (46-116); ASPARTATE AMINOTRANSFERASE 13 U/L (15-37); BILIRUBIN,DIRECT 0.1 mg/dL (0.0-0.2); BILIRUBIN,TOTAL 0.4 mg/dL (0.2-1.0); CALCIUM, SERUM 8.3 mg/dL (8.5-10.1); CARBON DIOXIDE 31 mmol/L (21-32); CHLORIDE 98 mmol/L (98-107); CREATININE 2.6 mg/dL (0.6-1.3); GLUCOSE 102 mg/dL (74-106); POTASSIUM 4.9 mmol/L (3.5-5.1); SODIUM SERUM 132 mmol/L (136-145); TOTAL PROTEIN, SERUM 7.1 g/dL (6.4-8.2); UREA NITROGEN, BLOOD 42 mg/dL (7-18)
[2017-05-24 18:24] LABS: ALANINE AMINOTRANSFERASE < 6 U/L (12-78); LIPASE 273 U/L (73-393)
[2017-05-24 18:25] LABS: ALBUMIN 1.1 g/dL (3.4-5.0)
[2017-05-24 18:29] LABS: BASOPHILS % (AUTO) 0.4 % (0.0-2.0); EOSINOPHILS # (AUTO) 0.1 /CMM (0.0-0.7); EOSINOPHILS % (AUTO) 0.5 % (0.0-6.0); HEMATOCRIT 22 % (33-45); LYMPHOCYTES # (AUTO) 0.8 /CMM (0.8-4.8); LYMPHOCYTES % (AUTO) 6.8 % (20.0-44.0); MEAN CORPUSCULAR HEMOGLOBIN 27 PG (26.0-33.0); MEAN CORPUSCULAR HGB CONC 32 g/dl (31.0-36.0); MEAN CORPUSCULAR VOLUME 84 fL (82-100); MONOCYTES # (AUTO) 0.8 /CMM (0.1-1.30); MONOCYTES % (AUTO) 7.3 % (2.0-12.0); NEUTROPHILS # (AUTO) 9.8 /CMM (1.8-8.9); PLATELET COUNT (AUTO) 598 /CMM (150-450); RDW COEFFICIENT OF VARIATION 21.1 (11.5-15.0); RED BLOOD CELL COUNT(AUTO) 2.62 MIL/uL (4.0-5.2); WHITE BLOOD COUNT (AUTO) 11.5 K/uL (4.3-11.0)
--- NOTE | 2017-05-24 19:13 | NUR ---
RECEIVED REPORT FROM GALE WHITTEN FOR HAILE.
--- NOTE | 2017-05-24 19:18 | NUR ---
REPORT GIVEN TO GALE FRANCISCO FOR HAILE
--- NOTE | 2017-05-24 19:33 | NUR ---
BED 316-2
--- NOTE | 2017-05-24 19:56 | NUR ---
DR. CRAMER SPEAKING TO DR. COOPER REGARDING ADMISSION
[2017-05-24] MEDS ORDERED: MORPHINE SULFATE INJ 2 MG/ML DISP.SYRIN IV STA (20:04)
--- NOTE | 2017-05-24 20:15 | NUR ---
TELE/RN NOTES RECEIVED CALL FROM ALEX IN RADIOLOGY. PER ALXE CHINO ORDERED ULTRASOUND ABDOMEN, KEEP PT. NPO AFTER MIDNIGHT FOR ULTRASOUND ABDOMEN AND IT WILL BE PERFORMED IN THE MORNING. WILL KEEP PT. NPO AFTER MIDNIGHT. WILL CONTINUE TO MONITOR.
--- NOTE | 2017-05-24 20:23 | NUR ---
PT TRANSFERRED VIA ACLS PROTOCOL.
[2017-05-24 20:30] VITALS: BP 115/76
[2017-05-24] MEDS ORDERED: MAG HYDROX/AL HYDROX/SIMETH 30 ML UDC PO PRN (20:30)
[2017-05-24] MEDS ORDERED: DEXTROSE 50%-WATER 50 ML DISP.SYRIN IV PRN (20:30)
[2017-05-24] MEDS ORDERED: HYDROCODONE/APAP 5/325MG 1 EACH TABLET PO PRN (20:30)
[2017-05-24] MEDS ORDERED: ONDANSETRON HCL/PF 4 MG/2 ML VIAL IVP PRN (20:30)
[2017-05-24] MEDS ORDERED: ACETAMINOPHEN 325 MG TABLET PO PRN (20:30)
[2017-05-24] MEDS ORDERED: BISACODYL SUPP (10 MG) 10 MG/SUPP.RECT SUPP.RECT RC PRN (20:30)
[2017-05-24] MEDS ORDERED: MAGNESIUM HYDROXIDE 30 ML UDC PO PRN (20:30)
[2017-05-24] MEDS ORDERED: Z GUARD REMEDY 2 OZ OINT TP PRN (20:30)
--- NOTE | 2017-05-24 20:30 | NUR ---
TELE/RN NOTES RECEIVED PT. FROM ER VIA GLORIA. PT. IS AWAKE, ALERT AND ORIENTED X3. BREATHING EVEN AND UNLABORED ON 2LPM O2 VIA NC. NO SOB OR RESPIRATORY DISTRESS NOTED AT THIS TIME. PT. COMPLAINING OF ABDOMINAL PAIN / PT. STATES IT IS IMPROVING SINCE RECEIVING PAIN MEDICATION IN THE ER. ORIENTED PT. TO ROOM. PLACED EXTERNAL RESEARCH DEVELOPMENT DIRECTOR ON PT. CURRENT RHYTHM = SINUS RHYTHM HR 91. PT. WITH RIGHT UPPER ARM IV SALINE LOCK PRESENT, PATENT AND INTACT. BED LOCKED AND IN LOWEST POSITION, SIDE RAILS UP X3, BED ALARM ON, CALL LIGHT WITHIN REACH, WILL CONTINUE TO MONITOR.
--- NOTE | 2017-05-24 20:39 | NUR ---
URINE COLLECTED. SENT TO LAB
[2017-05-24] MEDS ORDERED: CEFTRIAXONE 1 G VIAL ONE (22:18)
[2017-05-24 22:29] LABS: APPEARANCE,URINE SLIGHTLY CLOUDY (CLEAR); COLOR,URINE DARK YELLOW (YELLOW)
[2017-05-24 22:30] LABS: BILIRUBIN,URINE NEGATIVE (NEGATIVE); BLOOD, URINE NEGATIVE Ery/uL (NEGATIVE); KETONES,URINE NEGATIVE (NEGATIVE); NITRITE, URINE NEGATIVE (NEGATIVE); PH,URINE 7.5 (5.0-8.0); PROTEIN,URINE 2+ mg/dl (NEGATIVE); UGLUCOSE NEGATIVE (NEGATIVE); UROBILINOGEN,URINE 0.2 EU/dL (0.2)
[2017-05-24] MEDS: CEFTRIAXONE 1 G in IV D5W 50 ML IV SCH (22:30)
[2017-05-24 22:31] LABS: LEUKOCYTE ESTERASE ,URINE NEGATIVE (NEGATIVE)
[2017-05-24] MEDS: IV NS 0.9% 1,000 ML IV PRN (22:31)
[2017-05-24] MEDS: BLOOD SUGAR DIAGNOSTIC 1 EACH STRIP IN SCH (22:41)
[2017-05-24 22:44] LABS: RBC,URINE 0-2 /HPF (0-2); WBC,URINE 0-2 /HPF (0-3)
[2017-05-24 22:45] LABS: BACTERIA,URINE 2+ /HPF (None Seen); SQUAMOUS EPITHELIAL CELL,UR Few /HPF (None Seen); URINE AMORPHOUS PHOSPHATES Moderate /HPF (None Seen); YEAST,URINE Few /HPF (None Seen)
[2017-05-25] VITALS (12 sets, daily range): BP systolic 109–161; BP diastolic 66–93
[2017-05-25] MEDS: MORPHINE SULFATE INJ 4 MG/ML DISP.SYRIN IV PRN ×4 (03:37→20:31)
--- NOTE | 2017-05-25 06:12 | NUR ---
TELE/RN NOTES PT. IS LYING IN BED RESTING. BREATHING EVEN AND UNLABORED ON 2LPM O2 VIA NC. NO SOB OR RESPIRATORY DISTRESS OR COMPLAINTS OF PAIN NOTED AT THIS TIME. PT. WITH RIGHT UPPER ARM IV SALINE LOCK PRESENT, PATENT AND INTACT. ALL PT. NEEDS MET. PT. HAS BEEN NPO SINCE MIDNIGHT PENDING US ABDOMEN THIS MORNING. BED LOCKED AND IN LOWEST POSITION, SIDE RAILS UP X3, BED ALARM ON, CALL LIGHT WITHIN REACH, WILL ENDORSE TO DAYSHIFT NURSE FOR CONTINUITY OF CARE.
[2017-05-25] MEDS: BLOOD SUGAR DIAGNOSTIC 1 EACH STRIP IN SCH ×4 (06:29→21:48)
--- NOTE | 2017-05-25 07:15 | NUR ---
TOBACCO CONDITIONER/OPENING NOTES RECEIVED PT. IN BED A&OX4. TELE MONITOR READING SINUS TACHYCARDIA 106 BPM. BREATHING UNLABORED, AND EVENLY ON OXYGEN AT 4L/MIN VIA NASAL CANNULA. NO S/S OF ACUTE DISTRESS. IV FLUIDS RUNNING TO KEEP VEIN OPEN ON RIGHT ANTECUBITAL SITE. BED IS IN LOWEST, AND LOCKED POSITION. 2 SIDE RAILS UP, AND INSTRUCTED PT. TO USE CALL LIGHT FOR ASSISTANCE. ALL NEEDS MET. WILL CONTINUE TO ASSESS AND MONITOR.
[2017-05-25 07:29] LABS: ALANINE AMINOTRANSFERASE < 6 U/L (12-78); ALKALINE PHOSPHATASE 195 U/L (46-116); ASPARTATE AMINOTRANSFERASE 13 U/L (15-37); BILIRUBIN,DIRECT 0.1 mg/dL (0.0-0.2); BILIRUBIN,TOTAL 0.3 mg/dL (0.2-1.0); CALCIUM, SERUM 8.1 mg/dL (8.5-10.1); CARBON DIOXIDE 26 mmol/L (21-32); CHLORIDE 101 mmol/L (98-107); CREATININE 2.8 mg/dL (0.6-1.3); GLUCOSE 79 mg/dL (74-106); MAGNESIUM 2.7 mg/dL (1.8-2.4); PHOSPHORUS 5.2 mg/dL (2.5-4.9); POTASSIUM 5.5 mmol/L (3.5-5.1); SODIUM SERUM 134 mmol/L (136-145); TOTAL PROTEIN, SERUM 6.4 g/dL (6.4-8.2); UREA NITROGEN, BLOOD 48 mg/dL (7-18)
[2017-05-25 07:33] LABS: ALBUMIN 0.9 g/dL (3.4-5.0)
[2017-05-25] MEDS: HEPARIN SODIUM, PORCINE 5000 UNITS/1 ML VIAL SQ SCH ×2 (09:00→21:00)
[2017-05-25] MEDS: ACIDOPHILUS/BULGARICUS 1 EACH TAB.CHEW PO SCH ×2 (09:00→17:59)
[2017-05-25 09:34] LABS: BASOPHILS % (AUTO) 0.3 % (0.0-2.0); EOSINOPHILS # (AUTO) 0.1 /CMM (0.0-0.7); EOSINOPHILS % (AUTO) 0.7 % (0.0-6.0); LYMPHOCYTES # (AUTO) 0.8 /CMM (0.8-4.8); LYMPHOCYTES % (AUTO) 7.1 % (20.0-44.0); MEAN CORPUSCULAR HEMOGLOBIN 27 PG (26.0-33.0); MEAN CORPUSCULAR HGB CONC 32 g/dl (31.0-36.0); MEAN CORPUSCULAR VOLUME 84 fL (82-100); MONOCYTES % (AUTO) 8.7 % (2.0-12.0); NEUTROPHILS # (AUTO) 9.7 /CMM (1.8-8.9); NEUTROPHILS % (AUTO) 83.2 % (43.0-81.0); PLATELET COUNT (AUTO) 512 /CMM (150-450); RDW COEFFICIENT OF VARIATION 20.9 (11.5-15.0); RED BLOOD CELL COUNT(AUTO) 2.41 MIL/uL (4.0-5.2); WHITE BLOOD COUNT (AUTO) 11.7 K/uL (4.3-11.0)
[2017-05-25 09:43] LABS: HEMATOCRIT 20 % (33-45); HEMOGLOBIN 6.4 g/dL (11.5-14.8)
[2017-05-25 09:57] LABS: EOSINOPHILS % (MANUAL) 2 % (0-4); LYMPHOCYTES % (MANUAL) 6 % (16-48); MONOCYTES % (MANUAL) 3 % (0-11.0); NEUTROPHILS % (MANUAL) 89 (42-76)
[2017-05-25] MEDS: INSULIN REGULAR, HUMAN 100 UNIT/ML 3 ML VIAL SQ PRN (12:30)
--- NOTE | 2017-05-25 18:50 | NUR ---
RN CLOSING NOTES PT. IS IN BED A&OX4. PT.'S TELE MONITOR WAS DISCONTINUED TODAY. BREATHING UNLABORED, AND EVENLY ON OXYGEN AT 3L/MIN VIA NASAL CANNULA. NO S/S OF ACUTE DISTRESS. IV ACCESS ON RIGHT ARM, PT. HAS A RIGHT ARM MIDLINE, INTACT AND PATENT WITH SALINE FLUSH. PT. RECEIVED 1 UNIT OF PRBC'S WITHOUT COMPLICATIONS. BED IS IN LOWEST, AND LOCKED POSITION. 2 SIDE RAILS UP, AND INSTRUCTED PT. TO USE CALL LIGHT FOR ASSISTANCE. ALL NEEDS MET. WILL ENDORSE REPORT TO NURSE.
--- NOTE | 2017-05-25 19:20 | NUR ---
MS RN OPENING NOTES RECEIVED PATIENT RESTING IN BED, ON HEMODIALYSIS. A & O X 3, ON MS, NO ACUTE DISTRESS, NO SOB, NO C/O PAIN VERBALIZED @ THIS TIME. ABLE TO VERBALIZE NEEDS. ON BED REST. HAS NAWAF MIDLINE, RIGHT AC # 22, SL. RIGHT UPPER CHEST WALL CHANDLER CATH. ON RENAL DIET. 1 UNIT OF PRBC WAS TRANSFUSED, TOLERATED WELL. CBC WILL BE REPEATED ORDERED. BED IN LOW LOCKED POSITION. CALL LIGHT WITHIN REACH. WILL OBSERVE CLOSELY.
--- NOTE | 2017-05-25 20:31 | NUR ---
PRN MORPHINE GIVEN PATEINT HAD C/O ABDOMINAL PAIN, ONLY WANTED TO TAKE MORPHINE 2 THIS TIME, PRN MORPHINE GIVEN ORDERED. WILL REASSESS FOR EFFECTIVENESS.
[2017-05-25 20:36] LABS: BASOPHILS % (AUTO) 0.3 % (0.0-2.0); EOSINOPHILS % (AUTO) 0.2 % (0.0-6.0); HEMATOCRIT 26 % (33-45); LYMPHOCYTES # (AUTO) 0.8 /CMM (0.8-4.8); LYMPHOCYTES % (AUTO) 5.5 % (20.0-44.0); MEAN CORPUSCULAR HEMOGLOBIN 28 PG (26.0-33.0); MEAN CORPUSCULAR HGB CONC 32 g/dl (31.0-36.0); MEAN CORPUSCULAR VOLUME 85 fL (82-100); MONOCYTES # (AUTO) 1.1 /CMM (0.1-1.30); MONOCYTES % (AUTO) 7.7 % (2.0-12.0); NEUTROPHILS # (AUTO) 11.9 /CMM (1.8-8.9); NEUTROPHILS % (AUTO) 86.3 % (43.0-81.0); PLATELET COUNT (AUTO) 547 /CMM (150-450); RDW COEFFICIENT OF VARIATION 19.1 (11.5-15.0); RED BLOOD CELL COUNT(AUTO) 3.03 MIL/uL (4.0-5.2); WHITE BLOOD COUNT (AUTO) 13.8 K/uL (4.3-11.0)
[2017-05-25 20:40] LABS: HEMOGLOBIN 8.4 g/dL (11.5-14.8)
[2017-05-25] MEDS: CEFTRIAXONE 1 G in IV D5W 50 ML IV SCH (20:52)
[2017-05-25] MEDS: IV NS 0.9% 1,000 ML IV PRN (20:52)
[2017-05-25] MEDS: ZOLPIDEM TARTRATE 5 MG TABLET PO PRN (21:14)
--- NOTE | 2017-05-25 21:27 | NUR ---
NEW ORDER BY PATIENT IS ON PRN NS 0.9% @ 75 ML/HR. TAKING TOLERABLE PO FLUIDS. ON HEMODIALYSIS. HAD HD DONE TODAY WITH 2100 OUTPUT. ORDERED TO DC IVF NS 0.9 % @ THIS TIME SINCE PT CAN DRINK PO. ORDER NOTED & CARRIED OUT.
--- NOTE | 2017-05-25 21:35 | NUR ---
REFUSED HEPARIN PATIENT REFUSED HEPARIN TO BE GIVEN, SCHEDULED DOSE, DR. COOPER MADE AWARE.
--- NOTE | 2017-05-25 22:32 | NUR ---
NEW ORDER PATIENT USED TO TAKE SCHEDULED GLUCOSE CONTROL VANILLA BOOST Q 6 H & WANTED TO CONTINUE THE SAME WAY. MD MADE AWARE WITH NEW ORDER TO CONTINUE BOOST VANILLA Q6H SINCE REQUESTED BY THE PATIENT. ORDER NOTED & CARRIED OUT.
--- NOTE | 2017-05-26 00:15 | NUR ---
EPISODE OF EPISTAXIS PT HAD EPISODE OF SLIGHT NOSE BLEED. HAS LONG NAILS & REFUSES TO CUT HER NAILS. WHEN ASKED IF SHE PICKED HER NOSE, STATED SHE SLIGHTLY ITCHED IT, POSSIBLY CAUSING NOSE BLEED. HAD PT SITTING IN UPRIGHT POSITION, SLIGHTLY FORWARD, ASKED PT TO PRESS HER NOSTRILS INTERMITTENTLY & IT WAS EFFECTIVE TO STOP THE NOSE BLEED. NO MORE NOSE BLEED NOTED AFTER THAT.VS WNL. NO OTHER HAILE NOTED. CONTINUING TO MONITOR CLOSELY.
[2017-05-26] MEDS: MORPHINE SULFATE INJ 4 MG/ML DISP.SYRIN IV PRN ×5 (02:03→20:30)
--- NOTE | 2017-05-26 02:03 | NUR ---
PRN MORPHINE GIVEN PATIENT C/O ABDOMINAL PAIN 12/06 & WANTED TO TAKE MORPHINE, PRN MORPHINE GIVEN ORDERED. WILL REASSESS FOR EFFECTIVENESS.
[2017-05-26] MEDS: ALBUTEROL FS 2.5 MG/3 ML VIAL.NEB NEB PRN ×2 (04:30→12:45)
--- NOTE | 2017-05-26 06:34 | NUR ---
MS RN CLOSING NOTES PATIENT SLEPT INTERMITTENTLY @ NIGHT. A & O X 3, ON MS, NO ACUTE DISTRESS, NO SOB, HAD C/O ABDOMINAL PAIN 9/, PRN PAIN MED GIVEN. WILL ENDORSE TO AM RN FOR REASSESSMENT. ON BED REST. HAS NAWAF MIDLINE, RIGHT AC # 22, SL. INTACT PATENT. RIGHT UPPER CHEST WALL CHANDLER CATH. ON RENAL DIET. HGB LEVEL IMPROVED AFTER 1 UNIT OF PRBC WAS TRANSFUSED IN AM SHIFT. MD WAS MADE AWARE WITH NO NEW ORDER. BED IN LOW LOCKED POSITION. CALL LIGHT WITHIN REACH. WILL ENDORSE TO AM RN FOR CONTINUITY OF CARE.
[2017-05-26] MEDS: BLOOD SUGAR DIAGNOSTIC 1 EACH STRIP IN SCH ×4 (06:37→21:08)
[2017-05-26 06:43] LABS: BASOPHILS % (AUTO) 0.1 % (0.0-2.0); HEMATOCRIT 23 % (33-45); HEMOGLOBIN 7.6 g/dL (11.5-14.8); LYMPHOCYTES # (AUTO) 0.8 /CMM (0.8-4.8); LYMPHOCYTES % (AUTO) 5.3 % (20.0-44.0); MEAN CORPUSCULAR HEMOGLOBIN 28 PG (26.0-33.0); MEAN CORPUSCULAR HGB CONC 33 g/dl (31.0-36.0); MEAN CORPUSCULAR VOLUME 85 fL (82-100); MONOCYTES % (AUTO) 6.9 % (2.0-12.0); NEUTROPHILS # (AUTO) 12.7 /CMM (1.8-8.9); NEUTROPHILS % (AUTO) 87.7 % (43.0-81.0); PLATELET COUNT (AUTO) 448 /CMM (150-450); RDW COEFFICIENT OF VARIATION 19.7 (11.5-15.0); WHITE BLOOD COUNT (AUTO) 14.5 K/uL (4.3-11.0)
[2017-05-26 07:00] LABS: BILIRUBIN,DIRECT 0.1 mg/dL (0.0-0.2); BILIRUBIN,TOTAL 0.3 mg/dL (0.2-1.0); CALCIUM, SERUM 7.9 mg/dL (8.5-10.1); CREATININE 2.4 mg/dL (0.6-1.3); POTASSIUM 4.9 mmol/L (3.5-5.1); TOTAL PROTEIN, SERUM 6.7 g/dL (6.4-8.2)
--- NOTE | 2017-05-26 07:22 | NUR ---
MS RN OPENING NOTES RECEIVED PATIENT IN NO APPARENT DISTRESS. PATIENT IS ALERT AND RESTING IN BED. BEDSIDE RAILS ARE UP X2. BED IS LOCKED AND LOWERED. CALL LIGHT IS WITHIN REACH. WILL CONTINUE TO MONITOR.
[2017-05-26] MEDS: BOOST GLUCOSE CONTROL VANILLA 237 ML BOX PO SCH ×3 (07:25→17:08)
[2017-05-26 08:00] VITALS: BP 155/96
[2017-05-26] MEDS: HEPARIN SODIUM, PORCINE 5000 UNITS/1 ML VIAL SQ SCH ×2 (08:40→20:33)
[2017-05-26] MEDS: ACIDOPHILUS/BULGARICUS 1 EACH TAB.CHEW PO SCH ×2 (08:40→17:14)
[2017-05-26] MEDS ORDERED: HYDROCODONE/APAP 10/325MG 1 EA TABLET PO PRN (14:30)
--- NOTE | 2017-05-26 15:45 | NUR ---
NM:HIDA SCAN WAS COMPLETED. TECH:RB.
[2017-05-26 16:04] VITALS: BP 136/81
--- NOTE | 2017-05-26 18:29 | NUR ---
MS RN CLOSING NOTES PATIENT IS RESTING IN BED IN NO APPARENT DISTRESS. BEDSIDE RAILS ARE UP X2. BED IS LOCKED AND LOWERED. CALL LIGHT IS WITHIN REACH. ALL NEEDS WERE MET. WILL ENDORSE CARE TO SILVER PLATER NURSE FOR HAILE.
[2017-05-26 18:49] LABS: HEMOGLOBIN 7.9 g/dL (11.5-14.8)
--- NOTE | 2017-05-26 19:30 | NUR ---
MS RN INITIAL NOTES PT IS IN BED AWAKE AND ALERT WITH DAUGHTER AT BEDSIDE. NO SIGNS OR SOB OR DISTRESS, BREATHING EVENLY AND UNLABORED ON 4L NC. MIDLINE IS INTACT AND PATENT NO BLOOD RETURN NOTED. PICTURED TO BE TAKEN. BED IS IN LOW AND LOCKED POSITION, CALL LIGHT WITHIN REACH. WILL CONTINUE TO MONITOR PT
[2017-05-26 20:00] VITALS: BP 150/97
[2017-05-26] MEDS: CEFTRIAXONE 1 G in IV D5W 50 ML IV SCH (20:16)
--- NOTE | 2017-05-26 20:33 | NUR ---
PT IS REFUSING PICTURES AT THIS TIME, WILL ATTEMPT AGAIN LATER
[2017-05-26] MEDS: INSULIN REGULAR, HUMAN 100 UNIT/ML 3 ML VIAL SQ PRN (21:15)
[2017-05-26] MEDS: ZOLPIDEM TARTRATE 5 MG TABLET PO PRN (22:05)
[2017-05-26] MEDS: hydrOXYzine 10 MG TABLET PO PRN (23:32)
[2017-05-27] MEDS: BOOST GLUCOSE CONTROL VANILLA 237 ML BOX PO SCH ×4 (00:39→17:58)
[2017-05-27] MEDS: MORPHINE SULFATE INJ 4 MG/ML DISP.SYRIN IV PRN ×4 (00:39→17:57)
[2017-05-27] MEDS: BLOOD SUGAR DIAGNOSTIC 1 EACH STRIP IN SCH ×4 (06:06→21:34)
--- NOTE | 2017-05-27 06:29 | NUR ---
MS BEASLEY CLOSING NOTES PT IS IN BED RESTING. NO SIGNS OF SOB OR DISTRESS, BREATHING EVENLY AND UNLABORED ON RA. PT CONTINUED TO REFUSE PHOTOS. PT SCHEDULED FOR HD TODAY. IV ACCESS IS INTACT AND PATENT. BED IS IN LOW AND LOCKED POSITION, CALL LIGHT WITHIN REACH. WILL ENDORSE TO DAYSHIFT. Addendum: 05/27/17 at 0633 by BA BOLANOS PT IS ON 5L NC
--- NOTE | 2017-05-27 07:30 | NUR ---
MS RN NOTES PATIENT RECEIVED RESTING INSIDE ROOM, LYING ON BED. AWAKE, ALERT AND ORIENTED, ABLE TO MAKE NEEDS KNOWN AND FOLLOW SIMPLE INSTRUCTIONS. BREATHING EVEN AND UNLABORED. DENIES ANY PAIN OR DISCOMFORT AT THIS TIME. BILATERAL UPPER SIDE RAILS UP AND LOCKED. CALL LIGHT WITHIN EASY REACH. WILL CONTINUE TO MONITOR
[2017-05-27 08:00] VITALS: BP 143/94
[2017-05-27] MEDS: ACIDOPHILUS/BULGARICUS 1 EACH TAB.CHEW PO SCH ×2 (08:23→16:38)
[2017-05-27] MEDS: HEPARIN SODIUM, PORCINE 5000 UNITS/1 ML VIAL SQ SCH ×2 (08:25→21:00)
--- NOTE | 2017-05-27 08:26 | NUR ---
MS RN NOTES PATIENT WITH C/O PAIN WITH 9/10 ON PAIN SCALE. VERBALIZED PAIN "ALL OVER", DESCRIBED ACHING PAIN. GIVEN MORPHINE SULFATE 2MG ORDERED. WILL CONTINUE TO MONITOR
[2017-05-27] MEDS ORDERED: EPOETIN ALFA (10,000 UNIT) 10,000 UNIT/ML VIAL SQ ONE (11:00)
--- NOTE | 2017-05-27 11:16 | NUR ---
WOUND CARE CONSULT: PT PRESENTS WITH VERY BONY SACRAL AREA WITH SCARRING/STAINING NOTED WELL RASH TO PERINEUM, GROIN, PERIANAL AREAS, PRESENT ON ADMISSION. ALL SKIN PROTECTION MEASURES IN PLACE AND DISCUSSED WITH NURSING STAFF. TISH ISOFLEX LOW AIRLOSS BED TO BE PLACED. CURRENT CHRISTIAN SCORE IS 16. WILL SEE PRN. CHINO IN AGREEMENT WITH PLAN OF CARE. Addendum: 05/27/17 at 1118 by TIM BAXTER WNDNU Amended: Links added.
[2017-05-27 11:23] LABS: BASOPHILS % (AUTO) 0.3 % (0.0-2.0); EOSINOPHILS # (AUTO) 0.1 /CMM (0.0-0.7); EOSINOPHILS % (AUTO) 0.8 % (0.0-6.0); HEMATOCRIT 22 % (33-45); HEMOGLOBIN 7.1 g/dL (11.5-14.8); LYMPHOCYTES # (AUTO) 0.7 /CMM (0.8-4.8); LYMPHOCYTES % (AUTO) 4.5 % (20.0-44.0); MEAN CORPUSCULAR HEMOGLOBIN 28 PG (26.0-33.0); MEAN CORPUSCULAR HGB CONC 33 g/dl (31.0-36.0); MEAN CORPUSCULAR VOLUME 86 fL (82-100); MONOCYTES # (AUTO) 0.9 /CMM (0.1-1.30); MONOCYTES % (AUTO) 5.7 % (2.0-12.0); NEUTROPHILS # (AUTO) 13.6 /CMM (1.8-8.9); NEUTROPHILS % (AUTO) 88.7 % (43.0-81.0); PLATELET COUNT (AUTO) 421 /CMM (150-450); RDW COEFFICIENT OF VARIATION 20.5 (11.5-15.0); RED BLOOD CELL COUNT(AUTO) 2.53 MIL/uL (4.0-5.2); WHITE BLOOD COUNT (AUTO) 15.3 K/uL (4.3-11.0)
[2017-05-27] MEDS: CLOTRIMAZOLE 1% 15 GM TUBE TP SCH ×2 (11:30→17:57)
--- NOTE | 2017-05-27 11:30 | NUR ---
MS RN NOTES PATIENT WITH ORDER FOR LOTRIMIN CREAM. MEDICATION NOT IN UNIT, PLACED CALL TO PHARMACY, VERBALIZED THEY WILL DELIVER
[2017-05-27 11:59] LABS: CALCIUM, SERUM 8.2 mg/dL (8.5-10.1); CREATININE 2.8 mg/dL (0.6-1.3); MAGNESIUM 2.7 mg/dL (1.8-2.4); POTASSIUM 5.4 mmol/L (3.5-5.1)
[2017-05-27 12:15] LABS: C-REACTIVE PROTEIN 19.3 mg/dL (0.0-0.9)
--- NOTE | 2017-05-27 12:30 | NUR ---
MS RN NOTES PATIENT DONE WITH THORACENTESIS. OBTAINED 1500 CC OUTPUT, TO BE DELIVERED TO LAB. PATIENT BREATHING EVEN AND UNLABORED. NO SOB OR CONGESTION NOTED AT THIS TIME. REMAINS AFEBRILE, SKIN DRY AND WARM TO TOUCH. WILL CONTINUE TO MONITOR
[2017-05-27 16:00] VITALS: BP 148/91
--- NOTE | 2017-05-27 19:15 | NUR ---
MS RN NOTES PATIENT RESTING INSIDE ROOM, AWAKE, ALERT AND ORIENTED. VERBALLY RESPONSIVE AND RESPONDS TO VERBAL AND TACTILE STIMULI. PATIENT BREATHING EVEN AND UNLABORED. DENIES ANY PAIN OR DISCOMFORT AT THIS TIME. NO SOB OR CONGESTION NOTED. PATIENT REMAINS AFEBRILE, SKIN DRY AND WARM TO TOUCH. NO CHANGES IN LOC NOTED AT THIS TIME. IV SITE (MIDLINE) AT RIGHT ARM, PATENT AND INTACT. NO SWELLING OR DISCOLORATION NOTED AT THIS TIME. PATIENT HAD DIALYSIS THIS PM. REMOVED 2L DURING SESION. BED IN LOW POSITION AND LOCKED. BILATERAL UPPER SIDE RAILS UP AND LOCKED. PATIENT KEPT CLEAN, DRY AND COMFORTABLE. PROVIDED WITH CALM, SAFE, HAZARD-FREE ENVIRONMENT. CALL LIGHT PLACED WITHIN EASY REACH. WILL CONTINUE TO MONITOR
--- NOTE | 2017-05-27 19:20 | NUR ---
RN NOTES RECEIVED PT AWAKE, HOB ELEVATED WITH O2 INHALATION AT 5LPM VIA NC. PT ALERT AND ORIENTED X3, DENIES PAIN AND DISCOMFORT AT THIS TIME. HEMODIALYSIS ONGOING, PER HD TECH CHANDLER CATH NOT WORKING WELL AND WILL INFORM DIAL EQUIPMENT ENGINEER. RIGHT UPPER ARM MIDLINE INTACT. pLAN OF CARE DISCUSSED WITH THE PT. SAFETY MEASURES AND FALL PRECAUTION OBSERVED WITH CALL LIGHT WITHIN REACH. WILL CONTINUE TO MONITOR PT.
[2017-05-27 20:00] VITALS: BP 127/85
--- NOTE | 2017-05-27 20:30 | NUR ---
RN NOTES HEMODIALYSIS DONE WITH 2 LITERS OUTPUT. PT TOLERATED PROCEDURE WELL. VITAL SIGNS STABLE BP 142/85 HR 107 TEMP 98.2 RR18 O2SAT 93% AT 5LPM O2 VIA NC. DENIES ANY PAIN AND DISCOMFORT. WILL CONTINUE TO MONITOR PT.
[2017-05-28] MEDS: BOOST GLUCOSE CONTROL VANILLA 237 ML BOX PO SCH ×4 (00:17→17:02)
[2017-05-28] MEDS: MORPHINE SULFATE INJ 4 MG/ML DISP.SYRIN IV PRN ×4 (04:33→20:32)
[2017-05-28] MEDS: ALBUTEROL FS 2.5 MG/3 ML VIAL.NEB NEB PRN ×4 (05:59→23:32)
[2017-05-28] MEDS: BLOOD SUGAR DIAGNOSTIC 1 EACH STRIP IN SCH ×4 (06:39→22:11)
[2017-05-28] MEDS: INSULIN REGULAR, HUMAN 100 UNIT/ML 3 ML VIAL SQ PRN ×3 (06:41→20:49)
--- NOTE | 2017-05-28 07:26 | NUR ---
RN NOTES PT AWAKE, HOB ELEVATED, ON 5LPM O2 AND TOLERATED WELL. VITAL SIGNS STABLE. NO EPISODE OF NAUSEA AND VOMITING. KEPT PAIN AT TOLERABLE LEVEL. TURNED AND REPOSITION Q2H. ALL NEEDS ATTENDED. NO SIGNIFICANT CHANGE IN CONDITION NOTED. ENDORSED TO MORNING RN FOR CONTINUITY OF CARE.
--- NOTE | 2017-05-28 07:30 | NUR ---
MS RN NOTES PATIENT RECEIVED RESTING INSIDE ROOM, SLEEPING ON BED. PATIENT AROUSABLE THROUGH VERBAL AND TACTILE STIMULI. BREATHING EVEN AND UNLABORED. NO SOB OR CONGESTION NOTE. PATIENT AFEBRILE, SKIN DRY AND WARM TO TOUCH. AWAKE, ALERT AND ORIENTED. ABLE TO MAKE NEEDS KNOWN AND FOLLOW SIMPLE INSTRUCTIONS. BED LOCKED AND IN LOW POSITION, BILATERAL UPPER SIDE RAILS UP AND LOCKED. WILL CONTINUE TO MONITOR
[2017-05-28 08:00] VITALS: BP 113/69
[2017-05-28] MEDS: HEPARIN SODIUM, PORCINE 5000 UNITS/1 ML VIAL SQ SCH ×2 (08:55→20:36)
[2017-05-28] MEDS: CLOTRIMAZOLE 1% 15 GM TUBE TP SCH ×2 (08:57→16:54)
[2017-05-28] MEDS: ACIDOPHILUS/BULGARICUS 1 EACH TAB.CHEW PO SCH ×2 (08:57→16:54)
[2017-05-28 16:00] VITALS: BP 130/76
--- NOTE | 2017-05-28 17:00 | NUR ---
MS RN NOTES PATIENT SEEN AND EXAMINED BY CADY ANDREWS, ORDERS NOTED AND CARRIED OUT
--- NOTE | 2017-05-28 19:02 | NUR ---
MS RN NOTES PATIENT AWAKE, ALERT, VERBALLY RESPONSIVE AND RESPONDS TO VERBAL AND TACTILE STIMULI. BREATHING EVEN AND UNLABORED. NO SOB OR CONGESTION NOTED AT THIS TIME. PATIENT REMAINS AFEBRILE, SKIN DRY AND WARM TO TOUCH. NO CHANGES IN LOC NOTED AT THIS TIME. IV/MIDLINE SIDE IN PLACE ON RIGHT ARM, NO BLEEDING, NO SWELLING NOTED. WILL CONTINUE TO MONITOR. BILATERAL UPPER SIDE RAILS UP AND LOCKED. BED LOCKED AND IN LOW POSITION. ENDORSED TO INCOMING SHIFT
[2017-05-28 20:00] VITALS: BP 122/82
[2017-05-29] VITALS (8 sets, daily range): BP systolic 97–116; BP diastolic 64–78
[2017-05-29] MEDS: BOOST GLUCOSE CONTROL VANILLA 237 ML BOX PO SCH ×4 (00:06→16:46)
[2017-05-29] MEDS: MORPHINE SULFATE INJ 4 MG/ML DISP.SYRIN IV PRN ×3 (05:17→14:16)
--- NOTE | 2017-05-29 06:00 | NUR ---
RN NOTES No significant change in condition. Patient slept comfortably during shift. Still wih ongoing oxygen inhalation via nasal cannula, with no SOB noted. Accucheck done with no s/s of hypo/hyperglycemia. Pain medication given as ordered with c/o 8/10 generalized body pain. Turned and repositioned as scheduled. Kept clean and comfortable, good perineal care rendered. All needs attended. Will continue to monitor
[2017-05-29] MEDS: BLOOD SUGAR DIAGNOSTIC 1 EACH STRIP IN SCH ×4 (07:56→21:38)
--- NOTE | 2017-05-29 08:00 | NUR ---
RN NOTES RECEIVED PATIENT IN THE BED A/O X3, PATIENT ON PAIN AT THI TIME 11/05 BUT REFUSED NARCO TO BE GIVEN, PATIENT STATE " I WILL WAIT FOR MORPHINE". PATIENT ALSO REFUSED HEPARIN SQ SCHEDULED MEDICATION, PATIENT HAS A MIDLINE ON RIGHT UPPER ARM INTACT, PATIENT EATING AT THIS TIME, NEEDS ATTENDED AND ANTICIPATED, ASSIST TURN AND REPOSITION, NO RESPIRATORY DISTRESS. PATIENT ON O2-5L NC. NEEDS ATTENDED AND ANTICIPATED, CALL LIGHT WITHIN TO REACH, SAFETY PRECAUTION MAINTAINED ALL THE TIME, ALSO HS A RIGHT CHEST WALL PERMCATH INTACT.
[2017-05-29] MEDS: ACIDOPHILUS/BULGARICUS 1 EACH TAB.CHEW PO SCH ×2 (08:40→17:06)
[2017-05-29] MEDS: HEPARIN SODIUM, PORCINE 5000 UNITS/1 ML VIAL SQ SCH ×2 (08:41→21:00)
[2017-05-29] MEDS: CLOTRIMAZOLE 1% 15 GM TUBE TP SCH ×2 (08:41→16:45)
[2017-05-29 08:46] LABS: BASOPHILS # (AUTO) 0.1 /CMM (0.0-0.2); BASOPHILS % (AUTO) 0.3 % (0.0-2.0); EOSINOPHILS # (AUTO) 0.1 /CMM (0.0-0.7); EOSINOPHILS % (AUTO) 0.4 % (0.0-6.0); HEMATOCRIT 21 % (33-45); LYMPHOCYTES # (AUTO) 0.7 /CMM (0.8-4.8); LYMPHOCYTES % (AUTO) 3.6 % (20.0-44.0); MEAN CORPUSCULAR HEMOGLOBIN 28 PG (26.0-33.0); MEAN CORPUSCULAR HGB CONC 33 g/dl (31.0-36.0); MEAN CORPUSCULAR VOLUME 86 fL (82-100); MONOCYTES # (AUTO) 0.9 /CMM (0.1-1.30); MONOCYTES % (AUTO) 4.7 % (2.0-12.0); NEUTROPHILS # (AUTO) 16.8 /CMM (1.8-8.9); PLATELET COUNT (AUTO) 342 /CMM (150-450); RDW COEFFICIENT OF VARIATION 20.3 (11.5-15.0); RED BLOOD CELL COUNT(AUTO) 2.46 MIL/uL (4.0-5.2); WHITE BLOOD COUNT (AUTO) 18.5 K/uL (4.3-11.0)
[2017-05-29 08:52] LABS: HEMOGLOBIN 6.9 g/dL (11.5-14.8)
[2017-05-29] MEDS: hydrOXYzine 10 MG TABLET PO PRN ×2 (08:54→21:33)
--- NOTE | 2017-05-29 08:56 | NUR ---
RN NOTES ADMINISTERED ATARAX 10 MG PO PRN FOR ITCH, AND ANXIETY PER PATIENT REQUEST, CONTINUED MONITORING.
[2017-05-29 09:47] LABS: LYMPHOCYTES % (MANUAL) 2 % (16-48); MONOCYTES % (MANUAL) 4 % (0-11.0); NEUTROPHILS % (MANUAL) 94 (42-76)
--- NOTE | 2017-05-29 10:19 | NUR ---
RN NOTES ADMINISTERED MORPHINE SULF 2 MG/ML IV PUSH PER PATIENT REQUEST FOR GENERALIZED PAIN 10/10, V/S TAKEN BP-116/74, P-100, CONTINUED MONITORING.
--- NOTE | 2017-05-29 11:30 | NUR ---
RN NOTES PATIENT IN THE BED GETTING HEMODIALYSIS AT THIS TIME, NO ACUTE DISTRESS, PATIENT IRRITABLE, ANXIOUS, CALL LIGHT WITHIN TO REACH, SAFETY PRECAUTION MAINTAINED ALL THE TIME.
[2017-05-29] MEDS: INSULIN REGULAR, HUMAN 100 UNIT/ML 3 ML VIAL SQ PRN ×2 (11:31→17:11)
--- NOTE | 2017-05-29 11:32 | NUR ---
RN NOTES MEDICATION WERE ADMINISTERED FOR PAIN EFFECTIVE, PATIENT RESTING AT THIS TIME, BS-160 MG.DL ADMINISTERED 2 UNITS OF COVERAGE, AND BOOST SCHEDULED, CALL LIGHT WITHIN TO REACH. PATIENT VERY NEEDY FOCUSED GOING BACK TO HOME, NEEDS ATTENDED AND ANTICIPATED, ASSIST TURN AND REPOSITION Q 2 HR, RT WITH THE PATIENT FOR BREATHING TREATMENT.
[2017-05-29] MEDS: ALBUTEROL FS 2.5 MG/3 ML VIAL.NEB NEB PRN ×2 (11:38→22:42)
--- NOTE | 2017-05-29 13:40 | NUR ---
RN NOTES HEMODIALYSIS DONE AT THIS TIME, REMOVED 4000 ML OF OUTPUT, V/S TAKEN 96/59, P-106, ASSIST PATIENT TURN AND REPOSITION, SAFETY PRECAUTION MAINTAINED ALL THE TIME.
--- NOTE | 2017-05-29 14:16 | NUR ---
RN NOTES ADMINISTERED MORPHINE SULFATE 2 MG/ML IV PUSH PER PATIENT REQUEST PAIN LEVEL GENERALIZED 8/10, V/S TAKEN BP-96/59, P-106, CALL LIGHT WITHIN TO REACH, SAFETY PRECAUTION MAINTAINED ALL THE TIME.
--- NOTE | 2017-05-29 16:31 | NUR ---
RN NOTES STARTED BLOOD INFUSION ONE UNIT AT THIS TIME V/S TAKEN BP- 112.69, P-107, R-18, T-98,6, O2-96 O2-5L NC, PATIENT HAS NO PAIN AT THIS TIME, NO S/S AT THIS TIME, CALL LIGHT WITHIN TO REACH, CONTINUED MONITORING.
--- NOTE | 2017-05-29 17:12 | NUR ---
RN NOTES BS141 MG/DL, COVERAGE GIVEN, V/S TAKEN STABLE, PATIENT HAS NO C/O PAIN AT THIS TIME, INFUSING BLOOD 125 ML/HR INTACT, NO S/S OF REACTION NOTED AT THIS TIME, ASSIST TURN AND REPOSITION Q 2 HR, SCHEDULED MEDICATION ADMINISTERED, CALL LIGHT WITHIN TO REACH, CONTINUED MONITORING.
--- NOTE | 2017-05-29 18:50 | NUR ---
RN NOTES FINISH BLOOD TRANSFUSION AT THIS TIME, PATIENT TOLERATED WELL, NO S/S OF REACTION NOTED, V/S TAKEN BP -107/74, P-117, R-18, T-98.7, O2-5L NC, NO ACUTE RESPIRATORY DISTRESS, CALL LIGHT WITHIN TO REACH, ALSO PATIENT SIGN CONSENT FORM ON EGD. CONTINUED MONITORING.
[2017-05-29] MEDS ORDERED: EPOETIN ALFA (20,000 UNIT) 20,000 UNIT/ML VIAL IV SCH (19:00)
--- NOTE | 2017-05-29 19:07 | NUR ---
RN NOTES ADMINISTERED NARCO 10/325 MG POPRN FOR GENERALIZED PAIN 12/06, V/S TAKEN BP- 107/74, P-115, CONTINUED MONITORING ENDORSED ONCOMING NURSE FOR HAILE .
--- NOTE | 2017-05-29 19:45 | NUR ---
MS/RN NOTES RECEIVED PT. LYING IN BED. AWAKE, ALERT AND ORIENTED X3. BREATHING EVEN AND UNLABORED ON 5LPM O2 VIA NC. NO SOB, RESPIRATORY DISTRESS OR COMPLAINTS OF PAIN NOTED AT THIS TIME. PT. WITH RIGHT UPPER ARM MIDLINE PRESENT, PATENT AND INTACT. PT. WILL BE NPO AFTER MIDNIGHT PENDING EGD TOMORROW. PER DAYSHIFT NURSE CONSENT IS SIGNED AND PLACED IN CHART. BED LOCKED AND IN LOWEST POSITION, SIDE RAILS UP X3, BED ALARM ON, CALL LIGHT WITHIN REACH, WILL CONTINUE TO MONITOR.
[2017-05-29] MEDS: HYDROMORPHONE INJ 0.5 MG/0.5 ML SYRINGE IV PRN (22:21)
[2017-05-30] MEDS: BOOST GLUCOSE CONTROL VANILLA 237 ML BOX PO SCH ×4 (06:00→17:06)
[2017-05-30] MEDS: HYDROMORPHONE INJ 0.5 MG/0.5 ML SYRINGE IV PRN ×3 (06:09→17:41)
--- NOTE | 2017-05-30 06:27 | NUR ---
MS/RN NOTES PT. IS LYING IN BED RESTING. BREATHING EVEN AND UNLABORED ON 5LPM O2 VIA NC. NO SOB, RESPIRATORY DISTRESS OR COMPLAINTS OF PAIN NOTED AT THIS TIME. PT. WITH RIGHT UPPER ARM MIDLINE PRESENT, PATENT AND INTACT. PT. REMAINS NPO SINCE MIDNIGHT PENDING EGD TODAY. CONSENT IS SIGNED AND PLACED IN CHART. ALL PT. NEEDS MET. PT. TURNED AND OFFLOADED Q2H AND NEEDED. BED LOCKED AND IN LOWEST POSITION, SIDE RAILS UP X3, BED ALARM ON, CALL LIGHT WITHIN REACH, WILL ENDORSE TO DAYSHIFT NURSE FOR CONTINUITY OF CARE.
[2017-05-30] MEDS: BLOOD SUGAR DIAGNOSTIC 1 EACH STRIP IN SCH ×4 (06:37→21:20)
[2017-05-30 06:59] LABS: BASOPHILS # (AUTO) 0.1 /CMM (0.0-0.2); BASOPHILS % (AUTO) 0.4 % (0.0-2.0); EOSINOPHILS % (AUTO) 0.2 % (0.0-6.0); HEMATOCRIT 23 % (33-45); HEMOGLOBIN 7.6 g/dL (11.5-14.8); LYMPHOCYTES # (AUTO) 0.6 /CMM (0.8-4.8); LYMPHOCYTES % (AUTO) 3.8 % (20.0-44.0); MEAN CORPUSCULAR HEMOGLOBIN 29 PG (26.0-33.0); MEAN CORPUSCULAR HGB CONC 33 g/dl (31.0-36.0); MEAN CORPUSCULAR VOLUME 87 fL (82-100); MONOCYTES # (AUTO) 0.8 /CMM (0.1-1.30); MONOCYTES % (AUTO) 4.9 % (2.0-12.0); NEUTROPHILS # (AUTO) 14.6 /CMM (1.8-8.9); NEUTROPHILS % (AUTO) 90.7 % (43.0-81.0); PLATELET COUNT (AUTO) 294 /CMM (150-450); RDW COEFFICIENT OF VARIATION 19.1 (11.5-15.0); RED BLOOD CELL COUNT(AUTO) 2.65 MIL/uL (4.0-5.2); WHITE BLOOD COUNT (AUTO) 16.1 K/uL (4.3-11.0)
[2017-05-30 07:13] LABS: CALCIUM, SERUM 7.7 mg/dL (8.5-10.1); CREATININE 2.4 mg/dL (0.6-1.3); POTASSIUM 4.2 mmol/L (3.5-5.1)
[2017-05-30 08:00] VITALS: BP 135/72
--- NOTE | 2017-05-30 08:00 | NUR ---
MS/RN AM NOTES PT. IS LYING IN BED RESTING. BREATHING EVEN AND UNLABORED ON 5LPM O2 VIA NC. NO SOB, RESPIRATORY DISTRESS OR COMPLAINTS OF PAIN NOTED AT THIS TIME. PT. WITH RIGHT UPPER ARM MIDLINE PRESENT, PATENT AND INTACT. PT. REMAINS NPO SINCE MIDNIGHT PENDING EGD TODAY. CONSENT IS SIGNED AND PLACED IN CHART. NEEDS MET. PT. TURNED AND OFFLOADED Q2H AND NEEDED. BED LOCKED AND IN LOWEST POSITION, SIDE RAILS UP X3, BED ALARM ON, CALL LIGHT WITHIN REACH,
[2017-05-30] MEDS: ACIDOPHILUS/BULGARICUS 1 EACH TAB.CHEW PO SCH ×2 (09:00→17:24)
[2017-05-30] MEDS: FERROUS SULFATE (325 MG) 325 MG/TAB TABLET PO SCH ×2 (09:00→17:24)
[2017-05-30] MEDS: HEPARIN SODIUM, PORCINE 5000 UNITS/1 ML VIAL SQ SCH ×2 (09:00→21:00)
--- NOTE | 2017-05-30 10:00 | NUR ---
PT WAS PICKED UP BY OR STAFF FOR EGD PROCEDURE.
--- NOTE | 2017-05-30 11:00 | NUR ---
PT BACK FROM [facility] S/P EGD WITH GASTROPARESIS AND 3 BIOPSIES WERE DONE.WITH STABLE V/S.PT ALERT AND VERBALLY RESPONSIVE.DENIES ANY PAIN OR DISTRESS.CALL LIGHT PLACED WITHIN REACH.
[2017-05-30] MEDS: CLOTRIMAZOLE 1% 15 GM TUBE TP SCH ×2 (11:59→17:07)
--- NOTE | 2017-05-30 12:35 | NUR ---
RN NOTES RECEIVED PATIENT IN THE BED , PATIENT NPO AT THIS TIME, GOING TO HAVE A MRI WITHOUT CONTRAS ABDOMEN, PATIENT SIGHT CONSENT FORM. CALL LIGHT WITHIN TO REACH CONTINUED MONITORING.
--- NOTE | 2017-05-30 12:55 | NUR ---
RN NOTES PATIENT DIRECTOR ATHLETIC FOR MRI AT THIS TIME BY MATZO FORMING MACHINE OPERATOR.
--- NOTE | 2017-05-30 13:00 | NUR ---
ENDORSED PT CARE TO GALE MENG
--- NOTE | 2017-05-30 13:20 | NUR ---
RN NOTES PATIENT BACK FROM MRI. PATIENT STATE "I HAVE A SOB, AND REFUSED MRI". [employer] SALES REPRESENTATIVE NOTIFIED. CONTINUED MONITORING.
[2017-05-30] MEDS: METOCLOPRAMIDE HCL 10 MG/2 ML VIAL IV SCH (17:24)
--- NOTE | 2017-05-30 17:41 | NUR ---
RN NOTES ADMINISTERED DILAUDID 0.25 MG/ML IV PUSH FOR GENERALIZED PAIN 12/06 PER PATIENT REQUEST, ADMINISTERED SCHEDULED MEDICATION, V/S STABLE, BS 101 MG/DL, NO COVERAGE GIVEN, PATIENT EATING AT THIS TIME, ASSIST TURN AND REPOSITION Q 2 HR, CALL LIGHT WITHIN TO REACH, SAFETY PRECAUTION MAINTAINED ALL THE TIME.
--- NOTE | 2017-05-30 18:40 | NUR ---
RN NOTES PATIENT IN THE BED NO ACUTE RESPIRATORY DISTRESS, MEDICATION WERE ADMINISTERED FOR PAIN EFFECTIVE, PATIENT EAT DINNER, NEEDS ATTENDED AND ANTICIPATED, CALL LIGHT WITHIN TO REACH. PATIENT ON O2--5L NC. SAFETY PRECAUTION MAINTAINED ALL THE TIME. ENDORSED ONCOMING NURSE FOR HAILE.
--- NOTE | 2017-05-30 19:40 | NUR ---
MS/RN NOTES RECEIVED PT. LYING IN BED. AWAKE, ALERT AND ORIENTED X3. BREATHING EVEN AND UNLABORED ON 5LPM O2 VIA NC. NO SOB, RESPIRATORY DISTRESS OR COMPLAINTS OF PAIN NOTED AT THIS TIME. PT. WITH RIGHT UPPER ARM MIDLINE PRESENT, PATENT AND INTACT. BED LOCKED AND IN LOWEST POSITION, SIDE RAILS UP X3, BED ALARM ON, CALL LIGHT WITHIN REACH, WILL CONTINUE TO MONITOR.
[2017-05-30 20:00] VITALS: BP 99/67
[2017-05-30] MEDS: INSULIN REGULAR, HUMAN 100 UNIT/ML 3 ML VIAL SQ PRN (21:21)
[2017-05-30] MEDS: ZOLPIDEM TARTRATE 5 MG TABLET PO PRN (22:27)
[2017-05-31] MEDS: HYDROMORPHONE INJ 0.5 MG/0.5 ML SYRINGE IV PRN (00:02)
[2017-05-31] MEDS: BOOST GLUCOSE CONTROL VANILLA 237 ML BOX PO SCH ×3 (00:02→12:28)
[2017-05-31] MEDS: METOCLOPRAMIDE HCL 10 MG/2 ML VIAL IV SCH ×3 (00:02→12:29)
[2017-05-31] MEDS: ALBUTEROL FS 2.5 MG/3 ML VIAL.NEB NEB PRN (05:27)
[2017-05-31] MEDS: BLOOD SUGAR DIAGNOSTIC 1 EACH STRIP IN SCH ×2 (06:35→12:28)
[2017-05-31] MEDS: INSULIN REGULAR, HUMAN 100 UNIT/ML 3 ML VIAL SQ PRN ×2 (06:36→12:30)
[2017-05-31 06:57] LABS: BASOPHILS % (AUTO) 0.2 % (0.0-2.0); HEMATOCRIT 25 % (33-45); HEMOGLOBIN 8.2 g/dL (11.5-14.8); LYMPHOCYTES # (AUTO) 0.7 /CMM (0.8-4.8); MEAN CORPUSCULAR HEMOGLOBIN 29 PG (26.0-33.0); MEAN CORPUSCULAR HGB CONC 33 g/dl (31.0-36.0); MEAN CORPUSCULAR VOLUME 87 fL (82-100); MONOCYTES # (AUTO) 0.8 /CMM (0.1-1.30); MONOCYTES % (AUTO) 5.1 % (2.0-12.0); NEUTROPHILS # (AUTO) 14.9 /CMM (1.8-8.9); NEUTROPHILS % (AUTO) 90.7 % (43.0-81.0); PLATELET COUNT (AUTO) 318 /CMM (150-450); RDW COEFFICIENT OF VARIATION 19.5 (11.5-15.0); RED BLOOD CELL COUNT(AUTO) 2.87 MIL/uL (4.0-5.2); WHITE BLOOD COUNT (AUTO) 16.4 K/uL (4.3-11.0)
--- NOTE | 2017-05-31 07:01 | NUR ---
MS/RN NOTES PT. IS LYING IN BED RESTING. BREATHING EVEN AND UNLABORED ON 6LPM O2 VIA NC. NO SOB, RESPIRATORY DISTRESS OR COMPLAINTS OF PAIN NOTED AT THIS TIME. PT. WITH RIGHT UPPER ARM MIDLINE PRESENT, PATENT AND INTACT. ALL PT. NEEDS MET. PT. OFFLOADED. TURNED AND REPOSITIONED Q2H AND NEEDED. BED LOCKED AND IN LOWEST POSITION, SIDE RAILS UP X3, BED ALARM ON, CALL LIGHT WITHIN REACH, WILL ENDORSE TO DAYSHIFT NURSE FOR CONTINUITY OF CARE.
[2017-05-31 07:03] LABS: CREATININE 2.9 mg/dL (0.6-1.3); MAGNESIUM 2.7 mg/dL (1.8-2.4); PHOSPHORUS 4.6 mg/dL (2.5-4.9); POTASSIUM 4.8 mmol/L (3.5-5.1)
--- NOTE | 2017-05-31 07:30 | NUR ---
MS RN NOTES PATIENT RECEIVED AWAKE, ALERT AND ORIENTED. ABLE TO MAKE NEEDS KNOWN AND FOLLOW SIMPLE INSTRUCTIONS. PATIENT BREATHING EVEN AND UNLABORED. O2 AT 5L/MIN VIA NC, NO SOB OR CONGESTION NOTED AT THIS TIME. PATIENT AFEBRILE, SKIN DRY AND WARM TO TOUCH. NO CHANGES IN LOC NOTED AT THIS TIME. BED LOCKED AND IN LOW POSITION, BILATERAL UPPER SIDE RAILS UP AND LOCKED. CALL LIGHT PLACED WITHIN EASY REACH. WILL CONTINUE TO MONITOR
[2017-05-31 08:00] VITALS: BP 110/71
[2017-05-31] MEDS: CLOTRIMAZOLE 1% 15 GM TUBE TP SCH (08:40)
[2017-05-31] MEDS: HEPARIN SODIUM, PORCINE 5000 UNITS/1 ML VIAL SQ SCH (08:41)
[2017-05-31] MEDS: ACIDOPHILUS/BULGARICUS 1 EACH TAB.CHEW PO SCH (08:41)
[2017-05-31] MEDS: FERROUS SULFATE (325 MG) 325 MG/TAB TABLET PO SCH (08:41)
[2017-05-31] MEDS ORDERED: MORPHINE SULFATE INJ 4 MG/ML DISP.SYRIN IV ONE (09:00)
--- NOTE | 2017-05-31 09:00 | NUR ---
MS RN NOTES PATIENT SEEN AND EXAMINED BY CADY ANDREWS NP. ORDERS NOTED AND CARRIED OUT
--- NOTE | 2017-05-31 10:30 | NUR ---
MS RN NOTES RECEIVED INFO FROM AUDITING MANAGER THAT PATIENT WILL BE PICKED UP AT 1330 FOR TRANSPORTATION, TO BE DISCHARGED TO [facility]. PATIENT AWARE AND VERBALIZED UNDERSTANDING. BREATHING EVEN AND UNLABORED. DENIES ANY PAIN OR DISCOMFORT. NO CHANGES IN LOC NOTED. WILL CONTINUE TO MONITOR
--- NOTE | 2017-05-31 12:00 | NUR ---
MS RN NOTES MD MADE AWARE OF ID RECOMMENDATION TO DC HD CATHETER AND CONFIRMED
--- NOTE | 2017-05-31 13:00 | NUR ---
MS RN NOTES PLACED CALL TO [facility], SPOKE WITH PASCUAL BEASLEY AND GAVE REPORT
--- NOTE | 2017-05-31 13:30 | NUR ---
MS RN NOTES 2 fluid designer PRESENT AT UNIT TO PICK PATIENT UP, TO BE DISCHARGED TO [facility]. NO CHANGES IN LOC NOTED. PATIENT AFEBRILE, SKIN DRY AND WARM TO TOUCH. DENIES ANY PAIN OR DISCOMFORT. ALL BELONGINGS COMPLETE UPON DISCHARGE.
== END 2017-05-31 13:28 ==
LOC: ER 17:16 → TELE 19:54 → MED 05-25 10:49
PROVIDERS: ADMIT Internal Medicine; ATTEND Internal Medicine
PROC: 30233N1 Transfusion of Nonautologous Red Blood Cells into Peripheral Vein, Percutaneous Approach (ICD-10-PCS; principal; 2017-05-25)
PROC: 05H533Z Insertion of Infusion Device into Right Subclavian Vein, Percutaneous Approach (ICD-10-PCS; principal; 2017-05-25)
PROC: 0W993ZZ Drainage of Right Pleural Cavity, Percutaneous Approach (ICD-10-PCS; 2017-05-27)
PROC: 0DD58ZX Extraction of Esophagus, Via Natural or Artificial Opening Endoscopic, Diagnostic (ICD-10-PCS; 2017-05-30)
PROC: 0DD68ZX Extraction of Stomach, Via Natural or Artificial Opening Endoscopic, Diagnostic (ICD-10-PCS; 2017-05-30)
DX: K80.00 Calculus of gallbladder with acute cholecystitis without obstruction (principal); J96.21 Acute and chronic respiratory failure with hypoxia; E43 Unspecified severe protein-calorie malnutrition; J90 Pleural effusion, not elsewhere classified; I50.33 Acute on chronic diastolic (congestive) heart failure; K31.84 Gastroparesis; E11.40 Type 2 diabetes mellitus with diabetic neuropathy, unspecified; E87.1 Hypo-osmolality and hyponatremia; I13.11 Hypertensive heart and chronic kidney disease without heart failure, with stage 5 chronic kidney disease, or end stage renal disease; E11.22 Type 2 diabetes mellitus with diabetic chronic kidney disease; N18.6 End stage renal disease; Z99.2 Dependence on renal dialysis; K21.0 Gastro-esophageal reflux disease with esophagitis; K29.70 Gastritis, unspecified, without bleeding; Z88.6 Allergy status to analgesic agent; Z91.02 Food additives allergy status; Z79.4 Long term (current) use of insulin; Z79.01 Long term (current) use of anticoagulants; Z79.899 Other long term (current) drug therapy; D63.8 Anemia in other chronic diseases classified elsewhere; M85.9 Disorder of bone density and structure, unspecified; R59.1 Generalized enlarged lymph nodes; E11.43 Type 2 diabetes mellitus with diabetic autonomic (poly)neuropathy; F19.10 Other psychoactive substance abuse, uncomplicated; E78.5 Hyperlipidemia, unspecified; E87.5 Hyperkalemia; E87.70 Fluid overload, unspecified; G89.4 Chronic pain syndrome; I25.2 Old myocardial infarction; Z90.710 Acquired absence of both cervix and uterus; Z87.891 Personal history of nicotine dependence
CPT/HCPCS: 36415; 36569; 71045-TC; 76700-TC; 76942-TC; 78226; 80048-TC; 80074; 80076-TC; 81000-TC; 82150-TC; 82272-TC; 82728-TC; 82962-TC; 83540-TC; 83605-TC; 83615-TC; 83690-TC; 83735-TC; 84100-TC; 84484-TC; 85025-TC; 85027-TC; 85652-TC; 85730-TC; 86140-TC; 86850-TC; 86921-TC; 87040-TC; 87070-TC; 88305-TC; 88312-TC; 88342; 89051-TC; 90935-TC; 94799-TC; A4606; A9537; J0696; J0885; J1644; J1815; J2270; J2405; J2765; J7030; J7040; J7050; J7060; P9016-BL; Q0177; Z7610

== ENCOUNTER 2017-06-17 01:39 | Inpatient (IN) | payer OTHER ==
[~2017-06-17] VITALS: Ht 170.2 cm; Wt 67.6 kg
[~2017-06-17 01:39] MED LIST changes: +ACID1TAB12 PO; -CHOL10002 PO; -CLON0.3T TD; -CRAN500C5 PO; -FOLI1TAB16 PO; -GABA300C PO; +HEPA500020 SQ; +HYDR-3024 PO; +HYDR-4303 PO; -HYDR-548 PO; -Hydrocodone/Apap 10/325MG PO; +INSU100V3 SQ; -ISOS30TA6 PO; -LINA5TAB PO; -LORA1TAB PO; -METO-356 PO; -NIFE60TA2 PO
--- NOTE | 2017-06-17 01:45 | NUR ---
PT BIBRA FOR "SOB FOR UNKNOWN TIME; REFUSED BREATHING TX" PT AOX3, SOB NOTED, WHEEZING NOTED. NO NVD AT THIS TIME. PT GOWNED AND PLACED ON MONITOR PT NOTED WITH HD RIGHT ON RCW. DR. CHACON AT BEDSIDE FOR EVAL.
[2017-06-17] MEDS ORDERED: ALBUTEROL FS 2.5 MG/3 ML VIAL.NEB NEB ONE (02:00)
[2017-06-17] MEDS ORDERED: IPRATROPIUM NEB FS 0.5 MG/2.5 ML AMPUL.NEB NEB ONE (02:00)
[2017-06-17] MEDS ORDERED: methylPREDNISolone SOD SUCC 125 MG/2ML VIAL IV ONE (02:00)
[2017-06-17] MEDS ORDERED: oxyCODONE/APAP (5/325 MG) 1 UDTAB TABLET PO ONE (02:00)
[2017-06-17] MEDS ORDERED: methylPREDNISolone SOD SUCC 125 MG/2ML VIAL ONE (02:04)
[2017-06-17] MEDS ORDERED: oxyCODONE/APAP (5/325 MG) 1 UDTAB TABLET ONE (02:05)
--- NOTE | 2017-06-17 02:15 | NUR ---
RT AT BEDSIDE FOR BREATHING TX.
[2017-06-17] MEDS ORDERED: IPRATROPIUM NEB FS 0.5 MG/2.5 ML AMPUL.NEB ONE (02:16)
[2017-06-17] MEDS ORDERED: ALBUTEROL FS 2.5 MG/3 ML VIAL.NEB ONE (02:16)
--- NOTE | 2017-06-17 02:48 | NUR ---
LAB AT BEDSIDE FOR BLOOD CX
[2017-06-17 02:51] LABS: BASOPHILS # (AUTO) 0.1 /CMM (0.0-0.2); BASOPHILS % (AUTO) 0.5 % (0.0-2.0); EOSINOPHILS % (AUTO) 0.1 % (0.0-6.0); HEMATOCRIT 23 % (33-45); HEMOGLOBIN 7.5 g/dL (11.5-14.8); LYMPHOCYTES # (AUTO) 0.7 /CMM (0.8-4.8); LYMPHOCYTES % (AUTO) 5.3 % (20.0-44.0); MEAN CORPUSCULAR HEMOGLOBIN 28 PG (26.0-33.0); MEAN CORPUSCULAR HGB CONC 32 g/dl (31.0-36.0); MEAN CORPUSCULAR VOLUME 86 fL (82-100); MONOCYTES # (AUTO) 0.4 /CMM (0.1-1.30); MONOCYTES % (AUTO) 2.7 % (2.0-12.0); NEUTROPHILS # (AUTO) 12.5 /CMM (1.8-8.9); NEUTROPHILS % (AUTO) 91.4 % (43.0-81.0); PLATELET COUNT (AUTO) 468 /CMM (150-450); RDW COEFFICIENT OF VARIATION 24.1 (11.5-15.0); RED BLOOD CELL COUNT(AUTO) 2.72 MIL/uL (4.0-5.2); WHITE BLOOD COUNT (AUTO) 13.6 K/uL (4.3-11.0)
--- NOTE | 2017-06-17 03:08 | NUR ---
LAB AT BEDSIDE FOR BLOOD REDRAW
--- NOTE | 2017-06-17 03:25 | NUR ---
RADIOLOGY AT BEDSIDE FOR CXR
[2017-06-17 03:38] LABS: CALCIUM, SERUM 8.5 mg/dL (8.5-10.1); CARBON DIOXIDE 26 mmol/L (21-32); CHLORIDE 98 mmol/L (98-107); CREATININE 2.4 mg/dL (0.6-1.3); GLUCOSE 244 mg/dL (74-106); POTASSIUM 4.5 mmol/L (3.5-5.1); SODIUM SERUM 133 mmol/L (136-145); UREA NITROGEN, BLOOD 36 mg/dL (7-18)
[2017-06-17 03:41] LABS: MAGNESIUM 2.3 mg/dL (1.8-2.4); PHOSPHORUS 2.5 mg/dL (2.5-4.9)
[2017-06-17 03:45] LABS: TROPONIN I < 0.017 ng/mL (0.00-0.056)
[2017-06-17 03:51] LABS: ALANINE AMINOTRANSFERASE 14 U/L (12-78); ALKALINE PHOSPHATASE 198 U/L (46-116); ASPARTATE AMINOTRANSFERASE 17 U/L (15-37); BILIRUBIN,DIRECT 0.2 mg/dL (0.0-0.2); BILIRUBIN,TOTAL 0.3 mg/dL (0.2-1.0); TOTAL PROTEIN, SERUM 7.8 g/dL (6.4-8.2)
[2017-06-17 03:56] LABS: ALBUMIN 1.4 g/dL (3.4-5.0)
--- NOTE | 2017-06-17 04:09 | NUR ---
INFORMED MD PT D-DIMER 6.30. NNO AT THIS TIME.
[2017-06-17 04:20] LABS: B-TYPE NATRIURETIC PEPTIDE 139031 PG/ML (0-125)
--- NOTE | 2017-06-17 04:40 | NUR ---
DR. CHACON AT BEDSIDE FOR OCCULT STOOL. [place] AT BEDSIDE WTINESSED.
--- NOTE | 2017-06-17 04:47 | NUR ---
VQ SCAN WILL BE DONE AT 7AM PER ALBERTINA.
[2017-06-17] MEDS ORDERED: ENOXAPARIN SODIUM 60 MG/0.6 ML DISP.SYRIN SQ ONE (05:00)
[2017-06-17] MEDS ORDERED: ENOXAPARIN SODIUM 80 MG/0.8 ML DISP.SYRIN SQ ONE (05:10)
--- NOTE | 2017-06-17 05:22 | NUR ---
DR. CHACON SPOKE TO NAVA LINDSAY REGARDING ADMISSION.
[2017-06-17] MEDS ORDERED: AZITHROMYCIN 500 MG VIAL ONE (05:27)
--- NOTE | 2017-06-17 05:28 | NUR ---
UNABLE TO COLLECT SPUTUM CX AT THIS TIME. AWARE.
[2017-06-17] MEDS ORDERED: NA PHOS,M-B/NA PHOS,DI-BA 1 EA ENEMA RC PRN (05:30)
[2017-06-17] MEDS ORDERED: HYDROCODONE/APAP 5/325MG 1 EACH TABLET PO PRN (05:30)
[2017-06-17] MEDS ORDERED: ONDANSETRON HCL/PF 4 MG/2 ML VIAL IVP PRN (05:30)
[2017-06-17] MEDS ORDERED: ZOLPIDEM TARTRATE 5 MG TABLET PO PRN (05:30)
[2017-06-17] MEDS ORDERED: ACETAMINOPHEN 325 MG TABLET PO PRN (05:30)
[2017-06-17] MEDS ORDERED: Z GUARD REMEDY 2 OZ OINT TP PRN (05:30)
[2017-06-17] MEDS ORDERED: BISACODYL SUPP (10 MG) 10 MG/SUPP.RECT SUPP.RECT RC PRN (05:30)
[2017-06-17] MEDS ORDERED: MAG HYDROX/AL HYDROX/SIMETH 30 ML UDC PO PRN (05:30)
[2017-06-17] MEDS ORDERED: hydrOXYzine 10 MG TABLET PO PRN (05:30)
[2017-06-17] MEDS ORDERED: DEXTROSE 50%-WATER 50 ML DISP.SYRIN IV PRN ×2 (05:30→19:00)
--- NOTE | 2017-06-17 05:37 | NUR ---
PT ASSIGNED TO 111-1
--- NOTE | 2017-06-17 05:59 | NUR ---
REPORT GIVEN TO GALE BROOKE FOR HAILE / TELE BED 111
[2017-06-17] MEDS ORDERED: AZITHROMYCIN 500 MG in IV D5W 250 ML IV SCH (06:00)
[2017-06-17] MEDS ORDERED: FUROSEMIDE 40 MG/4 ML VIAL ONE (06:10)
[2017-06-17] MEDS ORDERED: LEVOFLOXACIN 500 MG /D5W 100ML 100 ML IV ONE (06:10)
--- NOTE | 2017-06-17 06:23 | NUR ---
PT TRANSFERRED PER ACLS PROTOCOL.
[2017-06-17] MEDS ORDERED: LEVOFLOXACIN 500 MG /D5W 100ML 500 MG in PREMIX 1 EA IV ONE (06:30)
[2017-06-17] MEDS ORDERED: FUROSEMIDE 20 MG/2 ML VIAL IV SCH (06:30)
[2017-06-17 06:42] VITALS: BP 110/54
[2017-06-17 08:00] VITALS: BP_SYST 110; BP_SYST 125; BP_DIAS 54; BP_DIAS 85
[2017-06-17] MEDS: HEPARIN SODIUM, PORCINE 5000 UNITS/1 ML VIAL SQ SCH ×3 (09:00→21:00)
[2017-06-17] MEDS: methylPREDNISolone SOD SUCC 40 MG/ML VIAL IV SCH ×3 (09:09→16:14)
[2017-06-17] MEDS: ACIDOPHILUS/BULGARICUS 1 EACH TAB.CHEW PO SCH ×2 (09:09→16:13)
[2017-06-17] MEDS: PANTOPRAZOLE 40 MG TABLET.DR PO SCH ×2 (09:10→16:14)
[2017-06-17] MEDS: BLOOD SUGAR DIAGNOSTIC 1 EACH STRIP IN SCH ×3 (09:11→18:13)
[2017-06-17] MEDS: INSULIN REGULAR, HUMAN 100 UNIT/ML 3 ML VIAL SQ PRN ×3 (09:14→18:23)
[2017-06-17] MEDS: FUROSEMIDE 40 MG/4 ML VIAL IV SCH ×2 (09:30→16:14)
[2017-06-17 12:00] VITALS: BP_SYST 126; BP_DIAS 54; BP_DIAS 93
[2017-06-17] MEDS: RENAL NOVASOURCE (8OZ) 1 EA BOX PO SCH ×2 (12:00→16:13)
[2017-06-17] MEDS: oxyCODONE/APAP (5/325 MG) 1 UDTAB TABLET PO PRN (14:24)
[2017-06-17 16:00] VITALS: BP 166/92
[2017-06-17] MEDS: IPRATROPIUM NEB FS 0.5 MG/2.5 ML AMPUL.NEB NEB PRN (17:59)
[2017-06-17] MEDS: ALBUTEROL FS 2.5 MG/3 ML VIAL.NEB NEB PRN (17:59)
[2017-06-17] MEDS: MORPHINE SULFATE INJ 4 MG/ML DISP.SYRIN IV PRN (18:10)
[2017-06-17 19:16] LABS: APPEARANCE,URINE CLOUDY (CLEAR); BILIRUBIN,URINE NEGATIVE (NEGATIVE); BLOOD, URINE 1+ Ery/uL (NEGATIVE); COLOR,URINE YELLOW (YELLOW); KETONES,URINE TRACE (NEGATIVE); LEUKOCYTE ESTERASE ,URINE 2+ (NEGATIVE); NITRITE, URINE NEGATIVE (NEGATIVE); PROTEIN,URINE 3+ mg/dl (NEGATIVE); UGLUCOSE TRACE mg/dL (NEGATIVE); UROBILINOGEN,URINE 0.2 EU/dL (0.2)
[2017-06-17 19:22] LABS: BACTERIA,URINE Many /HPF (None Seen); SQUAMOUS EPITHELIAL CELL,UR Few /HPF (None Seen); WBC,URINE 21-50 /HPF (0-3)
[2017-06-17 20:00] VITALS: BP 153/90
--- NOTE | 2017-06-17 20:17 | NUR ---
RN NOTE RECEIVED PATIENT IN THE BED, ALERT/ORIENTED X 3, NO RESPIRATORY DISTRESS NOTED, ABLE TO COMMUNICATE NEEDS, ALL SAFETY MEASURES TAKEN, ACTIVATE BED ALARM, CHECKED PRIOR AND ITS WORKING PROPERLY, BED IN THE LOWEST POSITION, CALL LIGHT WITHIN REACH, ALL BELONGINGS WITHIN REACH, WILL CONTINUE TO MONITOR PATIENT
--- NOTE | 2017-06-17 21:31 | NUR ---
rn note heparin was refused, offered x 2, still refused, explained risks and benefits, pt is aware, patient verbalized understanding, patient is alert/oriented
[2017-06-17] MEDS: *INSULIN REGULAR(HUMULIN R)HUM 100 UNIT/ML VIAL SQ PRN (22:53)
[2017-06-17] MEDS: BLOOD SUGAR DIAGNOSTIC 1 EACH STRIP VI SCH (22:55)
[2017-06-18] VITALS (7 sets, daily range): BP systolic 148–170; BP diastolic 87–100
[2017-06-18] MEDS: MORPHINE SULFATE INJ 4 MG/ML DISP.SYRIN IV PRN ×3 (00:53→20:45)
[2017-06-18] MEDS: oxyCODONE/APAP (5/325 MG) 1 UDTAB TABLET PO PRN ×2 (04:08→11:06)
[2017-06-18] MEDS ORDERED: LEVOFLOXACIN 500 MG /D5W 100ML 500 MG in PREMIX 1 EA IV SCH (06:00)
--- NOTE | 2017-06-18 07:08 | NUR ---
RN NOTE NO ACUTE CHANGES DURING MY SHIFT, GENERALIZED PAIN WELL CONTROLLED WITH PAIN MEDICATION, NO RESPIRATORY DISTRESS NOTED, ALERT/ORIENTED X 3, ALL SAFETY MEASURES TAKEN, CALL LIGHT WITHIN REACH, ALL BELONGINGS WITHIN REACH, SIDE RAILS UP X 2, BED IN THE LOWEST POSITION, WILL ENDORSE TO AM SHIFT
[2017-06-18 07:13] LABS: HEMATOCRIT 21 % (33-45); LYMPHOCYTES # (AUTO) 0.4 /CMM (0.8-4.8); LYMPHOCYTES % (AUTO) 3.6 % (20.0-44.0); MEAN CORPUSCULAR HEMOGLOBIN 28 PG (26.0-33.0); MEAN CORPUSCULAR HGB CONC 32 g/dl (31.0-36.0); MEAN CORPUSCULAR VOLUME 87 fL (82-100); MONOCYTES # (AUTO) 0.2 /CMM (0.1-1.30); MONOCYTES % (AUTO) 1.8 % (2.0-12.0); NEUTROPHILS # (AUTO) 10.8 /CMM (1.8-8.9); NEUTROPHILS % (AUTO) 94.6 % (43.0-81.0); PLATELET COUNT (AUTO) 355 /CMM (150-450); RDW COEFFICIENT OF VARIATION 22.5 (11.5-15.0); RED BLOOD CELL COUNT(AUTO) 2.46 MIL/uL (4.0-5.2); WHITE BLOOD COUNT (AUTO) 11.5 K/uL (4.3-11.0)
[2017-06-18 07:20] LABS: HEMOGLOBIN 6.9 g/dL (11.5-14.8)
[2017-06-18 07:30] LABS: ALBUMIN 1.5 g/dL (3.4-5.0); BILIRUBIN,TOTAL 0.3 mg/dL (0.2-1.0); CALCIUM, SERUM 8.5 mg/dL (8.5-10.1); CREATININE 2.5 mg/dL (0.6-1.3); MAGNESIUM 2.3 mg/dL (1.8-2.4); PHOSPHORUS 2.9 mg/dL (2.5-4.9); POTASSIUM 4.5 mmol/L (3.5-5.1); TOTAL PROTEIN, SERUM 7.5 g/dL (6.4-8.2)
--- NOTE | 2017-06-18 07:30 | NUR ---
RN NOTES RECIEVED PATEINT RESTING COMFORTABLY IN BED. NO ACUTE DISTRESS. SATURATING ADEQUATELY ON 3 LPM. RESPIRATIONS EVEN AND UNLABORED. COMPLAINING OF MILD BACK PAIN AT THIS TIME. NAWAF MIDLINE PATENT AND INTACT. BED LOCKED IN THE LOWEST POSITION WITH SIDE RAILS UP. CALL LIGHT WITHIN REACH. WILL CONTINUE TO MONITOR, ASSESS AND EDUCATE PATIENT THROUGHOUT SHIFT.
[2017-06-18 07:37] LABS: THYROID STIMULATING HORMONE 2.336 uIU/mL (0.358-3.74)
[2017-06-18] MEDS: BLOOD SUGAR DIAGNOSTIC 1 EACH STRIP VI SCH ×4 (08:13→21:16)
[2017-06-18] MEDS: INSULIN REGULAR, HUMAN 100 UNIT/ML 3 ML VIAL SQ PRN ×3 (08:13→18:22)
[2017-06-18] MEDS: RENAL NOVASOURCE (8OZ) 1 EA BOX PO SCH ×2 (08:14→17:53)
[2017-06-18] MEDS: HEPARIN SODIUM, PORCINE 5000 UNITS/1 ML VIAL SQ SCH ×2 (09:00→21:00)
--- NOTE | 2017-06-18 09:00 | NUR ---
RN NOTES PATEINT REFUSED HEPARIN. NOTIFIED ENGRAVER COPPERPLATE CADY OF PATIENT 6.9 HGB. WILL AWAITE ORDERS. NO ORDERS GIVEN FOR TRANSFUSION.
[2017-06-18] MEDS: methylPREDNISolone SOD SUCC 40 MG/ML VIAL IV SCH ×3 (09:14→17:51)
[2017-06-18] MEDS: PANTOPRAZOLE 40 MG TABLET.DR PO SCH ×2 (09:14→17:51)
[2017-06-18] MEDS: FUROSEMIDE 40 MG/4 ML VIAL IV SCH ×2 (09:14→17:51)
[2017-06-18] MEDS: ACIDOPHILUS/BULGARICUS 1 EACH TAB.CHEW PO SCH ×2 (09:14→17:51)
[2017-06-18 09:49] LABS: LYMPHOCYTES % (MANUAL) 3 % (16-48); MONOCYTES % (MANUAL) 2 % (0-11.0); NEUTROPHILS % (MANUAL) 95 (42-76)
[2017-06-18] MEDS: MAGNESIUM HYDROXIDE 30 ML UDC PO PRN (13:28)
[2017-06-18] MEDS ORDERED: FOSFOMYCIN TROMETHAMINE 3 G/PKT PACKET PO ONE (18:30)
[2017-06-18] MEDS ORDERED: FEE PK DOSING 1 MIN EA MC ONE (18:32)
[2017-06-18] MEDS: DOCUSATE SODIUM 100 MG CAPSULE PO SCH (18:39)
[2017-06-18] MEDS ORDERED: VANCOMYCIN 1 GM in IV D5W 250 ML IV ONE (19:00)
--- NOTE | 2017-06-18 19:30 | NUR ---
RN NOTE RECEIVED PATIENT RESTING COMFORTABLY IN BED. NO ACUTE DISTRESS. SATURATING ADEQUATELY ON 3 LPM. RESPIRATIONS EVEN AND UNLABORED. COMPLAINING OF MILD BACK PAIN AT THIS TIME. REPOSITIONED PATIENT. NAWAF MIDLINE PATENT AND INTACT. BED LOCKED IN THE LOWEST POSITION WITH SIDE RAILS UP. CALL LIGHT WITHIN REACH. WILL CONTINUE TO MONITOR.
--- NOTE | 2017-06-18 19:45 | NUR ---
RN NOTES PATEINT RESTING COMFORTABLY IN BED. CONDITION REMAINS UNCHANGED. NO ACUTE DISTRESS. SATURATING ADEQUATELY ON 3 LPM. RESPIRATIONS EVEN AND UNLABORED. COMPLAINING OF MILD BACK PAIN AT THIS TIME. NAWAF MIDLINE PATENT AND INTACT. BED LOCKED IN THE LOWEST POSITION WITH SIDE RAILS UP. CALL LIGHT WITHIN REACH. ALL NEEDS MET, ALL MEDS GIVEN APPROPRIATE. WILL ENDORSE TO NIGHT RN FOR HAILE.
[2017-06-18] MEDS ORDERED: GENTAMICIN 120 MG in IV D5W 100 ML IV ONE (20:00)
[2017-06-18] MEDS: POLYETHYLENE GLYCOL 3350 17 GM POWD.PACK PO SCH (21:15)
[2017-06-18] MEDS: *INSULIN REGULAR(HUMULIN R)HUM 100 UNIT/ML VIAL SQ PRN (21:22)
[2017-06-19] VITALS (8 sets, daily range): BP systolic 168–176; BP diastolic 100–115
[2017-06-19] MEDS: MORPHINE SULFATE INJ 4 MG/ML DISP.SYRIN IV PRN ×2 (03:44→12:15)
[2017-06-19] MEDS ORDERED: LEVOFLOXACIN 500 MG /D5W 100ML 500 MG in PREMIX 1 EA IV SCH (06:00)
[2017-06-19] MEDS: INSULIN REGULAR, HUMAN 100 UNIT/ML 3 ML VIAL SQ PRN (06:24)
--- NOTE | 2017-06-19 06:25 | NUR ---
WASTE TRANSPORTATION TECHNICIAN NOTE ALL NEEDS MET AND ATTENDED TO. PATIENT TURNED AND REPOSITIONED FREQUENTLY. KEPT CLEAN DRY AND COMFORTABLE. BLOOD SUGAR 200. 3 UNITS OF REGULAR INSULIN GIVEN.
[2017-06-19] MEDS: BLOOD SUGAR DIAGNOSTIC 1 EACH STRIP VI SCH ×4 (06:28→22:27)
--- NOTE | 2017-06-19 07:38 | NUR ---
RN NOTES RECEIVED PT FROM UPPER CUTTER OUT, A&0X3, ON 4L NC SATING WELL NO SOB OR DISTRESS. SR ON THE TELE MELECIO HR 101. NAWAF IV SITE INTACT NO IVF. BED LOCKED AND IN LOWEST POSITION, CALL LIGHT WITHIN REACH, SIDE RAILS UPX3, WILL CONT TO MELECIO.
[2017-06-19 07:56] LABS: BASOPHILS % (AUTO) 0.2 % (0.0-2.0); HEMATOCRIT 22 % (33-45); LYMPHOCYTES # (AUTO) 0.3 /CMM (0.8-4.8); LYMPHOCYTES % (AUTO) 2.8 % (20.0-44.0); MEAN CORPUSCULAR HEMOGLOBIN 28 PG (26.0-33.0); MEAN CORPUSCULAR HGB CONC 32 g/dl (31.0-36.0); MEAN CORPUSCULAR VOLUME 87 fL (82-100); MONOCYTES # (AUTO) 0.3 /CMM (0.1-1.30); MONOCYTES % (AUTO) 2.3 % (2.0-12.0); NEUTROPHILS # (AUTO) 10.9 /CMM (1.8-8.9); NEUTROPHILS % (AUTO) 94.7 % (43.0-81.0); PLATELET COUNT (AUTO) 349 /CMM (150-450); RDW COEFFICIENT OF VARIATION 22.2 (11.5-15.0); RED BLOOD CELL COUNT(AUTO) 2.51 MIL/uL (4.0-5.2); WHITE BLOOD COUNT (AUTO) 11.5 K/uL (4.3-11.0)
[2017-06-19 08:12] LABS: CALCIUM, SERUM 8.3 mg/dL (8.5-10.1); CREATININE 2.3 mg/dL (0.6-1.3); POTASSIUM 4.2 mmol/L (3.5-5.1)
[2017-06-19 08:16] LABS: MAGNESIUM 2.3 mg/dL (1.8-2.4); PHOSPHORUS 2.9 mg/dL (2.5-4.9)
[2017-06-19 08:43] LABS: GENTAMICIN,TROUGH 1.6 ug/ml (0.2-2.0)
[2017-06-19 08:51] LABS: FERRITIN 667 ng/mL (8-388)
[2017-06-19] MEDS: HEPARIN SODIUM, PORCINE 5000 UNITS/1 ML VIAL SQ SCH ×2 (09:00→20:48)
[2017-06-19] MEDS: ACIDOPHILUS/BULGARICUS 1 EACH TAB.CHEW PO SCH ×2 (09:12→16:25)
[2017-06-19] MEDS: DOCUSATE SODIUM 100 MG CAPSULE PO SCH ×2 (09:13→16:26)
[2017-06-19] MEDS: FUROSEMIDE 40 MG/4 ML VIAL IV SCH ×2 (09:13→16:25)
[2017-06-19] MEDS: methylPREDNISolone SOD SUCC 40 MG/ML VIAL IV SCH ×3 (09:13→16:25)
[2017-06-19] MEDS: PANTOPRAZOLE 40 MG TABLET.DR PO SCH ×2 (09:13→16:26)
[2017-06-19] MEDS: RENAL NOVASOURCE (8OZ) 1 EA BOX PO SCH ×2 (09:20→16:25)
[2017-06-19 09:28] LABS: IRON, SERUM 35 ug/dl (50-175); TOTAL IRON BINDING CAPACITY 84 ug/dl (250-450)
[2017-06-19] MEDS: oxyCODONE/APAP (5/325 MG) 1 UDTAB TABLET PO PRN (09:39)
[2017-06-19] MEDS: *INSULIN REGULAR(HUMULIN R)HUM 100 UNIT/ML VIAL SQ PRN ×3 (12:02→22:29)
[2017-06-19] MEDS ORDERED: VANCOMYCIN 1 GM in IV D5W 250 ML IV PRN (15:00)
[2017-06-19] MEDS: MAGNESIUM HYDROXIDE 30 ML UDC PO PRN (15:13)
--- NOTE | 2017-06-19 17:00 | NUR ---
RN NOTES HOME FURNISHINGS SALES REPRESENTATIVE CADY NOTIFIED OF BP IN 170S, PRN BP MEDICATION ORDER OBTAINED FOR BP GREATER THAN 180/120.
--- NOTE | 2017-06-19 18:44 | NUR ---
RN NOTES PT REMAINED IN STABLE CONDITION THROUGHOUT THE SHIFT, ALL NEEDS MET. WILL ENDORSE TO ONCOMING SHIFT.
[2017-06-19] MEDS ORDERED: EPOETIN ALFA (20,000 UNIT) 20,000 UNIT/ML VIAL SQ SCH (19:00)
[2017-06-19] MEDS ORDERED: VANCOMYCIN 500 MG in IV D5W 100 ML IV PRN (19:00)
[2017-06-19] MEDS ORDERED: GENTAMICIN 90 MG in IV D5W 50 ML IV PRN (19:00)
--- NOTE | 2017-06-19 19:20 | NUR ---
RN NOTE RECEIVED PATIENT AWAKE, HOB ELEVATED, ON 4LPM O2 VIA NC AND TOLERATED WELL WITH GOOD SATURATION. PT ALERT AND ORIENTED X3, DENIES PAIN, NAUSEA AND VOMITING. ABLE TO COMMUNICATE NEEDS, ALL BELONGINGS WITHIN REACH. RIGHT UPPER CHEST PORT A CATH, INTACT, DRY AND CLEAN. RIGHT UPPER ARM MIDLINE, INTACT AND PATENT. SAFETY MEASURES AND FALL PRECAUTION OBSERVED, WITH CALL LIGHT WITHIN REACH. KEPT COMFORTABLE AND ATTENDED. WILL CONTINUE TO MONITOR PT.
[2017-06-19] MEDS: LINEZOLID 600 MG TABLET PO SCH (20:45)
[2017-06-19] MEDS: POLYETHYLENE GLYCOL 3350 17 GM POWD.PACK PO SCH (22:28)
[2017-06-20] MEDS: IPRATROPIUM NEB FS 0.5 MG/2.5 ML AMPUL.NEB NEB PRN ×2 (01:33→23:53)
[2017-06-20] MEDS: ALBUTEROL FS 2.5 MG/3 ML VIAL.NEB NEB PRN ×2 (01:33→23:52)
[2017-06-20] MEDS: MORPHINE SULFATE INJ 4 MG/ML DISP.SYRIN IV PRN ×2 (03:18→16:07)
[2017-06-20 04:19] VITALS: BP 148/94
--- NOTE | 2017-06-20 06:59 | NUR ---
RN NOTES NO SIGNIFICANT CHANGE IN PT CONDITION OVERNIGHT. BP AT HIGH SIDE, ASYMPTOMATIC. PT DENIES NAUSEA AND VOMITING. KEPT PAIN AT TOLERABLE LEVEL. TURNED AND REPOSITIONED PT Q2H SCHEDULED. HAD 1BM SOFT, MODERATE IN AMOUNT. KEPT PT CLEAN AND DRY. SAFETY MEASURES AND FALL PRECAUTION OBSERVED. PLAN OF CARE DISCUSSED WITH THE PT.WILL ENDORSE TO MORNING RN FOR CONTINUITY OF CARE.
--- NOTE | 2017-06-20 07:30 | NUR ---
PT RECEIVED RESTING COMFORTABLY IN BED WITH EYES CLOSED. NO S/S OR C/O PAIN OR DISTRESS NOTED. SIDERAILS UP X2, CALL LIGHT LEFT WITHIN REACH. WILL CONTINUE PLAN OF CARE.
[2017-06-20] MEDS: BLOOD SUGAR DIAGNOSTIC 1 EACH STRIP VI SCH ×4 (08:00→21:23)
[2017-06-20] MEDS: ACIDOPHILUS/BULGARICUS 1 EACH TAB.CHEW PO SCH ×2 (08:36→16:09)
[2017-06-20] MEDS: PANTOPRAZOLE 40 MG TABLET.DR PO SCH ×2 (08:36→16:09)
[2017-06-20] MEDS: DOCUSATE SODIUM 100 MG CAPSULE PO SCH ×2 (08:36→16:09)
[2017-06-20] MEDS: LINEZOLID 600 MG TABLET PO SCH ×2 (08:36→21:09)
[2017-06-20] MEDS: FUROSEMIDE 40 MG/4 ML VIAL IV SCH ×2 (08:36→16:09)
[2017-06-20] MEDS: methylPREDNISolone SOD SUCC 40 MG/ML VIAL IV SCH ×3 (08:36→16:09)
[2017-06-20] MEDS: HEPARIN SODIUM, PORCINE 5000 UNITS/1 ML VIAL SQ SCH ×2 (08:39→21:00)
[2017-06-20] MEDS: INSULIN REGULAR, HUMAN 100 UNIT/ML 3 ML VIAL SQ PRN ×3 (08:50→18:04)
[2017-06-20] MEDS: RENAL NOVASOURCE (8OZ) 1 EA BOX PO SCH ×2 (10:00→18:05)
--- NOTE | 2017-06-20 18:08 | NUR ---
CHANGE OF SHIFT REPORT PT RESTING COMFORTABLY IN BED. NO S/S OR C/O PAIN OR DISTRESS NOTED. SIDE RAILS UP X2, CALL LIGHT LEFT WITHIN REACH. PT KEPT CLEAN, DRY, AND COMFORTABLE. NO SIGNIFICANT CHANGES SINCE PREVIOUS SHIFT. WILL GIVE REPORT TO SAM BEASLEY.
[2017-06-20] MEDS ORDERED: oxyCODONE/APAP (5/325 MG) 1 UDTAB TABLET PO PRN (19:00)
--- NOTE | 2017-06-20 19:30 | NUR ---
MS RN NOTES RECEIVED ON BED A/O X3,BREATHING NON LABORED,O2 IN USED AT 2L/NC TO KEEP O2 SAT ABOVE 90%.WITH RIGHT UPPER CHEST WALL SANTIAGO CATH FOR HD ACCESS,NAWAF MIDLINE FOR MEDS AND RFA SALINE LOCK INTACT AND PATENT.ISOLATION PRECAUTION FOR VRE URINE.CALL LIGHT IN REACH,NEEDS ANTICIPATED.
--- NOTE | 2017-06-20 21:00 | NUR ---
MS RN NOTES REFUSED HEPARIN 5000 UNITS THIS TIME.
[2017-06-20] MEDS: POLYETHYLENE GLYCOL 3350 17 GM POWD.PACK PO SCH (21:09)
[2017-06-20 21:12] VITALS: BP 147/93
[2017-06-20] MEDS: HYDROMORPHONE INJ 0.5 MG/0.5 ML SYRINGE IV PRN (21:18)
--- NOTE | 2017-06-20 21:18 | NUR ---
MS RN NOTES PAIN MANAGEMENT C/O GENERALIZED PAIN 8/10 ON PAIN SCALE,DILAUDID 0.25MG IV GIVEN ORDERED
[2017-06-20] MEDS: *INSULIN REGULAR(HUMULIN R)HUM 100 UNIT/ML VIAL SQ PRN (21:34)
[2017-06-21] VITALS: BP 169/99
--- NOTE | 2017-06-21 | NUR ---
MS RN NOTES SLEEPING AT THIS TIME,KEPT WARM AND COMFORTABLE.
[2017-06-21 04:00] VITALS: BP 178/106
[2017-06-21] MEDS: HYDROMORPHONE INJ 0.5 MG/0.5 ML SYRINGE IV PRN ×4 (04:00→22:15)
--- NOTE | 2017-06-21 04:00 | NUR ---
MS RN NOTES PAIN MANAGEMENT C/O GENERALIZED PAIN 9/10 ON PAIN SCALE,BP 178/106,DILAUDID 0.25MG IV GIVEN ORDERED.
[2017-06-21] MEDS: CLONIDINE HCL 0.1 MG TABLET PO PRN ×2 (04:13→10:50)
--- NOTE | 2017-06-21 04:13 | NUR ---
MS RN NOTES BP 178/106,CATAPRES 0.1MG PO GIVEN.
--- NOTE | 2017-06-21 06:00 | NUR ---
MS RN NOTES LATEST BP 162/102,DENIES DIZZINESS,DENIES HEADACHE,FAIRLY RESTED.LAST HD WAS ON SATURDAY,2LITERS OUT.POSSIBLE HD TODAY.CALL LIGHT IN REACH,NEEDS ATTENDED.WILL ENDORSE TO DAY NURSE FOR CONTINUITY OF CARE.
[2017-06-21 07:14] LABS: HEMATOCRIT 24 % (33-45); HEMOGLOBIN 7.5 g/dL (11.5-14.8); LYMPHOCYTES # (AUTO) 0.3 /CMM (0.8-4.8); MEAN CORPUSCULAR HEMOGLOBIN 28 PG (26.0-33.0); MEAN CORPUSCULAR HGB CONC 32 g/dl (31.0-36.0); MEAN CORPUSCULAR VOLUME 88 fL (82-100); MONOCYTES # (AUTO) 0.4 /CMM (0.1-1.30); MONOCYTES % (AUTO) 3.2 % (2.0-12.0); NEUTROPHILS # (AUTO) 10.8 /CMM (1.8-8.9); NEUTROPHILS % (AUTO) 93.8 % (43.0-81.0); PLATELET COUNT (AUTO) 350 /CMM (150-450); RDW COEFFICIENT OF VARIATION 22.9 (11.5-15.0); RED BLOOD CELL COUNT(AUTO) 2.69 MIL/uL (4.0-5.2); WHITE BLOOD COUNT (AUTO) 11.5 K/uL (4.3-11.0)
[2017-06-21 07:24] LABS: CALCIUM, SERUM 8.1 mg/dL (8.5-10.1); CREATININE 2.9 mg/dL (0.6-1.3); POTASSIUM 5.4 mmol/L (3.5-5.1)
--- NOTE | 2017-06-21 07:49 | NUR ---
RN OPENING NOTES RECEIVED PT. PT STABLE AND RESTING IN BED. NO S/S OF RESP DISTRESS. PT DOES NOT APPEAR TO BE IN PAIN AT THIS TIME. CURRENTLY RECEIVING DIALYSIS, SANTIAGO CATH ON RIGHT CHEST WALL. PT AWAITING PAIN MANAGEMENT CONSULT WITH DR. BEEBE. SAFETY MEASURES IN PLACE, CALL LIGHT WITHIN REACH. WILL CONTINUE TO MONITOR.
[2017-06-21 08:00] VITALS: BP 162/97
[2017-06-21] MEDS: PANTOPRAZOLE 40 MG TABLET.DR PO SCH ×2 (08:47→16:26)
[2017-06-21] MEDS: LINEZOLID 600 MG TABLET PO SCH ×2 (08:47→21:52)
[2017-06-21] MEDS: FUROSEMIDE 40 MG/4 ML VIAL IV SCH ×2 (08:48→16:26)
[2017-06-21] MEDS: DOCUSATE SODIUM 100 MG CAPSULE PO SCH ×2 (08:48→16:25)
[2017-06-21] MEDS: methylPREDNISolone SOD SUCC 40 MG/ML VIAL IV SCH ×3 (08:48→16:25)
[2017-06-21] MEDS: BLOOD SUGAR DIAGNOSTIC 1 EACH STRIP VI SCH ×4 (08:48→22:05)
[2017-06-21] MEDS: ACIDOPHILUS/BULGARICUS 1 EACH TAB.CHEW PO SCH ×2 (08:54→16:25)
[2017-06-21] MEDS: RENAL NOVASOURCE (8OZ) 1 EA BOX PO SCH ×2 (08:54→17:06)
[2017-06-21] MEDS: INSULIN REGULAR, HUMAN 100 UNIT/ML 3 ML VIAL SQ PRN ×4 (08:57→22:11)
[2017-06-21] MEDS: HEPARIN SODIUM, PORCINE 5000 UNITS/1 ML VIAL SQ SCH ×2 (08:57→21:55)
--- NOTE | 2017-06-21 11:30 | NUR ---
RN NOTES PRN CATAPRES GIVEN FOR ELEVATED BP OF 168/103. WILL CONTINUE TO MONITOR BP.
[2017-06-21 16:00] VITALS: BP 146/82
--- NOTE | 2017-06-21 18:17 | NUR ---
RN CLOSING NOTE PT IN BED RESTING. NO S/S OF RESP DIST RESS OR SOB. PT IS ON 4L O2 VIA NC, O2 SAT WNL. PER MD ORDER, PT TO HAVE FC INSERTION FOR URINE RETENTION. ALL PT NEEDS ANTICIPATED AND MET. SAFETY MEASURES IN PLACE, CALL LIGHT WITHIN REACH. WILL ENDORSE TO SHOE PLANNER FOR HAILE.
--- NOTE | 2017-06-21 20:00 | NUR ---
RN NOTES RECEIVED PATIENT AWAKE IN BED WATCHING TV WITH NO RESPIRATORY DISTRESS OR SHORTNESS OF BREATH. BREATHING EVEN AND UNLABORED. COMPLAINING OF BACK PAIN. ALERT AND ORIENTED, VERBALLY ABLE TO COMMUNICATE NEEDS. ON O2 AT 4LPM VIA NASAL CANNULA TOLERATING WELL. KEPT CLEAN AND DRY. WILL CONTINUE TO MONITOR
[2017-06-21] MEDS: POLYETHYLENE GLYCOL 3350 17 GM POWD.PACK PO SCH (21:57)
[2017-06-21] MEDS ORDERED: TAMSULOSIN 0.4 MG CAP.SR.24H PO SCH (22:00)
[2017-06-22 02:42] VITALS: BP 152/89
--- NOTE | 2017-06-22 06:26 | NUR ---
RN CLOSING NOTE RESTING COMFORTABLY IN BED WITH NO RESPIRATORY DISTRESS OR SHORTNESS OF BREATJ. BREATHING EVEN AND UNLABORED; NO SIGNIFICANT CHANGE OF CONDITION. WILL ENDORSE TO AM SHIFT FOR CONTINUITY OF CARE
[2017-06-22] MEDS: BLOOD SUGAR DIAGNOSTIC 1 EACH STRIP VI SCH ×3 (06:49→17:30)
[2017-06-22] MEDS: INSULIN REGULAR, HUMAN 100 UNIT/ML 3 ML VIAL SQ PRN (06:57)
--- NOTE | 2017-06-22 07:22 | NUR ---
MS RN OPENING NOTE RECEIVED BEDSIDE SBAR REPORT ON THE PATIENT. PATIENT IS A/OX4, ANXIOUS AT TIMES, AGITATED BUT COOPERATIVE. PATIENT IS AWAKE AND RESPONSIVE IN BED. BED IS LOCKED IN LOWEST POSITION, SIDE RAILS UP X3, BED ALARM IS ON. CALL LIGHT WITHIN REACH. EDUCATED TO USE THE CALL LIGHT TO CALL FOR ASSISTANCE AND VERBALIZED UNDERSTANDING. ALL NEEDS ARE MET AT THIS TIME. DENIES PAIN/DISCOMFORT AT THIS TIME. CHEST IS RISING EQUALLY, BILATERALLY. WILL CONTINUE TO ASSESS/MONITOR THROUGHOUT THE SHIFT.
[2017-06-22 08:00] VITALS: BP 175/99
[2017-06-22] MEDS: FUROSEMIDE 40 MG/4 ML VIAL IV SCH ×2 (08:04→16:47)
[2017-06-22] MEDS: methylPREDNISolone SOD SUCC 40 MG/ML VIAL IV SCH ×3 (08:04→16:47)
[2017-06-22] MEDS: ACIDOPHILUS/BULGARICUS 1 EACH TAB.CHEW PO SCH ×2 (08:05→16:47)
[2017-06-22] MEDS: DOCUSATE SODIUM 100 MG CAPSULE PO SCH ×2 (08:05→16:47)
[2017-06-22] MEDS: PANTOPRAZOLE 40 MG TABLET.DR PO SCH ×2 (08:05→16:47)
[2017-06-22] MEDS: LINEZOLID 600 MG TABLET PO SCH (08:05)
[2017-06-22] MEDS: CLONIDINE HCL 0.1 MG TABLET PO PRN ×2 (08:05→15:52)
[2017-06-22] MEDS: HEPARIN SODIUM, PORCINE 5000 UNITS/1 ML VIAL SQ SCH (08:11)
[2017-06-22] MEDS: RENAL NOVASOURCE (8OZ) 1 EA BOX PO SCH ×2 (08:17→16:58)
--- NOTE | 2017-06-22 08:21 | NUR ---
PATIENT PRESENTED WITH ELEVATED BP OF 175/99 MM HG. CLONIDINE ADMINISTERED ORDERED.
--- NOTE | 2017-06-22 08:22 | NUR ---
PATIENT STATED SHE IS ABLE TO TOLERATE NOVASOURCE WELL DESPITE THE PRESENCE OF LACTOSE IN IT. ALLERGIES VERIFIED.
--- NOTE | 2017-06-22 08:35 | NUR ---
blood pressure re-checked after administring clonidine. decreased to 135/85
[2017-06-22] MEDS: HYDROMORPHONE INJ 0.5 MG/0.5 ML SYRINGE IV PRN ×2 (09:25→15:21)
[2017-06-22] MEDS ORDERED: LINE600T PO (11:44)
[2017-06-22] MEDS ORDERED: PRED50TA PO (11:44)
[2017-06-22] MEDS ORDERED: FURO-144 PO (11:45)
--- NOTE | 2017-06-22 12:04 | NUR ---
PATIENT REPORTS FEELING OF IMPENDING DOOM, FEELING SCARED AND SHORT OF BENEATH. PATIENT PRESENTS WITH ANXIETY. CALLED DR. SLOAN TO OBTAIN ORDER FOR ANTILYTICS.
--- NOTE | 2017-06-22 12:27 | NUR ---
Patient reports severe anxiety. Presents with diaphoresis, grimacing and SOB. Ativan administered as prescribed.
[2017-06-22] MEDS ORDERED: LORAZEPAM 1 MG TABLET PO PRN (12:30)
--- NOTE | 2017-06-22 13:00 | NUR ---
Discharge order received. Patient notified. Patient stated she does not feel safe leaving the hospital and wants to stay for another day. Dr. Walton informed. Per Dr. Walton patient is medically cleared to leave the hospital and go back to SNF. Case management informed. Giovany and charge nurse Rivka discussed patient's rights and responsibilities at the bedside. PAtient agreed to leave the hospital and she feels "safe" later. Ambulance warehouse order picker scheduled for warehouse order picker.
--- NOTE | 2017-06-22 13:00 | NUR ---
Patient reports mild relief from anxiety. Chest rising equally bilaterally. Spo2 98% on 2L.
[2017-06-22] MEDS: *INSULIN REGULAR(HUMULIN R)HUM 100 UNIT/ML VIAL SQ PRN (13:16)
--- NOTE | 2017-06-22 13:46 | NUR ---
Patient refused skin assessment/pictures.
--- NOTE | 2017-06-22 15:54 | NUR ---
Patient presents with elevated Bp of 165/107 mmhg. clonidine aadministered as ordered.
[2017-06-22 16:00] VITALS: BP 170/98
--- NOTE | 2017-06-22 16:20 | NUR ---
VALDEZ CATHETER REMOVED. PATIENT TOLERATED PROCEDURE WELL. PATIENT IS ANURIC. DR JAYSHREE MATAMOROS NOTIFIED.
--- NOTE | 2017-06-22 17:00 | NUR ---
TELEPHONE SBAR REPORT GIVEN TO ALVINA BEASLEY AT RECEIVING SNF
--- NOTE | 2017-06-22 17:30 | NUR ---
Patient refused Blood Glucose check stating she will have it chekced after her discharge at the facility.
--- NOTE | 2017-06-22 17:30 | NUR ---
DISCHARGE INSTRUCTIONS PROVIDED TO THE PATIENT. DISCHARGE EDUCATED COMPLETED. ALL BELONGINGS ARE ACCOUNTED FOR. ALL QUESTIONS ANSWERED. REPORT GIVEN TO ACCEPTING FACILITY. AWAITING FOR THE AMBULANCE.
--- NOTE | 2017-06-22 18:07 | NUR ---
Ambulance staff took patient's BP. Patient's BP elevated at 154/104. RN called accepting facility and spoke to supervisor tower [place]. Per GALE Still patient presents with usually elevated BP. 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
--- NOTE | 2017-06-22 18:20 | NUR ---
Iv catheter removed. Oclussive dressing applied. PAtient tolerated procedure well. Patient is leaving the hospital via gurney acompannied by the ambulance staff.
--- NOTE | 2017-06-22 18:28 | NUR ---
Patient left the unit in stable condition acompannied by the ambulance staff.
== END 2017-06-22 18:31 | DRG 133 ==
LOC: ER 01:41 → TELE1 05:40 → MEDSG1 06-19 10:08
PROVIDERS: ADMIT Nurse Practitioner Acute Care; ATTEND Internal Medicine
PROC: 5A1D70Z Performance of Urinary Filtration, Intermittent, Less than 6 Hours Per Day (ICD-10-PCS; principal; 2017-06-17)
PROC: B546ZZA Ultrasonography of Right Subclavian Vein, Guidance (ICD-10-PCS; principal; 2017-06-17)
PROC: 05H533Z Insertion of Infusion Device into Right Subclavian Vein, Percutaneous Approach (ICD-10-PCS; principal; 2017-06-17)
PROC: 5A1D70Z Performance of Urinary Filtration, Intermittent, Less than 6 Hours Per Day (ICD-10-PCS; 2017-06-19)
PROC: 5A1D70Z Performance of Urinary Filtration, Intermittent, Less than 6 Hours Per Day (ICD-10-PCS; 2017-06-21)
DX: J96.01 Acute respiratory failure with hypoxia (principal); E43 Unspecified severe protein-calorie malnutrition; I50.33 Acute on chronic diastolic (congestive) heart failure; J18.9 Pneumonia, unspecified organism; N18.6 End stage renal disease; K31.84 Gastroparesis; E11.22 Type 2 diabetes mellitus with diabetic chronic kidney disease; E11.43 Type 2 diabetes mellitus with diabetic autonomic (poly)neuropathy; J90 Pleural effusion, not elsewhere classified; E66.01 Morbid (severe) obesity due to excess calories; I13.2 Hypertensive heart and chronic kidney disease with heart failure and with stage 5 chronic kidney disease, or end stage renal disease; F41.9 Anxiety disorder, unspecified; E78.5 Hyperlipidemia, unspecified; D63.8 Anemia in other chronic diseases classified elsewhere; G89.4 Chronic pain syndrome; I25.10 Atherosclerotic heart disease of native coronary artery without angina pectoris; I25.2 Old myocardial infarction; K59.00 Constipation, unspecified; N39.0 Urinary tract infection, site not specified; Z99.2 Dependence on renal dialysis; Z90.710 Acquired absence of both cervix and uterus; Z87.891 Personal history of nicotine dependence; Z88.6 Allergy status to analgesic agent; Z91.018 Allergy to other foods; G47.00 Insomnia, unspecified; Y95 Nosocomial condition; D50.9 Iron deficiency anemia, unspecified; D72.829 Elevated white blood cell count, unspecified; B95.2 Enterococcus as the cause of diseases classified elsewhere; Z68.23 Body mass index [BMI] 23.0-23.9, adult; K21.0 Gastro-esophageal reflux disease with esophagitis; K29.70 Gastritis, unspecified, without bleeding
CPT/HCPCS: 36415; 36569; 71045-TC; 71250-TC; 78582; 80048-TC; 80053-TC; 80061-TC; 80076-TC; 80170-TC; 80202-TC; 81000-TC; 82728-TC; 82962-TC; 83540-TC; 83735-TC; 83880; 84100-TC; 84443-TC; 84484-TC; 85025-TC; 85378-TC; 87040-TC; 87081-TC; 87086-TC; 87186-TC; 87400; 90935-TC; 94799-TC; A4216; A4606; A9540; A9567; J0456; J0885; J1580; J1644; J1650; J1815; J1940; J1956; J2270; J2920; J2930; J3370; J7030; J7060; Q0177; Z7610

== ENCOUNTER 2017-06-25 15:20 | Inpatient (IN) | payer OTHER ==
[~2017-06-25] VITALS: Ht 167.6 cm; Wt 74.4 kg
[~2017-06-25 15:20] MED LIST changes: +FURO-144 PO; +LINE600T PO; +PRED50TA PO
--- NOTE | 2017-06-25 15:31 | NUR ---
SONYA DT GENERALIZED PAIN-- PT IS ON SP HD. PATIENT NOT IN DISTRESS. SKIN IS WARM TO DRY AND NON DIAPHORETIC. PT IS AFEBRILE. VSS
[2017-06-25 16:22] LABS: BASOPHILS # (AUTO) 0.6 /CMM (0.0-0.2); BASOPHILS % (AUTO) 4.4 % (0.0-2.0); EOSINOPHILS % (AUTO) 0.3 % (0.0-6.0); HEMATOCRIT 27 % (33-45); HEMOGLOBIN 9.1 g/dL (11.5-14.8); LYMPHOCYTES # (AUTO) 0.9 /CMM (0.8-4.8); LYMPHOCYTES % (AUTO) 7.1 % (20.0-44.0); MEAN CORPUSCULAR HEMOGLOBIN 30 PG (26.0-33.0); MEAN CORPUSCULAR HGB CONC 34 g/dl (31.0-36.0); MEAN CORPUSCULAR VOLUME 90 fL (82-100); MONOCYTES # (AUTO) 0.7 /CMM (0.1-1.30); MONOCYTES % (AUTO) 5.4 % (2.0-12.0); NEUTROPHILS # (AUTO) 10.3 /CMM (1.8-8.9); NEUTROPHILS % (AUTO) 82.8 % (43.0-81.0); PLATELET COUNT (AUTO) 320 /CMM (150-450); RDW COEFFICIENT OF VARIATION 23.5 (11.5-15.0); WHITE BLOOD COUNT (AUTO) 12.5 K/uL (4.3-11.0)
--- NOTE | 2017-06-25 16:23 | NUR ---
PATIENT STRONGLY REFUSED IN AND OUT CATHETER
[2017-06-25 16:27] LABS: ABG OXYGEN SATURATION 90.5 % (92.0-98.5); ABG PCO2 42.9 mmHg (35.0-45.0); ABG PO2 62.5 mmHg (75.0-100.0); AaDO2 122.7 mmHg; COHb 0.9 % (0.5-1.5); MetHb 0.7 % (0.0-1.5); O2Hb 89.1 % (94.0-97.0); SITE, ABG Right Brachial; VENT MODE, BG NASAL CANNULA
[2017-06-25 16:33] LABS: INR 1.27 (0.85-1.15)
[2017-06-25 16:54] LABS: ALBUMIN 1.8 g/dL (3.4-5.0); BILIRUBIN,DIRECT 0.2 mg/dL (0.0-0.2); BILIRUBIN,TOTAL 0.6 mg/dL (0.2-1.0); CREATININE 2.6 mg/dL (0.6-1.3); POTASSIUM 5.3 mmol/L (3.5-5.1); TOTAL PROTEIN, SERUM 6.8 g/dL (6.4-8.2)
[2017-06-25 16:56] LABS: TROPONIN I 0.05 ng/mL (0.00-0.056)
[2017-06-25 17:40] LABS: EOSINOPHILS % (MANUAL) 2 % (0-4); LYMPHOCYTES % (MANUAL) 8 % (16-48); MONOCYTES % (MANUAL) 6 % (0-11.0); NEUTROPHILS % (MANUAL) 84 (42-76)
[2017-06-25] MEDS ORDERED: SODIUM POLYSTYRENE SULFONATE 15 G/60 ML BOTTLE ONE (17:59)
[2017-06-25] MEDS ORDERED: SODIUM POLYSTYRENE SULFONATE 15 G/60 ML BOTTLE PO ONE (18:00)
--- NOTE | 2017-06-25 18:10 | NUR ---
MD WILKINSON AT BEDSIDE
--- NOTE | 2017-06-25 18:10 | NUR ---
PATIENT ASLEEP. VSS
--- NOTE | 2017-06-25 18:29 | NUR ---
MIDLINE NURSE AT BEDSIDE
--- NOTE | 2017-06-25 18:35 | NUR ---
PATIENT ASLEEP. NO EVIDENCE OF PAIN OR DISCOMFORT
[2017-06-25] MEDS ORDERED: FURO-144 PO (18:36)
[2017-06-25] MEDS ORDERED: PRED50TA PO (18:36)
[2017-06-25] MEDS ORDERED: LINE600T PO (18:36)
[2017-06-25] MEDS ORDERED: LINEZOLID 600 MG TABLET PO SCH (19:00)
[2017-06-25] MEDS ORDERED: MAG HYDROX/AL HYDROX/SIMETH 30 ML UDC PO PRN ×2 (19:00→19:15)
[2017-06-25] MEDS ORDERED: Z GUARD REMEDY 2 OZ OINT TP PRN ×2 (19:00→19:15)
[2017-06-25] MEDS ORDERED: MAGNESIUM HYDROXIDE 30 ML UDC PO PRN (19:00)
[2017-06-25] MEDS ORDERED: ZOLPIDEM TARTRATE 5 MG TABLET PO PRN (19:00)
[2017-06-25] MEDS ORDERED: ONDANSETRON HCL/PF 4 MG/2 ML VIAL IVP PRN (19:00)
[2017-06-25] MEDS ORDERED: ACETAMINOPHEN 325 MG TABLET PO PRN (19:00)
[2017-06-25] MEDS ORDERED: HYDROCODONE/APAP 5/325MG 1 EACH TABLET PO PRN (19:00)
--- NOTE | 2017-06-25 19:02 | NUR ---
REPORT GIVEN TO GALE YOUNGER FOR HAILE
--- NOTE | 2017-06-25 19:09 | NUR ---
PT TRANSFERRED PER ACLS PROTOCOL PER GALE LANDIN.
--- NOTE | 2017-06-25 19:10 | NUR ---
ELEMENTARY LIBRARIAN OPENING NOTES: RECEIVED PT AND IS A/OX3. PT ON 3LPM VIA NC AND IS TOLERATING WELL. PT TO BE PLACED ON TELE BOX. PT HAS NAWAF MIDLINE #20G AND IS PATENT AND INTACT. PT ALSO HAS R UPPER CHEST WALL HD CATH IN PLACE. NO SOB NOTED. NO S/S OF DISTRESS NOTED AT THIS TIME. AWAITING FOR DIET ORDERS TO BE PLACED. CALL LIGHT WITHIN PT'S REACH. BED KEPT IN LOW, LOCKED POSITION, AND SIDE RAILS X 2 UP. WILL CONTINUE TO MONITOR PT.
[2017-06-25 20:00] VITALS: BP 159/104
--- NOTE | 2017-06-25 20:16 | NUR ---
RUBBER MOLDER NOTES: SPOKE WITH POLLUTION CONTROL ENGINEER JAQUAN SMITH AND GOT ORDER FOR [facility] DIET.
[2017-06-25] MEDS: LINEZOLID 600 MG TABLET PO SCH (21:03)
[2017-06-25] MEDS: ACETAMINOPHEN 325 MG TABLET PO PRN (21:03)
[2017-06-25] MEDS: ONDANSETRON HCL/PF 4 MG/2 ML VIAL IVP PRN (21:07)
--- NOTE | 2017-06-25 21:11 | NUR ---
BICYCLE II ASSEMBLER NOTES: PT COMPLAINING OF GENERALIZED PAIN AND LOWER BACK PAIN. PT SAID THAT SHE CANNOT TAKE NORCO 5. PT WAS ADMINISTERED TYLENOL 650 MG. PT ALSO COMPLAINED OF NAUSEA. PT WAS ADMINISTERED ZOFRAN. WILL CONTINUE TO MONITOR PT.
--- NOTE | 2017-06-25 22:36 | NUR ---
SOFTWARE DEVELOPMENT TEST ENGINEER NOTES: SPOKE WITH BUFF WHEEL FABRICATOR JAQUAN SMITH. GOT ORDER FOR PRN BREATHING TREATMENTS ATROVENT 0.5MG Q4HR PRN AND ALBUTEROL 2.5MG Q4HR PRN.
--- NOTE | 2017-06-25 22:38 | NUR ---
DINKEY MECHANIC NOTES: SPOKE WITH SOLE LEATHER CUTTING MACHINE OPERATOR JAQUAN SMITH REGARDING PT'S CHRONIC LOWER BACK PAIN. NO IV PAIN MEDICATIONS ORDERED AT THIS TIME.
[2017-06-25] MEDS: IPRATROPIUM NEB FS 0.5 MG/2.5 ML AMPUL.NEB NEB PRN (22:57)
[2017-06-25] MEDS: ALBUTEROL FS 2.5 MG/0.5 ML VIAL.NEB NEB PRN (22:58)
--- NOTE | 2017-06-25 23:13 | NUR ---
DUPLICATE MAKER NOTES: SPOKE WITH SEXUAL ASSAULT COUNSELOR JAQUAN SMITH. GOT ORDER FOR ACCUCHECKS AND MILD SLIDING SCALE.
[2017-06-25] MEDS ORDERED: DEXTROSE 50%-WATER 50 ML DISP.SYRIN IV PRN (23:30)
[2017-06-25] MEDS: HYDROCODONE/APAP 5/325MG 1 EACH TABLET PO PRN (23:47)
--- NOTE | 2017-06-25 23:50 | NUR ---
MINER NOTES: PT COMPLAINING OF 7/10 LOWER BACK AND GENERALIZED PAIN. PT AGREED TO TAKE THE NORCO 5 THAT WAS OFFERED EARLIER. WILL CONTINUE TO MONITOR PT.
[2017-06-26 04:00] VITALS: BP 161/102
[2017-06-26] MEDS: HYDROCODONE/APAP 5/325MG 1 EACH TABLET PO PRN (04:16)
[2017-06-26 04:20] VITALS: BP 173/100
--- NOTE | 2017-06-26 04:22 | NUR ---
SEED CONE PICKER NOTES: PT COMPLAINING OF LOWER BACK PAIN AND GENERALIZED 7/10 PAIN. PT WAS ADMINISTERED NORCO 5. WILL CONTINUE TO MONITOR PT. ALSO, GOT CONSENT FOR ULTRASOUND GUIDED THORACENTESIS. PLACED IN CHART.
[2017-06-26 06:13] VITALS: BP 141/82
--- NOTE | 2017-06-26 06:13 | NUR ---
SHRINK PIT OPERATOR NOTES: BP MANUALLY CHECKED AND IS 141/83 HR 113. WILL CONTINUE TO MONITOR.
[2017-06-26] MEDS: BLOOD SUGAR DIAGNOSTIC 1 EACH STRIP IN SCH ×4 (06:17→21:53)
[2017-06-26] MEDS: INSULIN REGULAR, HUMAN 100 UNIT/ML 3 ML VIAL SQ PRN ×4 (06:33→22:00)
--- NOTE | 2017-06-26 06:33 | NUR ---
WIRE ROLLER NOTES: BLOOD SUGAR WAS 189. 3 UNITS OF INSULIN WAS ADMINISTERED. HAD TO BORROW INSULIN SINCE THIS IS NEW ADMISSION.
--- NOTE | 2017-06-26 07:30 | NUR ---
TELEVISION OPERATOR OPENING NOTES: PATIENT AWAKE ALERT AND VERBALLY RESPONSIVE. PT ON 2LPM VIA NC AND IS TOLERATING WELL. PT TURNED AND REPOSITIONED EVERY Q2HRS. PT HAS NAWAF MIDLINE AND IS PATENT AND INTACT. PT ALSO HAS RIGHT UPPER CHEST WALL SANTIAGO CATH AND IS INTACT. PT ON TELE MONITOR. CALL LIGHT WITHIN PT'S REACH. BED KEPT IN LOW, LOCKED POSITION, AND SIDE RAILS X2 UP. WILL CONTINUE TO MONITOR
--- NOTE | 2017-06-26 07:48 | NUR ---
SIGNS AND DISPLAYS SALESPERSON CLOSING NOTES: ALL NEEDS WERE ATTENDED AND ANTICIPATED FOR. PT ON 3LPM VIA NC AND IS TOLERATING WELL. PT TURNED AND REPOSITIONED EVERY Q2HRS. PT HAS NAWAF MIDLINE AND IS PATENT AND INTACT. CURRENTLY S/L. PT ALSO HAS RIGHT UPPER CHEST WALL SANTIAGO CATH AND IS INTACT. PT ON TELE BOX AND READING SHOWS SR 97. CALL LIGHT WITHIN PT'S REACH. BED KEPT IN LOW, LOCKED POSITION, AND SIDE RAILS X2 UP. ENDORSED TO AM NURSE FOR HAILE.
[2017-06-26 08:00] VITALS: BP_SYST 166; BP_SYST 172; BP_DIAS 102; BP_DIAS 88
[2017-06-26] MEDS ORDERED: predniSONE 20 MG TABLET PO SCH (09:00)
[2017-06-26] MEDS: RENAL NOVASOURCE (8OZ) 1 EA BOX PO SCH ×3 (09:08→17:38)
[2017-06-26] MEDS: ACETAMINOPHEN 325 MG TABLET PO PRN ×2 (09:08→19:04)
[2017-06-26 10:11] LABS: BASOPHILS # (AUTO) 0.3 /CMM (0.0-0.2); BASOPHILS % (AUTO) 1.8 % (0.0-2.0); EOSINOPHILS # (AUTO) 0.1 /CMM (0.0-0.7); EOSINOPHILS % (AUTO) 0.6 % (0.0-6.0); HEMATOCRIT 28 % (33-45); HEMOGLOBIN 8.7 g/dL (11.5-14.8); LYMPHOCYTES # (AUTO) 0.5 /CMM (0.8-4.8); LYMPHOCYTES % (AUTO) 3.6 % (20.0-44.0); MEAN CORPUSCULAR HEMOGLOBIN 28 PG (26.0-33.0); MEAN CORPUSCULAR HGB CONC 31 g/dl (31.0-36.0); MEAN CORPUSCULAR VOLUME 92 fL (82-100); MONOCYTES # (AUTO) 0.4 /CMM (0.1-1.30); MONOCYTES % (AUTO) 2.9 % (2.0-12.0); NEUTROPHILS # (AUTO) 12.9 /CMM (1.8-8.9); NEUTROPHILS % (AUTO) 91.1 % (43.0-81.0); PLATELET COUNT (AUTO) 306 /CMM (150-450); RDW COEFFICIENT OF VARIATION 26.4 (11.5-15.0); RED BLOOD CELL COUNT(AUTO) 3.06 MIL/uL (4.0-5.2); WHITE BLOOD COUNT (AUTO) 14.1 K/uL (4.3-11.0)
[2017-06-26 10:39] LABS: ALBUMIN 1.9 g/dL (3.4-5.0); BILIRUBIN,TOTAL 0.7 mg/dL (0.2-1.0); CALCIUM, SERUM 7.7 mg/dL (8.5-10.1); CREATININE 1.9 mg/dL (0.6-1.3); MAGNESIUM 2.2 mg/dL (1.8-2.4); PHOSPHORUS 2.3 mg/dL (2.5-4.9); POTASSIUM 3.8 mmol/L (3.5-5.1); TOTAL PROTEIN, SERUM 7.1 g/dL (6.4-8.2)
[2017-06-26] MEDS: LINEZOLID 600 MG TABLET PO SCH ×2 (11:18→21:54)
[2017-06-26] MEDS: AMLODIPINE BESYLATE 10 MG TABLET PO SCH (11:18)
--- NOTE | 2017-06-26 11:26 | NUR ---
PER RN KEVYN AT 9AM PATIENT IS RECEIVING HEMO DIALYSIS, WILL CHECK BACK IN ORDER TO PERFORM THORACENTESIS
[2017-06-26] MEDS ORDERED: EPOETIN ALFA (10,000 UNIT) 10,000 UNIT/ML VIAL IV ONE (12:00)
--- NOTE | 2017-06-26 12:30 | NUR ---
RN NOTES PATIENT S/P THORACENTESIS, SEEN AND EXAMINED BY , PER DR. REYEZ NO NEED TO SEND SPECIMEN TO LAB, 1100 ML OF FLUID REMOVED, NO ASE NOTED, WILL CONTINUE TO MONITOR
[2017-06-26] MEDS ORDERED: Z GUARD REMEDY 2 OZ OINT TP PRN (14:00)
[2017-06-26 16:00] VITALS: BP 171/97
[2017-06-26] MEDS ORDERED: K PHOS NEUTRAL 250 MG TABLET PO ONE (16:00)
[2017-06-26] MEDS: ONDANSETRON HCL/PF 4 MG/2 ML VIAL IVP PRN (17:33)
--- NOTE | 2017-06-26 18:49 | NUR ---
RN CLOSING NOTES: PATIENT AWAKE ALERT AND VERBALLY RESPONSIVE. PT ON 2LPM VIA NC AND IS TOLERATING WELL. PT TURNED AND REPOSITIONED EVERY Q2HRS. PT HAS NAWAF MIDLINE AND IS PATENT AND INTACT. PT ALSO HAS RIGHT UPPER CHEST WALL SANTIAGO CATH AND IS INTACT. PT ON TELE MONITOR. CALL LIGHT WITHIN PT'S REACH. BED KEPT IN LOW, LOCKED POSITION, AND SIDE RAILS X2 UP. WILL CONTINUE TO MONITOR AND ENDORSE TO NEXT SHIFT FOR CONTINUITY OF CARE
--- NOTE | 2017-06-26 19:40 | NUR ---
RN OPENING NOTES RECEIVED REPORT FROM NEENA RN, ALINE. FOUND Pt AWAKE, RESTING IN BED. NO S/S OF ACUTE DISTRESS OR SOB NOTED. Pt IS A/OX3, VERBAL, ABLE TO MAKE NEEDS KNOWN. Pt NO LONGER ON TELE, M/S NOW. IV ACCESS ON NAWAF ML #20G, SL. SAFETY MEASURES IN PLACE. BED LOW, LOCKED, HOB ELEVATED, SIDE RAILS UP, CALL LIGHT AND BEDSIDE TABLE WITHIN REACH. WILL CONTINUE TO MONITOR Pt THROUGHOUT THE NIGHT FOR SAFETY.
[2017-06-26 20:00] VITALS: BP 149/80
[2017-06-26] MEDS: ZOLPIDEM TARTRATE 5 MG TABLET PO PRN (21:55)
--- NOTE | 2017-06-26 22:30 | NUR ---
HS BG 282. 6UN OF INSULIN COVERAGE GIVEN PER SLIDING SCALE.
[2017-06-27] MEDS: ACETAMINOPHEN 325 MG TABLET PO PRN ×2 (01:00→20:30)
[2017-06-27] MEDS: ONDANSETRON HCL/PF 4 MG/2 ML VIAL IVP PRN ×3 (01:00→20:34)
[2017-06-27] MEDS: BLOOD SUGAR DIAGNOSTIC 1 EACH STRIP IN SCH ×5 (06:32→22:03)
--- NOTE | 2017-06-27 06:32 | NUR ---
AC BG 346. 8UN OF INSULIN COVERAGE GIVEN PER SLIDING SCALE.
[2017-06-27] MEDS: INSULIN REGULAR, HUMAN 100 UNIT/ML 3 ML VIAL SQ PRN ×3 (06:35→17:48)
--- NOTE | 2017-06-27 06:50 | NUR ---
RN CLOSING NOTES NO SIGNIFICANT CHANGES IN Pt's CONDITION. Pt REMAINS IN STABLE CONDITION. NO S/S OF ACUTE DISTRESS OR SOB NOTED DURING THE NIGHT. ALL NEEDS MET AND ATTENDED TO. SAFETY MEASURES IN PLACE. WILL ENDORSE TO DAYSHIFT RN FOR Pt's HAILE.
--- NOTE | 2017-06-27 07:30 | NUR ---
MS RN RECEIVED ON BED, AWAKE,ALERT,ORIENTED X3,NOT IN ANY FORM OF DISTRESS, RESPIRATIONS EVEN AND UNLABORED,NO SOB NOTED, LUNGS ARE CLEAR,ABDOMEN SOFT`,POSITIVE BOWEL SOUNDS, FOR DIALYSIS TODAY, WILL MONITOR PATIENT'S CONDITION.
[2017-06-27 08:00] VITALS: BP 186/112
[2017-06-27] MEDS: RENAL NOVASOURCE (8OZ) 1 EA BOX PO SCH ×3 (08:00→17:38)
[2017-06-27] MEDS ORDERED: MORPHINE SULFATE INJ 2 MG/ML DISP.SYRIN IV PRN (09:00)
[2017-06-27] MEDS ORDERED: DEXTROSE 50%-WATER 50 ML DISP.SYRIN IV PRN (09:00)
--- NOTE | 2017-06-27 09:00 | NUR ---
MS RN HELD MEDICATIONS AT THIS TIME, HAVING HD AT THIS MOMENT.
[2017-06-27 10:18] LABS: BASOPHILS % (AUTO) 0.1 % (0.0-2.0); HEMATOCRIT 26 % (33-45); HEMOGLOBIN 8.1 g/dL (11.5-14.8); LYMPHOCYTES # (AUTO) 0.5 /CMM (0.8-4.8); LYMPHOCYTES % (AUTO) 4.8 % (20.0-44.0); MEAN CORPUSCULAR HEMOGLOBIN 29 PG (26.0-33.0); MEAN CORPUSCULAR HGB CONC 32 g/dl (31.0-36.0); MEAN CORPUSCULAR VOLUME 92 fL (82-100); MONOCYTES # (AUTO) 0.3 /CMM (0.1-1.30); MONOCYTES % (AUTO) 2.8 % (2.0-12.0); NEUTROPHILS # (AUTO) 9.9 /CMM (1.8-8.9); NEUTROPHILS % (AUTO) 92.3 % (43.0-81.0); PLATELET COUNT (AUTO) 252 /CMM (150-450); RDW COEFFICIENT OF VARIATION 27.7 (11.5-15.0); RED BLOOD CELL COUNT(AUTO) 2.79 MIL/uL (4.0-5.2); WHITE BLOOD COUNT (AUTO) 10.7 K/uL (4.3-11.0)
[2017-06-27 10:26] LABS: CALCIUM, SERUM 7.9 mg/dL (8.5-10.1); CREATININE 2.8 mg/dL (0.6-1.3); POTASSIUM 5.3 mmol/L (3.5-5.1)
[2017-06-27] MEDS: AMLODIPINE BESYLATE 10 MG TABLET PO SCH (13:27)
[2017-06-27] MEDS: HYDROMORPHONE INJ 0.5 MG/0.5 ML SYRINGE IV PRN ×3 (13:28→22:06)
[2017-06-27 16:00] VITALS: BP 153/95
--- NOTE | 2017-06-27 19:30 | NUR ---
MS RN OPENING NOTES RECEIVED PT IN BED AWAKE, ALERT, VERBALLY RESPONSIVE, ON O2 VIA N/C AT 2L/MIN, RESPIRATIONS EVEN, UNLABORED, NO APPARENT DISTRESS NOTED. CALL LIGHT WITHIN REACH. DENIES ANY PAIN OR DISCOMFORT. ATTENDED ALL NEEDS. WILL CONTINUE TO MONITOR.
[2017-06-27 20:00] VITALS: BP 129/76
[2017-06-27 22:00] VITALS: BP 129/76
[2017-06-27] MEDS: *INSULIN REGULAR(HUMULIN R)HUM 100 UNIT/ML VIAL SQ PRN (22:05)
[2017-06-27] MEDS: ZOLPIDEM TARTRATE 5 MG TABLET PO PRN (22:11)
[2017-06-28] MEDS ORDERED: HYDROMORPHONE INJ 0.5 MG/0.5 ML SYRINGE ONE (03:03)
[2017-06-28] MEDS: HYDROMORPHONE INJ 0.5 MG/0.5 ML SYRINGE IV PRN (03:07)
[2017-06-28] MEDS: ONDANSETRON HCL/PF 4 MG/2 ML VIAL IVP PRN (03:26)
[2017-06-28] MEDS: BLOOD SUGAR DIAGNOSTIC 1 EACH STRIP IN SCH ×4 (06:11→21:55)
--- NOTE | 2017-06-28 06:45 | NUR ---
MS RN CLOSING NOTES PT IN BED RESTING COMFORTABLY,ON O2 VIA N/C 2L/MIN, RESPIRATIONS EVEN, UNLABORED NO APPARENT DISTRESS NOTED. PT NPO. BLOOD GLUCOSE 14O, INSULIN HELD, PT STATED DOES NOT WANT TO BE GIVEN.DENIES ANY PAIN OR DISCOMFORT AT THIS TIME. CALL LIGHT WITHIN REACH. ATTENDED ALL NEEDS. WILL ENDORSE TO THE DAY SHIFT FOR CONTINUITY OF CARE.
--- NOTE | 2017-06-28 07:30 | NUR ---
MS RN OPENING NOTES RECEIVED PATIENT IN NO APPARENT DISTRESS. PATIENT IS ALERT AND ORIENTED. BEDSIDE RAILS ARE UP X2. BED IS LOCKED AND LOWERED. CALL LIGHT IS WITHIN REACH. PATIENT WAS REPOSITIONED. WILL CONTINUE TO MONITOR.
[2017-06-28 08:00] VITALS: BP 126/80
[2017-06-28] MEDS: RENAL NOVASOURCE (8OZ) 1 EA BOX PO SCH ×3 (08:00→17:00)
[2017-06-28] MEDS ORDERED: MORPHINE SULFATE INJ 4 MG/ML DISP.SYRIN IV PRN (08:30)
[2017-06-28] MEDS: AMLODIPINE BESYLATE 10 MG TABLET PO SCH (09:00)
[2017-06-28] MEDS: predniSONE 20 MG TABLET PO SCH (09:00)
[2017-06-28] MEDS ORDERED: ANESTHESIA TRAY IN PYXIS 1 EA TRAY MC ONE (10:56)
--- NOTE | 2017-06-28 12:01 | NUR ---
CALLED PHARMACY IN [place] TO [facility] PATIENT HAS ORDERED. PHARMACY WILL PROVIDE. WILL ADMINISTER MEDICATION ONCE THE PHARMACY PROVIDES MEDICATION.
[2017-06-28 12:07] LABS: BASOPHILS % (AUTO) 0.1 % (0.0-2.0); EOSINOPHILS % (AUTO) 0.4 % (0.0-6.0); HEMATOCRIT 25 % (33-45); LYMPHOCYTES # (AUTO) 0.7 /CMM (0.8-4.8); MEAN CORPUSCULAR HEMOGLOBIN 30 PG (26.0-33.0); MEAN CORPUSCULAR HGB CONC 32 g/dl (31.0-36.0); MEAN CORPUSCULAR VOLUME 92 fL (82-100); MONOCYTES # (AUTO) 0.4 /CMM (0.1-1.30); MONOCYTES % (AUTO) 3.6 % (2.0-12.0); NEUTROPHILS # (AUTO) 9.1 /CMM (1.8-8.9); NEUTROPHILS % (AUTO) 88.9 % (43.0-81.0); PLATELET COUNT (AUTO) 234 /CMM (150-450); RDW COEFFICIENT OF VARIATION 27.4 (11.5-15.0); RED BLOOD CELL COUNT(AUTO) 2.73 MIL/uL (4.0-5.2); WHITE BLOOD COUNT (AUTO) 10.3 K/uL (4.3-11.0)
[2017-06-28 12:16] LABS: CALCIUM, SERUM 7.9 mg/dL (8.5-10.1); CREATININE 2.6 mg/dL (0.6-1.3); POTASSIUM 5.1 mmol/L (3.5-5.1)
[2017-06-28] MEDS: NYSTATIN TOP POWDER 15 GM BOTTLE TP SCH ×2 (12:38→18:20)
--- NOTE | 2017-06-28 13:40 | NUR ---
PATIENT WAS TAKEN TO OPERATION ROOM FOR VAT'S AND PLEURAL BIOPSY AND TALC PLEURODESIS
[2017-06-28] MEDS ORDERED: MIDAZOLAM HCL 2 MG/2ML VIAL ONE (14:14)
[2017-06-28] MEDS ORDERED: SUCCINYLCHOLINE CHLORIDE 20 MG/ML VIAL ONE (14:14)
[2017-06-28] MEDS ORDERED: FENTANYL PF 100MCG/2ML AMPUL ONE ×2 (14:14→16:07)
[2017-06-28] MEDS ORDERED: TALC IX ONE (14:21)
[2017-06-28] MEDS ORDERED: hydrALAZINE HCL IV 20 MG VIAL ONE (16:30)
--- NOTE | 2017-06-28 17:20 | NUR ---
PATIENT RETURNED FROM SURGERY. CHEST TUBE IN PLACE SET UP TO LOW CONTINOUS SUCTION. MORPHINE 4MG GIVEN FOR PAIN. WILL CONTINUE TO MONITOR.
--- NOTE | 2017-06-28 18:50 | NUR ---
MS RN CLOSING NOTES PATIENT IS ALERT AND ORIENTED. IN NO APPARENT DISTRESS. BEDSIDE RAILS ARE UPX2./ BED IS LOCKED AND LOWERED. CHEST TUBE HOOKED UP TO LOW CONTINUOUS SUCTION. CALL LIGHT IS WITHIN REACH. ALL NEEDS WERE MET. WILL ENDORSE CARE TO COMMERCIAL SHEET METAL FOREMAN NURSE FOR HAILE.
--- NOTE | 2017-06-28 19:30 | NUR ---
RN OPENING NOTES PATIENT IS IN BED, ALERT AND ORIENTED X3. VS STABLE. NO RESPIRATORY DISTRESS. RESPIRATIONS EVEN AND UNLABORED. NO SOB NOTED. IV ACCESS ON RIGHT FA PATENT AND INTACT, NO REDNESS AND INFILTRATION NOTED. CHEST TUBE HOOKED UP TO LOW CONTINUES SUCTION. BED IN LOW AND LOCKED POSITION, SIDE RAILS X2. CALL LIGHT WITHIN EASY REACH. WILL CONTINUE TO MONITOR AND ASSESS DURING THE SHIFT.
[2017-06-28] MEDS: MORPHINE SULFATE INJ 4 MG/ML DISP.SYRIN IV PRN ×2 (19:54→22:27)
[2017-06-28 20:10] VITALS: BP 151/91
[2017-06-28] MEDS: INSULIN REGULAR, HUMAN 100 UNIT/ML 3 ML VIAL SQ PRN (21:57)
[2017-06-28] MEDS: ZOLPIDEM TARTRATE 5 MG TABLET PO PRN (22:09)
[2017-06-29] VITALS: BP 155/85
[2017-06-29] MEDS: MORPHINE SULFATE INJ 4 MG/ML DISP.SYRIN IV PRN ×7 (01:06→23:38)
[2017-06-29] MEDS: ONDANSETRON HCL/PF 4 MG/2 ML VIAL IVP PRN ×3 (02:24→21:15)
[2017-06-29 04:00] VITALS: BP 148/90
[2017-06-29] MEDS: BLOOD SUGAR DIAGNOSTIC 1 EACH STRIP IN SCH ×4 (06:42→21:46)
[2017-06-29] MEDS: INSULIN REGULAR, HUMAN 100 UNIT/ML 3 ML VIAL SQ PRN ×3 (06:47→16:41)
--- NOTE | 2017-06-29 06:50 | NUR ---
RN NOTES BS 79. NO INSULIN ADMINISTERED. WILL CONTINUE TO MONITOR.
--- NOTE | 2017-06-29 07:24 | NUR ---
RN CLOSING NOTES PATIENT IS IN BED, ALERT AND ORIENTED X3. VS STABLE. NO RESPIRATORY DISTRESS. RESPIRATIONS EVEN AND UNLABORED. NO SOB NOTED. IV ACCESS ON RIGHT FA PATENT AND INTACT, NO REDNESS AND INFILTRATION NOTED. CHEST TUBE HOOKED UP TO LOW CONTINUES SUCTION. ALL NEEDS ARE MET AND MEDICATIONS GIVEN PER MD ORDER. BED IN LOW AND LOCKED POSITION, SIDE RAILS X2. CALL LIGHT WITHIN EASY REACH. WILL ENDORSE TO RN DAY SHIFT FOR HAILE.
--- NOTE | 2017-06-29 07:30 | NUR ---
MS RN OPENING NOTES PATIENT IS ALERT AND ORIENTED X4. IN NO APPARENT DISTRESS. BEDSIDE RAILS ARE UPX2. BED IS LOCKED AND LOWERED. CALL LIGHT IS WITHIN REACH. IV LINE IS PATENT AND INTACT. WILL CONTINUE TO MONITOR.
[2017-06-29 08:00] VITALS: BP 151/85
[2017-06-29 08:11] LABS: BASOPHILS % (AUTO) 0.1 % (0.0-2.0); HEMATOCRIT 24 % (33-45); HEMOGLOBIN 7.6 g/dL (11.5-14.8); LYMPHOCYTES # (AUTO) 0.4 /CMM (0.8-4.8); LYMPHOCYTES % (AUTO) 1.5 % (20.0-44.0); MEAN CORPUSCULAR HEMOGLOBIN 30 PG (26.0-33.0); MEAN CORPUSCULAR HGB CONC 32 g/dl (31.0-36.0); MEAN CORPUSCULAR VOLUME 94 fL (82-100); MONOCYTES # (AUTO) 0.7 /CMM (0.1-1.30); MONOCYTES % (AUTO) 2.4 % (2.0-12.0); NEUTROPHILS # (AUTO) 25.9 /CMM (1.8-8.9); PLATELET COUNT (AUTO) 204 /CMM (150-450); RDW COEFFICIENT OF VARIATION 28.1 (11.5-15.0); RED BLOOD CELL COUNT(AUTO) 2.55 MIL/uL (4.0-5.2); WHITE BLOOD COUNT (AUTO) 26.9 K/uL (4.3-11.0)
[2017-06-29 08:29] LABS: CALCIUM, SERUM 6.4 mg/dL (8.5-10.1); CREATININE 2.3 mg/dL (0.6-1.3); POTASSIUM 4.4 mmol/L (3.5-5.1)
[2017-06-29] MEDS: AMLODIPINE BESYLATE 10 MG TABLET PO SCH (08:37)
[2017-06-29] MEDS: predniSONE 20 MG TABLET PO SCH (08:37)
[2017-06-29] MEDS: NYSTATIN TOP POWDER 15 GM BOTTLE TP SCH ×2 (08:37→16:30)
[2017-06-29] MEDS: RENAL NOVASOURCE (8OZ) 1 EA BOX PO SCH ×3 (08:38→16:31)
[2017-06-29 09:41] LABS: BAND % (MANUAL) 1 % (0.0-5.0); LYMPHOCYTES % (MANUAL) 2 % (16-48); MONOCYTES % (MANUAL) 2 % (0-11.0); NEUTROPHILS % (MANUAL) 95 (42-76)
[2017-06-29] MEDS ORDERED: EPOETIN ALFA (10,000 UNIT) 10,000 UNIT/ML VIAL IV ONE (11:30)
--- NOTE | 2017-06-29 11:30 | NUR ---
NOTIFIED PHARMACY TO PROVIDE EPOGEN FOR PATIENT. PHARMACY STATED THEY WOULD PROVIDE.
--- NOTE | 2017-06-29 12:40 | NUR ---
NOTIFIED PHARMACY THAT EPOGEN HAS NOT BEEN PROVIDED. PHARMACY WILL FOLLOW UP AND PROVIDE.
--- NOTE | 2017-06-29 15:30 | NUR ---
DIALYSIS NURSE AT PATIENTS BEDSIDE TO BEGIN DIALYSIS.
[2017-06-29 16:00] VITALS: BP 147/79
--- NOTE | 2017-06-29 18:30 | NUR ---
ELECTRIC METER INSTALLER HELPER CLOSING NOTES PATIENT IS ALERT AND ORIENTED. IN NO APPARENT DISTRESS. BEDSIDE RAILS ARE UPX2. BED IS LOCKED AND LOWERED. CALL LIGHT IS WITHIN REACH. IV LINE IS PATENT AND INTACT. WILL ENDORSE CARE TO TEXTILE BAG SEWER NURSE FOR HAILE. ALL NEEDS WERE MET.
--- NOTE | 2017-06-29 19:30 | NUR ---
MS RN OPENING NOTES RECEIVED PT IN BED, ALERT, AWAKE,VERBALLY RESPONSIVE. ON O2 VIA NC 2L/MIN, RESPIRATIONS EVEN, UNLABORED, NO APPARENT DISTRESS NOTED. DENIES ANY PAIN OR DISCOMFORT AT THIS TIME. CHEST TUBE RT UPPER CHEST IN PLACE, IV SITE NAWAF MIDLINE INTACT, PATENT. CALL LIGHT WITHIN REACH, ATTENDED ALL NEEDS. BED LOCKED IN LOWEST POSITION. WILL CONTINUE TO MONITOR ACCORDINGLY.
[2017-06-29 20:00] VITALS: BP 146/85
[2017-06-29] MEDS: *INSULIN REGULAR(HUMULIN R)HUM 100 UNIT/ML VIAL SQ PRN (21:11)
[2017-06-29 22:00] VITALS: BP 146/84
[2017-06-29] MEDS: ZOLPIDEM TARTRATE 5 MG TABLET PO PRN (23:37)
[2017-06-30] MEDS: MORPHINE SULFATE INJ 4 MG/ML DISP.SYRIN IV PRN ×6 (04:28→23:19)
--- NOTE | 2017-06-30 06:05 | NUR ---
MS RN CLOSING NOTES PT IN BED, RESTING COMFORTABLY, ON O2 VIA N/C AT 2L/MIN, RESPIRATIONS EVEN, UNLABORED, NO RESPIRATORY DISTRESS NOTED. DENIES ANY PAIN OR DISCOMFORT AT THIS TIME. IV SITE INTACT. PATENT.CHEST TUBE IN PLACE, CONNECTED TO LOW CONTINUOUS SUCTION. CALL LIGHT WITHIN REACH. ATTENDED ALL NEEDS. WILL CONTINUE TO MONITOR ACCORDINGLY.
--- NOTE | 2017-06-30 06:30 | NUR ---
MS RN NOTE BLOOD GLUCOSE MACHINE NOT WORKING, GRINDER AND HONER OPERATOR AUTOMATIC NOTIFIED, ENDORSED TO DAY SHIFT TO FOLLOW UP.
[2017-06-30 08:00] VITALS: BP 134/81
--- NOTE | 2017-06-30 08:00 | NUR ---
RN NOTES RECEIVED PATIENT IN THE BED A/O X4, NO ACUTE RESPIRATORY DISTRESS, V/S TAKEN STABLE, PATIENT C/O GENERALIZED PAIN 6/10, CHEST TUBE ON RIGHT UPPER CHEST INTACT, BS-271 MG/DL, SCHEDULED MEDICATION ADMINISTERED, ASSIST TURN AND REPOSTION Q 2 HR. PATIENT HAS A GENERALIZED EDEMA, NEEDS ATTENDED AND ANTICIPATED, RIGHT UPPER ARM MIDLINE INTACT, CONTINUED MONITORING .
[2017-06-30] MEDS: BLOOD SUGAR DIAGNOSTIC 1 EACH STRIP IN SCH ×4 (08:28→22:46)
[2017-06-30] MEDS: AMLODIPINE BESYLATE 10 MG TABLET PO SCH (08:39)
--- NOTE | 2017-06-30 08:40 | NUR ---
RN NOTES ADMINISTERED MORPHINE 1 MG/ML IV PUSH FOR GENERALIZED PAIN 12/06, V/S TAKEN BP 134/81, P-98, ASSIST TURN AND REPOSTION Q 2 HR, CALL LIGHT WITHIN TO REACH, SAFETY PRECAUTION MAINTAINED ALL THE TIME.
[2017-06-30] MEDS: RENAL NOVASOURCE (8OZ) 1 EA BOX PO SCH ×3 (08:52→17:12)
[2017-06-30] MEDS ORDERED: predniSONE 20 MG TABLET PO SCH (09:00)
[2017-06-30] MEDS: ONDANSETRON HCL/PF 4 MG/2 ML VIAL IVP PRN ×3 (09:47→23:18)
--- NOTE | 2017-06-30 09:47 | NUR ---
RN NOTES ADMINISTERED ZOFRAN 4 MG/ML IV PUSH FOR NAUSEA, PER PATIENT REQUEST, CONTINUED MONITORING.
[2017-06-30] MEDS: NYSTATIN TOP POWDER 15 GM BOTTLE TP SCH ×2 (09:54→17:12)
[2017-06-30] MEDS: INSULIN REGULAR, HUMAN 100 UNIT/ML 3 ML VIAL SQ PRN ×3 (09:56→18:12)
--- NOTE | 2017-06-30 11:57 | NUR ---
RN NOTES ADMINISTERED MORPHINE 2 MG/ML IV PUSH GENERALIZED PAIN 12/06 PER PATIENT REQUEST, MEDICATION WERE ADMINISTERED FOR NAUSEA EFFECTIVE, V/S JERO DUGGAN UED MONITORING, ASSIST TURN AND REPOSTION Q 2 HR.
[2017-06-30 12:17] LABS: HEMATOCRIT 27 % (33-45); HEMOGLOBIN 8.5 g/dL (11.5-14.8); LYMPHOCYTES # (AUTO) 0.5 /CMM (0.8-4.8); LYMPHOCYTES % (AUTO) 1.9 % (20.0-44.0); MEAN CORPUSCULAR HEMOGLOBIN 29 PG (26.0-33.0); MEAN CORPUSCULAR HGB CONC 31 g/dl (31.0-36.0); MEAN CORPUSCULAR VOLUME 94 fL (82-100); MONOCYTES # (AUTO) 0.7 /CMM (0.1-1.30); MONOCYTES % (AUTO) 2.7 % (2.0-12.0); NEUTROPHILS # (AUTO) 24.6 /CMM (1.8-8.9); NEUTROPHILS % (AUTO) 95.4 % (43.0-81.0); PLATELET COUNT (AUTO) 226 /CMM (150-450); RDW COEFFICIENT OF VARIATION 29.2 (11.5-15.0); RED BLOOD CELL COUNT(AUTO) 2.91 MIL/uL (4.0-5.2); WHITE BLOOD COUNT (AUTO) 25.8 K/uL (4.3-11.0)
[2017-06-30 12:38] LABS: LYMPHOCYTES % (MANUAL) 2 % (16-48); MONOCYTES % (MANUAL) 2 % (0-11.0); NEUTROPHILS % (MANUAL) 96 (42-76)
[2017-06-30 16:00] VITALS: BP 131/72
[2017-06-30] MEDS: ALBUTEROL FS 2.5 MG/0.5 ML VIAL.NEB NEB PRN (16:56)
[2017-06-30] MEDS: IPRATROPIUM NEB FS 0.5 MG/2.5 ML AMPUL.NEB NEB PRN (16:56)
--- NOTE | 2017-06-30 17:13 | NUR ---
RN NOTES BS 270 MG/DL COVERAGE GIVEN, V/S TAKEN STABLE, SCHEDULED MEDICATION ADMINISTERED, ALSO ADMINISTERED MORPHINE 2 MG/ML IV PUSH, AND ZOFRAN FOR NAUSEA 4 MG/ML IV PUSH PER PATIENT REQUEST, CONTINUED MONITORING.
--- NOTE | 2017-06-30 18:30 | NUR ---
RN NOTES PATIENT IN THE BED EATING, MEDICATION WERE ADMINISTERED FOR PAIN AND NAUSEA EFFECTIVE, NO ACUTE RESPIRATORY DISTRESS, NEEDS ATTENDED AND ANTICIPATED, STABLE AT THIS TIME, CALL LIGHT WITHIN TO REACH. DAUGHTER NEXT TO THE BED. ENDORSED ONCOMING NURSE FOR HAILE.
--- NOTE | 2017-06-30 19:25 | NUR ---
RN OPENING NOTES PT AWAKE AND RESTING IN BED. PT FAMILY AT BEDSIDE. PT COMPLAINS OF BACK PAIN. EXPLAINED TO PT OF PRN SCHEDULE FOR PAIN MEDICINE. PT VERBALLY ACKNOWLEDGED. PT HAS A NAWAF MIDLINE #20, INTACT AND PATENT. PT ALSO HAS R UPPER CHEST PORTACATH. PT SCHEDULED FOR DIALYSIS TOMORROW. SAFETY PRECAUTIONS IN PLACE, BED IN LOW, LOCKED POSITION, X2 SIDE RAILS UP. CALL LIGHT WITHIN REACH WILL CONTINUE TO MONITOR.
[2017-06-30 20:00] VITALS: BP 142/80
[2017-06-30] MEDS: MAGNESIUM HYDROXIDE 30 ML UDC PO PRN (22:38)
[2017-06-30] MEDS: *INSULIN REGULAR(HUMULIN R)HUM 100 UNIT/ML VIAL SQ PRN (22:39)
[2017-07-01] MEDS: MORPHINE SULFATE INJ 4 MG/ML DISP.SYRIN IV PRN ×4 (02:18→23:12)
[2017-07-01] MEDS: ONDANSETRON HCL/PF 4 MG/2 ML VIAL IVP PRN ×2 (05:15→11:52)
[2017-07-01] MEDS: BLOOD SUGAR DIAGNOSTIC 1 EACH STRIP IN SCH ×4 (06:58→22:45)
[2017-07-01] MEDS: INSULIN REGULAR, HUMAN 100 UNIT/ML 3 ML VIAL SQ PRN ×3 (07:11→16:47)
--- NOTE | 2017-07-01 07:54 | NUR ---
RN CLOSING NOTES PT AWAKE AND RESTING IN BED. PT HAS A NAWAF MIDLINE #20, INTACT AND PATENT. PT ALSO HAS R UPPER CHEST PORTACATH. PT HAS RIGHT CHEST TUBE. PT SCHEDULED FOR DIALYSIS TODAY. SAFETY PRECAUTIONS IN PLACE, BED IN LOW, LOCKED POSITION, X2 SIDE RAILS UP. CALL LIGHT WITHIN REACH WILL ENDORSE TO DAY SHIFT FOR CONTINUITY OF CARE.
[2017-07-01 08:00] VITALS: BP 159/94
[2017-07-01] MEDS: RENAL NOVASOURCE (8OZ) 1 EA BOX PO SCH ×3 (08:00→16:47)
[2017-07-01] MEDS: AMLODIPINE BESYLATE 10 MG TABLET PO SCH ×2 (08:35→13:37)
[2017-07-01] MEDS: predniSONE 20 MG TABLET PO SCH (08:35)
[2017-07-01] MEDS: NYSTATIN TOP POWDER 15 GM BOTTLE TP SCH ×2 (08:36→16:47)
--- NOTE | 2017-07-01 08:45 | NUR ---
CHANGED CHEST TUBE TO WATER SEAL AND TURNED OFF SUCTION.
[2017-07-01] MEDS ORDERED: METOCLOPRAMIDE HCL 10 MG/2 ML VIAL IV PRN (09:00)
[2017-07-01] MEDS ORDERED: PROMETHAZINE HCL 25 MG/ML AMPUL IV PRN (09:30)
[2017-07-01] MEDS ORDERED: PROMETHAZINE HCL 25 MG TABLET PO PRN (09:30)
[2017-07-01] MEDS: ALBUTEROL FS 2.5 MG/0.5 ML VIAL.NEB NEB PRN (10:11)
[2017-07-01] MEDS: IPRATROPIUM NEB FS 0.5 MG/2.5 ML AMPUL.NEB NEB PRN (10:11)
--- NOTE | 2017-07-01 11:53 | NUR ---
PT IS REFUSING INSULIN AT THIS TIME. STATES SHE IS NAUSEAS AND WILL NOT BE EATING LUNCH.
--- NOTE | 2017-07-01 12:24 | NUR ---
WOUND CARE CONSULT: PT FOLLOWED BY PLASTIC SURGICAL TEAM FOR WOUND/SKIN CARE. DEFER TO SURGICAL TEAM FOR WOUND TREATMENT PLAN. ALL SKIN PROTECTION MEASURES IN PLACE AND DISCUSSED WITH NURSING STAFF. FIRST STEP MATTRESS ON ORDER. MD IN AGREEMENT WITH PLAN OF CARE.
[2017-07-01 16:00] VITALS: BP 161/93
--- NOTE | 2017-07-01 16:14 | NUR ---
PT PLACED ON [facility] MATTRESS PER MD REQUEST.
--- NOTE | 2017-07-01 16:48 | NUR ---
PT REFUSING TO EAT AND INSULIN. "IM NOT HUNGRY, I DON'T WANT IT." DC ON CDIF STOOL PATIENT IS NOT HAVING LIQUID STOOLS.
[2017-07-01 16:50] VITALS: BP 150/80
--- NOTE | 2017-07-01 18:58 | NUR ---
NO SIGNIFICANT CHANGES IN PATIENT CONDITION THROUGHOUT THE SHIFT. NO SOB OR DISTRESS NOTED AT THIS TIME. PATIENT DENIES SIGNIFICANT PAIN. CHEST TUBE DRAINAGE MINIMAL ABOUT 20ML. BED IN A LOW POSITION, CALL LIGHT WITHIN PATIENT REACH. WILL ENDORSE FOR HAILE.
--- NOTE | 2017-07-01 19:40 | NUR ---
RN OPENING NOTES PT RECEIVED AWAKE AND RESTING IN BED. A & O X 3. ON BED REST. NO C/O SOB, NO C/O PAIN, NO ACUTE DISTRESS NOTED @ THIS TIME. PT FAMILY AT BEDSIDE. PT HAS A NAWAF MIDLINE #20, INTACT AND PATENT. PT ALSO HAS R UPPER CHEST SANTIAGO CATH. HAD HD TODAY WITH OUTPUT OF 2000 PER AM RN. WILL KEEP CLEAN & DRY & WILL TURN/REPOSITION PER PROTOCOL. SAFETY PRECAUTIONS IN PLACE, BED IN LOW, LOCKED POSITION, X 2 SIDE RAILS UP. CALL LIGHT WITHIN REACH. WILL CONTINUE TO MONITOR CLOSELY.
[2017-07-01 20:38] VITALS: BP 155/98
[2017-07-01] MEDS: MAGNESIUM HYDROXIDE 30 ML UDC PO PRN ×2 (22:41→22:49)
[2017-07-01] MEDS: *INSULIN REGULAR(HUMULIN R)HUM 100 UNIT/ML VIAL SQ PRN (22:45)
--- NOTE | 2017-07-01 22:49 | NUR ---
REFUSED MOM PT C/O CONSTIPATION, MOM OFFERED FIRST PT AGREED TO TAKE IT BUT WHEN READY TO ADMINISTER & INFORMED THE PT, SHE REFUSED TO TAKE IT @ THIS TIME. WILL RECHECK WITH THE PATIENT AGAIN IF SHE AGREES TO TAKE MOM FOR CONSTIPATION.
--- NOTE | 2017-07-01 23:12 | NUR ---
PRN MORPHINE GIVEN PATIENT C/O GENERALIZED BODY PAIN 10/06 & PRN MORPHINE GIVEN ORDERED. WILL REASSESS FOR EFFECTIVENESS. MONITORING CLOSELY.
--- NOTE | 2017-07-02 07:20 | NUR ---
MS/RN OPENING NOTE PATIENT IS RECEIVED IN BED AWAKE. ALERT AND ORIENTED X3. RESPIRATION REGULAR AND UNLABORED. DENIES SOB, PAIN AT THIS TIME. CHEST TUBE IN PLACE. NOTEC SEROUS DRAINAGE IN THE COLLECTION CHAMBER. CHEST TUBE INSERTION SITE WITH NO S/S INFECTION. RIGHT CHEST SANTIAGO CATH WITH NO BLEEDING AND NO S/S INFECTION. NAWAF MIDLINE G 20 PATENT. BED LOW AND LOCKED. SIDE RAILS UP X3. CALL LIGHT WITHIN REACH. ENCOURAGED TO PRESS THE CALL LIGHT FOR ASSISTANCE. WILL CONTINUE TO MONITOR.
--- NOTE | 2017-07-02 07:29 | NUR ---
MS RN CLOSING NOTES PT IS AWAKE AND RESTING IN BED. A & O X 3. ON BED REST. NO C/O SOB, NO C/O PAIN, NO ACUTE DISTRESS NOTED @ THIS TIME. PT FAMILY AT BEDSIDE. PT HAS A NAWAF MIDLINE #20, INTACT AND PATENT. PT ALSO HAS R UPPER CHEST SANTIAGO CATH WITH 50 ML OUTPUT IN THE DRAIN @ CLINICAL UNIT COORDINATOR. KEPT CLEAN & DRY & TURNED/REPOSITIONED PER PROTOCOL. SAFETY PRECAUTIONS IN PLACE, BED IN LOW, LOCKED POSITION, X 2 SIDE RAILS UP. CALL LIGHT WITHIN REACH. ENDORSED TO AM RN FOR CONTINUITY OF CARE.
--- NOTE | 2017-07-02 07:40 | NUR ---
MS/RN CHEST TUBE REMOVAL CHEST TUBE IS REMOVED BY SOPHIA LYONS) AND COVERED WITH DRESSING. THE PATIENT TOLERATED THE REMOVAL WELL. RESPIRATION REGULAR AND UNLABORED. DENIES SOB. NO CHEST PAIN. NO DISCOMFORT. WILL CONTINUE TO MONITOR.
[2017-07-02] MEDS: MORPHINE SULFATE INJ 4 MG/ML DISP.SYRIN IV PRN ×2 (08:09→23:28)
[2017-07-02] MEDS: predniSONE 20 MG TABLET PO SCH (08:11)
[2017-07-02] MEDS: AMLODIPINE BESYLATE 10 MG TABLET PO SCH (08:11)
[2017-07-02] MEDS: MAGNESIUM HYDROXIDE 30 ML UDC PO PRN (08:12)
[2017-07-02] MEDS: BLOOD SUGAR DIAGNOSTIC 1 EACH STRIP IN SCH ×4 (08:13→21:54)
[2017-07-02] MEDS: RENAL NOVASOURCE (8OZ) 1 EA BOX PO SCH ×3 (08:13→16:07)
[2017-07-02] MEDS: INSULIN REGULAR, HUMAN 100 UNIT/ML 3 ML VIAL SQ PRN (08:26)
[2017-07-02 08:29] VITALS: BP 148/90
[2017-07-02] MEDS: NYSTATIN TOP POWDER 15 GM BOTTLE TP SCH ×2 (08:34→16:06)
--- NOTE | 2017-07-02 10:12 | NUR ---
MS/RN NEW ORDER RECEIVED NEW ORDER FROM SOPHIA LYONS). THE ORDER READ BACK, VERIFIED. NOTED AND CARRIED OUT.
[2017-07-02] MEDS ORDERED: BISACODYL SUPP (10 MG) 10 MG/SUPP.RECT SUPP.RECT RC PRN (10:30)
[2017-07-02 11:06] LABS: EOSINOPHILS % (AUTO) 0.2 % (0.0-6.0); HEMATOCRIT 25 % (33-45); HEMOGLOBIN 7.8 g/dL (11.5-14.8); LYMPHOCYTES # (AUTO) 0.4 /CMM (0.8-4.8); LYMPHOCYTES % (AUTO) 2.1 % (20.0-44.0); MEAN CORPUSCULAR HEMOGLOBIN 29 PG (26.0-33.0); MEAN CORPUSCULAR HGB CONC 31 g/dl (31.0-36.0); MEAN CORPUSCULAR VOLUME 94 fL (82-100); MONOCYTES # (AUTO) 0.7 /CMM (0.1-1.30); MONOCYTES % (AUTO) 3.7 % (2.0-12.0); NEUTROPHILS # (AUTO) 17.5 /CMM (1.8-8.9); PLATELET COUNT (AUTO) 195 /CMM (150-450); RDW COEFFICIENT OF VARIATION 28.5 (11.5-15.0); RED BLOOD CELL COUNT(AUTO) 2.67 MIL/uL (4.0-5.2); WHITE BLOOD COUNT (AUTO) 18.6 K/uL (4.3-11.0)
[2017-07-02 13:20] LABS: LYMPHOCYTES % (MANUAL) 2 % (16-48); MONOCYTES % (MANUAL) 5 % (0-11.0); NEUTROPHILS % (MANUAL) 93 (42-76)
[2017-07-02 16:00] VITALS: BP 145/87
[2017-07-02] MEDS: ONDANSETRON HCL/PF 4 MG/2 ML VIAL IVP PRN (16:07)
--- NOTE | 2017-07-02 17:10 | NUR ---
MS/RN NOTE 1706 BLOOS SUGAR 199. PATIENT REFUSED INSULING DESPITE EXPLAINING RISKS ANDBENEFITS MULTIPLE TIMES.
--- NOTE | 2017-07-02 18:04 | NUR ---
MS/RN CLOSING NOTE PATIENT ALERT AND ORIENTED X3. DENIES SOB. RESPIRATION REGULAR AND UNLABORED. DENIES PAIN AT THIS TIME. PATIENT IN NO APPARENT DISTRESS. GOOD AND GENTLE SKIN CARE RENDERED. KEPT CLEAN, DRY AND COMFORTABLE. TURNED AND REPOSITIONED X2HR AND NEEDED. RIGHT CHEST SANTIAGO CATH WITH NO BLEEDING AND NO S/S INFECTION. RIGHT UPPER MIDLINE PATENT. BED LOW AND LOCKED. [place] RAILS UP X3. CALL LIGHT WITHIN REACH. WILL ENDORSE TO BOWLING ALLEY OPERATOR.
--- NOTE | 2017-07-02 19:08 | NUR ---
MS/RN NOTE FURNACE MECHANIC MIA MADE AWARE OF PATIENT NOT HAVING BM. NEW ORDER OBTAINED. NOTED AND CARRIED OUT.
[2017-07-02] MEDS ORDERED: NA PHOS,M-B/NA PHOS,DI-BA 1 EA ENEMA RC ONE (19:30)
--- NOTE | 2017-07-02 19:30 | NUR ---
RN OPEN NOTES RECEIVED PATIENT RESTING IN BED, EASILY AROUSALBE. A/O X3. NO SIGNS OF DISTRESS OR DISCOMFORT. BREATHING EVEN AND UNLABORED. ON 2LPM O2 VIA NC. HAS NAWAF MIDLINE, PATENT AND INTACT, NO SIGNS OF REDNESS OR INFILTRATION. BED IN LOW LOCKED POSITION WITH SIDE RAILS X2. CALL LIGHT WITHIN REACH. WILL CONTINUE TO MONITOR.
[2017-07-02 20:00] VITALS: BP 135/82
--- NOTE | 2017-07-02 20:38 | NUR ---
RN NOTES ADMINISTERED FLEET ENEMA. PATIENT TOLERATED WELL. WILL CONTINUE TO MONITOR.
[2017-07-02] MEDS: *INSULIN REGULAR(HUMULIN R)HUM 100 UNIT/ML VIAL SQ PRN (21:55)
--- NOTE | 2017-07-02 22:01 | NUR ---
RN NOTES PATIENT BS 208, REFUSED INSULIN ADMINISTRATION X3. RISK AND BENEFITS EXPLAINED. WILL CONTINUE TO MONITOR.
--- NOTE | 2017-07-02 23:12 | NUR ---
RN NOTES PATIENT HAD LARGE BM POST FLEET ENEMA. WILL CONTINUE TO MONITOR.
[2017-07-03] MEDS: ZOLPIDEM TARTRATE 5 MG TABLET PO PRN ×2 (01:59→22:18)
--- NOTE | 2017-07-03 06:30 | NUR ---
RN NOTES PATIENT BS 145, REFUSED INSULIN ADMINISTRATION X3. RISK AND BENEFITS EXPLAINED. WILL CONTINUE TO MONITOR.
[2017-07-03] MEDS: INSULIN REGULAR, HUMAN 100 UNIT/ML 3 ML VIAL SQ PRN ×2 (06:35→12:50)
[2017-07-03] MEDS: BLOOD SUGAR DIAGNOSTIC 1 EACH STRIP IN SCH ×4 (06:35→21:56)
--- NOTE | 2017-07-03 06:51 | NUR ---
RN CLOSING NOTES PATIENT RESTING IN BED, EASILY AROUSALBE. A/O X3. NO SIGNS OF DISTRESS OR DISCOMFORT. BREATHING EVEN AND UNLABORED. HAS NAWAF MIDLINE, PATENT AND INTACT, NO SIGNS OF REDNESS OR INFILTRATION. ALL NEEDS MET. NO SIGNIFICANT CHANGES THROUGH THE NIGHT. REPOSITIONED PATIENT Q2H AND PRN. BED IN LOW LOCKED POSITION WITH SIDE RAILS X2. CALL LIGHT WITHIN REACH. WILL ENDORSE TO AM SHIFT FOR HAILE.
--- NOTE | 2017-07-03 07:00 | NUR ---
RN NOTES: PATIENT AOX3. NONLABORED BREATHING ON 2 L NASAL CANNULA. DENIES PAIN AT THE MOMENT. MIDLINE ON NAWAF PATENT AND INTACT. RIGHT CHEST PORTACATH INTACT WITH DRESSING INTACT. BED IN LOWEST LOCKED POSITION. CALL LIGHT WITHIN REACH. WILL CONTINUE TO MONITOR
[2017-07-03 07:04] LABS: BASOPHILS % (AUTO) 0.1 % (0.0-2.0); HEMATOCRIT 24 % (33-45); HEMOGLOBIN 7.6 g/dL (11.5-14.8); LYMPHOCYTES # (AUTO) 0.6 /CMM (0.8-4.8); LYMPHOCYTES % (AUTO) 4.6 % (20.0-44.0); MEAN CORPUSCULAR HEMOGLOBIN 30 PG (26.0-33.0); MEAN CORPUSCULAR HGB CONC 32 g/dl (31.0-36.0); MEAN CORPUSCULAR VOLUME 93 fL (82-100); MONOCYTES # (AUTO) 0.5 /CMM (0.1-1.30); MONOCYTES % (AUTO) 4.4 % (2.0-12.0); NEUTROPHILS # (AUTO) 11.2 /CMM (1.8-8.9); NEUTROPHILS % (AUTO) 90.9 % (43.0-81.0); PLATELET COUNT (AUTO) 183 /CMM (150-450); RDW COEFFICIENT OF VARIATION 27.1 (11.5-15.0); RED BLOOD CELL COUNT(AUTO) 2.55 MIL/uL (4.0-5.2); WHITE BLOOD COUNT (AUTO) 12.3 K/uL (4.3-11.0)
[2017-07-03 07:19] LABS: CALCIUM, SERUM 8.2 mg/dL (8.5-10.1); CREATININE 3.2 mg/dL (0.6-1.3); MAGNESIUM 3.6 mg/dL (1.8-2.4); PHOSPHORUS 4.6 mg/dL (2.5-4.9)
[2017-07-03 08:00] VITALS: BP 124/91
[2017-07-03] MEDS: MORPHINE SULFATE INJ 4 MG/ML DISP.SYRIN IV PRN ×4 (08:14→22:00)
[2017-07-03] MEDS: RENAL NOVASOURCE (8OZ) 1 EA BOX PO SCH ×3 (08:15→17:02)
[2017-07-03] MEDS: NYSTATIN TOP POWDER 15 GM BOTTLE TP SCH ×2 (08:19→17:02)
[2017-07-03] MEDS: AMLODIPINE BESYLATE 10 MG TABLET PO SCH (08:19)
--- NOTE | 2017-07-03 08:19 | NUR ---
RN NOTES: BP MEDS HELD DUE TO DIALYSIS PLAN TODAY
[2017-07-03] MEDS ORDERED: predniSONE 10 MG TABLET PO SCH (09:00)
[2017-07-03] MEDS ORDERED: SODIUM POLYSTYRENE SULFONATE 15 G/60 ML BOTTLE PO ONE (10:30)
--- NOTE | 2017-07-03 12:48 | NUR ---
RN NOTES: 1 TABLET PROMETHAZINE WASTED,OPENED AND WASTED.PATIENT REFUSED
[2017-07-03] MEDS: ONDANSETRON HCL/PF 4 MG/2 ML VIAL IVP PRN (12:56)
[2017-07-03 13:53] VITALS: BP 135/74
[2017-07-03 16:12] VITALS: BP 134/76
--- NOTE | 2017-07-03 17:04 | NUR ---
RN NOTES: BLOOD SUGAR 281. PATIENT REFUSING INSULIN, BENEFITS AND RISKS EXPLAINED MULTIPLE TIMES. SHE STATES" NO I DONT FEEL LIKE EATING"
[2017-07-03 19:00] VITALS: BP 146/76
--- NOTE | 2017-07-03 19:45 | NUR ---
RN NOTES: PATIENT AOX3. NONLABORED BREATHING ON 2 L NASAL CANNULA. DENIES PAIN AT THE MOMENT. MIDLINE ON NAWAF PATENT AND INTACT. RIGHT CHEST PERMACATH INTACT WITH DRESSING INTACT. BED IN LOWEST LOCKED POSITION. CALL LIGHT WITHIN REACH. ENDORSED TO NEXT SHIFT.
[2017-07-03 20:00] VITALS: BP 144/77
[2017-07-03] MEDS: *INSULIN REGULAR(HUMULIN R)HUM 100 UNIT/ML VIAL SQ PRN (21:57)
[2017-07-04] MEDS: MORPHINE SULFATE INJ 4 MG/ML DISP.SYRIN IV PRN ×6 (00:54→21:44)
[2017-07-04] MEDS: ONDANSETRON HCL/PF 4 MG/2 ML VIAL IVP PRN ×2 (05:42→09:28)
--- NOTE | 2017-07-04 06:50 | NUR ---
MS RN NOTES AWAKE & RESPONSIVE. NOT IN ANY DISTRESS. NO SOB NOTED. DENIES ANY PAIN OR DISCOMFORT AT THIS TIME. WITH IV-HL PATENT & INTACT. AM CARE DONE. MONITORED ACCORDINGLY. CALL LIGHT WITHIN REACH. BED IN LOWEST POSITION. SR UP X 2 FOR SAFETY. WILL ENDORSE TO NEXT SHIFT.
[2017-07-04] MEDS: BLOOD SUGAR DIAGNOSTIC 1 EACH STRIP IN SCH ×4 (06:58→22:03)
[2017-07-04] MEDS: INSULIN REGULAR, HUMAN 100 UNIT/ML 3 ML VIAL SQ PRN ×3 (07:00→17:36)
[2017-07-04 08:00] VITALS: BP 131/75
--- NOTE | 2017-07-04 08:00 | NUR ---
RN NOTES RECEIVED PATIENT IN THE BED A/O X3/4, NI ACUTE RESPIRATORY DISTRESS, V/S STABLE, NEEDS ATTENDED AND ANTICIPATED, ASSIST PATIENT TURN AND REPOSTION Q 2 HR. SCHEDULED MEDICATION ADMINISTERED, CALL LIGHT WITHIN TO REACH, CONTINUED MONITORING.
[2017-07-04] MEDS: AMLODIPINE BESYLATE 10 MG TABLET PO SCH (08:37)
[2017-07-04] MEDS: NYSTATIN TOP POWDER 15 GM BOTTLE TP SCH ×2 (08:37→17:28)
[2017-07-04] MEDS: RENAL NOVASOURCE (8OZ) 1 EA BOX PO SCH ×3 (08:37→17:28)
--- NOTE | 2017-07-04 08:41 | NUR ---
RN NOTES ADMINISTERED MORPHINE SULFATE 2 MG/ML IV PUSH FOR CHRONIC GENERALIZED PAIN 12/06 PER PATIENT REQUEST, V/S TAKEN BP -131/75, P-99, CALL LIGHT WITHIN TO REACH, SAFETY PRECAUTION MAINTAINED ALL THE TIME. CONTINUED MONITORING.
--- NOTE | 2017-07-04 09:28 | NUR ---
RN NOTES ADMINISTERED ZOFRAN 4 MG/ML IV PUSH PER PATIENT REQUEST FOR NAUSEA, CONTINUED MONITORING.
--- NOTE | 2017-07-04 10:00 | NUR ---
rn notes dressing changed on right mid quadrant incision, no discharge notes,continued monitoring. assist turn and reposition q 2 hr.
--- NOTE | 2017-07-04 13:15 | NUR ---
GALE MA ADMINISTERED MORPHINE SULFATE 2 MG/ML IV PUSH PER PATIENT REQUEST FOR GENERALIZED CHRONIC PAIN 12/06, CALL LIGHT WITHIN TO REACH, SAFETY PRECAUTION MAINTAINED ALL THE TIME. ENCOURAGED TO INCREASE FLUID INTAKE.
[2017-07-04 16:00] VITALS: BP 146/83
[2017-07-04] MEDS: NYSTATIN (PYXIS) 500,000 UNIT/5 ML ORAL.SUSP PO SCH (17:33)
[2017-07-04] MEDS: FLUCONAZOLE (100 MG) 100 MG TABLET PO SCH (17:33)
--- NOTE | 2017-07-04 17:35 | NUR ---
rn notes administered morphine sulfate 2 mg /ml iv push per patient request for chronic generalized pain 01/06, v/s taken bp-146/83, p-68. bs- 151 mg/dl administered 2 units of coverage, scheduled medication administered, patient sitting edge of the bed dangle legs, call light within to reach. continued monitoring.
--- NOTE | 2017-07-04 18:47 | NUR ---
rn notes patient in the bed sleeping, medication were administered for pain effective, no output, assist turn and reposition q 2 hr, call light within to reach, continued monitoring.
--- NOTE | 2017-07-04 18:49 | NUR ---
rn notes patient stable at this time , endorsed oncoming nurse for sharon.
--- NOTE | 2017-07-04 19:10 | NUR ---
RN NOTES RECEIVED PT AWAKE, HOB ELEVATED, WITH O2 INHALATION AT 4LPM VIA NC AND TOLERATED WELL. PT ALERT AND ORIENTED X3, APPEARS COMFORTABLE, NO SIGNS OF PAIN AND DISCOMFORT AT THIS TIME. RIGHT UPPER ARM MIDLINE PATENT AND INTACT. KEPT CLEAN AND DRY. FALL PRECAUTION OBSERVED WITH CALL LIGHT WITHIN REACH. WILL CONTINUE TO MONITOR PT.
[2017-07-04 20:00] VITALS: BP 117/76
[2017-07-04 22:00] VITALS: BP 117/76
[2017-07-05] MEDS: ZOLPIDEM TARTRATE 5 MG TABLET PO PRN (00:30)
[2017-07-05] MEDS: MORPHINE SULFATE INJ 4 MG/ML DISP.SYRIN IV PRN ×5 (02:05→16:49)
[2017-07-05] MEDS: BLOOD SUGAR DIAGNOSTIC 1 EACH STRIP IN SCH ×3 (06:45→16:46)
[2017-07-05] MEDS: INSULIN REGULAR, HUMAN 100 UNIT/ML 3 ML VIAL SQ PRN ×2 (06:48→17:11)
--- NOTE | 2017-07-05 07:02 | NUR ---
RN NOTES PT STILL COMPLAINING OF GENERALIZED BODY PAIN,MANAGED WITH MORPHINE 2MG IVP. VITAL SIGNS STABLE, DENIES NAUSEA AND VOMITING. SKIN CARE AND TREATMENT DONE. TURNED AND REPOSITIONED Q2H SCHEDULED. KEPT CLEAN AND DRY. ALL NEEDS ATTENDED. FALL PRECAUTION OBSERVED. WILL ENDORSE TO MORNING RN FOR CONTINUITY OF CARE.
[2017-07-05 07:39] LABS: BASOPHILS % (AUTO) 0.1 % (0.0-2.0); EOSINOPHILS # (AUTO) 0.1 /CMM (0.0-0.7); EOSINOPHILS % (AUTO) 1.3 % (0.0-6.0); HEMATOCRIT 21 % (33-45); LYMPHOCYTES # (AUTO) 0.6 /CMM (0.8-4.8); LYMPHOCYTES % (AUTO) 8.2 % (20.0-44.0); MEAN CORPUSCULAR HEMOGLOBIN 30 PG (26.0-33.0); MEAN CORPUSCULAR HGB CONC 32 g/dl (31.0-36.0); MEAN CORPUSCULAR VOLUME 93 fL (82-100); MONOCYTES # (AUTO) 0.2 /CMM (0.1-1.30); MONOCYTES % (AUTO) 2.8 % (2.0-12.0); NEUTROPHILS # (AUTO) 6.1 /CMM (1.8-8.9); NEUTROPHILS % (AUTO) 87.6 % (43.0-81.0); PLATELET COUNT (AUTO) 157 /CMM (150-450); RDW COEFFICIENT OF VARIATION 26.5 (11.5-15.0); WHITE BLOOD COUNT (AUTO) 6.9 K/uL (4.3-11.0)
[2017-07-05 07:50] LABS: CALCIUM, SERUM 7.7 mg/dL (8.5-10.1); CREATININE 3.2 mg/dL (0.6-1.3); MAGNESIUM 3.2 mg/dL (1.8-2.4); PHOSPHORUS 4.4 mg/dL (2.5-4.9)
[2017-07-05 07:56] LABS: HEMOGLOBIN 6.8 g/dL (11.5-14.8)
[2017-07-05 08:00] VITALS: BP 132/76
--- NOTE | 2017-07-05 08:00 | NUR ---
RN NOTES RECEIVED CALL FROM LAB PATIENT HGL 6.8, CALLED DR DUFF AND GET ORDER ONE UNIT OF BLOOD. ORDER TAKEN AND CARRIED OUT.
[2017-07-05] MEDS: RENAL NOVASOURCE (8OZ) 1 EA BOX PO SCH ×3 (08:29→16:49)
[2017-07-05] MEDS: AMLODIPINE BESYLATE 10 MG TABLET PO SCH (08:30)
[2017-07-05] MEDS: NYSTATIN (PYXIS) 500,000 UNIT/5 ML ORAL.SUSP PO SCH ×3 (08:30→16:45)
[2017-07-05] MEDS: NYSTATIN TOP POWDER 15 GM BOTTLE TP SCH ×2 (08:31→16:48)
--- NOTE | 2017-07-05 08:33 | NUR ---
RN NOTES ADMINISTERED SCHEDULED MEDICATION , AND MORPHINE SULFATE 2 MG/ML IV PUSH PER PATIENT REQUEST PAIN LEVEL IS 8/10, NEEDS ATTENDED AND ANTICIPATED, CALL LIGHT WITHIN TO REACH, CONTINUED MONITORING.
[2017-07-05 09:45] LABS: EOSINOPHILS % (MANUAL) 3 % (0-4); LYMPHOCYTES % (MANUAL) 8 % (16-48); MONOCYTES % (MANUAL) 2 % (0-11.0); NEUTROPHILS % (MANUAL) 87 (42-76)
--- NOTE | 2017-07-05 12:12 | NUR ---
RN NOTES ADMINISTERED MORPHINE SULFATE 2 MG/ML IV PUSH PER PATIENT REQUEST, PAIN LEVEL IS 8/10, V/S TAKEN BP- 135/76, P-78 . BS-146 MG/DL PATIENT REFUSED COVERAGE. CONTINUED MONITORING.
[2017-07-05] MEDS: ONDANSETRON HCL/PF 4 MG/2 ML VIAL IVP PRN (13:06)
--- NOTE | 2017-07-05 13:06 | NUR ---
RN NOTES ADMINISTERED ZOFRAN 4 MG/ML IV PUSH FOR NAUSEA, PRESCRIBED, CONTINUED MONITORING.
[2017-07-05 15:30] VITALS: BP 152/67
--- NOTE | 2017-07-05 15:30 | NUR ---
RN NOTES STARTED BLOOD TRANSFUSION AT THIS TIME, V/S TAKEN BP-152/67, P-105, R-18, T-98.3, PATIENT REFUSED PAIN AT THIS TIME, NO RESPIRATORY DISTRESS ON O2 -2L NC. CALL LIGHT WITHIN TO REACH, ALSO PATIENT GETTING HEMODIALYSES SAME TIME, CONTINUED MONITORING.
[2017-07-05 15:39] VITALS: BP_SYST 142; BP_SYST 145; BP_DIAS 75
[2017-07-05 16:00] VITALS: BP 146/80
[2017-07-05 16:05] VITALS: BP 142/75
--- NOTE | 2017-07-05 16:07 | NUR ---
RN NOTES BLOOD TRANSFUSING FINISHED AT THIS TIME GIVEN DURING HEMODIALYSIS, T -97.8, P-102, R-18, BP- 142/75, PATIENT HAS NO S/S OF REACTION, NO ACUTE RESPIRATORY DISTRESS, STILL GETTING HEMODIALYSIS, PATIENT TOLERATED WELL, CALL LIGHT WITHIN TO REACH, CONTINUED MONITORING.
[2017-07-05] MEDS: FLUCONAZOLE (100 MG) 100 MG TABLET PO SCH (16:45)
--- NOTE | 2017-07-05 16:49 | NUR ---
RN NOTES ADMINISTERED MORPHINE SULFATE 2 MG/ML IV PUSH PER PATIENT REQUEST FOR PAIN 12/06, V/S TAKEN BP-145/75, P-102, CALL LIGHT WITHIN TO REACH, CONTINUED MONITORING.
--- NOTE | 2017-07-05 17:12 | NUR ---
RN NOTES BS -199 MG/DL, ADMINISTERED 4 UNITS OF COVERAGE, SCHEDULED MEDICATION ADMINISTERED, V/S STABLE, MEDICATION WERE ADMINISTERED FOR PAIN EFFECTIVE, XCALL LIGHT WITHIN TO REACH, CONTINUED MONITORING. PATIENT GOING TO D/C SNF.
--- NOTE | 2017-07-05 18:40 | NUR ---
DISCHARGE NOTES PATIENT DISCHARGE AT THIS TIME. A/O X4, NO ACUTE RESPIRATORY DISTRESS, PATIENT MED COMPLIANT, V/S STABLE, MEDICALLY STABLE, BS-199 MG/DL, ON O2-2L. MED RECONCILIATION AND DISCHARGE ORDER REVIEWED AND EXPLAINED TO. REPORT GIVEN [facility] [place]. RN VERBALIZED UNDERSTANDING,BELONGING RETURNED BACK TO THE PATIENT. PATIENT REFUSED SIGN PAPERWORK, PICTURE TAKEN. DAUGHTER AWARE OF DISCHARGE PLANING . 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
== END 2017-07-05 18:37 | DRG 951 ==
LOC: ER 15:23 → TELE 19:15 → MED 06-26 18:40 → TELE 06-28 19:13 → MED 06-29 08:45
PROVIDERS: ADMIT Internal Medicine; ATTEND Internal Medicine
PROC: B546ZZA Ultrasonography of Right Subclavian Vein, Guidance (ICD-10-PCS; 2017-06-25)
PROC: 05H533Z Insertion of Infusion Device into Right Subclavian Vein, Percutaneous Approach (ICD-10-PCS; 2017-06-25)
PROC: 0W993ZZ Drainage of Right Pleural Cavity, Percutaneous Approach (ICD-10-PCS; principal; 2017-06-26)
PROC: 5A1D70Z Performance of Urinary Filtration, Intermittent, Less than 6 Hours Per Day (ICD-10-PCS; principal; 2017-06-26)
PROC: 5A1D70Z Performance of Urinary Filtration, Intermittent, Less than 6 Hours Per Day (ICD-10-PCS; 2017-06-27)
PROC: 3E0L3GC Introduction of Other Therapeutic Substance into Pleural Cavity, Percutaneous Approach (ICD-10-PCS; 2017-06-28)
PROC: 0BBN4ZX Excision of Right Pleura, Percutaneous Endoscopic Approach, Diagnostic (ICD-10-PCS; 2017-06-28)
PROC: 5A1D70Z Performance of Urinary Filtration, Intermittent, Less than 6 Hours Per Day (ICD-10-PCS; 2017-06-29)
PROC: 5A1D70Z Performance of Urinary Filtration, Intermittent, Less than 6 Hours Per Day (ICD-10-PCS; 2017-07-01)
PROC: 5A1D70Z Performance of Urinary Filtration, Intermittent, Less than 6 Hours Per Day (ICD-10-PCS; 2017-07-03)
PROC: 30233N1 Transfusion of Nonautologous Red Blood Cells into Peripheral Vein, Percutaneous Approach (ICD-10-PCS; 2017-07-05)
PROC: 5A1D70Z Performance of Urinary Filtration, Intermittent, Less than 6 Hours Per Day (ICD-10-PCS; 2017-07-05)
DX: I13.11 Hypertensive heart and chronic kidney disease without heart failure, with stage 5 chronic kidney disease, or end stage renal disease (principal); J96.21 Acute and chronic respiratory failure with hypoxia; J90 Pleural effusion, not elsewhere classified; L89.153 Pressure ulcer of sacral region, stage 3; N18.6 End stage renal disease; E11.22 Type 2 diabetes mellitus with diabetic chronic kidney disease; K21.9 Gastro-esophageal reflux disease without esophagitis; Z99.2 Dependence on renal dialysis; E87.5 Hyperkalemia; E87.1 Hypo-osmolality and hyponatremia; D63.8 Anemia in other chronic diseases classified elsewhere; E11.65 Type 2 diabetes mellitus with hyperglycemia; E78.5 Hyperlipidemia, unspecified; E87.70 Fluid overload, unspecified; G89.4 Chronic pain syndrome; I70.0 Atherosclerosis of aorta; K59.00 Constipation, unspecified; N39.0 Urinary tract infection, site not specified; Z91.14 Patient's other noncompliance with medication regimen; Z90.710 Acquired absence of both cervix and uterus; Z87.891 Personal history of nicotine dependence; E11.40 Type 2 diabetes mellitus with diabetic neuropathy, unspecified; Z88.6 Allergy status to analgesic agent; Z91.02 Food additives allergy status; Z91.011 Allergy to milk products; G47.00 Insomnia, unspecified; Z79.01 Long term (current) use of anticoagulants; Z79.4 Long term (current) use of insulin; Z79.899 Other long term (current) drug therapy; F12.90 Cannabis use, unspecified, uncomplicated; J98.11 Atelectasis; L98.9 Disorder of the skin and subcutaneous tissue, unspecified; Z87.440 Personal history of urinary (tract) infections; T38.0X5A Adverse effect of glucocorticoids and synthetic analogues, initial encounter; Y92.129 Unspecified place in nursing home as the place of occurrence of the external cause; M85.9 Disorder of bone density and structure, unspecified
CPT/HCPCS: 36415; 36600; 71045-TC; 76942-TC; 80048-TC; 80053-TC; 80061-TC; 80076-TC; 82945-TC; 82962-TC; 83605-TC; 83735-TC; 84100-TC; 84484-TC; 85025-TC; 85730-TC; 86850-TC; 86921-TC; 87040-TC; 87070-TC; 87075-TC; 87081-TC; 87086-TC; 88305-TC; 90935-TC; 94799-TC; 97110-TC; A4217; A4606; A6253; A6402; A6403; C1751; J0330; J0360; J0690; J0885; J1815; J2250; J2270; J2370; J2405; J2550; J2704; J3010; J3490; J7050; P9016-BL; Q0169; Z7610